=== PATIENT | female | born 1950 | race Caucasian/White ===

== ENCOUNTER 2019-08-24 16:14 | Inpatient (IN) | payer MEDICARE, MEDICAID ==
[~2019-08-24] VITALS: Ht 162.6 cm; Wt 61.9 kg
[2019-08-24 16:20] VITALS: BP 150/84
--- NOTE | 2019-08-24 16:20 | NUR ---
ED Nurse Note: Pt brought in by ambulance from [place] due to coughing and (+) pleural effusion. pt is alert x3.
--- NOTE | 2019-08-24 16:21 | Emergency Room Report ---
History of Present Illness General Chief Complaint: Upper Respiratory Illness Source: Patient, Medical Record, EMS Present Illness HPI 68-year-old female presents with worsening cough since August 17 pound no known aggravating relieving factors sputum production is noted, no fevers no chills no shortness of breath no chest pain no abdominal pain, severity is mild, constant patient was also noted to have a left pleural effusion that is worsening patient was sent in for evaluation and treatment Allergies: Coded Allergies: CODEINE (Verified Allergy, Unknown, 08/24/19) NEUROMUSCULAR BLOCKERS, STEROIDAL (Verified Allergy, Unknown, 08/24/19) Uncoded Allergies: ANABOLIC STEROIDS (Allergy, Unknown, 08/24/19) STEROIDS (Allergy, Unknown, 08/24/19) COVID-19 Screening Contact w/high risk pt: No Recent Travel to affected area: No Experienced COVID-19 symptoms?: Yes COVID-19 symptoms experienced: Cough Patient History Past Medical History: see triage record Reviewed Nursing Documentation: PMH: Agreed; PSxH: Agreed Review of Systems All Other Systems: negative except mentioned in HPI Physical Exam Vital Signs Date Time Temp Pulse Resp B/P (MAP) Pulse Ox O2 Delivery O2 Flow Rate FiO2 08/24/19 16:15 97.7 77 20 150/84 (106) 95 Room Air Sp02 EP Interpretation: reviewed, normal General Appearance: well appearing, no apparent distress, alert Head: normocephalic, atraumatic Eyes: bilateral eye PERRL, bilateral eye EOMI ENT: uvula midline, moist mucus membranes Neck: supple, thyroid normal, supple/symm/no masses Respiratory: lungs clear, no respiratory distress, no retraction, no accessory muscle use, decreased breath sounds Cardiovascular #1: normal peripheral pulses, regular rate, rhythm, no edema, no gallop, no murmur Gastrointestinal: non tender, soft, no guarding, no rebound Musculoskeletal: normal inspection Neurologic: alert, oriented x3 Psychiatric: mood/affect normal Skin: no rash, warm/dry Medical Decision Making Diagnostic Impression: Primary Impression: Suspected COVID-19 virus infection Additional Impressions: Cough Pleural effusion on left ER Course 68-year-old female presents with worsening cough, pleural effusion differential diagnosis includes COPD exacerbation, infection, empyema, COVID Will admit patient for COVID rule out, will defer antibiotics to inpatient team , the sputum samples will be sent patient will be admitted to [facility] Patient admitted to [facility] under Dr. Blanc Laboratory Tests Test 08/24/19 16:15 White Blood Count 6.6 K/UL (4.8-10.8) Red Blood Count 3.87 M/UL (4.20-5.40) L Hemoglobin 10.5 G/DL (12.0-16.0) L Hematocrit 32.8 % (37.0-47.0) L Mean Corpuscular Volume 85 FL (80-99) Mean Corpuscular Hemoglobin 27.2 PG (27.0-31.0) Mean Corpuscular Hemoglobin Concent 32.2 G/DL (32.0-36.0) Red Cell Distribution Width 13.7 % (11.6-14.8) Platelet Count 221 K/UL (150-450) Mean Platelet Volume 7.1 FL (6.5-10.1) Neutrophils (%) (Auto) 55.5 % (45.0-75.0) Lymphocytes (%) (Auto) 30.3 % (20.0-45.0) Monocytes (%) (Auto) 8.0 % (1.0-10.0) Eosinophils (%) (Auto) 5.5 % (0.0-3.0) H Basophils (%) (Auto) 0.7 % (0.0-2.0) Sodium Level 136 MMOL/L (136-145) Potassium Level 4.0 MMOL/L (3.5-5.1) Chloride Level 103 MMOL/L (98-107) Carbon Dioxide Level 22 MMOL/L (21-32) Anion Gap 11 mmol/L (5-15) Blood Urea Nitrogen 56 mg/dL (7-18) H Creatinine 3.2 MG/DL (0.55-1.30) H Estimated Glomerular Filtration Rate 14.4 mL/min (>60) Glucose Level 111 MG/DL (74-106) H Lactic Acid Level 0.30 mmol/L (0.4-2.0) L Calcium Level 9.5 MG/DL (8.5-10.1) Phosphorus Level 4.1 MG/DL (2.5-4.9) Magnesium Level 2.2 MG/DL (1.8-2.4) Total Bilirubin 0.2 MG/DL (0.2-1.0) Aspartate Amino Transferase (AST) 17 U/L (15-37) Alanine Aminotransferase (ALT) 17 U/L (12-78) Alkaline Phosphatase 93 U/L (46-116) Troponin I 0.000 ng/mL (0.000-0.056) Pro-B-Type Natriuretic Peptide 969 pg/mL (0-125) H Total Protein 7.9 G/DL (6.4-8.2) Albumin 2.9 G/DL (3.4-5.0) L Globulin 5.0 g/dL Albumin/Globulin Ratio 0.6 (1.0-2.7) L Lipase 334 U/L (73-393) EKG Diagnostic Results EKG Time: 16:31 EP Interpretation: NSR rate 80, QTc 426, no acute ST elevations, left axis deviation Rhythm Strip Diag. Results Rhythm Strip Time: 16:40 EP Interpretation: yes Rate: 82 Rhythm: NSR, no PVC's, no ectopy Chest X-Ray Diagnostic Results Chest X-Ray Diagnostic Results : Chest X-Ray Ordered: Yes # of Views/Limited/Complete: 1 View Indication: Other - Cough EP Interpretation: Yes Interpretation: other - Left pleural effusion versus opacity Impression: Other - Left pleural effusion Electronically Signed by: Aron Villalba MD Last Vital Signs Date Time Temp Pulse Resp B/P (MAP) Pulse Ox O2 Delivery O2 Flow Rate FiO2 08/24/19 16:15 97.7 77 20 150/84 (106) 95 Room Air Disposition: ADMITTED INPATIENT Condition: Stable Aron Villalba MD Aug 24, 2019 16:21
[2019-08-24] MEDS ORDERED: HYDRALAZINE HCL10 MG ORAL (16:32)
[2019-08-24] MEDS ORDERED: DUONEB 0.5-3(2.53 ML HHN (16:32)
[2019-08-24] MEDS ORDERED: VITAMIN D3-ALO1 EACH PO (16:32)
[2019-08-24] MEDS ORDERED: FERROUS SULFAT325 MG ORAL (16:32)
[2019-08-24] MEDS ORDERED: MUCINEX600 MG PO (16:32)
[2019-08-24] MEDS ORDERED: FOLIC ACID1 MG ORAL (16:32)
[2019-08-24] MEDS ORDERED: POLYETHYLENE GL17 GM ORAL (16:32)
[2019-08-24] MEDS ORDERED: SEROQUEL25 MG ORAL (16:32)
[2019-08-24] MEDS ORDERED: DOCUSATE SODIU100 MG ORAL (16:32)
[2019-08-24] MEDS ORDERED: MILK OF MA400 MG/51 ORAL (16:37)
[2019-08-24] MEDS ORDERED: ACETAMINOPHEN325 M1 ORAL ×2 (16:37)
[2019-08-24] MEDS ORDERED: FLEET ENEMA133 ML RECTAL (16:37)
[2019-08-24] MEDS ORDERED: LAXATIVE SUPPOS10 MG RC (16:37)
[2019-08-24] MEDS ORDERED: METHIMAZOLE10 MG PO (16:43)
[2019-08-24] MEDS ORDERED: K-DUR20 MEQ ORAL (16:43)
[2019-08-24] MEDS ORDERED: FUROSEMIDE20 M1 ORAL (16:43)
[2019-08-24] MEDS ORDERED: NEPHROVITE1 TAB ORAL (16:45)
--- NOTE | 2019-08-24 16:52 | NUR ---
ED Nurse Note: blood and swab sample sent to lab. pt unable to provide urine at this time but is aware urine sample is needed.
[2019-08-24 17:10] LABS: BASOPHILS % (AUTO) 0.7 % (0.0-2.0); EOSINOPHILS % (AUTO) 5.5 % (0.0-3.0); HEMATOCRIT 32.8 % (37.0-47.0); HEMOGLOBIN 10.5 G/DL (12.0-16.0); LYMPHOCYTES % (AUTO) 30.3 % (20.0-45.0); MEAN CORPUSCULAR VOLUME 85 FL (80-99); NEUTROPHILS % (AUTO) 55.5 % (45.0-75.0); PLATELET COUNT 221 K/UL (150-450); RED BLOOD COUNT 3.87 M/UL (4.20-5.40); RED CELL DISTRIBUTION WIDTH 13.7 % (11.6-14.8); WHITE BLOOD COUNT 6.6 K/UL (4.8-10.8)
[2019-08-24 17:12] LABS: ANION GAP 11 mmol/L (5-15); BLOOD UREA NITROGEN 56 mg/dL (7-18); CALCIUM 9.5 MG/DL (8.5-10.1); CARBON DIOXIDE 22 MMOL/L (21-32); CHLORIDE 103 MMOL/L (98-107); CREATININE 3.2 MG/DL (0.55-1.30); SODIUM 136 MMOL/L (136-145)
[2019-08-24 17:23] LABS: ALANINE AMINOTRANSFERASE 17 U/L (12-78); ALBUMIN 2.9 G/DL (3.4-5.0); ALBUMIN/GLOBULIN RATIO 0.6 (1.0-2.7); ALKALINE PHOSPHATASE 93 U/L (46-116); ASPARTATE AMINO TRANSFERASE 17 U/L (15-37); BILIRUBIN,TOTAL 0.2 MG/DL (0.2-1.0); PHOSPHORUS 4.1 MG/DL (2.5-4.9)
[2019-08-24 18:00] VITALS: BP 144/80
--- NOTE | 2019-08-24 18:00 | NUR ---
ED Nurse Note: pt in bed resting, no acute distress is noted. VSS as documented.
[2019-08-24] MEDS ORDERED: Miralax 17gm pkt ORAL PRN (18:15)
[2019-08-24] MEDS ORDERED: Milk of Magnesia 30ml Ud ORAL PRN (18:15)
[2019-08-24] MEDS ORDERED: Albuterol/Ipratropium 3ml neb HHN PRN (18:15)
--- NOTE | 2019-08-24 19:06 | NUR ---
ED Nurse Note: Recieved report from WILVER Tang. Patient resting in bed, no acute distress noted.
--- NOTE | 2019-08-24 19:06 | NUR ---
ED Nurse Note: Report given to WILVER Cortez. Endorsed plan of care.
[2019-08-24 19:14] VITALS: BP 135/75
--- NOTE | 2019-08-24 19:38 | NUR ---
here seen patient.
--- NOTE | 2019-08-24 19:41 | NUR ---
ED Nurse Note: Attempted to collect sputum, patient uncooperative and declined, states unable to give sputum sample.
--- NOTE | 2019-08-24 19:48 | NUR ---
ED Nurse Note: Report given to WLIVER Arriaga in tele.
--- NOTE | 2019-08-24 20:00 | NUR ---
NURSE NOTES: Received pt from ED via [facility]. Pt transferred to without any incident. Received report from WILVER Cortez. Pt is A/Ox3. Terrell pt to room and unit. playground monitor is in placed; pt is NSR. IV site intact, asymptomatic and patent. Belongings list checked and signed. Bed is in the lowest position and locked. Call light and bedside table is within reach. No signs/symptoms of acute distress noted at this time. Received orders from Dr. Blanc. Will note and carry out.
--- NOTE | 2019-08-24 20:00 | NUR ---
TRANSFER TO FLOOR: Patient transferred to telemetry as ordered, per ERMD. Report given to WILVER Arriaga. Patient transported via gurney on ACLS protocol on [facility] accompanied by 1 RN and geoscience laboratory technician in stable condition.
[2019-08-24 20:10] VITALS: BP 162/60
--- NOTE | 2019-08-24 20:26 | Diagnostic Imaging Report ---
Indication: Cough, shortness of breath Technique: One view of the chest Comparison: none Findings: Opacity at the left lung base likely reflects combination of pleural fluid, atelectasis, and possibly consolidation. The left upper lung, right lung and pleural space are clear. The heart is enlarged. Impression: Left basilar opacity, likely combination of consolidation, pleural fluid, and atelectasis. Mild cardiomegaly
[2019-08-24] MEDS: HydrALAZINE 10mg Tab ORAL SCH (21:52)
[2019-08-24] MEDS: Docusate 100mg cap ORAL SCH (21:52)
[2019-08-24] MEDS: Heparin 5000 units/ml inj SUBQ SCH (21:53)
--- NOTE | 2019-08-24 22:50 | Infectious Diseases Prog Note ---
Assessment/Plan Assessment/Plan Full consult dictated: A) 1) rule out covid-19 infection/pna 2) possible cap pna 3) cough, effusion P) 1) ceftriaxone and doxycycline 2) f/u on covid-19 testing, labs and chest x-ray 30 thank you Subjective Allergies: Coded Allergies: CODEINE (Verified Allergy, Unknown, 08/24/19) NEUROMUSCULAR BLOCKERS, STEROIDAL (Verified Allergy, Unknown, 08/24/19) Uncoded Allergies: ANABOLIC STEROIDS (Allergy, Unknown, 08/24/19) STEROIDS (Allergy, Unknown, 08/24/19) Objective Vital Signs Last 24 Hour Vital Signs Date Time Temp Pulse Resp B/P (MAP) Pulse Ox O2 Delivery O2 Flow Rate FiO2 08/24/19 21:52 162/60 08/24/19 20:00 98.0 78 15 110/68 98 Room Air 08/24/19 19:14 78 16 135/75 97 Room Air 08/24/19 18:00 98.0 78 17 144/80 97 Room Air 08/24/19 16:20 80 19 Room Air 08/24/19 16:20 98.0 80 19 150/84 95 Room Air 08/24/19 16:15 97.7 77 20 150/84 (106) 95 Room Air Height (Feet): 5 Height (Inches): 4.00 Weight (Pounds): 165 Laboratory Tests Test 08/24/19 16:15 White Blood Count 6.6 K/UL (4.8-10.8) Red Blood Count 3.87 M/UL (4.20-5.40) L Hemoglobin 10.5 G/DL (12.0-16.0) L Hematocrit 32.8 % (37.0-47.0) L Mean Corpuscular Volume 85 FL (80-99) Mean Corpuscular Hemoglobin 27.2 PG (27.0-31.0) Mean Corpuscular Hemoglobin Concent 32.2 G/DL (32.0-36.0) Red Cell Distribution Width 13.7 % (11.6-14.8) Platelet Count 221 K/UL (150-450) Mean Platelet Volume 7.1 FL (6.5-10.1) Neutrophils (%) (Auto) 55.5 % (45.0-75.0) Lymphocytes (%) (Auto) 30.3 % (20.0-45.0) Monocytes (%) (Auto) 8.0 % (1.0-10.0) Eosinophils (%) (Auto) 5.5 % (0.0-3.0) H Basophils (%) (Auto) 0.7 % (0.0-2.0) Sodium Level 136 MMOL/L (136-145) Potassium Level 4.0 MMOL/L (3.5-5.1) Chloride Level 103 MMOL/L (98-107) Carbon Dioxide Level 22 MMOL/L (21-32) Anion Gap 11 mmol/L (5-15) Blood Urea Nitrogen 56 mg/dL (7-18) H Creatinine 3.2 MG/DL (0.55-1.30) H Estimat Glomerular Filtration Rate 14.4 mL/min (>60) Glucose Level 111 MG/DL (74-106) H Lactic Acid Level 0.30 mmol/L (0.4-2.0) L Calcium Level 9.5 MG/DL (8.5-10.1) Phosphorus Level 4.1 MG/DL (2.5-4.9) Magnesium Level 2.2 MG/DL (1.8-2.4) Total Bilirubin 0.2 MG/DL (0.2-1.0) Aspartate Amino Transf (AST/SGOT) 17 U/L (15-37) Alanine Aminotransferase (ALT/SGPT) 17 U/L (12-78) Alkaline Phosphatase 93 U/L (46-116) Troponin I 0.000 ng/mL (0.000-0.056) Pro-B-Type Natriuretic Peptide 969 pg/mL (0-125) H Total Protein 7.9 G/DL (6.4-8.2) Albumin 2.9 G/DL (3.4-5.0) L Globulin 5.0 g/dL Albumin/Globulin Ratio 0.6 (1.0-2.7) L Lipase 334 U/L (73-393) Current Medications Medications (Trade) Dose Ordered Sig/Gurpreet Route PRN Reason Start Time Stop Time Status Last Admin Dose Admin Acetaminophen (Tylenol) 650 mg Q4H PRN ORAL Mild Pain (Pain Scale 1-3) 08/24/19 18:15 09/23/19 18:14 Acetaminophen (Tylenol) 650 mg Q4H PRN ORAL Temp >100.5 08/24/19 18:15 09/23/19 18:14 Albuterol/ Ipratropium (Albuterol/ Ipratropium) 3 ml Q6H PRN HHN Shortness of Breath 08/24/19 18:15 08/29/19 18:14 Bisacodyl (Dulcolax) 10 mg DAILYPRN PRN RECTAL Constipation 08/24/19 18:30 11/22/19 18:14 Ceftriaxone Sodium 1 gm/ Dextrose 50 ml @ 100 mls/hr Q24H IVPB 08/25/19 00:00 09/01/19 00:00 Clonidine HCl (Catapres Tab) 0.1 mg Q8H PRN ORAL SBP > 160mmHg 08/24/19 18:15 11/22/19 18:14 Dextrose (Dextrose 50%) 25 ml Q30M PRN IV Hypoglycemia 08/24/19 18:15 11/22/19 18:14 Dextrose (Dextrose 50%) 50 ml Q30M PRN IV Hypoglycemia 08/24/19 18:15 11/22/19 18:14 Docusate Sodium (Colace) 100 mg EVERY 12 HOURS ORAL 08/24/19 21:00 09/23/19 20:59 08/24/19 21:52 Doxycycline Monohydrate (Doxycycline Monohydrate) 100 mg EVERY 12 HOURS ORAL 08/25/19 09:00 09/01/19 08:59 UNV Guaifenesin (Robitussin) 200 mg Q4H PRN ORAL For Cough 08/24/19 18:15 11/22/19 18:14 Heparin Sodium (Porcine) (Heparin 5000 units/ml) 5,000 units EVERY 12 HOURS SUBQ 08/24/19 21:00 10/08/19 20:59 08/24/19 21:53 Hydralazine HCl (Apresoline) 10 mg EVERY 8 HOURS ORAL 08/24/19 22:00 11/22/19 21:59 08/24/19 21:52 Magnesium Hydroxide (Mom) 30 ml HSPRN PRN ORAL Constipation 08/24/19 18:15 09/23/19 18:14 Ondansetron HCl (Zofran) 4 mg Q6H PRN IVP Nausea & Vomiting 08/24/19 18:15 09/23/19 18:14 Polyethylene Glycol (Miralax) 17 gm DAILYPRN PRN ORAL Constipation 08/24/19 18:15 09/23/19 18:14 Quetiapine Fumarate (SEROqueL) 25 mg QHS ORAL 08/24/19 21:00 10/08/19 20:59 08/24/19 21:52 Louie Bullard MD Aug 24, 2019 22:50
--- NOTE | 2019-08-24 23:29 | Consultation ---
DATE OF CONSULTATION: 08/24/2019 PULMONARY CONSULTATION CONSULTING PHYSICIAN: Andres uQick MD. HISTORY OF PRESENT ILLNESS: This is a 68-year-old female, who presents with a cough for about a week. The patient was seen and worked up in the ER. There was concern about a left pleural effusion. I have been consulted for pulmonary evaluation. ALLERGIES: The patient has a history of allergy to codeine, neuromuscular blockers, anabolic steroids. CURRENT MEDICATIONS: Her current list of medications include Tylenol, Colace, clonidine, DuoNeb, hydralazine, and milk of magnesia. SOCIAL HISTORY: The patient was brought in from [place]. The patient underwent COVID-19 testing in the emergency room. REVIEW OF SYSTEMS: Denies any headaches, hematemesis, melena, hematochezia, or weight loss. PHYSICAL EXAMINATION: GENERAL: Reveals a 68-year-old female. HEENT: Unremarkable. LUNGS: Clear breath sounds bilaterally. ABDOMEN: Soft. NEUROLOGIC: Nonfocal. LABORATORY DATA: Lab testing at this time is notable for normal CBC, hemoglobin 10.5, creatinine 3.2, lactic acid 0.3. Glucose 111. X-ray chest discussed above shows a small left effusion and cardiomegaly. IMPRESSION: 1. Possible left lung pneumonia. 2. Small left effusion, known indication for thoracentesis. DISCUSSION: Agree with empiric antibiotics. The patient needs diuresis. Hold off on thoracentesis, currently saturating well on room air. We will follow. Andres Quick M.D. DR: PITA JOB#: [id number] CC:
[2019-08-25] VITALS: BP 149/90
[2019-08-25] MEDS: cefTRIAXone 1 GM in D5W 50 ML IVPB SCH (00:20)
[2019-08-25 04:00] VITALS: BP 125/93
[2019-08-25] MEDS: HydrALAZINE 10mg Tab ORAL SCH ×4 (05:41→21:57)
[2019-08-25 07:15] LABS: BASOPHILS % (AUTO) 0.6 % (0.0-2.0); EOSINOPHILS % (AUTO) 2.9 % (0.0-3.0); HEMATOCRIT 32.1 % (37.0-47.0); HEMOGLOBIN 10.8 G/DL (12.0-16.0); LYMPHOCYTES % (AUTO) 29.5 % (20.0-45.0); MEAN CORPUSCULAR VOLUME 81 FL (80-99); MONOCYTES % (AUTO) 7.8 % (1.0-10.0); NEUTROPHILS % (AUTO) 59.2 % (45.0-75.0); PLATELET COUNT 204 K/UL (150-450); RED BLOOD COUNT 3.96 M/UL (4.20-5.40); RED CELL DISTRIBUTION WIDTH 12.3 % (11.6-14.8); WHITE BLOOD COUNT 6.5 K/UL (4.8-10.8)
[2019-08-25 07:35] LABS: ALANINE AMINOTRANSFERASE 22 U/L (12-78); ALBUMIN 2.8 G/DL (3.4-5.0); ALBUMIN/GLOBULIN RATIO 0.6 (1.0-2.7); ALKALINE PHOSPHATASE 88 U/L (46-116); ANION GAP 15 mmol/L (5-15); ASPARTATE AMINO TRANSFERASE 16 U/L (15-37); BILIRUBIN,TOTAL 0.3 MG/DL (0.2-1.0); BLOOD UREA NITROGEN 56 mg/dL (7-18); CARBON DIOXIDE 20 MMOL/L (21-32); CHLORIDE 105 MMOL/L (98-107); CREATININE 3.3 MG/DL (0.55-1.30); POTASSIUM 3.8 MMOL/L (3.5-5.1); SODIUM 140 MMOL/L (136-145)
--- NOTE | 2019-08-25 07:37 | NUR ---
HAND-OFF: Report given to WILVER Hahn. Plan of care endorsed.
[2019-08-25 08:00] VITALS: BP 129/65
--- NOTE | 2019-08-25 08:15 | Consultation ---
DATE OF CONSULTATION: 08/24/2019 INFECTIOUS DISEASES CONSULTATION CONSULTING PHYSICIAN: Louie Bullard MD. ATTENDING PHYSICIAN: Katlin Orozco MD. REFERRING PHYSICIAN: Dr. Blanc. REASON FOR CONSULTATION: Pneumonia, cough, effusion, possible COVID-19 virus infection versus community-acquired pneumonia. CHIEF COMPLAINT: The patient's chief complaint coming in to the hospital was confusion, cough, possible COVID-19 virus infection versus community-acquired pneumonia. HISTORY OF PRESENT ILLNESS: This is a very pleasant 68-year-old female who comes to the [facility]. The patient comes in with cough and was noted on chest x-ray to have an effusion and consolidation. Because of the potential pneumonia and possibility of COVID-19 virus infections especially with cough and chest x-ray findings, the patient is being admitted and placed on isolation, being tested for COVID-19 virus infection and pneumonia. Infectious Disease consultation was requested. The patient also could have community-acquired pneumonia. The patient was placed on Rocephin and doxycycline. No indication for hydroxychloroquine. MAR was noted. Orders were noted. Notes and records were reviewed. The patient was seen in the emergency room. REVIEW OF SYSTEMS: CONSTITUTIONAL: The patient has no fever, chills, or night sweats. HEAD AND NECK: No head pain, neck pain, neck stiffness, thrush, dysphagia, or headache. CARDIAC: No chest pain or palpitations. GASTROINTESTINAL: No nausea, vomiting, abdominal pain, or diarrhea. GENITOURINARY: No dysuria or frequency. PULMONARY: The patient has cough. No significant shortness of breath. SKIN: No rash. EXTREMITIES: No pain. NEUROLOGIC: No seizures. Generalized fatigue. No focal weakness. No seizure activity, itching, or rash. PAST MEDICAL HISTORY: The patient has a past medical history of effusion, cough. The patient has a past medical history of COPD and also past medical history of multiple sclerosis. No history of diabetes noted. The patient has history of possible fluid or edema. She is on furosemide. Again, no history of diabetes, cancer, or heart disease it looks like. It also looks like she has a history of hypertension in addition to multiple sclerosis, COPD, effusion, and cough. ALLERGIES: Include anabolic steroids, codeine, neuromuscular blockers, and steroids. SOCIAL HISTORY: I believe it is negative for smoking, alcohol, or drug abuse. FAMILY HISTORY: Noncontributory. Negative for exposure to tuberculosis or cancer. MEDICATIONS: Upon reviewing the MAR, the patient is on the following medications. The patient is on Rocephin, doxycycline, acetaminophen, bisacodyl, docusate, DuoNeb, furosemide, heparin, hydralazine, milk of magnesia, Zofran, polyethylene glycol, quetiapine, clonidine as needed, and hydralazine. Outside medications noted and reconciliated. PHYSICAL EXAMINATION: VITAL SIGNS: Temperature is 98.0, pulse rate is 70, respiratory rate is 15, blood pressure 110/68, and saturation 98% on room air. GENERAL: Alert, responsive, seems to be oriented. HEAD AND NECK: Oral exam, no thrush. Eye exam, no icterus. Normocephalic. Neck is supple. No JVD. HEART: Regular. No gallop, murmur, or friction rub. ABDOMEN: Soft. Positive bowel sounds. Nontender. LUNGS: Few bilateral rhonchi, mostly clear, possible rales at bases. SKIN: No rash. MUSCULOSKELETAL: No effusions. Legs without cellulitis. PERIPHERAL VASCULAR: No cyanosis or gangrene. GENITOURINARY: She has no Escobar. LINE SITES: Without phlebitis. NEUROLOGIC: Intact and nonfocal. Alert and oriented x3. LABORATORY DATA: Creatinine 3.2. White count 6.6, hemoglobin 10.5. LFTs were noted. Imaging studies, chest x-ray with left basilar consolidation, atelectasis, and effusion. Rest of the labs, imaging, and cultures are pending. COVID-19 virus PCR testing is pending. ASSESSMENT AND PLAN: 1. The patient has pneumonia on chest x-ray with cough and effusion, rule out COVID-19 virus infection and pneumonia. Rule out community-acquired pneumonia. This is a unilateral process, which suggests community-acquired pneumonia. We will place the patient on Rocephin and doxycycline for Streptococcus pneumoniae coverage and atypical coverage. Continue Rocephin and doxycycline for community-acquired pneumonia and await COVID-19 virus PCR testing. We will continue COVID-19 virus isolation for now. Continue Rocephin and doxycycline for pneumonia pending workup. 2. The patient has anemia. 3. Renal failure. 4. COPD. 5. Multiple sclerosis. 6. Hypertension. 7. Effusion. 8. Cough. 9. Continue treatment per primary consultants. 10. Orders were noted and entered. 11. Allergies to anabolic steroids, codeine, neuromuscular blockers. 12. Social history negative. 13. Family history noncontributory. 14. MAR was noted. 15. Case discussed with RN. Louie Bullard M.D. DR: Portia JOB#: [id number] CC:
[2019-08-25] MEDS: Doxycycline Monohydrate 100mg ORAL SCH ×2 (09:20→21:57)
[2019-08-25] MEDS: Docusate 100mg cap ORAL SCH ×2 (09:20→21:57)
[2019-08-25] MEDS: Heparin 5000 units/ml inj SUBQ SCH ×2 (09:23→21:58)
--- NOTE | 2019-08-25 09:58 | History and Physical ---
History of Present Illness General Reason for Hospitalization: Upper Respiratory Illness Present Illness HPI 68 y/o F w/PMH hyperthyroidism, multiple sclerosis, HTN and COPD who presents from [facility] for cough and abnormal labs. Patient states she was in her usual state of health, noted a non-productive cough that began 1 week ago, she denies SOB, F/C, N/V. She denies any abdominal pain, dysuria, changes in urination or BMs. Per review of chart from [place], CXR was obtained on which revealed worsening pleural effusion of left lung. BMP revealed Cr 2.9, pt's b/l Cr 2.3 on 01/2019. On admission, CXR revealed left lower lobe pleural effusion, Cr 3.2. Patient admitted for further treatment and evaluation, and COVID-19 r/o. PMH: hyperthyroidism, multiple sclerosis, HTN and COPD FH: Reviewed and not pertinent SH: lives in [place], denies ETOH/tobacco allergies: reviewed, noted above Allergies: Coded Allergies: CODEINE (Verified Allergy, Unknown, 08/24/19) NEUROMUSCULAR BLOCKERS, STEROIDAL (Verified Allergy, Unknown, 08/24/19) Uncoded Allergies: ANABOLIC STEROIDS (Allergy, Unknown, 08/24/19) STEROIDS (Allergy, Unknown, 08/24/19) COVID-19 Screening Contact w/high risk pt: No Recent Travel to affected area: No Experienced COVID-19 symptoms?: Yes COVID-19 symptoms experienced: Cough Medication History Scheduled Bisacodyl (Laxative Suppository), 10 MG RC DAILY, (Reported) Ca Cmb 1/Vit D3/B-6/Fa/B12/Av (Vitamin D3-Aloe 1,000 Unit Tab), 1 EACH PO DAILY, (Reported) Docusate Sodium* (Docusate Sodium*), 100 MG ORAL DAILY, (Reported) Ferrous Sulfate* (Ferrous Sulfate*), 325 MG ORAL DAILY, (Reported) Folic Acid* (Folic Acid*), 1 MG ORAL DAILY, (Reported) Furosemide* (Lasix*), 20 MG ORAL DAILY, (Reported) Guaifenesin (Mucinex), 200 MG PO Q4HR, (Reported) Hydralazine Hcl* (Hydralazine Hcl*), 10 MG ORAL EVERY 8 HOURS, (Reported) Ipratropium/Albuterol Sulfate (DuoNeb 0.5-3(2.5)mg/3ml), 3 ML HHN Q6HR, ( Reported) Magnesium Hydroxide* (Milk Of Magnesia*), 30 ML ORAL BID, (Reported) Methimazole (Methimazole), 10 MG PO DAILY, (Reported) Na Phos,M-B/Na Phos,Di-Ba* (Fleet Enema*), 133 ML RECTAL DAILY, (Reported) Polyethylene Glycol 3350* (Polyethylene Glycol 3350*), 17 GM ORAL DAILY, ( Reported) Potassium Chloride (Klor-Con M20), 20 MEQ ORAL DAILY, (Reported) Quetiapine Fumarate* (Seroquel*), 25 MG ORAL QHS, (Reported) Vitamin B Cmplx/Vit C/Folic AC (Nephro-Jerry Tablet), 1 TAB ORAL DAILY, (Reported ) Scheduled PRN Acetaminophen* (Acetaminophen 325MG Tablet*), 650 MG ORAL Q4H PRN for fever, ( Reported) Acetaminophen* (Acetaminophen 325MG Tablet*), 650 MG ORAL Q6H PRN for mild pain, (Reported) Patient History Healthcare decision maker N Resuscitation status Full Code Advanced Directive on File Review of Systems Constitutional: Denies: no symptoms, see HPI, chills, sweats, fever, malaise, weakness, other Eye: Denies: no symptoms, see HPI, eye pain, blurred vision, tearing, double vision, nose pain, nose congestion, acuity changes, discharge, other ENT: Denies: no symptoms, see HPI, ear pain, ear discharge, nose pain, nose congestion, throat pain, throat swelling, mouth pain, hearing loss, nasal discharge, other Respiratory: Reports: cough Cardiovascular: Denies: no symptoms, see HPI, chest pain, edema, palpitations, syncope, PND, other Gastrointestinal: Denies: no symptoms, see HPI, abdominal pain, constipation, diarrhea, nausea, vomiting, melena, hematemesis, other Genitourinary: Denies: no symptoms, see HPI, discharge, dysuria, frequency, hematuria, pain, retention, incontinence, urgency, vag bleed/dc, other Musculoskeletal: Denies: no symptoms, see HPI, back pain, gout, joint pain, joint swelling, muscle pain, muscle stiffness, other Skin: Denies: no symptoms, see HPI, rash, change in color, change in hair/nails , dryness, lesions, other Psychiatric: Denies: no symptoms, see HPI, prior hx, anxiety, depressed feelings, emotional problems, SI, HI, hallucinations, other Endocrine: Denies: no symptoms, see HPI, excessive sweating, flushing, intolerance to temperature, increased thirst, increased urine, unexplained weight loss, other Physical Exam Physical Exam Narrative General: NAD, A&O x 3 HEENT: NCAT, EOMi, MMM CV: RRR, no murmurs, rubs, or gallops Pulm: CTAB, No wheezes, rhonchi, or rales, no accessory muscle usage or conversational dyspnea GI: Soft, nontender, nondistended, bowel sounds present Ext: No lower extremity edema bilaterally, Skin: no rashes lesions or ulcers Msk: RUE contracted hand, chronic per pt Neuro: CN 2-12 grossly intact bilaterally, no focal signs. Last 24 Hour Vital Signs Date Time Temp Pulse Resp B/P (MAP) Pulse Ox O2 Delivery O2 Flow Rate FiO2 08/25/19 05:41 132/90 08/25/19 04:00 98.2 98 17 125/93 (104) 93 08/25/19 04:00 89 08/25/19 00:00 97.4 86 19 149/90 (109) 93 08/25/19 00:00 92 08/24/19 22:15 109 08/24/19 21:52 162/60 08/24/19 20:19 Room Air 08/24/19 20:10 97.2 84 19 162/60 (94) 94 08/24/19 20:00 98.0 78 15 110/68 98 Room Air 08/24/19 19:14 78 16 135/75 97 Room Air 08/24/19 18:00 98.0 78 17 144/80 97 Room Air 08/24/19 16:20 80 19 Room Air 08/24/19 16:20 98.0 80 19 150/84 95 Room Air 08/24/19 16:15 97.7 77 20 150/84 (106) 95 Room Air Intake and Output 08/24/19 08/25/19 19:00 07:00 Intake Total 0 ml Balance 0 ml Intake Oral 0 ml # Voids 2 # Bowel Movements 1 Laboratory Tests Test 08/24/19 16:15 08/25/19 06:15 White Blood Count 6.6 K/UL (4.8-10.8) 6.5 K/UL (4.8-10.8) Red Blood Count 3.87 M/UL (4.20-5.40) L 3.96 M/UL (4.20-5.40) L Hemoglobin 10.5 G/DL (12.0-16.0) L 10.8 G/DL (12.0-16.0) L Hematocrit 32.8 % (37.0-47.0) L 32.1 % (37.0-47.0) L Mean Corpuscular Volume 85 FL (80-99) 81 FL (80-99) Mean Corpuscular Hemoglobin 27.2 PG (27.0-31.0) 27.3 PG (27.0-31.0) Mean Corpuscular Hemoglobin Concent 32.2 G/DL (32.0-36.0) 33.6 G/DL (32.0-36.0) Red Cell Distribution Width 13.7 % (11.6-14.8) 12.3 % (11.6-14.8) Platelet Count 221 K/UL (150-450) 204 K/UL (150-450) Mean Platelet Volume 7.1 FL (6.5-10.1) 6.1 FL (6.5-10.1) L Neutrophils (%) (Auto) 55.5 % (45.0-75.0) 59.2 % (45.0-75.0) Lymphocytes (%) (Auto) 30.3 % (20.0-45.0) 29.5 % (20.0-45.0) Monocytes (%) (Auto) 8.0 % (1.0-10.0) 7.8 % (1.0-10.0) Eosinophils (%) (Auto) 5.5 % (0.0-3.0) H 2.9 % (0.0-3.0) Basophils (%) (Auto) 0.7 % (0.0-2.0) 0.6 % (0.0-2.0) Sodium Level 136 MMOL/L (136-145) 140 MMOL/L (136-145) Potassium Level 4.0 MMOL/L (3.5-5.1) 3.8 MMOL/L (3.5-5.1) Chloride Level 103 MMOL/L (98-107) 105 MMOL/L (98-107) Carbon Dioxide Level 22 MMOL/L (21-32) 20 MMOL/L (21-32) L Anion Gap 11 mmol/L (5-15) 15 mmol/L (5-15) Blood Urea Nitrogen 56 mg/dL (7-18) H 56 mg/dL (7-18) H Creatinine 3.2 MG/DL (0.55-1.30) H 3.3 MG/DL (0.55-1.30) H Estimat Glomerular Filtration Rate 14.4 mL/min (>60) 13.9 mL/min (>60) Glucose Level 111 MG/DL (74-106) H 100 MG/DL (74-106) Lactic Acid Level 0.30 mmol/L (0.4-2.0) L Calcium Level 9.5 MG/DL (8.5-10.1) 9.0 MG/DL (8.5-10.1) Phosphorus Level 4.1 MG/DL (2.5-4.9) Magnesium Level 2.2 MG/DL (1.8-2.4) Total Bilirubin 0.2 MG/DL (0.2-1.0) 0.3 MG/DL (0.2-1.0) Aspartate Amino Transf (AST/SGOT) 17 U/L (15-37) 16 U/L (15-37) Alanine Aminotransferase (ALT/SGPT) 17 U/L (12-78) 22 U/L (12-78) Alkaline Phosphatase 93 U/L (46-116) 88 U/L (46-116) Troponin I 0.000 ng/mL (0.000-0.056) Pro-B-Type Natriuretic Peptide 969 pg/mL (0-125) H 1233 pg/mL (0-125) H Total Protein 7.9 G/DL (6.4-8.2) 7.7 G/DL (6.4-8.2) Albumin 2.9 G/DL (3.4-5.0) L 2.8 G/DL (3.4-5.0) L Globulin 5.0 g/dL 4.9 g/dL Albumin/Globulin Ratio 0.6 (1.0-2.7) L 0.6 (1.0-2.7) L Lipase 334 U/L (73-393) Height (Feet): 5 Height (Inches): 4.00 Weight (Pounds): 165 Medications Current Medications Medications (Trade) Dose Ordered Sig/Gurpreet Route PRN Reason Start Time Stop Time Status Last Admin Dose Admin Acetaminophen (Tylenol) 650 mg Q4H PRN ORAL Mild Pain (Pain Scale 1-3) 08/24/19 18:15 09/23/19 18:14 Acetaminophen (Tylenol) 650 mg Q4H PRN ORAL Temp >100.5 08/24/19 18:15 09/23/19 18:14 Albuterol/ Ipratropium (Albuterol/ Ipratropium) 3 ml Q6H PRN HHN Shortness of Breath 08/24/19 18:15 08/29/19 18:14 Bisacodyl (Dulcolax) 10 mg DAILYPRN PRN RECTAL Constipation 08/24/19 18:30 11/22/19 18:14 Ceftriaxone Sodium 1 gm/ Dextrose 50 ml @ 100 mls/hr Q24H IVPB 08/25/19 00:00 09/01/19 00:00 08/25/19 00:20 Clonidine HCl (Catapres Tab) 0.1 mg Q8H PRN ORAL SBP > 160mmHg 08/24/19 18:15 11/22/19 18:14 Dextrose (Dextrose 50%) 25 ml Q30M PRN IV Hypoglycemia 08/24/19 18:15 11/22/19 18:14 Dextrose (Dextrose 50%) 50 ml Q30M PRN IV Hypoglycemia 08/24/19 18:15 11/22/19 18:14 Docusate Sodium (Colace) 100 mg EVERY 12 HOURS ORAL 08/24/19 21:00 09/23/19 20:59 08/25/19 09:20 Doxycycline Monohydrate (Doxycycline Monohydrate) 100 mg EVERY 12 HOURS ORAL 08/25/19 09:00 09/01/19 08:59 08/25/19 09:20 Guaifenesin (Robitussin) 200 mg Q4H PRN ORAL For Cough 08/24/19 18:15 11/22/19 18:14 Heparin Sodium (Porcine) (Heparin 5000 units/ml) 5,000 units EVERY 12 HOURS SUBQ 08/24/19 21:00 10/08/19 20:59 08/25/19 09:23 Hydralazine HCl (Apresoline) 10 mg EVERY 8 HOURS ORAL 08/24/19 22:00 11/22/19 21:59 08/25/19 05:41 Magnesium Hydroxide (Mom) 30 ml HSPRN PRN ORAL Constipation 08/24/19 18:15 09/23/19 18:14 Ondansetron HCl (Zofran) 4 mg Q6H PRN IVP Nausea & Vomiting 08/24/19 18:15 09/23/19 18:14 Polyethylene Glycol (Miralax) 17 gm DAILYPRN PRN ORAL Constipation 08/24/19 18:15 09/23/19 18:14 Quetiapine Fumarate (SEROqueL) 25 mg QHS ORAL 08/24/19 21:00 10/08/19 20:59 08/24/19 21:52 Assessment/Plan Assessment/Plan: 68 y/o F w/PMH hyperthyroidism, multiple sclerosis, HTN and COPD who presents from [facility] for cough and abnormal labs. On admission, CXR revealed left lower lobe pleural effusion, Cr 3.2. Patient admitted for further treatment and evaluation, and COVID-19 r/o. #CAP #Suspect COVID #Left pleural effusion -admit to tele -COVID isolation protocol -f/u COVID PCR -CXR reviewed, unilateral PNA/pleural effusion -BCx, SCx pending -d/w pulm, plueral effusion small at this time, no indication for thora at this time -d/w nephro, s/p 1 dose lasix 80 IV given -ID consulted: CTX, doxy #SAJAN on CKD -Cr b/l 2.3 on 01/2019 -Cr elevated on admission -d/w nephro, OK for one dose lasix 80 mg IV -Darin, Dr. Jaimes, consulted, recs appreciated #COPD -not in exacerbation at this time -currently on RA -supportive care, supplemental O2 PRN for SpO2<88 -ctm #Multiple sclerosis -PT/OT treat and eval once COVID ruled out #Hyperthyroidism -home med methimazole 10 mg PO q daily DVT PPx: Heparin Time spent on encounter: 72 mins, 34 on counseling, coordination of care. Additional 34 mins spent on chart review, reviewed last progress note/labs from jail and discussing POC w/consultants, ID, Pulm and Nephro. Time of note doesn't reflect time of encounter. Abdias Blanc M.D. August 25, 2019 09:58
--- NOTE | 2019-08-25 10:56 | Consultation ---
History of Present Illness General Chief Complaint: Upper Respiratory Illness Present Illness HPI This is a 68 year old female with past medical history of hyperthyroidism, multiple sclerosis, HTN and COPD who presents from [facility] cough and abnormal labs. Patient states she was in her usual state of health, noted a non-productive cough that began 1 week ago, she denies SOB, F/C, N/V. She denies any abdominal pain, dysuria, changes in urination or BMs. Per review of chart from [place], CXR was obtained on 08/23 which revealed worsening pleural effusion of left lung. BMP revealed Cr 2.9, pt's b/l Cr 2.3 on 01/2019. On admission, CXR revealed left lower lobe pleural effusion, Cr 3.2. Patient admitted for further treatment and evaluation, and COVID-19 r/o. Chest xray: Impression: Left basilar opacity, likely combination of consolidation, pleural fluid, and atelectasis. Allergies: Coded Allergies: CODEINE (Verified Allergy, Unknown, 08/24/19) NEUROMUSCULAR BLOCKERS, STEROIDAL (Verified Allergy, Unknown, 08/24/19) Uncoded Allergies: ANABOLIC STEROIDS (Allergy, Unknown, 08/24/19) STEROIDS (Allergy, Unknown, 08/24/19) Medication History Scheduled Bisacodyl (Laxative Suppository), 10 MG RC DAILY, (Reported) Ca Cmb 1/Vit D3/B-6/Fa/B12/Av (Vitamin D3-Aloe 1,000 Unit Tab), 1 EACH PO DAILY, (Reported) Docusate Sodium* (Docusate Sodium*), 100 MG ORAL DAILY, (Reported) Ferrous Sulfate* (Ferrous Sulfate*), 325 MG ORAL DAILY, (Reported) Folic Acid* (Folic Acid*), 1 MG ORAL DAILY, (Reported) Furosemide* (Lasix*), 20 MG ORAL DAILY, (Reported) Guaifenesin (Mucinex), 200 MG PO Q4HR, (Reported) Hydralazine Hcl* (Hydralazine Hcl*), 10 MG ORAL EVERY 8 HOURS, (Reported) Ipratropium/Albuterol Sulfate (DuoNeb 0.5-3(2.5)mg/3ml), 3 ML HHN Q6HR, ( Reported) Magnesium Hydroxide* (Milk Of Magnesia*), 30 ML ORAL BID, (Reported) Methimazole (Methimazole), 10 MG PO DAILY, (Reported) Na Phos,M-B/Na Phos,Di-Ba* (Fleet Enema*), 133 ML RECTAL DAILY, (Reported) Polyethylene Glycol 3350* (Polyethylene Glycol 3350*), 17 GM ORAL DAILY, ( Reported) Potassium Chloride (Klor-Con M20), 20 MEQ ORAL DAILY, (Reported) Quetiapine Fumarate* (Seroquel*), 25 MG ORAL QHS, (Reported) Vitamin B Cmplx/Vit C/Folic AC (Nephro-Jerry Tablet), 1 TAB ORAL DAILY, (Reported ) Scheduled PRN Acetaminophen* (Acetaminophen 325MG Tablet*), 650 MG ORAL Q4H PRN for fever, ( Reported) Acetaminophen* (Acetaminophen 325MG Tablet*), 650 MG ORAL Q6H PRN for mild pain, (Reported) Patient History Healthcare decision maker N Resuscitation status Full Code Advanced Directive on File Review of Systems All Other Systems: negative except mentioned in HPI Physical Exam General Appearance: no apparent distress Lines, tubes and drains: peripheral HEENT: normocephalic Neck: non-tender Respiratory/Chest: no respiratory distress, rhonchi - left Cardiovascular/Chest: normal peripheral pulses Abdomen: normal bowel sounds, non tender, soft Neurologic: abnormal gait, oriented x 3 Last 24 Hour Vital Signs Date Time Temp Pulse Resp B/P (MAP) Pulse Ox O2 Delivery O2 Flow Rate FiO2 08/25/19 09:00 Room Air 08/25/19 08:00 85 08/25/19 08:00 98.4 74 19 129/65 (86) 98 08/25/19 05:41 132/90 08/25/19 04:00 98.2 98 17 125/93 (104) 93 08/25/19 04:00 89 08/25/19 00:00 97.4 86 19 149/90 (109) 93 08/25/19 00:00 92 08/24/19 22:15 109 08/24/19 21:52 162/60 08/24/19 20:19 Room Air 08/24/19 20:10 97.2 84 19 162/60 (94) 94 08/24/19 20:00 98.0 78 15 110/68 98 Room Air 08/24/19 19:14 78 16 135/75 97 Room Air 08/24/19 18:00 98.0 78 17 144/80 97 Room Air 08/24/19 16:20 80 19 Room Air 08/24/19 16:20 98.0 80 19 150/84 95 Room Air 08/24/19 16:15 97.7 77 20 150/84 (106) 95 Room Air Intake and Output 08/24/19 08/25/19 19:00 07:00 Intake Total 0 ml Balance 0 ml Intake Oral 0 ml # Voids 2 # Bowel Movements 1 Laboratory Tests Test 08/24/19 16:15 08/25/19 06:15 White Blood Count 6.6 K/UL (4.8-10.8) 6.5 K/UL (4.8-10.8) Red Blood Count 3.87 M/UL (4.20-5.40) L 3.96 M/UL (4.20-5.40) L Hemoglobin 10.5 G/DL (12.0-16.0) L 10.8 G/DL (12.0-16.0) L Hematocrit 32.8 % (37.0-47.0) L 32.1 % (37.0-47.0) L Mean Corpuscular Volume 85 FL (80-99) 81 FL (80-99) Mean Corpuscular Hemoglobin 27.2 PG (27.0-31.0) 27.3 PG (27.0-31.0) Mean Corpuscular Hemoglobin Concent 32.2 G/DL (32.0-36.0) 33.6 G/DL (32.0-36.0) Red Cell Distribution Width 13.7 % (11.6-14.8) 12.3 % (11.6-14.8) Platelet Count 221 K/UL (150-450) 204 K/UL (150-450) Mean Platelet Volume 7.1 FL (6.5-10.1) 6.1 FL (6.5-10.1) L Neutrophils (%) (Auto) 55.5 % (45.0-75.0) 59.2 % (45.0-75.0) Lymphocytes (%) (Auto) 30.3 % (20.0-45.0) 29.5 % (20.0-45.0) Monocytes (%) (Auto) 8.0 % (1.0-10.0) 7.8 % (1.0-10.0) Eosinophils (%) (Auto) 5.5 % (0.0-3.0) H 2.9 % (0.0-3.0) Basophils (%) (Auto) 0.7 % (0.0-2.0) 0.6 % (0.0-2.0) Sodium Level 136 MMOL/L (136-145) 140 MMOL/L (136-145) Potassium Level 4.0 MMOL/L (3.5-5.1) 3.8 MMOL/L (3.5-5.1) Chloride Level 103 MMOL/L (98-107) 105 MMOL/L (98-107) Carbon Dioxide Level 22 MMOL/L (21-32) 20 MMOL/L (21-32) L Anion Gap 11 mmol/L (5-15) 15 mmol/L (5-15) Blood Urea Nitrogen 56 mg/dL (7-18) H 56 mg/dL (7-18) H Creatinine 3.2 MG/DL (0.55-1.30) H 3.3 MG/DL (0.55-1.30) H Estimat Glomerular Filtration Rate 14.4 mL/min (>60) 13.9 mL/min (>60) Glucose Level 111 MG/DL (74-106) H 100 MG/DL (74-106) Lactic Acid Level 0.30 mmol/L (0.4-2.0) L Calcium Level 9.5 MG/DL (8.5-10.1) 9.0 MG/DL (8.5-10.1) Phosphorus Level 4.1 MG/DL (2.5-4.9) Magnesium Level 2.2 MG/DL (1.8-2.4) Total Bilirubin 0.2 MG/DL (0.2-1.0) 0.3 MG/DL (0.2-1.0) Aspartate Amino Transf (AST/SGOT) 17 U/L (15-37) 16 U/L (15-37) Alanine Aminotransferase (ALT/SGPT) 17 U/L (12-78) 22 U/L (12-78) Alkaline Phosphatase 93 U/L (46-116) 88 U/L (46-116) Troponin I 0.000 ng/mL (0.000-0.056) Pro-B-Type Natriuretic Peptide 969 pg/mL (0-125) H 1233 pg/mL (0-125) H Total Protein 7.9 G/DL (6.4-8.2) 7.7 G/DL (6.4-8.2) Albumin 2.9 G/DL (3.4-5.0) L 2.8 G/DL (3.4-5.0) L Globulin 5.0 g/dL 4.9 g/dL Albumin/Globulin Ratio 0.6 (1.0-2.7) L 0.6 (1.0-2.7) L Lipase 334 U/L (73-393) Height (Feet): 5 Height (Inches): 4.00 Weight (Pounds): 165 Medications Current Medications Medications (Trade) Dose Ordered Sig/Gurpreet Route PRN Reason Start Time Stop Time Status Last Admin Dose Admin Acetaminophen (Tylenol) 650 mg Q4H PRN ORAL Mild Pain (Pain Scale 1-3) 08/24/19 18:15 09/23/19 18:14 Acetaminophen (Tylenol) 650 mg Q4H PRN ORAL Temp >100.5 08/24/19 18:15 09/23/19 18:14 Albuterol/ Ipratropium (Albuterol/ Ipratropium) 3 ml Q6H PRN HHN Shortness of Breath 08/24/19 18:15 08/29/19 18:14 Bisacodyl (Dulcolax) 10 mg DAILYPRN PRN RECTAL Constipation 08/24/19 18:30 11/22/19 18:14 Ceftriaxone Sodium 1 gm/ Dextrose 50 ml @ 100 mls/hr Q24H IVPB 08/25/19 00:00 09/01/19 00:00 08/25/19 00:20 Clonidine HCl (Catapres Tab) 0.1 mg Q8H PRN ORAL SBP > 160mmHg 08/24/19 18:15 11/22/19 18:14 Dextrose (Dextrose 50%) 25 ml Q30M PRN IV Hypoglycemia 08/24/19 18:15 11/22/19 18:14 Dextrose (Dextrose 50%) 50 ml Q30M PRN IV Hypoglycemia 08/24/19 18:15 11/22/19 18:14 Docusate Sodium (Colace) 100 mg EVERY 12 HOURS ORAL 08/24/19 21:00 09/23/19 20:59 08/25/19 09:20 Doxycycline Monohydrate (Doxycycline Monohydrate) 100 mg EVERY 12 HOURS ORAL 08/25/19 09:00 09/01/19 08:59 08/25/19 09:20 Guaifenesin (Robitussin) 200 mg Q4H PRN ORAL For Cough 08/24/19 18:15 11/22/19 18:14 Heparin Sodium (Porcine) (Heparin 5000 units/ml) 5,000 units EVERY 12 HOURS SUBQ 08/24/19 21:00 10/08/19 20:59 08/25/19 09:23 Hydralazine HCl (Apresoline) 10 mg EVERY 8 HOURS ORAL 08/24/19 22:00 11/22/19 21:59 08/25/19 05:41 Magnesium Hydroxide (Mom) 30 ml HSPRN PRN ORAL Constipation 08/24/19 18:15 09/23/19 18:14 Ondansetron HCl (Zofran) 4 mg Q6H PRN IVP Nausea & Vomiting 08/24/19 18:15 09/23/19 18:14 Polyethylene Glycol (Miralax) 17 gm DAILYPRN PRN ORAL Constipation 08/24/19 18:15 09/23/19 18:14 Quetiapine Fumarate (SEROqueL) 25 mg QHS ORAL 08/24/19 21:00 10/08/19 20:59 08/24/19 21:52 Assessment/Plan Diagnosis [place] [facility]: #Acute on chronic kidney disease- baseline cr close to 2- #pneumonia - left lower lobe #r/o COVID # hyperthyroidism # multiple sclerosis #HTN # COPD - check UA - urine chem - check UTP/ cr - gentle diuresis-> currently satting well on room air - check 2d echo--> BNP can be elevated due to decreased renal clearance - antibiotics per ID- on ceftriaxone and doxy - strict I&Os - daily weight - defer renal US to when covid ruled out - monitor lytes and cr closely - continue hydralazine 10mg TID - check PTH/vit D - monitor phos - check iron panel and ferritin Vicente Jaimes M.D. August 25, 2019 10:56
--- NOTE | 2019-08-25 11:17 | Pulmonology Progress Note ---
Assessment/Plan Assessment/Plan IMPRESSION: 1. Possible left lung pneumonia. 2. Small left effusion, known indication for thoracentesis. DISCUSSION: Agree with empiric antibiotics. The patient needs diuresis. Hold off on thoracentesis, currently saturating well on room air. I will follow. Andres Quick M.D. Subjective Interval Events: Saturating well on RA Constitutional: Reports: no symptoms HEENT: Repors: no symptoms Respiratory: Reports: no symptoms Cardiovascular: Reports: no symptoms; Denies: chest pain, palpitations, other Gastrointestinal/Abdominal: Reports: no symptoms; Denies: nausea, vomiting, diarrhea, constipation, blood in stool, bloating, other Allergies: Coded Allergies: CODEINE (Verified Allergy, Unknown, 08/24/19) NEUROMUSCULAR BLOCKERS, STEROIDAL (Verified Allergy, Unknown, 08/24/19) Uncoded Allergies: ANABOLIC STEROIDS (Allergy, Unknown, 08/24/19) STEROIDS (Allergy, Unknown, 08/24/19) Objective Last 24 Hour Vital Signs Date Time Temp Pulse Resp B/P (MAP) Pulse Ox O2 Delivery O2 Flow Rate FiO2 08/25/19 09:00 Room Air 08/25/19 08:00 85 08/25/19 08:00 98.4 74 19 129/65 (86) 98 08/25/19 05:41 132/90 08/25/19 04:00 98.2 98 17 125/93 (104) 93 08/25/19 04:00 89 08/25/19 00:00 97.4 86 19 149/90 (109) 93 08/25/19 00:00 92 08/24/19 22:15 109 08/24/19 21:52 162/60 08/24/19 20:19 Room Air 08/24/19 20:10 97.2 84 19 162/60 (94) 94 08/24/19 20:00 98.0 78 15 110/68 98 Room Air 08/24/19 19:14 78 16 135/75 97 Room Air 08/24/19 18:00 98.0 78 17 144/80 97 Room Air 08/24/19 16:20 80 19 Room Air 08/24/19 16:20 98.0 80 19 150/84 95 Room Air 08/24/19 16:15 97.7 77 20 150/84 (106) 95 Room Air Intake and Output 08/24/19 08/25/19 19:00 07:00 Intake Total 0 ml Balance 0 ml Intake Oral 0 ml # Voids 2 # Bowel Movements 1 General Appearance: no acute distress HEENT: normocephalic Respiratory/Chest: chest wall non-tender Cardiovascular: normal peripheral pulses Abdomen: normal bowel sounds Laboratory Tests 08/24/19 16:15: White Blood Count 6.6, Red Blood Count 3.87L, Hemoglobin 10.5L, Hematocrit 32.8L , Mean Corpuscular Volume 85, Mean Corpuscular Hemoglobin 27.2, Mean Corpuscular Hemoglobin Concent 32.2, Red Cell Distribution Width 13.7, Platelet Count 221, Mean Platelet Volume 7.1, Neutrophils (%) (Auto) 55.5, Lymphocytes (% ) (Auto) 30.3, Monocytes (%) (Auto) 8.0, Eosinophils (%) (Auto) 5.5H, Basophils (%) (Auto) 0.7, Sodium Level 136, Potassium Level 4.0, Chloride Level 103, Carbon Dioxide Level 22, Anion Gap 11, Blood Urea Nitrogen 56H, Creatinine 3.2H , Estimat Glomerular Filtration Rate 14.4, Glucose Level 111H, Lactic Acid Level 0.30L, Calcium Level 9.5, Phosphorus Level 4.1, Magnesium Level 2.2, Total Bilirubin 0.2, Aspartate Amino Transf (AST/SGOT) 17, Alanine Aminotransferase (ALT/SGPT) 17, Alkaline Phosphatase 93, Troponin I 0.000, Pro-B -Type Natriuretic Peptide 969H, Total Protein 7.9, Albumin 2.9L, Globulin 5.0, Albumin/Globulin Ratio 0.6L, Lipase 334 08/25/19 06:15: White Blood Count 6.5, Red Blood Count 3.96L, Hemoglobin 10.8L, Hematocrit 32.1L , Mean Corpuscular Volume 81, Mean Corpuscular Hemoglobin 27.3, Mean Corpuscular Hemoglobin Concent 33.6, Red Cell Distribution Width 12.3, Platelet Count 204, Mean Platelet Volume 6.1L, Neutrophils (%) (Auto) 59.2, Lymphocytes ( %) (Auto) 29.5, Monocytes (%) (Auto) 7.8, Eosinophils (%) (Auto) 2.9, Basophils (%) (Auto) 0.6, Sodium Level 140, Potassium Level 3.8, Chloride Level 105, Carbon Dioxide Level 20L, Anion Gap 15, Blood Urea Nitrogen 56H, Creatinine 3.3H , Estimat Glomerular Filtration Rate 13.9, Glucose Level 100, Calcium Level 9.0 , Total Bilirubin 0.3, Aspartate Amino Transf (AST/SGOT) 16, Alanine Aminotransferase (ALT/SGPT) 22, Alkaline Phosphatase 88, Pro-B-Type Natriuretic Peptide 1233H, Total Protein 7.7, Albumin 2.8L, Globulin 4.9, Albumin/Globulin Ratio 0.6L Current Medications Medications (Trade) Dose Ordered Sig/Gurpreet Route PRN Reason Start Time Stop Time Status Last Admin Dose Admin Acetaminophen (Tylenol) 650 mg Q4H PRN ORAL Mild Pain (Pain Scale 1-3) 08/24/19 18:15 09/23/19 18:14 Acetaminophen (Tylenol) 650 mg Q4H PRN ORAL Temp >100.5 08/24/19 18:15 09/23/19 18:14 Albuterol/ Ipratropium (Albuterol/ Ipratropium) 3 ml Q6H PRN HHN Shortness of Breath 08/24/19 18:15 08/29/19 18:14 Bisacodyl (Dulcolax) 10 mg DAILYPRN PRN RECTAL Constipation 08/24/19 18:30 11/22/19 18:14 Ceftriaxone Sodium 1 gm/ Dextrose 50 ml @ 100 mls/hr Q24H IVPB 08/25/19 00:00 09/01/19 00:00 08/25/19 00:20 Clonidine HCl (Catapres Tab) 0.1 mg Q8H PRN ORAL SBP > 160mmHg 08/24/19 18:15 11/22/19 18:14 Dextrose (Dextrose 50%) 25 ml Q30M PRN IV Hypoglycemia 08/24/19 18:15 11/22/19 18:14 Dextrose (Dextrose 50%) 50 ml Q30M PRN IV Hypoglycemia 08/24/19 18:15 11/22/19 18:14 Docusate Sodium (Colace) 100 mg EVERY 12 HOURS ORAL 08/24/19 21:00 09/23/19 20:59 08/25/19 09:20 Doxycycline Monohydrate (Doxycycline Monohydrate) 100 mg EVERY 12 HOURS ORAL 08/25/19 09:00 09/01/19 08:59 08/25/19 09:20 Guaifenesin (Robitussin) 200 mg Q4H PRN ORAL For Cough 08/24/19 18:15 11/22/19 18:14 Heparin Sodium (Porcine) (Heparin 5000 units/ml) 5,000 units EVERY 12 HOURS SUBQ 08/24/19 21:00 10/08/19 20:59 08/25/19 09:23 Hydralazine HCl (Apresoline) 10 mg EVERY 8 HOURS ORAL 08/24/19 22:00 11/22/19 21:59 08/25/19 05:41 Magnesium Hydroxide (Mom) 30 ml HSPRN PRN ORAL Constipation 08/24/19 18:15 09/23/19 18:14 Ondansetron HCl (Zofran) 4 mg Q6H PRN IVP Nausea & Vomiting 08/24/19 18:15 09/23/19 18:14 Polyethylene Glycol (Miralax) 17 gm DAILYPRN PRN ORAL Constipation 08/24/19 18:15 09/23/19 18:14 Quetiapine Fumarate (SEROqueL) 25 mg QHS ORAL 08/24/19 21:00 10/08/19 20:59 08/24/19 21:52 Andres Quick MD August 25, 2019 11:17
[2019-08-25 12:00] VITALS: BP 130/65
--- NOTE | 2019-08-25 13:27 | NUR ---
NURSE NOTES: Md Prieto, notified of blood culture results of gram positive cocci in clusters
--- NOTE | 2019-08-25 13:29 | NUR ---
NURSE NOTES: paged dr gao via md office . re micro 1/ blood cx +gram +cocci in clusters,awaiting call back
--- NOTE | 2019-08-25 13:59 | NUR ---
CASE MANAGEMENT:REVIEW 68 YR OLD FEMALE BIBA FROM [facility] CC: COUGHING SI: PLEURAL EFFUSION. SUSPECTED COVID 19 97.7 77 20 150/84 95% ON RA H/H-10.5/32.8 BUN+56 CR+3.2 BNP+969 IS: COVID 19 SWAB CHEST XRAY BLOOD CX : TO TELEMETRY DCP: FROM [facility] PLAN: ISOLATION FOR SUSPECTED COVID 19 2DECHO
--- NOTE | 2019-08-25 14:24 | NUR ---
NURSE NOTES:WOUND CARE NOTES:Pt presented on admission with non-blanching erythema with shearing nikki cleft,R and L buttocks. Non-blanching erythema R and L heels. Tx.Plan: Apply Moisture Barrier Paste to Sacrum. Cover with Optifoam drsg. Change every 3 days and prn. Apply Moisture Barrier Paste to to perineum and bilat ischial tuberosities with each incontinence care. Apply Cavilon Skin Barrier to both heels.Cover each heels with Optifoam drsg. Change every 7 days and prn. Reposition at least every 2hours or as tolerated. Off-load heels with pillow.
[2019-08-25 16:00] VITALS: BP 123/77
[2019-08-25 20:00] VITALS: BP_SYST 108; BP_SYST 122; BP_DIAS 46; BP_DIAS 81
--- NOTE | 2019-08-25 20:20 | NUR ---
NURSE NOTES: Received patient from [facility]. Patient shows no signs of distress or pain at the time. AOx 4. Patients IV is intact. Shows no signs of erythema, infiltration, or bleeding. Bed in the lowest position, call light within reach, side rails up x3, and bed alarm on. Will continue plan of care.
[2019-08-26] VITALS: BP 119/79
[2019-08-26] MEDS: cefTRIAXone 1 GM in D5W 50 ML IVPB SCH ×2 (00:59→23:29)
[2019-08-26 04:00] VITALS: BP 144/82
[2019-08-26] MEDS: HydrALAZINE 10mg Tab ORAL SCH ×3 (05:58→21:11)
--- NOTE | 2019-08-26 07:30 | NUR ---
NURSE NOTES: Recvd pt. Pt is AOx4. Pt is on room air with no sign of sob or resp distress. Pt has a dry cough. Bed in the lowest position, call light within reach, side rails up x3, and bed alarm on. Will continue plan of care.
[2019-08-26 08:00] VITALS: BP 112/71
--- NOTE | 2019-08-26 08:19 | Pulmonology Progress Note ---
Assessment/Plan Assessment/Plan IMPRESSION: 1. Possible left lung pneumonia. 2. Small left effusion, known indication for thoracentesis. DISCUSSION: Agree with empiric antibiotics. The patient needs diuresis. Hold off on thoracentesis, currently saturating well on room air. I will follow. Andres Quick M.D. Subjective Interval Events: Saturating well on RA Constitutional: Reports: no symptoms HEENT: Repors: no symptoms Respiratory: Reports: no symptoms Cardiovascular: Reports: no symptoms; Denies: chest pain, palpitations, other Gastrointestinal/Abdominal: Reports: no symptoms; Denies: nausea, vomiting, diarrhea, constipation, blood in stool, bloating, other Allergies: Coded Allergies: CODEINE (Verified Allergy, Unknown, 08/24/19) NEUROMUSCULAR BLOCKERS, STEROIDAL (Verified Allergy, Unknown, 08/24/19) Uncoded Allergies: ANABOLIC STEROIDS (Allergy, Unknown, 08/24/19) STEROIDS (Allergy, Unknown, 08/24/19) Objective Last 24 Hour Vital Signs Date Time Temp Pulse Resp B/P (MAP) Pulse Ox O2 Delivery O2 Flow Rate FiO2 08/26/19 05:58 144/82 08/26/19 04:00 97.4 92 19 144/82 (102) 95 08/26/19 04:00 81 08/26/19 00:00 92 08/26/19 00:00 97.7 69 18 119/79 (92) 96 08/25/19 21:57 122/81 08/25/19 21:00 Room Air 08/25/19 20:00 98.0 88 18 122/81 (95) 95 08/25/19 20:00 79 08/25/19 16:04 86 08/25/19 16:00 98.4 89 19 123/77 (92) 98 08/25/19 13:03 134/75 08/25/19 12:00 98.4 74 19 130/65 (86) 98 08/25/19 11:49 90 08/25/19 09:00 Room Air Intake and Output 08/25/19 08/26/19 19:00 07:00 Intake Total 500 ml Balance 500 ml Intake Oral 500 ml # Voids 1 4 General Appearance: no acute distress HEENT: normocephalic Respiratory/Chest: chest wall non-tender Cardiovascular: normal peripheral pulses Abdomen: normal bowel sounds 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: abnormal gait, oriented x 3 Microbiology Date/Time Source Procedure Growth Status 08/24/19 16:30 Blood Blood Culture - Preliminary NO GROWTH AFTER 24 HOURS Resulted 08/24/19 16:15 Blood Blood Culture - Preliminary Staphylococcus Sp Coag Neg Resulted Current Medications Medications (Trade) Dose Ordered Sig/Gurpreet Route PRN Reason Start Time Stop Time Status Last Admin Dose Admin Acetaminophen (Tylenol) 650 mg Q4H PRN ORAL Mild Pain (Pain Scale 1-3) 08/24/19 18:15 09/23/19 18:14 Acetaminophen (Tylenol) 650 mg Q4H PRN ORAL Temp >100.5 08/24/19 18:15 09/23/19 18:14 Albuterol/ Ipratropium (Albuterol/ Ipratropium) 3 ml Q6H PRN HHN Shortness of Breath 08/24/19 18:15 08/29/19 18:14 Bisacodyl (Dulcolax) 10 mg DAILYPRN PRN RECTAL Constipation 08/24/19 18:30 11/22/19 18:14 Ceftriaxone Sodium 1 gm/ Dextrose 50 ml @ 100 mls/hr Q24H IVPB 08/25/19 00:00 09/01/19 00:00 08/26/19 00:59 Clonidine HCl (Catapres Tab) 0.1 mg Q8H PRN ORAL SBP > 160mmHg 08/24/19 18:15 11/22/19 18:14 Dextrose (Dextrose 50%) 25 ml Q30M PRN IV Hypoglycemia 08/24/19 18:15 11/22/19 18:14 Dextrose (Dextrose 50%) 50 ml Q30M PRN IV Hypoglycemia 08/24/19 18:15 11/22/19 18:14 Docusate Sodium (Colace) 100 mg EVERY 12 HOURS ORAL 08/24/19 21:00 09/23/19 20:59 08/25/19 21:57 Doxycycline Monohydrate (Doxycycline Monohydrate) 100 mg EVERY 12 HOURS ORAL 08/25/19 09:00 09/01/19 08:59 08/25/19 21:57 Guaifenesin (Robitussin) 200 mg Q4H PRN ORAL For Cough 08/24/19 18:15 11/22/19 18:14 Heparin Sodium (Porcine) (Heparin 5000 units/ml) 5,000 units EVERY 12 HOURS SUBQ 08/24/19 21:00 10/08/19 20:59 08/25/19 21:58 Hydralazine HCl (Apresoline) 10 mg EVERY 8 HOURS ORAL 08/24/19 22:00 11/22/19 21:59 08/26/19 05:58 Magnesium Hydroxide (Mom) 30 ml HSPRN PRN ORAL Constipation 08/24/19 18:15 09/23/19 18:14 Methimazole (Tapazole) 10 mg DAILY ORAL 08/25/19 15:00 11/23/19 14:59 08/25/19 16:18 Ondansetron HCl (Zofran) 4 mg Q6H PRN IVP Nausea & Vomiting 08/24/19 18:15 09/23/19 18:14 Polyethylene Glycol (Miralax) 17 gm DAILYPRN PRN ORAL Constipation 08/24/19 18:15 09/23/19 18:14 Quetiapine Fumarate (SEROqueL) 25 mg QHS ORAL 08/24/19 21:00 10/08/19 20:59 08/25/19 21:57 Andres Quick MD August 26, 2019 08:19
[2019-08-26] MEDS: Heparin 5000 units/ml inj SUBQ SCH ×2 (09:00→21:13)
--- NOTE | 2019-08-26 09:09 | NUR ---
RADIOLOGY DEPT., PT REFUSES CHEST X-RAY DUE TO THREE CHEST EXAMS THAT HAVE BEEN PERFORMED ALREADY.-P. DYE
[2019-08-26] MEDS: Docusate 100mg cap ORAL SCH ×2 (09:12→21:11)
[2019-08-26] MEDS: Doxycycline Monohydrate 100mg ORAL SCH ×2 (09:12→21:11)
--- NOTE | 2019-08-26 09:13 | General Progress Note ---
Assessment/Plan Assessment/Plan: 68 y/o F w/PMH hyperthyroidism, multiple sclerosis, HTN and COPD who presents from [facility] for cough and abnormal labs. On admission, CXR revealed left lower lobe pleural effusion, Cr 3.2. Patient admitted for further treatment and evaluation, and COVID-19 r/o. #CAP #Suspect COVID #Left pleural effusion -cont. in-pt medical care -cont. COVID isolation protocol -f/u COVID PCR -CXR reviewed, unilateral PNA/pleural effusion -BCx 1/2 w/staph coag negative, likely contaminant -SCx pending -d/w pulm, pleural effusion small at this time, no indication for thora at this time -d/w nephro, s/p 1 dose lasix 80 IV given -ID consulted: CTX, doxy #SAJAN on CKD -Cr b/l 2.3 on 01/2019 -Cr elevated on admission -d/w nephro, OK for one dose lasix 80 mg IV -Renal US ordered, test held due to pending COVID r/o -Nephro, Dr. Jaimes, consulted, recs appreciated #Elevated BNP -likely 2/2 to above, acute renal injury -s/p 1 dose lasix -no LE edema -echo ordered, test on hold 2/ pending COVID rule out -cont. to trend BNP #COPD -not in exacerbation at this time -currently on RA -supportive care, supplemental O2 PRN for SpO2<88 -ctm #Multiple sclerosis -PT/OT treat and eval once COVID ruled out #Hyperthyroidism -home med methimazole 10 mg PO q daily DVT PPx: Heparin Time spent on encounter: 35 mins, 21 on counseling, coordination of care. Time of note doesn't reflect time of encounter. Subjective Allergies: Coded Allergies: CODEINE (Verified Allergy, Unknown, 08/24/19) NEUROMUSCULAR BLOCKERS, STEROIDAL (Verified Allergy, Unknown, 08/24/19) Uncoded Allergies: ANABOLIC STEROIDS (Allergy, Unknown, 08/24/19) STEROIDS (Allergy, Unknown, 08/24/19) Subjective F/u for cough, pending COVID r/o. No acute events overnight. Afebrile Denies cough, SOB, pain, no concerns today. 12 pt ROS neg except as above Objective Last 24 Hour Vital Signs Date Time Temp Pulse Resp B/P (MAP) Pulse Ox O2 Delivery O2 Flow Rate FiO2 08/26/19 08:00 97.4 86 20 112/71 (85) 96 08/26/19 05:58 144/82 08/26/19 04:00 97.4 92 19 144/82 (102) 95 08/26/19 04:00 81 08/26/19 00:00 92 08/26/19 00:00 97.7 69 18 119/79 (92) 96 08/25/19 21:57 122/81 08/25/19 21:00 Room Air 08/25/19 20:00 98.0 88 18 122/81 (95) 95 08/25/19 20:00 79 08/25/19 16:04 86 08/25/19 16:00 98.4 89 19 123/77 (92) 98 08/25/19 13:03 134/75 08/25/19 12:00 98.4 74 19 130/65 (86) 98 08/25/19 11:49 90 Intake and Output 08/25/19 08/26/19 19:00 07:00 Intake Total 500 ml Balance 500 ml Intake Oral 500 ml # Voids 1 4 Laboratory Tests 08/26/19 06:50: White Blood Count [Pending], Red Blood Count [Pending], Hemoglobin [Pending], Hematocrit [Pending], Mean Corpuscular Volume [Pending], Mean Corpuscular Hemoglobin [Pending], Mean Corpuscular Hemoglobin Concent [Pending], Red Cell Distribution Width [Pending], Platelet Count [Pending], Mean Platelet Volume [ Pending], Neutrophils (%) (Auto) [Pending], Lymphocytes (%) (Auto) [Pending], Monocytes (%) (Auto) [Pending], Eosinophils (%) (Auto) [Pending], Basophils (%) (Auto) [Pending], Sodium Level [Pending], Potassium Level [Pending], Chloride Level [Pending], Carbon Dioxide Level [Pending], Blood Urea Nitrogen [Pending], Creatinine [Pending], Estimat Glomerular Filtration Rate [Pending], Glucose Level [Pending], Calcium Level [Pending], Calcium (Send out) [Pending], Phosphorus Level [Pending], Magnesium Level [Pending], Iron Level [Pending], Unsaturated Iron Binding [Pending], Ferritin [Pending], Total Bilirubin [Pending ], Aspartate Amino Transf (AST/SGOT) [Pending], Alanine Aminotransferase (ALT/ SGPT) [Pending], Alkaline Phosphatase [Pending], Total Protein [Pending], Albumin [Pending], Globulin [Pending], Vitamin D 25-Hydroxy [Pending], 25- Hydroxy Vitamin D2 [Pending], 25-Hydroxy Vitamin D3 [Pending], Parathyroid Hormone (Intact) [Pending] Height (Feet): 5 Height (Inches): 4.00 Weight (Pounds): 165 Objective General: NAD, A&O x 3 HEENT: NCAT, EOMi, MMM CV: RRR, no murmurs, rubs, or gallops Pulm: CTAB, No wheezes, rhonchi, or rales, no accessory muscle usage or conversational dyspnea GI: Soft, nontender, nondistended, bowel sounds present Ext: No lower extremity edema bilaterally, RUE contracted hand, chronic per pt Skin: no rashes lesions or ulcers Abdias Blanc M.D. August 26, 2019 09:13
[2019-08-26 09:19] LABS: BASOPHILS % (AUTO) 0.5 % (0.0-2.0); EOSINOPHILS % (AUTO) 5.4 % (0.0-3.0); HEMATOCRIT 31.1 % (37.0-47.0); HEMOGLOBIN 10.4 G/DL (12.0-16.0); LYMPHOCYTES % (AUTO) 36.9 % (20.0-45.0); MEAN CORPUSCULAR VOLUME 81 FL (80-99); NEUTROPHILS % (AUTO) 51.1 % (45.0-75.0); PLATELET COUNT 224 K/UL (150-450); RED BLOOD COUNT 3.82 M/UL (4.20-5.40); RED CELL DISTRIBUTION WIDTH 12.2 % (11.6-14.8); WHITE BLOOD COUNT 6.9 K/UL (4.8-10.8)
[2019-08-26 09:48] LABS: ALANINE AMINOTRANSFERASE 14 U/L (12-78); ALBUMIN 2.8 G/DL (3.4-5.0); ALBUMIN/GLOBULIN RATIO 0.6 (1.0-2.7); ALKALINE PHOSPHATASE 78 U/L (46-116); ANION GAP 14 mmol/L (5-15); ASPARTATE AMINO TRANSFERASE 15 U/L (15-37); BILIRUBIN,TOTAL 0.3 MG/DL (0.2-1.0); BLOOD UREA NITROGEN 65 mg/dL (7-18); CALCIUM 9.2 MG/DL (8.5-10.1); CARBON DIOXIDE 20 MMOL/L (21-32); CHLORIDE 103 MMOL/L (98-107); CREATININE 3.4 MG/DL (0.55-1.30); POTASSIUM 3.8 MMOL/L (3.5-5.1); SODIUM 137 MMOL/L (136-145)
[2019-08-26 09:50] LABS: % IRON SATURATION 30 % (15-50); IRON 43 ug/dL (50-175); TOTAL IRON BINDING CAPACITY 145 ug/dL (250-450)
[2019-08-26 10:32] LABS: PHOSPHORUS 4.3 MG/DL (2.5-4.9)
[2019-08-26 11:33] VITALS: BP 131/81
[2019-08-26 16:00] VITALS: BP 130/60
--- NOTE | 2019-08-26 18:02 | Nephrology Progress Note ---
Assessment/Plan Plan #Acute on chronic kidney disease- baseline cr close to 2- #pneumonia - left lower lobe #r/o COVID # hyperthyroidism # multiple sclerosis #HTN # COPD - COVID rule out - currently satting well on room air - check 2d echo--> BNP can be elevated due to decreased renal clearance - antibiotics per ID- on ceftriaxone and doxy - strict I&Os - daily weight - defer renal US to when covid ruled out - monitor lytes and cr closely - continue hydralazine 10mg TID - check PTH/vit D pending - monitor phos - check iron panel and ferritin-> adequate Subjective ROS Limited/Unobtainable: No Constitutional: Denies: no symptoms, chills, diaphoresis, fever, malaise, weakness, other HEENT: Denies: no symptoms, eye pain, blurred vision, tearing, double vision, ear pain, ear discharge, nose pain, nose congestion, throat pain, throat swelling, mouth pain, mouth swelling, other Genitourinary: Denies: no symptoms, burning, discharge, frequency, flank pain, hematuria, incontinence, pain, urgency, other 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: Denies: no symptoms, anxiety, depressed, emotional problems, headache, numbness, paresthesia, pre-existing deficit, seizure, tingling, tremors, weakness, other Subjective Satting well on room air cr stable at 3.4 COVID pending Objective Objective Last 24 Hour Vital Signs Date Time Temp Pulse Resp B/P (MAP) Pulse Ox O2 Delivery O2 Flow Rate FiO2 08/26/19 16:00 85 08/26/19 16:00 98.8 70 18 130/60 (83) 98 08/26/19 15:19 131/81 08/26/19 12:00 84 08/26/19 11:33 98.6 80 19 131/81 (98) 96 08/26/19 09:00 Room Air 08/26/19 08:00 97.4 86 20 112/71 (85) 96 08/26/19 08:00 84 08/26/19 05:58 144/82 08/26/19 04:00 97.4 92 19 144/82 (102) 95 08/26/19 04:00 81 08/26/19 00:00 92 08/26/19 00:00 97.7 69 18 119/79 (92) 96 08/25/19 21:57 122/81 08/25/19 21:00 Room Air 08/25/19 20:00 98.0 88 18 122/81 (95) 95 08/25/19 20:00 79 Intake and Output 08/25/19 08/26/19 19:00 07:00 Intake Total 500 ml Balance 500 ml Intake Oral 500 ml # Voids 1 4 Laboratory Tests 08/26/19 06:50: White Blood Count 6.9, Red Blood Count 3.82L, Hemoglobin 10.4L, Hematocrit 31.1L , Mean Corpuscular Volume 81, Mean Corpuscular Hemoglobin 27.2, Mean Corpuscular Hemoglobin Concent 33.5, Red Cell Distribution Width 12.2, Platelet Count 224, Mean Platelet Volume 6.1L, Neutrophils (%) (Auto) 51.1, Lymphocytes ( %) (Auto) 36.9, Monocytes (%) (Auto) 6.0, Eosinophils (%) (Auto) 5.4H, Basophils (%) (Auto) 0.5, Sodium Level 137, Potassium Level 3.8, Chloride Level 103, Carbon Dioxide Level 20L, Anion Gap 14, Blood Urea Nitrogen 65H, Creatinine 3.4H, Estimat Glomerular Filtration Rate 13.4, Glucose Level 92, Calcium Level 9.2, Calcium (Send out) [Pending], Phosphorus Level 4.3, Magnesium Level 2.1, Iron Level 43L, Total Iron Binding Capacity 145L, Percent Iron Saturation 30, Unsaturated Iron Binding 102L, Ferritin 391H, Total Bilirubin 0.3, Aspartate Amino Transf (AST/SGOT) 15, Alanine Aminotransferase ( ALT/SGPT) 14, Alkaline Phosphatase 78, Total Protein 7.6, Albumin 2.8L, Globulin 4.8, Albumin/Globulin Ratio 0.6L, Vitamin D 25-Hydroxy [Pending], 25- Hydroxy Vitamin D2 [Pending], 25-Hydroxy Vitamin D3 [Pending], Parathyroid Hormone (Intact) [Pending] Height (Feet): 5 Height (Inches): 4.00 Weight (Pounds): 165 General Appearance: WD/WN, no apparent distress EENT: PERRL/EOMI Neck: non-tender Cardiovascular: normal peripheral pulses Respiratory/Chest: chest wall non-tender, lungs clear Abdomen: normal bowel sounds Neurologic: alert, oriented x 3 Pirouz,Aslan M.D. August 26, 2019 18:02
--- NOTE | 2019-08-26 19:40 | NUR ---
NURSE NOTES: RECEIVED REPORT FROM [facility]. PATIENT AWAKE IN BED, ABLE TO REPOSITION SELF WITH MODERATE ASSISTANCE. AAOX4, VERBALLY RESPONSIVE AND ABLE TO MAKE NEEDS KNOWN. BREATHING IS EVEN AND UNLABORED ON ROOM AIR, NO S/SX OF DISTRESS NOTED. PATIENT HAS NO COMPLAINTS OF PAIN OR DISCOMFORT. IV SITE ON LFA SALINE-LOCKED, ASYMPTOMATIC, PATENT AND INTACT. ON CONTACT AND DROPLET PRECAUTIONS PENDING CV-19 RESULTS. BED LOCKED AND IN LOWEST POSITION WITH SIDERAILS UP X 2. CALL LIGHT WITHIN REACH. WILL CONTINUE TO MONITOR.
[2019-08-26 20:00] VITALS: BP 157/72
--- NOTE | 2019-08-26 20:36 | Infectious Diseases Prog Note ---
Assessment/Plan Assessment/Plan ASSESSMENT AND PLAN: 1. CAP, rule out covid-19 virus infection coag neg staph blood culture - 2/4 is likely a contaminant - rocephin and doxycycline - day # 3 - f/u chest x-ray and labs - recheck blood cultures - f/u on covid-19 testing 3. Renal failure. 4. COPD. 5. Multiple sclerosis. 6. Hypertension. 7. Effusion. 8. Cough. 9. Continue treatment per primary consultants. 10. Orders were noted and entered. 11. Allergies to anabolic steroids, codeine, neuromuscular blockers. 12. Social history negative. 13. Family history noncontributory. 14. MAR was noted. 15. Case discussed with RN. Subjective Constitutional: Reports: fatigue; Denies: fever HEENT: Denies: congestion Respiratory: Denies: shortness of breath Cardiovascular: Denies: chest pain Gastrointestinal/Abdominal: Denies: nausea, vomiting, diarrhea Genitourinary: Reports: other - no torres Neurologic: Denies: headache Psychiatric: Denies: depression Skin: Denies: rash Endocrine: Denies: feels warm Hematologic: Denies: bleeding Musculoskeletal: Denies: pain Allergies: Coded Allergies: CODEINE (Verified Allergy, Unknown, 08/24/19) NEUROMUSCULAR BLOCKERS, STEROIDAL (Verified Allergy, Unknown, 08/24/19) Uncoded Allergies: ANABOLIC STEROIDS (Allergy, Unknown, 08/24/19) STEROIDS (Allergy, Unknown, 08/24/19) Objective Vital Signs Last 24 Hour Vital Signs Date Time Temp Pulse Resp B/P (MAP) Pulse Ox O2 Delivery O2 Flow Rate FiO2 08/26/19 16:00 85 08/26/19 16:00 98.8 70 18 130/60 (83) 98 08/26/19 15:19 131/81 08/26/19 12:00 84 08/26/19 11:33 98.6 80 19 131/81 (98) 96 08/26/19 09:00 Room Air 08/26/19 08:00 97.4 86 20 112/71 (85) 96 08/26/19 08:00 84 08/26/19 05:58 144/82 08/26/19 04:00 97.4 92 19 144/82 (102) 95 08/26/19 04:00 81 08/26/19 00:00 92 08/26/19 00:00 97.7 69 18 119/79 (92) 96 08/25/19 21:57 122/81 08/25/19 21:00 Room Air Height (Feet): 5 Height (Inches): 4.00 Weight (Pounds): 165 General Appearance: no acute distress HEENT: normocephalic, atraumatic, anicteric, mucous membranes moist Respiratory/Chest: lungs clear, normal breath sounds, no respiratory distress, no accessory muscle use Cardiovascular: normal rate, regular rhythm, no gallop/murmur, no JVD Abdomen: normal bowel sounds, soft, non tender, no organomegaly, non distended Genitourinary: other - no torres Extremities: no cyanosis Skin: no rash 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 The left upper lung, right lung and pleural space are clear. The heart is enlarged. Impression: Left basilar opacity, likely combination of consolidation, pleural fluid, and atelectasis. Mild cardiomegaly Microbiology Date/Time Source Procedure Growth Status 08/24/19 16:30 Blood Blood Culture - Preliminary NO GROWTH AFTER 24 HOURS Resulted 08/24/19 16:15 Blood Blood Culture - Preliminary Staphylococcus Sp Coag Neg Resulted Laboratory Tests Test 08/26/19 06:50 White Blood Count 6.9 K/UL (4.8-10.8) Red Blood Count 3.82 M/UL (4.20-5.40) L Hemoglobin 10.4 G/DL (12.0-16.0) L Hematocrit 31.1 % (37.0-47.0) L Mean Corpuscular Volume 81 FL (80-99) Mean Corpuscular Hemoglobin 27.2 PG (27.0-31.0) Mean Corpuscular Hemoglobin Concent 33.5 G/DL (32.0-36.0) Red Cell Distribution Width 12.2 % (11.6-14.8) Platelet Count 224 K/UL (150-450) Mean Platelet Volume 6.1 FL (6.5-10.1) L Neutrophils (%) (Auto) 51.1 % (45.0-75.0) Lymphocytes (%) (Auto) 36.9 % (20.0-45.0) Monocytes (%) (Auto) 6.0 % (1.0-10.0) Eosinophils (%) (Auto) 5.4 % (0.0-3.0) H Basophils (%) (Auto) 0.5 % (0.0-2.0) Sodium Level 137 MMOL/L (136-145) Potassium Level 3.8 MMOL/L (3.5-5.1) Chloride Level 103 MMOL/L (98-107) Carbon Dioxide Level 20 MMOL/L (21-32) L Anion Gap 14 mmol/L (5-15) Blood Urea Nitrogen 65 mg/dL (7-18) H Creatinine 3.4 MG/DL (0.55-1.30) H Estimat Glomerular Filtration Rate 13.4 mL/min (>60) Glucose Level 92 MG/DL (74-106) Calcium Level 9.2 MG/DL (8.5-10.1) Calcium (Send out) Pending Phosphorus Level 4.3 MG/DL (2.5-4.9) Magnesium Level 2.1 MG/DL (1.8-2.4) Iron Level 43 ug/dL (50-175) L Total Iron Binding Capacity 145 ug/dL (250-450) L Percent Iron Saturation 30 % (15-50) Unsaturated Iron Binding 102 ug/dL (112-346) L Ferritin 391 NG/ML (8-388) H Total Bilirubin 0.3 MG/DL (0.2-1.0) Aspartate Amino Transf (AST/SGOT) 15 U/L (15-37) Alanine Aminotransferase (ALT/SGPT) 14 U/L (12-78) Alkaline Phosphatase 78 U/L (46-116) Total Protein 7.6 G/DL (6.4-8.2) Albumin 2.8 G/DL (3.4-5.0) L Globulin 4.8 g/dL Albumin/Globulin Ratio 0.6 (1.0-2.7) L Vitamin D 25-Hydroxy Pending 25-Hydroxy Vitamin D2 Pending 25-Hydroxy Vitamin D3 Pending Parathyroid Hormone (Intact) Pending Current Medications Medications (Trade) Dose Ordered Sig/Gurpreet Route PRN Reason Start Time Stop Time Status Last Admin Dose Admin Acetaminophen (Tylenol) 650 mg Q4H PRN ORAL Mild Pain (Pain Scale 1-3) 08/24/19 18:15 09/23/19 18:14 Acetaminophen (Tylenol) 650 mg Q4H PRN ORAL Temp >100.5 08/24/19 18:15 09/23/19 18:14 Albuterol/ Ipratropium (Albuterol/ Ipratropium) 3 ml Q6H PRN HHN Shortness of Breath 08/24/19 18:15 08/29/19 18:14 Bisacodyl (Dulcolax) 10 mg DAILYPRN PRN RECTAL Constipation 08/24/19 18:30 11/22/19 18:14 Ceftriaxone Sodium 1 gm/ Dextrose 50 ml @ 100 mls/hr Q24H IVPB 08/25/19 00:00 09/01/19 00:00 08/26/19 00:59 Clonidine HCl (Catapres Tab) 0.1 mg Q8H PRN ORAL SBP > 160mmHg 08/24/19 18:15 11/22/19 18:14 Dextrose (Dextrose 50%) 25 ml Q30M PRN IV Hypoglycemia 08/24/19 18:15 11/22/19 18:14 Dextrose (Dextrose 50%) 50 ml Q30M PRN IV Hypoglycemia 08/24/19 18:15 11/22/19 18:14 Docusate Sodium (Colace) 100 mg EVERY 12 HOURS ORAL 08/24/19 21:00 09/23/19 20:59 08/26/19 09:12 Doxycycline Monohydrate (Doxycycline Monohydrate) 100 mg EVERY 12 HOURS ORAL 08/25/19 09:00 09/01/19 08:59 08/26/19 09:12 Guaifenesin (Robitussin) 200 mg Q4H PRN ORAL For Cough 08/24/19 18:15 11/22/19 18:14 Heparin Sodium (Porcine) (Heparin 5000 units/ml) 5,000 units EVERY 12 HOURS SUBQ 08/24/19 21:00 10/08/19 20:59 08/25/19 21:58 Hydralazine HCl (Apresoline) 10 mg EVERY 8 HOURS ORAL 08/24/19 22:00 11/22/19 21:59 08/26/19 15:19 Magnesium Hydroxide (Mom) 30 ml HSPRN PRN ORAL Constipation 08/24/19 18:15 09/23/19 18:14 Methimazole (Tapazole) 10 mg DAILY ORAL 08/25/19 15:00 11/23/19 14:59 08/26/19 09:12 Ondansetron HCl (Zofran) 4 mg Q6H PRN IVP Nausea & Vomiting 08/24/19 18:15 09/23/19 18:14 Polyethylene Glycol (Miralax) 17 gm DAILYPRN PRN ORAL Constipation 08/24/19 18:15 09/23/19 18:14 Quetiapine Fumarate (SEROqueL) 25 mg QHS ORAL 08/24/19 21:00 10/08/19 20:59 08/25/19 21:57 Louie Bullard MD August 26, 2019 20:36
--- NOTE | 2019-08-26 21:45 | NUR ---
NURSE NOTES: PATIENT HAS AN ORDER FOR URINE COLLECTION; PATIENT IS INCONTINENT AND IS REFUSING USE/APPLICATION OF PUREWICK. THERE IS A CURRENT ORDER FOR STRAIGHT CATHETER TO COLLECT URINE. EXPLAIN PROCEDURE TO PATIENT, BUT PATIENT STRONGLY REFUSED X 3.
[2019-08-27] VITALS (7 sets, daily range): BP systolic 125–149; BP diastolic 65–88
--- NOTE | 2019-08-27 | NUR ---
NURSE NOTES: PATIENT REFUSED STRAIGHT CATH TO BE DONE, EVEN AFTER BEING EDUCATED ON PURPOSE AND IMPORTANCE.
--- NOTE | 2019-08-27 | NUR ---
NURSE NOTES: PATIENT REFUSED BLOOD DRAW FOR BLOOD CULTURES ORDERED. PATIENT BECAME ANGRY AND STATED, "WHO IS CRAZY ENOUGH TO ORDER THINGS DURING THIS TIME OF THE NIGHT?". PATIENT EXPLAINED SHE WANTS TO SLEEP.
--- NOTE | 2019-08-27 03:56 | NUR ---
NURSE NOTES: ATTEMPTED TO DRAW AM LABS & BLOOD CX, BUT PATIENT REQUESTS LABS TO BE DRAWN LATER, STATES SHE WANTS TO "SLEEP LIKE A NORMAL PERSON".
--- NOTE | 2019-08-27 04:00 | NUR ---
NURSE NOTES: PERFORMED WOUND CARE ON SACRUM AND BILATERAL HEELS. PATIENT ASKED FOR OPTIFOAM DRESSINGS TO BE REMOVED <10 MINUTES LATER BECAUSE SHE "DOESN'T LIKE IT". EXPLAINED TO PATIENT THE IMPORTANCE OF THE DRESSINGS, AND THEIR ROLE IN PREVENTATIVE CARE, BUT PATIENT STILL INSISTED ON HAVING THEM REMOVED.
[2019-08-27] MEDS: HydrALAZINE 10mg Tab ORAL SCH ×3 (05:15→21:18)
--- NOTE | 2019-08-27 07:02 | NUR ---
HAND-OFF: Report given to WILVER HELLER. PATIENT IN STABLE CONDITION. PLAN OF CARE ENDORSED.
--- NOTE | 2019-08-27 08:00 | NUR ---
NURSE NOTES: Report received from Jennifer PETTIT. Patient is observed in bed, awake, alert, oriented, and able to make needs known. IV site is asymptomatic, patent, and intact. Respiratory even and unlabored. Denies pain at this time. Bed is in lowest position with side rails up x2 and brakes are engaged. Bed alarm is on. Encouraged pt to use call light when in need of assistance, pt verbalized understanding. Will continue to monitor.
[2019-08-27] MEDS: Doxycycline Monohydrate 100mg ORAL SCH ×2 (09:05→21:18)
[2019-08-27] MEDS: Docusate 100mg cap ORAL SCH ×2 (09:05→21:00)
[2019-08-27] MEDS: Heparin 5000 units/ml inj SUBQ SCH ×3 (09:06→21:00)
[2019-08-27 09:44] LABS: BASOPHILS % (AUTO) 0.7 % (0.0-2.0); EOSINOPHILS % (AUTO) 7.3 % (0.0-3.0); HEMOGLOBIN 10.2 G/DL (12.0-16.0); MEAN CORPUSCULAR VOLUME 82 FL (80-99); MONOCYTES % (AUTO) 6.8 % (1.0-10.0); NEUTROPHILS % (AUTO) 47.2 % (45.0-75.0); PLATELET COUNT 228 K/UL (150-450); RED BLOOD COUNT 3.68 M/UL (4.20-5.40); RED CELL DISTRIBUTION WIDTH 12.5 % (11.6-14.8); WHITE BLOOD COUNT 6.3 K/UL (4.8-10.8)
[2019-08-27 09:50] LABS: PHOSPHORUS 4.7 MG/DL (2.5-4.9)
[2019-08-27 09:51] LABS: ALANINE AMINOTRANSFERASE 20 U/L (12-78); ALBUMIN 2.9 G/DL (3.4-5.0); ALBUMIN/GLOBULIN RATIO 0.6 (1.0-2.7); ALKALINE PHOSPHATASE 84 U/L (46-116); ANION GAP 15 mmol/L (5-15); ASPARTATE AMINO TRANSFERASE 18 U/L (15-37); BILIRUBIN,TOTAL 0.3 MG/DL (0.2-1.0); BLOOD UREA NITROGEN 64 mg/dL (7-18); CALCIUM 9.2 MG/DL (8.5-10.1); CARBON DIOXIDE 20 MMOL/L (21-32); CHLORIDE 106 MMOL/L (98-107); CREATININE 3.2 MG/DL (0.55-1.30); SODIUM 141 MMOL/L (136-145)
--- NOTE | 2019-08-27 10:03 | Diagnostic Imaging Report ---
EXAM: XR Chest, 1 View CLINICAL HISTORY: Infection TECHNIQUE: Frontal view of the chest. COMPARISON: August 24, 2019. FINDINGS: Slightly prominent cardiac silhouette without evidence of edema or failure. Low lung volumes. Again noted is left lower lobe infiltrates and left effusion with elevation of the left hemidiaphragm. Unremarkable right lung. No aggressive osseous abnormalities. IMPRESSION: Little interval change in left lower lobe infiltrates and left effusion.
--- NOTE | 2019-08-27 10:19 | General Progress Note ---
Assessment/Plan Assessment/Plan: 68 y/o F w/PMH hyperthyroidism, multiple sclerosis, HTN and COPD who presents from [facility] for cough and abnormal labs. On admission, CXR revealed left lower lobe pleural effusion, Cr 3.2. Patient admitted for further treatment and evaluation, and COVID-19 r/o. #CAP #Suspect COVID #Left pleural effusion #Bacteremia 1/2 Staph coag negative -cont. in-pt medical care -cont. COVID isolation protocol -f/u COVID PCR -CXR reviewed, unilateral PNA/pleural effusion -BCx 1/2 w/staph coag negative, likely contaminant -SCx pending -d/w pulm, pleural effusion small at this time, no indication for thora at this time -d/w nephro, s/p 1 dose lasix 80 IV given -ID consulted: CTX, doxy -bacteremia staph coag neg 04/27, possible contaminant -Repeat BCx pending #SAJAN on CKD -Cr b/l 2.3 on 01/2019 -Cr elevated on admission -d/w nephro, OK for one dose lasix 80 mg IV -Renal US ordered, test held due to pending COVID r/o -Nephro, Dr. Jaimes, consulted, recs appreciated #Elevated BNP -likely 2/2 to above, acute renal injury -s/p 1 dose lasix -no LE edema -echo ordered, test on hold 05/28 pending COVID rule out -cont. to trend BNP #COPD -not in exacerbation at this time -currently on RA -supportive care, supplemental O2 PRN for SpO2<88 -ctm #Multiple sclerosis -PT/OT treat and eval once COVID ruled out #Hyperthyroidism -home med methimazole 10 mg PO q daily DVT PPx: Heparin Time spent on encounter: 25 mins, 15 on counseling, coordination of care. Time of note doesn't reflect time of encounter. Subjective Allergies: Coded Allergies: CODEINE (Verified Allergy, Unknown, 08/24/19) NEUROMUSCULAR BLOCKERS, STEROIDAL (Verified Allergy, Unknown, 08/24/19) Uncoded Allergies: ANABOLIC STEROIDS (Allergy, Unknown, 08/24/19) STEROIDS (Allergy, Unknown, 08/24/19) Subjective F/u for cough, pending COVID r/o. BCx positive 1 of 2. No acute events overnight. Afebrile. No concerns today. 12 pt ROS neg except as above Objective Last 24 Hour Vital Signs Date Time Temp Pulse Resp B/P (MAP) Pulse Ox O2 Delivery O2 Flow Rate FiO2 08/27/19 05:15 144/82 08/27/19 04:00 76 08/27/19 04:00 97.3 91 18 144/82 (102) 94 08/27/19 00:00 86 08/27/19 00:00 97.2 92 17 139/88 (105) 95 08/26/19 21:11 157/72 08/26/19 21:00 Room Air 08/26/19 20:00 90 08/26/19 20:00 97.7 89 19 157/72 (100) 97 08/26/19 16:00 85 08/26/19 16:00 98.8 70 18 130/60 (83) 98 08/26/19 15:19 131/81 08/26/19 12:00 84 08/26/19 11:33 98.6 80 19 131/81 (98) 96 Intake and Output 08/26/19 08/27/19 19:00 07:00 Intake Total 1200 ml 480 ml Output Total 1200 ml Balance 0 ml 480 ml Intake Oral 1200 ml 480 ml Output Urine Total 1200 ml # Voids 3 5 Laboratory Tests 08/27/19 06:55: White Blood Count 6.3, Red Blood Count 3.68L, Hemoglobin 10.2L, Hematocrit 30.0L , Mean Corpuscular Volume 82, Mean Corpuscular Hemoglobin 27.6, Mean Corpuscular Hemoglobin Concent 33.8, Red Cell Distribution Width 12.5, Platelet Count 228, Mean Platelet Volume 5.8L, Neutrophils (%) (Auto) 47.2, Lymphocytes ( %) (Auto) 38.0, Monocytes (%) (Auto) 6.8, Eosinophils (%) (Auto) 7.3H, Basophils (%) (Auto) 0.7, Sodium Level [Pending], Potassium Level [Pending], Chloride Level [Pending], Carbon Dioxide Level [Pending], Anion Gap 15, Blood Urea Nitrogen [Pending], Creatinine [Pending], Estimat Glomerular Filtration Rate [Pending], Glucose Level [Pending], Calcium Level [Pending], Phosphorus Level 4.7, Magnesium Level 2.2, Total Bilirubin 0.3, Aspartate Amino Transf (AST /SGOT) 18, Alanine Aminotransferase (ALT/SGPT) 20, Alkaline Phosphatase 84, Pro- B-Type Natriuretic Peptide 605H, Total Protein 7.8, Albumin 2.9L, Globulin 4.9, Albumin/Globulin Ratio 0.6L Height (Feet): 5 Height (Inches): 4.00 Weight (Pounds): 165 Objective General: NAD, A&O x 3 HEENT: NCAT, EOMi, MMM CV: RRR, no murmurs, rubs, or gallops Pulm: CTAB, No wheezes, rhonchi, or rales, no accessory muscle usage or conversational dyspnea GI: Soft, nontender, nondistended, bowel sounds present Ext: No lower extremity edema bilaterally, RUE contracted hand, chronic per pt Skin: no rashes lesions or ulcers Abdias Blanc M.D. August 27, 2019 10:19
--- NOTE | 2019-08-27 14:14 | NUR ---
NURSE NOTES: Patient is observed in bed, watching tv. Denies pain at this time. VSS. SR on monitor. Will continue to monitor.
--- NOTE | 2019-08-27 16:54 | Pulmonology Progress Note ---
Assessment/Plan Assessment/Plan IMPRESSION: 1. Possible left lung pneumonia. 2. Small left effusion, known indication for thoracentesis. DISCUSSION: Agree with empiric antibiotics. Continue diuresis. Hold off on thoracentesis, currently saturating well on room air. I will follow. Blood CS likely contaminant Andres Quick M.D. Subjective ROS Limited/Unobtainable: No Interval Events: Saturating well on RA Constitutional: Reports: fatigue; Denies: fever HEENT: Repors: no symptoms Respiratory: Reports: no symptoms Cardiovascular: Reports: no symptoms; Denies: chest pain, palpitations, other Gastrointestinal/Abdominal: Denies: nausea, vomiting, diarrhea Psychiatric: Denies: depression Skin: Denies: rash Musculoskeletal: Denies: pain Allergies: Coded Allergies: CODEINE (Verified Allergy, Unknown, 08/24/19) NEUROMUSCULAR BLOCKERS, STEROIDAL (Verified Allergy, Unknown, 08/24/19) Uncoded Allergies: ANABOLIC STEROIDS (Allergy, Unknown, 08/24/19) STEROIDS (Allergy, Unknown, 08/24/19) Objective Last 24 Hour Vital Signs Date Time Temp Pulse Resp B/P (MAP) Pulse Ox O2 Delivery O2 Flow Rate FiO2 08/27/19 13:37 131/65 08/27/19 12:18 98.0 80 18 131/65 (87) 98 08/27/19 12:11 77 08/27/19 09:00 Room Air 08/27/19 08:12 85 08/27/19 08:00 98.4 74 18 129/71 (90) 94 08/27/19 05:15 144/82 08/27/19 04:00 76 08/27/19 04:00 97.3 91 18 144/82 (102) 94 08/27/19 00:00 86 08/27/19 00:00 97.2 92 17 139/88 (105) 95 08/26/19 21:11 157/72 08/26/19 21:00 Room Air 08/26/19 20:00 90 08/26/19 20:00 97.7 89 19 157/72 (100) 97 Intake and Output 08/26/19 08/27/19 19:00 07:00 Intake Total 1200 ml 480 ml Output Total 1200 ml Balance 0 ml 480 ml Intake Oral 1200 ml 480 ml Output Urine Total 1200 ml # Voids 3 5 General Appearance: no acute distress HEENT: normocephalic, atraumatic, anicteric, mucous membranes moist Respiratory/Chest: chest wall non-tender Cardiovascular: normal peripheral pulses Abdomen: normal bowel sounds, soft, non tender, no organomegaly, non distended Genitourinary: other - no torres Extremities: no cyanosis Skin: no rash 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, alert, oriented x 3, responsive Lymphatic: no neck adenopathy Musculoskeletal: no effusion Laboratory Tests 08/27/19 06:55: White Blood Count 6.3, Red Blood Count 3.68L, Hemoglobin 10.2L, Hematocrit 30.0L , Mean Corpuscular Volume 82, Mean Corpuscular Hemoglobin 27.6, Mean Corpuscular Hemoglobin Concent 33.8, Red Cell Distribution Width 12.5, Platelet Count 228, Mean Platelet Volume 5.8L, Neutrophils (%) (Auto) 47.2, Lymphocytes ( %) (Auto) 38.0, Monocytes (%) (Auto) 6.8, Eosinophils (%) (Auto) 7.3H, Basophils (%) (Auto) 0.7, Sodium Level [Pending], Potassium Level [Pending], Chloride Level [Pending], Carbon Dioxide Level [Pending], Anion Gap 15, Blood Urea Nitrogen [Pending], Creatinine [Pending], Estimat Glomerular Filtration Rate [Pending], Glucose Level [Pending], Calcium Level [Pending], Phosphorus Level 4.7, Magnesium Level 2.2, Total Bilirubin 0.3, Aspartate Amino Transf (AST /SGOT) 18, Alanine Aminotransferase (ALT/SGPT) 20, Alkaline Phosphatase 84, Pro- B-Type Natriuretic Peptide 605H, Total Protein 7.8, Albumin 2.9L, Globulin 4.9, Albumin/Globulin Ratio 0.6L Current Medications Medications (Trade) Dose Ordered Sig/Gurpreet Route PRN Reason Start Time Stop Time Status Last Admin Dose Admin Acetaminophen (Tylenol) 650 mg Q4H PRN ORAL Mild Pain (Pain Scale 1-3) 08/24/19 18:15 09/23/19 18:14 Acetaminophen (Tylenol) 650 mg Q4H PRN ORAL Temp >100.5 08/24/19 18:15 09/23/19 18:14 Albuterol/ Ipratropium (Albuterol/ Ipratropium) 3 ml Q6H PRN HHN Shortness of Breath 08/24/19 18:15 08/29/19 18:14 Bisacodyl (Dulcolax) 10 mg DAILYPRN PRN RECTAL Constipation 08/24/19 18:30 11/22/19 18:14 Ceftriaxone Sodium 1 gm/ Dextrose 50 ml @ 100 mls/hr Q24H IVPB 08/25/19 00:00 09/01/19 00:00 08/26/19 23:29 Clonidine HCl (Catapres Tab) 0.1 mg Q8H PRN ORAL SBP > 160mmHg 08/24/19 18:15 11/22/19 18:14 Dextrose (Dextrose 50%) 25 ml Q30M PRN IV Hypoglycemia 08/24/19 18:15 11/22/19 18:14 Dextrose (Dextrose 50%) 50 ml Q30M PRN IV Hypoglycemia 08/24/19 18:15 11/22/19 18:14 Docusate Sodium (Colace) 100 mg EVERY 12 HOURS ORAL 08/24/19 21:00 09/23/19 20:59 08/27/19 09:05 Doxycycline Monohydrate (Doxycycline Monohydrate) 100 mg EVERY 12 HOURS ORAL 08/25/19 09:00 09/01/19 08:59 08/27/19 09:05 Guaifenesin (Robitussin) 200 mg Q4H PRN ORAL For Cough 08/24/19 18:15 11/22/19 18:14 Heparin Sodium (Porcine) (Heparin 5000 units/ml) 5,000 units EVERY 12 HOURS SUBQ 08/24/19 21:00 10/08/19 20:59 08/26/19 21:13 Hydralazine HCl (Apresoline) 10 mg EVERY 8 HOURS ORAL 08/24/19 22:00 11/22/19 21:59 08/27/19 13:37 Magnesium Hydroxide (Mom) 30 ml HSPRN PRN ORAL Constipation 08/24/19 18:15 09/23/19 18:14 Methimazole (Tapazole) 10 mg DAILY ORAL 08/25/19 15:00 11/23/19 14:59 08/27/19 09:05 Ondansetron HCl (Zofran) 4 mg Q6H PRN IVP Nausea & Vomiting 08/24/19 18:15 09/23/19 18:14 Polyethylene Glycol (Miralax) 17 gm DAILYPRN PRN ORAL Constipation 08/24/19 18:15 09/23/19 18:14 Quetiapine Fumarate (SEROqueL) 25 mg QHS ORAL 08/24/19 21:00 10/08/19 20:59 08/26/19 21:12 Andres Quick MD August 27, 2019 16:54
--- NOTE | 2019-08-27 17:41 | Nephrology Progress Note ---
Assessment/Plan Plan #Acute on chronic kidney disease- baseline cr close to 2- #pneumonia - left lower lobe #r/o COVID # hyperthyroidism # multiple sclerosis #HTN # COPD - COVID rule out - currently satting well on room air - check 2d echo--> BNP can be elevated due to decreased renal clearance - antibiotics per ID- on ceftriaxone and doxy - strict I&Os - daily weight - defer renal US to when covid ruled out - monitor lytes and cr closely - continue hydralazine 10mg TID - check PTH/vit D pending - monitor phos - check iron panel and ferritin-> adequate Subjective ROS Limited/Unobtainable: No Subjective Satting well on room air cr stable at 3.2 Bp stable Objective Objective Last 24 Hour Vital Signs Date Time Temp Pulse Resp B/P (MAP) Pulse Ox O2 Delivery O2 Flow Rate FiO2 08/27/19 16:00 98.2 82 20 125/71 (89) 98 08/27/19 15:56 83 08/27/19 13:37 131/65 08/27/19 12:18 98.0 80 18 131/65 (87) 98 08/27/19 12:11 77 08/27/19 09:00 Room Air 08/27/19 08:12 85 08/27/19 08:00 98.4 74 18 129/71 (90) 94 08/27/19 05:15 144/82 08/27/19 04:00 76 08/27/19 04:00 97.3 91 18 144/82 (102) 94 08/27/19 00:00 86 08/27/19 00:00 97.2 92 17 139/88 (105) 95 08/26/19 21:11 157/72 08/26/19 21:00 Room Air 08/26/19 20:00 90 08/26/19 20:00 97.7 89 19 157/72 (100) 97 Intake and Output 08/26/19 08/27/19 19:00 07:00 Intake Total 1200 ml 480 ml Output Total 1200 ml Balance 0 ml 480 ml Intake Oral 1200 ml 480 ml Output Urine Total 1200 ml # Voids 3 5 Laboratory Tests 08/27/19 06:55: White Blood Count 6.3, Red Blood Count 3.68L, Hemoglobin 10.2L, Hematocrit 30.0L , Mean Corpuscular Volume 82, Mean Corpuscular Hemoglobin 27.6, Mean Corpuscular Hemoglobin Concent 33.8, Red Cell Distribution Width 12.5, Platelet Count 228, Mean Platelet Volume 5.8L, Neutrophils (%) (Auto) 47.2, Lymphocytes ( %) (Auto) 38.0, Monocytes (%) (Auto) 6.8, Eosinophils (%) (Auto) 7.3H, Basophils (%) (Auto) 0.7, Sodium Level [Pending], Potassium Level [Pending], Chloride Level [Pending], Carbon Dioxide Level [Pending], Anion Gap 15, Blood Urea Nitrogen [Pending], Creatinine [Pending], Estimat Glomerular Filtration Rate [Pending], Glucose Level [Pending], Calcium Level [Pending], Phosphorus Level 4.7, Magnesium Level 2.2, Total Bilirubin 0.3, Aspartate Amino Transf (AST /SGOT) 18, Alanine Aminotransferase (ALT/SGPT) 20, Alkaline Phosphatase 84, Pro- B-Type Natriuretic Peptide 605H, Total Protein 7.8, Albumin 2.9L, Globulin 4.9, Albumin/Globulin Ratio 0.6L Height (Feet): 5 Height (Inches): 4.00 Weight (Pounds): 165 Vicente Jaimes M.D. August 27, 2019 17:41
[2019-08-27] MEDS: guaiFENesin 100mg/5ml Liq ud ORAL PRN (19:08)
--- NOTE | 2019-08-27 19:43 | NUR ---
HAND-OFF: Report given to Abbi PETTIT. Patient is in stable condition. Endorsed plan of care.
--- NOTE | 2019-08-27 19:50 | NUR ---
NURSE NOTES: Received pt from WILVER Pacheco. Pt awake, alert, and talkative. Bed in lowest position. Call light within reach. Will continue to monitor.
[2019-08-27 23:09] LABS: APPEARANCE,URINE CLOUDY; BILIRUBIN, URINE NEGATIVE (NEGATIVE); COLOR,URINE PALE YELLOW; GLUCOSE, URINE (UA) NEGATIVE (NEGATIVE); KETONES,URINE NEGATIVE (NEGATIVE); LEUKOCYTE ESTERASE ,URINE 3+ (NEGATIVE); NITRITE,URINE NEGATIVE (NEGATIVE); PH,URINE 6 (4.5-8.0); PROTEIN,URINE 2+ (NEGATIVE); UROBILINOGEN,URINE NORMAL MG/DL (0.0-1.0)
[2019-08-27] MEDS: cefTRIAXone 1 GM in D5W 50 ML IVPB SCH (23:25)
--- NOTE | 2019-08-28 02:11 | NUR ---
NURSE NOTES: Pt had 2 episodes of black stool. Entered an ob stool order, collected stool, and witheld heparin. Pt stable.
[2019-08-28 04:00] VITALS: BP 132/83
[2019-08-28] MEDS: HydrALAZINE 10mg Tab ORAL SCH ×3 (05:37→21:27)
--- NOTE | 2019-08-28 07:15 | NUR ---
NURSE NOTES: Report received from Abbi PETTIT.Pt awake,alert sitting up on bed eating breakfast noted no resp distress ,denies any c/o pain or discomfort SR on the monitor,skin warm and dry with IV Heplock to RFA intact,SR up x2 call cruz within reach at bedside,bed lock in lowest position,will continue with plans of care.
[2019-08-28 08:00] VITALS: BP 132/93
--- NOTE | 2019-08-28 08:04 | NUR ---
NURSE NOTES: Pt confirmed as Covid negative,droplet isolation cancelled.
[2019-08-28] MEDS: Doxycycline Monohydrate 100mg ORAL SCH ×2 (08:38→21:21)
[2019-08-28] MEDS: Docusate 100mg cap ORAL SCH ×2 (08:38→21:21)
[2019-08-28] MEDS: Heparin 5000 units/ml inj SUBQ SCH ×3 (08:43→21:00)
--- NOTE | 2019-08-28 09:39 | Nephrology Progress Note ---
Assessment/Plan Plan #Acute on chronic kidney disease- baseline cr close to 2- #pneumonia - left lower lobe #r/o COVID # hyperthyroidism # multiple sclerosis #HTN # COPD - COVID rule out - currently satting well on room air - check 2d echo--> BNP can be elevated due to decreased renal clearance - antibiotics per ID- on ceftriaxone and doxy - strict I&Os - daily weight - defer renal US to when covid ruled out - monitor lytes and cr closely - continue hydralazine 10mg TID - check PTH/vit D pending - monitor phos - check iron panel and ferritin-> adequate Subjective ROS Limited/Unobtainable: No Subjective COVID negative Satting well on room air cr stable at 3.2 Bp stable Objective Objective Last 24 Hour Vital Signs Date Time Temp Pulse Resp B/P (MAP) Pulse Ox O2 Delivery O2 Flow Rate FiO2 08/28/19 05:37 132/83 08/28/19 04:00 97.8 83 14 132/83 (99) 96 08/28/19 04:00 77 08/28/19 00:00 86 08/27/19 23:45 97.9 86 20 149/82 (104) 98 08/27/19 21:18 129/85 08/27/19 21:00 Room Air 08/27/19 20:00 86 20 129/85 (100) 98 08/27/19 20:00 84 08/27/19 16:00 98.2 82 20 125/71 (89) 98 08/27/19 15:56 83 08/27/19 13:37 131/65 08/27/19 12:18 98.0 80 18 131/65 (87) 98 08/27/19 12:11 77 Intake and Output 08/27/19 08/28/19 19:00 07:00 Output Total 300 ml Balance -300 ml Output Urine Total 300 ml # Voids 2 # Bowel Movements 2 Laboratory Tests 08/27/19 22:30: Urine Color Pale yellow, Urine Appearance Cloudy, Urine pH 6, Urine Specific [place] 1.010, Urine Protein 2+H, Urine Glucose (UA) Negative, Urine Ketones Negative, Urine Blood 3+H, Urine Nitrite Negative, Urine Bilirubin Negative, Urine Urobilinogen Normal, Urine Leukocyte Esterase 3+H, Urine RBC 10-15H, Urine WBC TntcH, Urine Squamous Epithelial Cells Few, Urine Bacteria ManyH, Urine Random Creatinine [Pending], Urine Random Microalbumin [Pending], Urine Random Total Protein 66H, Urine Random Sodium 29, Urine Creatinine 59.6, Urine Microalbumin/Creatinine Ratio [Pending] 08/28/19 01:45: Stool Occult Blood [Pending] Height (Feet): 5 Height (Inches): 4.00 Weight (Pounds): 165 Vicente Jaimes M.D. August 28, 2019 09:39
--- NOTE | 2019-08-28 10:53 | General Progress Note ---
Assessment/Plan Assessment/Plan: 68 y/o F w/PMH hyperthyroidism, multiple sclerosis, HTN and COPD who presents from [facility] for cough and abnormal labs. On admission, CXR revealed left lower lobe pleural effusion, Cr 3.2. Patient admitted for further treatment and evaluation, and COVID-19 negative. #HCAP #Left pleural effusion #Bacteremia 1/ Staph coag negative -cont. in-pt medical care -COVID Negative, d/c isolation protocol -CXR reviewed, unilateral PNA/pleural effusion -BCx 1/2 w/staph coag negative, likely contaminant -d/w pulm, pleural effusion small at this time, no indication for thora at this time -ID consulted: OK to d/c isolation, low suspicioun for COVID, COVID neg, cont. CTX, doxy -bacteremia staph coag neg /, possible contaminant -Repeat BCx pending #SAJAN on CKD -Cr b/l 2.3 on 01/2019 -Cr elevated on admission -s/p lasix 80 mg per nephro -Renal US ordered -echo ordered -Nephro, Dr. Jaimes, consulted, recs appreciated #Elevated BNP -likely 2/2 to above, acute renal injury -s/p 1 dose lasix -no LE edema -cont. to trend BNP -echo pending #COPD -not in exacerbation at this time -currently on RA -supportive care, supplemental O2 PRN for SpO2<88 -ctm #Multiple sclerosis -PT/OT treat and eval once COVID ruled out #Hyperthyroidism -home med methimazole 10 mg PO q daily Dispo: CM for dispo planning DVT PPx: Heparin Time spent on encounter: 35 mins, 25 on counseling, coordination of care. Time of note doesn't reflect time of encounter. Subjective Allergies: Coded Allergies: CODEINE (Verified Allergy, Unknown, 08/24/19) NEUROMUSCULAR BLOCKERS, STEROIDAL (Verified Allergy, Unknown, 08/24/19) Uncoded Allergies: ANABOLIC STEROIDS (Allergy, Unknown, 08/24/19) STEROIDS (Allergy, Unknown, 08/24/19) Subjective F/u for HCAP/PNA, SAJAN on CKD, COVID negative. BCx positive 1 of 2. No acute events overnight. Afebrile. Pt cont to have non-productive cough, denies SOB,F, CP. 12 pt ROS neg except as above Objective Last 24 Hour Vital Signs Date Time Temp Pulse Resp B/P (MAP) Pulse Ox O2 Delivery O2 Flow Rate FiO2 08/28/19 05:37 132/83 08/28/19 04:00 97.8 83 14 132/83 (99) 96 08/28/19 04:00 77 08/28/19 00:00 86 08/27/19 23:45 97.9 86 20 149/82 (104) 98 08/27/19 21:18 129/85 08/27/19 21:00 Room Air 08/27/19 20:00 86 20 129/85 (100) 98 08/27/19 20:00 84 08/27/19 16:00 98.2 82 20 125/71 (89) 98 08/27/19 15:56 83 08/27/19 13:37 131/65 08/27/19 12:18 98.0 80 18 131/65 (87) 98 08/27/19 12:11 77 Intake and Output 08/27/19 08/28/19 19:00 07:00 Output Total 300 ml Balance -300 ml Output Urine Total 300 ml # Voids 2 # Bowel Movements 2 Laboratory Tests 08/27/19 22:30: Urine Color Pale yellow, Urine Appearance Cloudy, Urine pH 6, Urine Specific [place] 1.010, Urine Protein 2+H, Urine Glucose (UA) Negative, Urine Ketones Negative, Urine Blood 3+H, Urine Nitrite Negative, Urine Bilirubin Negative, Urine Urobilinogen Normal, Urine Leukocyte Esterase 3+H, Urine RBC 10-15H, Urine WBC TntcH, Urine Squamous Epithelial Cells Few, Urine Bacteria ManyH, Urine Random Creatinine [Pending], Urine Random Microalbumin [Pending], Urine Random Total Protein 66H, Urine Random Sodium 29, Urine Creatinine 59.6, Urine Microalbumin/Creatinine Ratio [Pending] 08/28/19 01:45: Stool Occult Blood [Pending] Height (Feet): 5 Height (Inches): 4.00 Weight (Pounds): 165 Objective General: NAD, A&O x 3 HEENT: NCAT, EOMi, MMM CV: RRR, no murmurs, rubs, or gallops Pulm: mild rhonchi b/l, otherwise no accessory muscle usage or conversational dyspnea GI: Soft, nontender, nondistended, bowel sounds present Ext: No lower extremity edema bilaterally, RUE contracted hand Skin: no rashes lesions or ulcers Abdias Blanc M.D. August 28, 2019 10:53
[2019-08-28 11:27] LABS: ANION GAP 11 mmol/L (5-15); BLOOD UREA NITROGEN 61 mg/dL (7-18); CALCIUM 9.1 MG/DL (8.5-10.1); CARBON DIOXIDE 22 MMOL/L (21-32); CHLORIDE 107 MMOL/L (98-107); CREATININE 3.2 MG/DL (0.55-1.30); POTASSIUM 4.4 MMOL/L (3.5-5.1); SODIUM 140 MMOL/L (136-145)
[2019-08-28 11:33] VITALS: BP 127/76
--- NOTE | 2019-08-28 11:36 | Pulmonology Progress Note ---
Assessment/Plan Assessment/Plan IMPRESSION: 1. Possible left lung pneumonia. 2. Small left effusion, known indication for thoracentesis. DISCUSSION: Agree with empiric antibiotics. Continue diuresis. Hold off on thoracentesis, currently saturating well on room air. I will follow. Blood CS likely contaminant Andres Quick M.D. Subjective ROS Limited/Unobtainable: No Interval Events: Saturating well on RA Constitutional: Reports: fatigue; Denies: fever HEENT: Repors: no symptoms Respiratory: Reports: no symptoms Cardiovascular: Reports: no symptoms; Denies: chest pain, palpitations, other Gastrointestinal/Abdominal: Denies: nausea, vomiting, diarrhea Psychiatric: Denies: depression Skin: Denies: rash Musculoskeletal: Denies: pain Allergies: Coded Allergies: CODEINE (Verified Allergy, Unknown, 08/24/19) NEUROMUSCULAR BLOCKERS, STEROIDAL (Verified Allergy, Unknown, 08/24/19) Uncoded Allergies: ANABOLIC STEROIDS (Allergy, Unknown, 08/24/19) STEROIDS (Allergy, Unknown, 08/24/19) Objective Last 24 Hour Vital Signs Date Time Temp Pulse Resp B/P (MAP) Pulse Ox O2 Delivery O2 Flow Rate FiO2 08/28/19 11:33 97.3 86 18 127/76 (93) 95 08/28/19 09:00 Room Air 08/28/19 08:00 97.8 82 18 132/93 (106) 93 08/28/19 05:37 132/83 08/28/19 04:00 97.8 83 14 132/83 (99) 96 08/28/19 04:00 77 08/28/19 00:00 86 08/27/19 23:45 97.9 86 20 149/82 (104) 98 08/27/19 21:18 129/85 08/27/19 21:00 Room Air 08/27/19 20:00 86 20 129/85 (100) 98 08/27/19 20:00 84 08/27/19 16:00 98.2 82 20 125/71 (89) 98 08/27/19 15:56 83 08/27/19 13:37 131/65 08/27/19 12:18 98.0 80 18 131/65 (87) 98 08/27/19 12:11 77 Intake and Output 08/27/19 08/28/19 19:00 07:00 Output Total 300 ml Balance -300 ml Output Urine Total 300 ml # Voids 2 # Bowel Movements 2 General Appearance: no acute distress HEENT: normocephalic, atraumatic, anicteric, mucous membranes moist Respiratory/Chest: chest wall non-tender Cardiovascular: normal peripheral pulses Abdomen: normal bowel sounds, soft, non tender, no organomegaly, non distended Genitourinary: other - no torres Extremities: no cyanosis Skin: no rash 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: filter washer II-XII grossly normal, alert, oriented x 3, responsive Lymphatic: no neck adenopathy Musculoskeletal: no effusion Laboratory Tests 08/27/19 22:30: Urine Color Pale yellow, Urine Appearance Cloudy, Urine pH 6, Urine Specific [place] 1.010, Urine Protein 2+H, Urine Glucose (UA) Negative, Urine Ketones Negative, Urine Blood 3+H, Urine Nitrite Negative, Urine Bilirubin Negative, Urine Urobilinogen Normal, Urine Leukocyte Esterase 3+H, Urine RBC 10-15H, Urine WBC TntcH, Urine Squamous Epithelial Cells Few, Urine Bacteria ManyH, Urine Random Creatinine [Pending], Urine Random Microalbumin [Pending], Urine Random Total Protein 66H, Urine Random Sodium 29, Urine Creatinine 59.6, Urine Microalbumin/Creatinine Ratio [Pending] 08/28/19 01:45: Stool Occult Blood [Pending] 08/28/19 10:40: Sodium Level 140, Potassium Level 4.4, Chloride Level 107, Carbon Dioxide Level 22, Anion Gap 11, Blood Urea Nitrogen 61H, Creatinine 3.2H, Estimat Glomerular Filtration Rate 14.4, Glucose Level 101, Calcium Level 9.1, Phosphorus Level 4.3 , Magnesium Level 2.2 Current Medications Medications (Trade) Dose Ordered Sig/Gurpreet Route PRN Reason Start Time Stop Time Status Last Admin Dose Admin Acetaminophen (Tylenol) 650 mg Q4H PRN ORAL Mild Pain (Pain Scale 1-3) 08/24/19 18:15 09/23/19 18:14 Acetaminophen (Tylenol) 650 mg Q4H PRN ORAL Temp >100.5 08/24/19 18:15 09/23/19 18:14 Albuterol/ Ipratropium (Albuterol/ Ipratropium) 3 ml Q6H PRN HHN Shortness of Breath 08/24/19 18:15 08/29/19 18:14 Bisacodyl (Dulcolax) 10 mg DAILYPRN PRN RECTAL Constipation 08/24/19 18:30 11/22/19 18:14 Ceftriaxone Sodium 1 gm/ Dextrose 50 ml @ 100 mls/hr Q24H IVPB 08/25/19 00:00 09/01/19 00:00 08/27/19 23:25 Clonidine HCl (Catapres Tab) 0.1 mg Q8H PRN ORAL SBP > 160mmHg 08/24/19 18:15 11/22/19 18:14 Dextrose (Dextrose 50%) 25 ml Q30M PRN IV Hypoglycemia 08/24/19 18:15 11/22/19 18:14 Dextrose (Dextrose 50%) 50 ml Q30M PRN IV Hypoglycemia 08/24/19 18:15 11/22/19 18:14 Docusate Sodium (Colace) 100 mg EVERY 12 HOURS ORAL 08/24/19 21:00 09/23/19 20:59 08/28/19 08:38 Doxycycline Monohydrate (Doxycycline Monohydrate) 100 mg EVERY 12 HOURS ORAL 08/25/19 09:00 09/01/19 08:59 08/28/19 08:38 Guaifenesin (Robitussin) 200 mg Q4H PRN ORAL For Cough 08/24/19 18:15 11/22/19 18:14 08/27/19 19:08 Heparin Sodium (Porcine) (Heparin 5000 units/ml) 5,000 units EVERY 12 HOURS SUBQ 08/24/19 21:00 10/08/19 20:59 08/26/19 21:13 Hydralazine HCl (Apresoline) 10 mg EVERY 8 HOURS ORAL 08/24/19 22:00 11/22/19 21:59 08/28/19 05:37 Magnesium Hydroxide (Mom) 30 ml HSPRN PRN ORAL Constipation 08/24/19 18:15 09/23/19 18:14 Methimazole (Tapazole) 10 mg DAILY ORAL 08/29/19 09:00 11/23/19 08:59 Ondansetron HCl (Zofran) 4 mg Q6H PRN IVP Nausea & Vomiting 08/24/19 18:15 09/23/19 18:14 Polyethylene Glycol (Miralax) 17 gm DAILYPRN PRN ORAL Constipation 08/24/19 18:15 09/23/19 18:14 Quetiapine Fumarate (SEROqueL) 25 mg QHS ORAL 08/24/19 21:00 10/08/19 20:59 08/26/19 21:12 Andres Quick MD August 28, 2019 11:36
--- NOTE | 2019-08-28 12:00 | NUR ---
NURSE NOTES: Dr Veras notified re pt's negative for Covid,call returned and ordered to take off pt from droplet isolation.
--- NOTE | 2019-08-28 12:16 | NUR ---
CASE MANAGEMENT:REVIEW 08/28/19 SI: PNA. PLEURAL EFFUSION COVID 19 NEGATIVE 97.3 86 18 127/76 95% ON RA BUN+61 CR+3.2 IS: IV ROCEPHIN Q24 TAPAZOLE PO QD DOXYCYCLINE PO Q12 HYDRALAZINE PO Q8HRS HEPARIN SQ Q12 SEROQUEL PO QHS : TELEMETRY STATUS DCP: [place] [facility]: PLEASE SEE DISCHARGE PLANNING NOTE
--- NOTE | 2019-08-28 12:21 | NUR ---
DISCHARGE PLANNING PHOTO TECHNICIAN DISCUSSED DISCHARGE PLAN WITH PATIENT MS MACHADO FEELS THAT [facility] IS DEPRESSING AND WOULD PREFER NOT TO RETURN. EXPLAINED TO PATIENT IT MAY BE DIFFICULT TO CHANGE FACILITIES DURING THIS PANDEMIC BUT WE WOULD TRY 6 FACILITIES. PATIENT UNDERSTOOD THAT IF NONE OF THE SIX FACILITIES ACCEPT HER SHE WILL HAVE TO RETURN TO [facility]. PATIENT AGREED TO THE PLAN FAXED CLINICALS TO: [facility] T: [phone] [facility] T: [phone] [facility] T: [phone] [facility] T: [phone] [facility] T: [phone] CV [facility] T: [phone] [facility] T: [phone]....SPOKE WITH FLORESITA...ONLY ONE COVID NEGATIVE NEEDED FOR PATIENT TO RETURN Addendum: 08/28/19 at 1633 by JOANNE GARCIAN [facility]........SPOKE WITH SARAH. THEY MIGHT ACCEPT BUT ARE REQUESTING A SECOND COVID TEST. MESSAGE LEFT FOR DR LINH COELLO CONV ....SPOKE TO ARVIND WHO SAID SHE WOULD CALL BACK BUT DID NOT [facility]....SPOKE WITH ANABELL...SHE WILL LET US KNOW BY TOMORROW [facility].....SPOKE WITH FATEMEH....THEY CANNOT ACCEPT ANY NEW PATIENT'S CV [facility]...SPOKE WITH DEEPA...THEY AREN'T ACCEPTING ANY NEW PATIENTS [facility].....SPOKE WITH FAISAL...THEY ARE CLOSED TO ADMISSIONS [facility]...SPOKE WITH VERONICA...THEY ARE NOT ACCEPTING ANY HALFWAY PATIENTS [facility] T: [phone]....SPOKE WITH FLORESITA....THEY WILL ACCEPT THEIR PATIENT BACK
[2019-08-28 16:00] VITALS: BP 149/81
--- NOTE | 2019-08-28 19:30 | NUR ---
NURSE NOTES: Received pt and report from WILVER Helms. Observed pt resting in bed with both eyes open and watching television. Pt is A/Ox3. telemetry monitor is in placed; pt is NSR. IV site intact, asymptomatic, and patent. Bed is in the lowest position and locked. Call light and bedside table is within reach. No signs/symptoms of acute distress note at this time. Will continue plan of care.
--- NOTE | 2019-08-28 19:40 | NUR ---
HAND-OFF: Report given to Debbie PETTIT.
[2019-08-28 20:00] VITALS: BP 159/76
--- NOTE | 2019-08-28 20:01 | Infectious Diseases Prog Note ---
Assessment/Plan Assessment/Plan ASSESSMENT AND PLAN: 1. CAP, rule out covid-19 virus infection coag neg staph blood culture - 2/4 is likely a contaminant - rocephin and doxycycline - day # 5 - change to augmentin and doxycycline x 3 days - covid19 testing negative - remove isolation, low clinical suspicion for covid-19 infection - f/u chest x-ray and labs - recheck blood cultures - communicated with Dr. Blanc 3. Renal failure. 4. COPD. 5. Multiple sclerosis. 6. Hypertension. 7. Effusion. 8. Cough. 9. Continue treatment per primary consultants. 10. Orders were noted and entered. 11. Allergies to anabolic steroids, codeine, neuromuscular blockers. 12. Social history negative. 13. Family history noncontributory. 14. MAR was noted. 15. Case discussed with RN. Subjective Constitutional: Denies: fever HEENT: Denies: congestion Respiratory: Denies: shortness of breath Cardiovascular: Denies: chest pain Gastrointestinal/Abdominal: Denies: nausea, vomiting, diarrhea Genitourinary: Reports: other - no torres Neurologic: Denies: headache Psychiatric: Denies: depression Skin: Denies: rash Hematologic: Denies: bleeding Musculoskeletal: Denies: pain Allergies: Coded Allergies: CODEINE (Verified Allergy, Unknown, 08/24/19) NEUROMUSCULAR BLOCKERS, STEROIDAL (Verified Allergy, Unknown, 08/24/19) Uncoded Allergies: ANABOLIC STEROIDS (Allergy, Unknown, 08/24/19) STEROIDS (Allergy, Unknown, 08/24/19) Objective Vital Signs Last 24 Hour Vital Signs Date Time Temp Pulse Resp B/P (MAP) Pulse Ox O2 Delivery O2 Flow Rate FiO2 08/28/19 16:00 70 08/28/19 16:00 97.1 82 18 149/81 (103) 94 08/28/19 14:36 127/76 08/28/19 12:00 80 08/28/19 11:33 97.3 86 18 127/76 (93) 95 08/28/19 09:00 Room Air 08/28/19 08:00 76 08/28/19 08:00 97.8 82 18 132/93 (106) 93 08/28/19 05:37 132/83 08/28/19 04:00 97.8 83 14 132/83 (99) 96 08/28/19 04:00 77 5/4/20 00:00 86 08/27/19 23:45 97.9 86 20 149/82 (104) 98 08/27/19 21:18 129/85 08/27/19 21:00 Room Air 08/27/19 20:00 86 20 129/85 (100) 98 08/27/19 20:00 84 Height (Feet): 5 Height (Inches): 4.00 Weight (Pounds): 165 General Appearance: no acute distress HEENT: normocephalic, atraumatic, anicteric, mucous membranes moist Respiratory/Chest: lungs clear, no respiratory distress, no accessory muscle use, crackles/rales - few , rhonchi - bilaterally - few Cardiovascular: normal rate, regular rhythm Abdomen: normal bowel sounds, soft, non tender, no organomegaly, non distended Genitourinary: other - no torres Extremities: no cyanosis Skin: no rash 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: press setter II-XII grossly normal, alert Lymphatic: no neck adenopathy Musculoskeletal: no effusion Objective Chest x-ray - 08/24/19 - Procedure: XRAY Chest 1v Indication: Cough, shortness of breath Technique: One view of the chest Comparison: none Findings: Opacity at the left lung base likely reflects combination of pleural fluid, atelectasis, and possibly consolidation. The left upper lung, right lung and pleural space are clear. The heart is enlarged. Impression: Left basilar opacity, likely combination of consolidation, pleural fluid, and atelectasis. Mild cardiomegaly Microbiology Date/Time Source Procedure Growth Status 08/24/19 16:30 Blood Blood Culture - Preliminary NO GROWTH AFTER 72 HOURS Resulted 08/24/19 16:15 Nasopharynx Coronavirus COVID-19 PCR (DANIEL) - Final Complete Labs Test 08/26/19 06:50 08/27/19 06:55 08/27/19 22:30 08/28/19 01:45 White Blood Count 6.9 K/UL (4.8-10.8) 6.3 K/UL (4.8-10.8) Red Blood Count 3.82 M/UL (4.20-5.40) 3.68 M/UL (4.20-5.40) Hemoglobin 10.4 G/DL (12.0-16.0) 10.2 G/DL (12.0-16.0) Hematocrit 31.1 % (37.0-47.0) 30.0 % (37.0-47.0) Mean Corpuscular Volume 81 FL (80-99) 82 FL (80-99) Mean Corpuscular Hemoglobin 27.2 PG (27.0-31.0) 27.6 PG (27.0-31.0) Mean Corpuscular Hemoglobin Concent 33.5 G/DL (32.0-36.0) 33.8 G/DL (32.0-36.0) Red Cell Distribution Width 12.2 % (11.6-14.8) 12.5 % (11.6-14.8) Platelet Count 224 K/UL (150-450) 228 K/UL (150-450) Mean Platelet Volume 6.1 FL (6.5-10.1) 5.8 FL (6.5-10.1) Neutrophils (%) (Auto) 51.1 % (45.0-75.0) 47.2 % (45.0-75.0) Lymphocytes (%) (Auto) 36.9 % (20.0-45.0) 38.0 % (20.0-45.0) Monocytes (%) (Auto) 6.0 % (1.0-10.0) 6.8 % (1.0-10.0) Eosinophils (%) (Auto) 5.4 % (0.0-3.0) 7.3 % (0.0-3.0) Basophils (%) (Auto) 0.5 % (0.0-2.0) 0.7 % (0.0-2.0) Sodium Level 137 MMOL/L (136-145) 141 MMOL/L (136-145) Potassium Level 3.8 MMOL/L (3.5-5.1) 4.0 MMOL/L (3.5-5.1) Chloride Level 103 MMOL/L (98-107) 106 MMOL/L (98-107) Carbon Dioxide Level 20 MMOL/L (21-32) 20 MMOL/L (21-32) Anion Gap 14 mmol/L (5-15) 15 mmol/L (5-15) Blood Urea Nitrogen 65 mg/dL (7-18) 64 mg/dL (7-18) Creatinine 3.4 MG/DL (0.55-1.30) 3.2 MG/DL (0.55-1.30) Estimat Glomerular Filtration Rate 13.4 mL/min (>60) 14.4 mL/min (>60) Glucose Level 92 MG/DL (74-106) 100 MG/DL (74-106) Calcium Level 9.2 MG/DL (8.5-10.1) 9.2 MG/DL (8.5-10.1) Calcium (Send out) 9.1 mg/dL (8.7-10.3) Phosphorus Level 4.3 MG/DL (2.5-4.9) 4.7 MG/DL (2.5-4.9) Magnesium Level 2.1 MG/DL (1.8-2.4) 2.2 MG/DL (1.8-2.4) Iron Level 43 ug/dL (50-175) Total Iron Binding Capacity 145 ug/dL (250-450) Percent Iron Saturation 30 % (15-50) Unsaturated Iron Binding 102 ug/dL (112-346) Ferritin 391 NG/ML (8-388) Total Bilirubin 0.3 MG/DL (0.2-1.0) 0.3 MG/DL (0.2-1.0) Aspartate Amino Transf (AST/SGOT) 15 U/L (15-37) 18 U/L (15-37) Alanine Aminotransferase (ALT/SGPT) 14 U/L (12-78) 20 U/L (12-78) Alkaline Phosphatase 78 U/L (46-116) 84 U/L (46-116) Total Protein 7.6 G/DL (6.4-8.2) 7.8 G/DL (6.4-8.2) Albumin 2.8 G/DL (3.4-5.0) 2.9 G/DL (3.4-5.0) Globulin 4.8 g/dL 4.9 g/dL Albumin/Globulin Ratio 0.6 (1.0-2.7) 0.6 (1.0-2.7) PTH (Intact) Whole Molecule Comment (.) Parathyroid Hormone (Intact) 35 pg/mL (15-65) Pro-B-Type Natriuretic Peptide 605 pg/mL (0-125) Urine Color Pale yellow Urine Appearance Cloudy Urine pH 6 (4.5-8.0) Urine Specific [place] 1.010 (1.005-1.035) Urine Protein 2+ (NEGATIVE) Urine Glucose (UA) Negative (NEGATIVE) Urine Ketones Negative (NEGATIVE) Urine Blood 3+ (NEGATIVE) Urine Nitrite Negative (NEGATIVE) Urine Bilirubin Negative (NEGATIVE) Urine Urobilinogen Normal MG/DL (0.0-1.0) Urine Leukocyte Esterase 3+ (NEGATIVE) Urine RBC 10-15 /HPF (0 - 2) Urine WBC Tntc /HPF (0 - 2) Urine Squamous Epithelial Cells Few /LPF (NONE/OCC) Urine Bacteria Many /HPF (NONE) Urine Random Total Protein 66 MG/DL (< 11.9) Urine Random Sodium 29 mmol/L (20-110) Urine Creatinine 59.6 MG/DL (30.0-125.0) Stool Occult Blood Negative (NEGATIVE) Test 08/28/19 10:40 Sodium Level 140 MMOL/L (136-145) Potassium Level 4.4 MMOL/L (3.5-5.1) Chloride Level 107 MMOL/L (98-107) Carbon Dioxide Level 22 MMOL/L (21-32) Anion Gap 11 mmol/L (5-15) Blood Urea Nitrogen 61 mg/dL (7-18) Creatinine 3.2 MG/DL (0.55-1.30) Estimat Glomerular Filtration Rate 14.4 mL/min (>60) Glucose Level 101 MG/DL (74-106) Calcium Level 9.1 MG/DL (8.5-10.1) Phosphorus Level 4.3 MG/DL (2.5-4.9) Magnesium Level 2.2 MG/DL (1.8-2.4) Laboratory Tests Test 08/27/19 22:30 08/28/19 01:45 08/28/19 10:40 Urine Color Pale yellow Urine Appearance Cloudy Urine pH 6 (4.5-8.0) Urine Specific [place] 1.010 (1.005-1.035) Urine Protein 2+ (NEGATIVE) H Urine Glucose (UA) Negative (NEGATIVE) Urine Ketones Negative (NEGATIVE) Urine Blood 3+ (NEGATIVE) H Urine Nitrite Negative (NEGATIVE) Urine Bilirubin Negative (NEGATIVE) Urine Urobilinogen Normal MG/DL (0.0-1.0) Urine Leukocyte Esterase 3+ (NEGATIVE) H Urine RBC 10-15 /HPF (0 - 2) H Urine WBC Tntc /HPF (0 - 2) H Urine Squamous Epithelial Cells Few /LPF (NONE/OCC) Urine Bacteria Many /HPF (NONE) H Urine Random Creatinine Pending Urine Random Microalbumin Pending Urine Random Total Protein 66 MG/DL (< 11.9) H Urine Random Sodium 29 mmol/L (20-110) Urine Creatinine 59.6 MG/DL (30.0-125.0) Urine Microalbumin/Creatinine Ratio Pending Stool Occult Blood Negative (NEGATIVE) Sodium Level 140 MMOL/L (136-145) Potassium Level 4.4 MMOL/L (3.5-5.1) Chloride Level 107 MMOL/L (98-107) Carbon Dioxide Level 22 MMOL/L (21-32) Anion Gap 11 mmol/L (5-15) Blood Urea Nitrogen 61 mg/dL (7-18) H Creatinine 3.2 MG/DL (0.55-1.30) H Estimat Glomerular Filtration Rate 14.4 mL/min (>60) Glucose Level 101 MG/DL (74-106) Calcium Level 9.1 MG/DL (8.5-10.1) Phosphorus Level 4.3 MG/DL (2.5-4.9) Magnesium Level 2.2 MG/DL (1.8-2.4) Current Medications Medications (Trade) Dose Ordered Sig/Gurpreet Route PRN Reason Start Time Stop Time Status Last Admin Dose Admin Acetaminophen (Tylenol) 650 mg Q4H PRN ORAL Mild Pain (Pain Scale 1-3) 08/24/19 18:15 09/23/19 18:14 Acetaminophen (Tylenol) 650 mg Q4H PRN ORAL Temp >100.5 08/24/19 18:15 09/23/19 18:14 Albuterol/ Ipratropium (Albuterol/ Ipratropium) 3 ml Q6H PRN HHN Shortness of Breath 08/24/19 18:15 08/29/19 18:14 Bisacodyl (Dulcolax) 10 mg DAILYPRN PRN RECTAL Constipation 08/24/19 18:30 11/22/19 18:14 Ceftriaxone Sodium 1 gm/ Dextrose 50 ml @ 100 mls/hr Q24H IVPB 08/25/19 00:00 09/01/19 00:00 08/27/19 23:25 Clonidine HCl (Catapres Tab) 0.1 mg Q8H PRN ORAL SBP > 160mmHg 08/24/19 18:15 11/22/19 18:14 Dextrose (Dextrose 50%) 25 ml Q30M PRN IV Hypoglycemia 08/24/19 18:15 11/22/19 18:14 Dextrose (Dextrose 50%) 50 ml Q30M PRN IV Hypoglycemia 08/24/19 18:15 11/22/19 18:14 Docusate Sodium (Colace) 100 mg EVERY 12 HOURS ORAL 08/24/19 21:00 09/23/19 20:59 08/28/19 08:38 Doxycycline Monohydrate (Doxycycline Monohydrate) 100 mg EVERY 12 HOURS ORAL 08/25/19 09:00 09/01/19 08:59 08/28/19 08:38 Guaifenesin (Robitussin) 200 mg Q4H PRN ORAL For Cough 08/24/19 18:15 11/22/19 18:14 08/27/19 19:08 Heparin Sodium (Porcine) (Heparin 5000 units/ml) 5,000 units EVERY 12 HOURS SUBQ 08/24/19 21:00 10/08/19 20:59 08/26/19 21:13 Hydralazine HCl (Apresoline) 10 mg EVERY 8 HOURS ORAL 08/24/19 22:00 11/22/19 21:59 08/28/19 14:36 Magnesium Hydroxide (Mom) 30 ml HSPRN PRN ORAL Constipation 08/24/19 18:15 09/23/19 18:14 Methimazole (Tapazole) 10 mg DAILY ORAL 08/29/19 09:00 11/23/19 08:59 Ondansetron HCl (Zofran) 4 mg Q6H PRN IVP Nausea & Vomiting 08/24/19 18:15 09/23/19 18:14 Polyethylene Glycol (Miralax) 17 gm DAILYPRN PRN ORAL Constipation 08/24/19 18:15 09/23/19 18:14 Quetiapine Fumarate (SEROqueL) 25 mg QHS ORAL 08/24/19 21:00 10/08/19 20:59 08/26/19 21:12 Louie Bullard MD August 28, 2019 20:01
[2019-08-29] VITALS: BP 138/82
[2019-08-29 04:00] VITALS: BP 139/94
[2019-08-29] MEDS: HydrALAZINE 10mg Tab ORAL SCH ×3 (06:16→21:45)
[2019-08-29 06:43] LABS: EOSINOPHILS % (AUTO) 5.7 % (0.0-3.0); HEMATOCRIT 30.4 % (37.0-47.0); HEMOGLOBIN 10.3 G/DL (12.0-16.0); LYMPHOCYTES % (AUTO) 38.7 % (20.0-45.0); MEAN CORPUSCULAR VOLUME 82 FL (80-99); MONOCYTES % (AUTO) 7.3 % (1.0-10.0); NEUTROPHILS % (AUTO) 47.4 % (45.0-75.0); PLATELET COUNT 227 K/UL (150-450); RED BLOOD COUNT 3.71 M/UL (4.20-5.40); RED CELL DISTRIBUTION WIDTH 12.5 % (11.6-14.8)
[2019-08-29 07:17] LABS: ALANINE AMINOTRANSFERASE 15 U/L (12-78); ALBUMIN 2.8 G/DL (3.4-5.0); ALBUMIN/GLOBULIN RATIO 0.6 (1.0-2.7); ALKALINE PHOSPHATASE 80 U/L (46-116); ANION GAP 14 mmol/L (5-15); ASPARTATE AMINO TRANSFERASE 15 U/L (15-37); BILIRUBIN,TOTAL 0.3 MG/DL (0.2-1.0); BLOOD UREA NITROGEN 61 mg/dL (7-18); CALCIUM 9.4 MG/DL (8.5-10.1); CARBON DIOXIDE 21 MMOL/L (21-32); CHLORIDE 109 MMOL/L (98-107); CREATININE 3.1 MG/DL (0.55-1.30); POTASSIUM 4.2 MMOL/L (3.5-5.1); SODIUM 144 MMOL/L (136-145)
--- NOTE | 2019-08-29 07:35 | NUR ---
NURSE NOTES received pt awake,alert, orientedx4. Verbally responsive. no acute cardio-resp distress noted. denies of pain or discomfort noted. IV site RFA patent and intact, siderails are up x3. call light is within reach. bed in lowest position, brakes engaged. will continue with plans of care.
[2019-08-29 08:00] VITALS: BP 143/75
[2019-08-29] MEDS: Doxycycline Monohydrate 100mg ORAL SCH ×2 (08:06→21:45)
[2019-08-29] MEDS: Docusate 100mg cap ORAL SCH ×2 (08:06→21:45)
[2019-08-29] MEDS: Heparin 5000 units/ml inj SUBQ SCH ×2 (08:09→21:00)
[2019-08-29] MEDS: methIMAzole 10mg tab ORAL SCH (08:09)
--- NOTE | 2019-08-29 08:13 | NUR ---
HAND-OFF: Report given to WILVER Cardenas. Plan of care endorsed.
--- NOTE | 2019-08-29 08:57 | Nephrology Progress Note ---
Assessment/Plan Plan #Acute on chronic kidney disease- baseline cr close to 2- renal US with bilatera hydronephrosis #pneumonia - left lower lobe #r/o COVID # hyperthyroidism # multiple sclerosis #HTN # COPD - renal US with bilateral severe hydronephrosis - place torres - order mag 3 scan - consider urology eval pending above - COVID ruled out - currently satting well on room air - check 2d echo--> BNP can be elevated due to decreased renal clearance - antibiotics per ID- on augmentin and doxy - strict I&Os - daily weight - monitor lytes and cr closely - continue hydralazine 10mg TID - check PTH/vit D pending - monitor phos - check iron panel and ferritin-> adequate Subjective ROS Limited/Unobtainable: No Constitutional: Denies: no symptoms, chills, diaphoresis, fever, malaise, weakness, other HEENT: Denies: no symptoms, eye pain, blurred vision, tearing, double vision, ear pain, ear discharge, nose pain, nose congestion, throat pain, throat swelling, mouth pain, mouth swelling, other Genitourinary: Denies: no symptoms, burning, discharge, frequency, flank pain, hematuria, incontinence, pain, urgency, other 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: Denies: no symptoms, anxiety, depressed, emotional problems, headache, numbness, paresthesia, pre-existing deficit, seizure, tingling, tremors, weakness, other Subjective COVID negative Satting well on room air cr stable Bp stable Renal US: Impression: Bilateral severe hydronephrosis. Marked cortical thinning indicates that this is probably long-standing. Objective Objective Last 24 Hour Vital Signs Date Time Temp Pulse Resp B/P (MAP) Pulse Ox O2 Delivery O2 Flow Rate FiO2 08/29/19 08:00 97.7 79 18 143/75 (97) 97 08/29/19 06:16 142/96 08/29/19 04:00 72 08/29/19 04:00 98.1 79 19 139/94 (109) 96 08/29/19 00:00 97.9 87 17 138/82 (100) 96 08/29/19 00:00 87 08/28/19 21:27 162/79 08/28/19 21:00 Room Air 08/28/19 20:00 79 08/28/19 20:00 97.6 78 19 159/76 (103) 98 08/28/19 16:00 70 08/28/19 16:00 97.1 82 18 149/81 (103) 94 08/28/19 14:36 127/76 08/28/19 12:00 80 08/28/19 11:33 97.3 86 18 127/76 (93) 95 08/28/19 09:00 Room Air Intake and Output 08/28/19 08/29/19 19:00 07:00 Intake Total 710 ml 260 ml Output Total 650 ml 250 ml Balance 60 ml 10 ml Intake Oral 710 ml 260 ml Output Urine Total 650 ml 250 ml # Voids 1 5 # Bowel Movements 1 2 Laboratory Tests 08/28/19 10:40: Sodium Level 140, Potassium Level 4.4, Chloride Level 107, Carbon Dioxide Level 22, Anion Gap 11, Blood Urea Nitrogen 61H, Creatinine 3.2H, Estimat Glomerular Filtration Rate 14.4, Glucose Level 101, Calcium Level 9.1, Phosphorus Level 4.3 , Magnesium Level 2.2 08/29/19 05:35: Sodium Level 144, Potassium Level 4.2, Chloride Level 109H, Carbon Dioxide Level 21, Anion Gap 14, Blood Urea Nitrogen 61H, Creatinine 3.1H, Estimat Glomerular Filtration Rate 14.9, Glucose Level 90, Calcium Level 9.4, White Blood Count 6.0, Red Blood Count 3.71L, Hemoglobin 10.3L, Hematocrit 30.4L, Mean Corpuscular Volume 82, Mean Corpuscular Hemoglobin 27.7, Mean Corpuscular Hemoglobin Concent 33.7, Red Cell Distribution Width 12.5, Platelet Count 227, Mean Platelet Volume 6.2L, Neutrophils (%) (Auto) 47.4, Lymphocytes (%) (Auto) 38.7, Monocytes (%) (Auto) 7.3, Eosinophils (%) (Auto) 5.7H, Basophils (%) (Auto ) 1.0, Total Bilirubin 0.3, Aspartate Amino Transf (AST/SGOT) 15, Alanine Aminotransferase (ALT/SGPT) 15, Alkaline Phosphatase 80, Total Protein 7.5, Albumin 2.8L, Globulin 4.7, Albumin/Globulin Ratio 0.6L Height (Feet): 5 Height (Inches): 4.00 Weight (Pounds): 165 Pirouz,Aslan M.D. August 29, 2019 08:57
[2019-08-29 12:00] VITALS: BP 138/69
--- NOTE | 2019-08-29 13:34 | NUR ---
NURSE NOTES: patient refused to be swabbed for COVID. informed CN, Fe. will convey msg to PMD. will cont to monitor.
[2019-08-29] MEDS ORDERED: cefTRIAXone 1 GM in D5W 50 ML IVPB SCH (14:00)
--- NOTE | 2019-08-29 14:30 | General Progress Note ---
Assessment/Plan Assessment/Plan: 68 y/o F w/PMH hyperthyroidism, multiple sclerosis, HTN and COPD who presents from [facility] for cough and abnormal labs. On admission, CXR revealed left lower lobe pleural effusion, Cr 3.2. Patient admitted for further treatment and evaluation, and COVID-19 negative. #HCAP #Left pleural effusion #Bacteremia 1/2 Staph coag negative -cont. in-pt medical care -COVID Negative, d/c isolation protocol -CXR reviewed, unilateral PNA/pleural effusion -BCx 1/2 w/staph coag negative, likely contaminant -d/w pulm, pleural effusion small at this time, no indication for thora at this time -bacteremia staph coag neg /, possible contaminant -Repeat BCx NGTD -Repeat COVID pending -ID: CTX and doxy #UTI - GNB -cont abx per ID, CTX -f/u on final sensitivities #SAJAN on CKD -Cr b/l 2.3 on 01/2019 -Cr elevated on admission -s/p lasix 80 mg per nephro -Renal US ordered -echo ordered, pending -Nephro, Dr. Jaimes, consulted, recs appreciated #Elevated BNP -likely 2/2 to above, acute renal injury -s/p 1 dose lasix -no LE edema -cont. to trend BNP -echo pending #COPD -not in exacerbation at this time -currently on RA -supportive care, supplemental O2 PRN for SpO2<88 -ctm #Multiple sclerosis -PT/OT treat and eval once COVID ruled out #Hyperthyroidism -home med methimazole 10 mg PO q daily Dispo: CM for dispo planning DVT PPx: Heparin Time spent on encounter: 37 mins, 22 on counseling, coordination of care. Time of note doesn't reflect time of encounter. Subjective Allergies: Coded Allergies: CODEINE (Verified Allergy, Unknown, 08/24/19) NEUROMUSCULAR BLOCKERS, STEROIDAL (Verified Allergy, Unknown, 08/24/19) Uncoded Allergies: ANABOLIC STEROIDS (Allergy, Unknown, 08/24/19) STEROIDS (Allergy, Unknown, 08/24/19) Subjective F/u for HCAP/PNA, SAJAN on CKD, COVID negative. BCx positive 1 of 2. No acute events overnight. Pt refused 2-d echo stating they wanted to perform the exam "at midnight", and she wanted to sleep at that time. 12 pt ROS neg except as above Objective Last 24 Hour Vital Signs Date Time Temp Pulse Resp B/P (MAP) Pulse Ox O2 Delivery O2 Flow Rate FiO2 08/29/19 14:11 138/69 08/29/19 12:00 97.9 76 18 138/69 (92) 97 08/29/19 09:35 Room Air 08/29/19 08:00 97.7 79 18 143/75 (97) 97 08/29/19 08:00 67 08/29/19 06:16 142/96 08/29/19 04:00 72 08/29/19 04:00 98.1 79 19 139/94 (109) 96 08/29/19 00:00 97.9 87 17 138/82 (100) 96 08/29/19 00:00 87 08/28/19 21:27 162/79 08/28/19 21:00 Room Air 08/28/19 20:00 79 08/28/19 20:00 97.6 78 19 159/76 (103) 98 08/28/19 16:00 70 08/28/19 16:00 97.1 82 18 149/81 (103) 94 08/28/19 14:36 127/76 Intake and Output 08/28/19 08/29/19 19:00 07:00 Intake Total 710 ml 260 ml Output Total 650 ml 250 ml Balance 60 ml 10 ml Intake Oral 710 ml 260 ml Output Urine Total 650 ml 250 ml # Voids 1 5 # Bowel Movements 1 2 Laboratory Tests 08/29/19 05:35: White Blood Count 6.0, Red Blood Count 3.71L, Hemoglobin 10.3L, Hematocrit 30.4L , Mean Corpuscular Volume 82, Mean Corpuscular Hemoglobin 27.7, Mean Corpuscular Hemoglobin Concent 33.7, Red Cell Distribution Width 12.5, Platelet Count 227, Mean Platelet Volume 6.2L, Neutrophils (%) (Auto) 47.4, Lymphocytes ( %) (Auto) 38.7, Monocytes (%) (Auto) 7.3, Eosinophils (%) (Auto) 5.7H, Basophils (%) (Auto) 1.0, Sodium Level 144, Potassium Level 4.2, Chloride Level 109H, Carbon Dioxide Level 21, Anion Gap 14, Blood Urea Nitrogen 61H, Creatinine 3.1H, Estimat Glomerular Filtration Rate 14.9, Glucose Level 90, Calcium Level 9.4, Total Bilirubin 0.3, Aspartate Amino Transf (AST/SGOT) 15, Alanine Aminotransferase (ALT/SGPT) 15, Alkaline Phosphatase 80, Total Protein 7.5, Albumin 2.8L, Globulin 4.7, Albumin/Globulin Ratio 0.6L Height (Feet): 5 Height (Inches): 4.00 Weight (Pounds): 165 Objective General: NAD, A&O x 3 HEENT: NCAT, EOMi, MMM CV: RRR, no murmurs, rubs, or gallops Pulm: mild rhonchi b/l, otherwise no accessory muscle usage or conversational dyspnea GI: Soft, nontender, nondistended, bowel sounds present Ext: No lower extremity edema bilaterally, RUE contracted hand Skin: no rashes lesions or ulcers Abdias Blanc M.D. August 29, 2019 14:30
[2019-08-29] MEDS ORDERED: cefTRIAXone 1 GM in D5W 55 ML IVPB SCH (15:00)
[2019-08-29 16:00] VITALS: BP 130/79
--- NOTE | 2019-08-29 16:07 | Pulmonology Progress Note ---
Assessment/Plan Assessment/Plan IMPRESSION: 1. Possible left lung pneumonia. 2. Small pleural effusion, no indication for thoracentesis. 3. UTI DISCUSSION: Agree with antibiotics. Currently saturating well on room air. I will follow. Andres Quick M.D. Subjective ROS Limited/Unobtainable: No Interval Events: Saturating well on RA Constitutional: Denies: fever HEENT: Repors: no symptoms Respiratory: Reports: no symptoms Cardiovascular: Reports: no symptoms; Denies: chest pain, palpitations, other Gastrointestinal/Abdominal: Denies: nausea, vomiting, diarrhea Psychiatric: Denies: depression Skin: Denies: rash Musculoskeletal: Denies: pain Allergies: Coded Allergies: CODEINE (Verified Allergy, Unknown, 08/24/19) NEUROMUSCULAR BLOCKERS, STEROIDAL (Verified Allergy, Unknown, 08/24/19) Uncoded Allergies: ANABOLIC STEROIDS (Allergy, Unknown, 08/24/19) STEROIDS (Allergy, Unknown, 08/24/19) Objective Last 24 Hour Vital Signs Date Time Temp Pulse Resp B/P (MAP) Pulse Ox O2 Delivery O2 Flow Rate FiO2 08/29/19 16:00 97.1 93 18 130/79 (96) 99 08/29/19 14:11 138/69 08/29/19 12:00 97.9 76 18 138/69 (92) 97 08/29/19 09:35 Room Air 08/29/19 08:00 97.7 79 18 143/75 (97) 97 08/29/19 08:00 67 08/29/19 06:16 142/96 08/29/19 04:00 72 08/29/19 04:00 98.1 79 19 139/94 (109) 96 08/29/19 00:00 97.9 87 17 138/82 (100) 96 08/29/19 00:00 87 08/28/19 21:27 162/79 08/28/19 21:00 Room Air 08/28/19 20:00 79 08/28/19 20:00 97.6 78 19 159/76 (103) 98 Intake and Output 5/4/20 5/5/20 19:00 07:00 Intake Total 710 ml 260 ml Output Total 650 ml 250 ml Balance 60 ml 10 ml Intake Oral 710 ml 260 ml Output Urine Total 650 ml 250 ml # Voids 1 5 # Bowel Movements 1 2 General Appearance: no acute distress HEENT: normocephalic, atraumatic, anicteric, mucous membranes moist Respiratory/Chest: chest wall non-tender Cardiovascular: normal peripheral pulses Abdomen: normal bowel sounds, soft, non tender, no organomegaly, non distended Genitourinary: other - no torres Extremities: no cyanosis Skin: no rash 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: human resources assistant II-XII grossly normal, alert Lymphatic: no neck adenopathy Musculoskeletal: no effusion Microbiology Date/Time Source Procedure Growth Status 08/27/19 07:05 Blood Blood Culture - Preliminary NO GROWTH AFTER 24 HOURS Resulted 08/27/19 06:55 Blood Blood Culture - Preliminary NO GROWTH AFTER 24 HOURS Resulted 08/27/19 22:30 Urine,Clean Catch Urine Culture - Preliminary Gram Negative Bacillus 1 Resulted Laboratory Tests 08/29/19 05:35: White Blood Count 6.0, Red Blood Count 3.71L, Hemoglobin 10.3L, Hematocrit 30.4L , Mean Corpuscular Volume 82, Mean Corpuscular Hemoglobin 27.7, Mean Corpuscular Hemoglobin Concent 33.7, Red Cell Distribution Width 12.5, Platelet Count 227, Mean Platelet Volume 6.2L, Neutrophils (%) (Auto) 47.4, Lymphocytes ( %) (Auto) 38.7, Monocytes (%) (Auto) 7.3, Eosinophils (%) (Auto) 5.7H, Basophils (%) (Auto) 1.0, Sodium Level 144, Potassium Level 4.2, Chloride Level 109H, Carbon Dioxide Level 21, Anion Gap 14, Blood Urea Nitrogen 61H, Creatinine 3.1H, Estimat Glomerular Filtration Rate 14.9, Glucose Level 90, Calcium Level 9.4, Total Bilirubin 0.3, Aspartate Amino Transf (AST/SGOT) 15, Alanine Aminotransferase (ALT/SGPT) 15, Alkaline Phosphatase 80, Total Protein 7.5, Albumin 2.8L, Globulin 4.7, Albumin/Globulin Ratio 0.6L Current Medications Medications (Trade) Dose Ordered Sig/Gurpreet Route PRN Reason Start Time Stop Time Status Last Admin Dose Admin Acetaminophen (Tylenol) 650 mg Q4H PRN ORAL Mild Pain (Pain Scale 1-3) 08/24/19 18:15 09/23/19 18:14 Acetaminophen (Tylenol) 650 mg Q4H PRN ORAL Temp >100.5 08/24/19 18:15 09/23/19 18:14 Albuterol/ Ipratropium (Albuterol/ Ipratropium) 3 ml Q6H PRN HHN Shortness of Breath 08/24/19 18:15 08/29/19 18:14 Bisacodyl (Dulcolax) 10 mg DAILYPRN PRN RECTAL Constipation 08/24/19 18:30 11/22/19 18:14 Ceftriaxone Sodium 1 gm/ Dextrose 55 ml @ 110 mls/hr Q24H IVPB 08/29/19 15:00 09/05/19 13:59 08/29/19 14:56 Clonidine HCl (Catapres Tab) 0.1 mg Q8H PRN ORAL SBP > 160mmHg 08/24/19 18:15 11/22/19 18:14 Dextrose (Dextrose 50%) 25 ml Q30M PRN IV Hypoglycemia 08/24/19 18:15 11/22/19 18:14 Dextrose (Dextrose 50%) 50 ml Q30M PRN IV Hypoglycemia 08/24/19 18:15 11/22/19 18:14 Docusate Sodium (Colace) 100 mg EVERY 12 HOURS ORAL 08/24/19 21:00 09/23/19 20:59 08/29/19 08:06 Doxycycline Monohydrate (Doxycycline Monohydrate) 100 mg EVERY 12 HOURS ORAL 08/25/19 09:00 09/01/19 08:59 08/29/19 08:06 Guaifenesin (Mucinex ER) 600 mg TWICE A DAY ORAL 08/29/19 18:00 09/05/19 17:59 Guaifenesin (Robitussin) 200 mg Q4H PRN ORAL For Cough 08/24/19 18:15 11/22/19 18:14 08/27/19 19:08 Heparin Sodium (Porcine) (Heparin 5000 units/ml) 5,000 units EVERY 12 HOURS SUBQ 08/24/19 21:00 10/08/19 20:59 08/29/19 08:09 Hydralazine HCl (Apresoline) 10 mg EVERY 8 HOURS ORAL 08/24/19 22:00 11/22/19 21:59 08/29/19 14:11 Magnesium Hydroxide (Mom) 30 ml HSPRN PRN ORAL Constipation 08/24/19 18:15 09/23/19 18:14 Methimazole (Tapazole) 10 mg DAILY ORAL 08/29/19 09:00 11/23/19 08:59 08/29/19 08:09 Ondansetron HCl (Zofran) 4 mg Q6H PRN IVP Nausea & Vomiting 08/24/19 18:15 09/23/19 18:14 Polyethylene Glycol (Miralax) 17 gm DAILYPRN PRN ORAL Constipation 08/24/19 18:15 09/23/19 18:14 Quetiapine Fumarate (SEROqueL) 25 mg QHS ORAL 08/24/19 21:00 10/08/19 20:59 08/28/19 21:21 Andres Quick MD August 29, 2019 16:07
--- NOTE | 2019-08-29 16:11 | Diagnostic Imaging Report ---
Indication: Abnormal renal function tests Technique: Grayscale and duplex images of the kidneys, retroperitoneum, and bladder were obtained. Comparison: none Findings: Right kidney measures 10.3 cm in length. Left kidney measures 10 cm in length. Both kidneys demonstrate normal echogenicity. There is severe bilateral hydronephrosis with marked thinning of the renal cortices. No focal abnormality. Partially obscured inferior vena cava. Bladder is normal although evaluation is limited as patient unable to tolerate scanning. Calculate bladder volume is 74 mL. Impression: Bilateral severe hydronephrosis. Marked cortical thinning indicates that this is probably long-standing.
[2019-08-29] MEDS: guaiFENesin ER 600mg tab ORAL SCH (17:20)
--- NOTE | 2019-08-29 19:10 | NUR ---
NURSE NOTES: Received report from JOANNE Cardenas. Initial rounding completed and updated pt care board. Pt is AAOX4, bedbound R/T MS, able to move upper extremities w/ stiffness to hands more to right. essential supplies at bedside table w/in reach. no apparent distress noted. pt requesting snack, will flower picker sandwich later. denies pain at this time. instructed to call anytime for assistance.
--- NOTE | 2019-08-29 19:16 | NUR ---
HAND-OFF: Report given to Marcelino.
[2019-08-29 20:00] VITALS: BP 128/82
--- NOTE | 2019-08-29 21:00 | NUR ---
Late entry note from manager concrete. !st covid swab was negative. 2nd covid swab had been ordered in [facility] which patient refused. discussed the fact that this patient has a roomate with [employer] Lock[employer] Supervisor Susan who stated no beds available for a private room for this patient, and to inform the doctor discussed with Chintan Smith who will inform the doctor. Patient will move to a single room as soon as possible.
--- NOTE | 2019-08-29 23:32 | NUR ---
NURSE NOTES: Spoke to Dr. Nobles covering Dr. Blanc regarding the patient has refused of second Covid-19 swabbed for today's order by Dr. Blanc, maintained droplet/contact precaution and curtain division maintained. will place pt back to a single room as soon as there's room opens up. charge nurse, Little Harman updated with the situation. Also informed Dr. Nobles that pt has been refusing Heparin prophylaxis and torres placement. She's been voiding and soaked up the pad beginning of the shift, changed pad recently with moderate output noted and w/ soft tarry stool.
[2019-08-30] VITALS: BP 128/75
[2019-08-30 04:00] VITALS: BP 143/70
[2019-08-30] MEDS: HydrALAZINE 10mg Tab ORAL SCH ×3 (06:01→20:26)
--- NOTE | 2019-08-30 07:35 | NUR ---
HAND-OFF: Report given to WILVER Graham.
--- NOTE | 2019-08-30 08:00 | NUR ---
NURSE NOTES: Patient stable, AOx4 with no complaints and no s/sx of distress or pain. RR even and unlabored on RA. Breakfast was set up for her to eat. Side rails up x2, call light within reach. Bed low and locked. Will continue to monitor.
[2019-08-30 08:23] LABS: ANION GAP 15 mmol/L (5-15); BLOOD UREA NITROGEN 67 mg/dL (7-18); CALCIUM 9.6 MG/DL (8.5-10.1); CARBON DIOXIDE 18 MMOL/L (21-32); CHLORIDE 108 MMOL/L (98-107); PHOSPHORUS 4.5 MG/DL (2.5-4.9); POTASSIUM 4.3 MMOL/L (3.5-5.1); SODIUM 141 MMOL/L (136-145)
[2019-08-30] MEDS: guaiFENesin ER 600mg tab ORAL SCH ×3 (09:00→18:00)
[2019-08-30] MEDS: Heparin 5000 units/ml inj SUBQ SCH ×2 (09:00→20:27)
--- NOTE | 2019-08-30 09:06 | General Progress Note ---
Assessment/Plan Assessment/Plan: 68 y/o F w/PMH hyperthyroidism, multiple sclerosis, HTN and COPD who presents from [facility] for cough and abnormal labs. On admission, CXR revealed left lower lobe pleural effusion, Cr 3.2. Patient admitted for further treatment and evaluation, and COVID-19 negative. #HCAP #Left pleural effusion #Bacteremia 1/2 Staph coag negative -cont. 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 Jaimes, plan for nuc med renal scan test -Urology consulted, recs appreciated #Elevated BNP - downtrending -likely 2/2 to above, acute renal injury -s/p 1 dose lasix -no LE edema -echo w/normal EF #COPD -not in exacerbation at this time -currently on RA -supportive care, supplemental O2 PRN for SpO2<88 -ctm #Multiple sclerosis -PT/OT treat and eval #Hyperthyroidism -home med methimazole 10 mg PO q daily #Anxiety -ativan 0.5 mg PO PRN -Psych consulted, recs appreciated Dispo: pt refuses to return to [facility], CHRISTIN for dispo planning, pt to go to SNF ([facility]) on d/c DVT PPx: Heparin Time spent on encounter: 35 mins, 25 on counseling, coordination of care. Time of note doesn't reflect time of encounter. Subjective Allergies: Coded Allergies: CODEINE (Verified Allergy, Unknown, 08/24/19) NEUROMUSCULAR BLOCKERS, STEROIDAL (Verified Allergy, Unknown, 08/24/19) Uncoded Allergies: ANABOLIC STEROIDS (Allergy, Unknown, 08/24/19) STEROIDS (Allergy, Unknown, 08/24/19) Subjective F/u for HCAP/PNA, SAJAN on CKD, COVID negative. BCx positive 1 of 2. No acute events overnight, pt states she feels anxious about getting further testing for her renal function. Denies SOB. 12 pt ROS neg except as above Objective Last 24 Hour Vital Signs Date Time Temp Pulse Resp B/P (MAP) Pulse Ox O2 Delivery O2 Flow Rate FiO2 08/30/19 06:01 143/70 08/30/19 04:00 74 08/30/19 04:00 Room Air 08/30/19 04:00 97.3 79 18 143/70 (94) 99 08/30/19 00:00 79 08/30/19 00:00 98.1 79 18 128/75 (92) 98 08/30/19 00:00 Room Air 08/29/19 21:45 128/82 08/29/19 21:00 Room Air 08/29/19 20:00 84 08/29/19 20:00 96.8 94 18 128/82 (97) 99 08/29/19 20:00 87 08/29/19 16:00 99 08/29/19 16:00 97.1 93 18 130/79 (96) 99 08/29/19 14:11 138/69 08/29/19 12:00 87 08/29/19 12:00 97.9 76 18 138/69 (92) 97 08/29/19 09:35 Room Air Intake and Output 08/29/19 08/30/19 19:00 07:00 Intake Total 630 ml Output Total 300 ml 300 ml Balance 330 ml -300 ml Intake Oral 630 ml Output Urine Total 300 ml Post Void Residual 300 ml Bladder Scan Volume Amount 70 (Residual) incontinent, pt refused torres 95 # Voids 3 # Bowel Movements 1 4 Laboratory Tests 08/30/19 05:49: Sodium Level 141, Potassium Level 4.3, Chloride Level 108H, Carbon Dioxide Level 18L, Anion Gap 15, Blood Urea Nitrogen 67H, Creatinine 3.0H, Estimat Glomerular Filtration Rate 15.5, Glucose Level 89, Calcium Level 9.6, Phosphorus Level 4.5, Magnesium Level 2.1 Height (Feet): 5 Height (Inches): 4.00 Weight (Pounds): 136 Objective General: NAD, A&O x 3 HEENT: NCAT, EOMi, MMM CV: RRR, no murmurs, rubs, or gallops Pulm: mild rhonchi b/l, otherwise no accessory muscle usage or conversational dyspnea GI: Soft, nontender, nondistended, bowel sounds present Ext: No lower extremity edema bilaterally, RUE contracted hand Skin: no rashes lesions or ulcers Abdias Balnc M.D. August 30, 2019 09:06
[2019-08-30] MEDS: methIMAzole 10mg tab ORAL SCH (09:23)
[2019-08-30] MEDS: Doxycycline Monohydrate 100mg ORAL SCH (09:23)
[2019-08-30] MEDS: guaiFENesin 100mg/5ml Liq ud ORAL PRN (09:26)
[2019-08-30] MEDS: Docusate 100mg cap ORAL SCH ×2 (09:26→20:26)
--- NOTE | 2019-08-30 10:25 | Nephrology Progress Note ---
Assessment/Plan Plan #Acute on chronic kidney disease- baseline cr close to 2- renal US with bilatera hydronephrosis #pneumonia - left lower lobe #r/o COVID # hyperthyroidism # multiple sclerosis #HTN # COPD - renal US with bilateral severe hydronephrosis - refused torres- bladder scan q6hr - mag 3 scan - consider urology eval pending above - COVID ruled out - currently satting well on room air - check 2d echo--> BNP can be elevated due to decreased renal clearance - antibiotics per ID- on augmentin and doxy - strict I&Os - daily weight - monitor lytes and cr closely - continue hydralazine 10mg TID - check PTH/vit D pending - monitor phos - check iron panel and ferritin-> adequate Subjective ROS Limited/Unobtainable: No Constitutional: Denies: no symptoms, chills, diaphoresis, fever, malaise, weakness, other HEENT: Denies: no symptoms, eye pain, blurred vision, tearing, double vision, ear pain, ear discharge, nose pain, nose congestion, throat pain, throat swelling, mouth pain, mouth swelling, other Genitourinary: Denies: no symptoms, burning, discharge, frequency, flank pain, hematuria, incontinence, pain, urgency, other 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: Denies: no symptoms, anxiety, depressed, emotional problems, headache, numbness, paresthesia, pre-existing deficit, seizure, tingling, tremors, weakness, other Subjective COVID negative Satting well on room air cr stable Bp stable Renal US: Impression: Bilateral severe hydronephrosis. Marked cortical thinning indicates that this is probably long-standing. Objective Objective Last 24 Hour Vital Signs Date Time Temp Pulse Resp B/P (MAP) Pulse Ox O2 Delivery O2 Flow Rate FiO2 08/30/19 06:01 143/70 08/30/19 04:00 74 08/30/19 04:00 Room Air 08/30/19 04:00 97.3 79 18 143/70 (94) 99 08/30/19 00:00 79 08/30/19 00:00 98.1 79 18 128/75 (92) 98 08/30/19 00:00 Room Air 08/29/19 21:45 128/82 08/29/19 21:00 Room Air 08/29/19 20:00 84 08/29/19 20:00 96.8 94 18 128/82 (97) 99 08/29/19 20:00 87 08/29/19 16:00 99 08/29/19 16:00 97.1 93 18 130/79 (96) 99 08/29/19 14:11 138/69 08/29/19 12:00 87 08/29/19 12:00 97.9 76 18 138/69 (92) 97 Intake and Output 08/29/19 08/30/19 19:00 07:00 Intake Total 630 ml Output Total 300 ml 300 ml Balance 330 ml -300 ml Intake Oral 630 ml Output Urine Total 300 ml Post Void Residual 300 ml Bladder Scan Volume Amount 70 (Residual) incontinent, pt refused torres 95 # Voids 3 # Bowel Movements 1 4 Laboratory Tests 08/30/19 05:49: Sodium Level 141, Potassium Level 4.3, Chloride Level 108H, Carbon Dioxide Level 18L, Anion Gap 15, Blood Urea Nitrogen 67H, Creatinine 3.0H, Estimat Glomerular Filtration Rate 15.5, Glucose Level 89, Calcium Level 9.6, Phosphorus Level 4.5, Magnesium Level 2.1 Height (Feet): 5 Height (Inches): 4.00 Weight (Pounds): 136 Vicente Jaimes M.D. August 30, 2019 10:25
--- NOTE | 2019-08-30 10:30 | Pulmonology Progress Note ---
Assessment/Plan Assessment/Plan IMPRESSION: 1. Possible left lung pneumonia. 2. Small pleural effusion, no indication for thoracentesis. 3. UTI DISCUSSION: Agree with antibiotics. COVID 19 pcr negative Currently saturating well on room air. I will follow. Andres Quick M.D. Subjective ROS Limited/Unobtainable: No Interval Events: Saturating well on RA Constitutional: Denies: fever HEENT: Repors: no symptoms Respiratory: Reports: no symptoms Cardiovascular: Reports: no symptoms; Denies: chest pain, palpitations, other Gastrointestinal/Abdominal: Denies: nausea, vomiting, diarrhea Psychiatric: Denies: depression Skin: Denies: rash Musculoskeletal: Denies: pain Allergies: Coded Allergies: CODEINE (Verified Allergy, Unknown, 08/24/19) NEUROMUSCULAR BLOCKERS, STEROIDAL (Verified Allergy, Unknown, 08/24/19) Uncoded Allergies: ANABOLIC STEROIDS (Allergy, Unknown, 08/24/19) STEROIDS (Allergy, Unknown, 08/24/19) Objective Last 24 Hour Vital Signs Date Time Temp Pulse Resp B/P (MAP) Pulse Ox O2 Delivery O2 Flow Rate FiO2 08/30/19 06:01 143/70 08/30/19 04:00 74 08/30/19 04:00 Room Air 08/30/19 04:00 97.3 79 18 143/70 (94) 99 08/30/19 00:00 79 08/30/19 00:00 98.1 79 18 128/75 (92) 98 08/30/19 00:00 Room Air 08/29/19 21:45 128/82 08/29/19 21:00 Room Air 08/29/19 20:00 84 08/29/19 20:00 96.8 94 18 128/82 (97) 99 08/29/19 20:00 87 08/29/19 16:00 99 08/29/19 16:00 97.1 93 18 130/79 (96) 99 08/29/19 14:11 138/69 08/29/19 12:00 87 08/29/19 12:00 97.9 76 18 138/69 (92) 97 Intake and Output 08/29/19 08/30/19 19:00 07:00 Intake Total 630 ml Output Total 300 ml 300 ml Balance 330 ml -300 ml Intake Oral 630 ml Output Urine Total 300 ml Post Void Residual 300 ml Bladder Scan Volume Amount 70 (Residual) incontinent, pt refused torres 95 # Voids 3 # Bowel Movements 1 4 General Appearance: no acute distress HEENT: normocephalic, atraumatic, anicteric, mucous membranes moist Respiratory/Chest: chest wall non-tender Cardiovascular: normal peripheral pulses Abdomen: normal bowel sounds, soft, non tender, no organomegaly, non distended Genitourinary: other - no torres Extremities: no cyanosis Skin: no rash 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, 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 Lymphatic: no neck adenopathy Musculoskeletal: no effusion Microbiology Date/Time Source Procedure Growth Status 08/27/19 22:30 Urine,Clean Catch Urine Culture - Preliminary Escherichia Coli - Esbl Gram Positive Cocci Resulted Laboratory Tests 08/30/19 05:49: Sodium Level 141, Potassium Level 4.3, Chloride Level 108H, Carbon Dioxide Level 18L, Anion Gap 15, Blood Urea Nitrogen 67H, Creatinine 3.0H, Estimat Glomerular Filtration Rate 15.5, Glucose Level 89, Calcium Level 9.6, Phosphorus Level 4.5, Magnesium Level 2.1 Current Medications Medications (Trade) Dose Ordered Sig/Gurpreet Route PRN Reason Start Time Stop Time Status Last Admin Dose Admin Acetaminophen (Tylenol) 650 mg Q4H PRN ORAL Mild Pain (Pain Scale 1-3) 08/24/19 18:15 09/23/19 18:14 Acetaminophen (Tylenol) 650 mg Q4H PRN ORAL Temp >100.5 08/24/19 18:15 09/23/19 18:14 Bisacodyl (Dulcolax) 10 mg DAILYPRN PRN RECTAL Constipation 08/24/19 18:30 11/22/19 18:14 Clonidine HCl (Catapres Tab) 0.1 mg Q8H PRN ORAL SBP > 160mmHg 08/24/19 18:15 11/22/19 18:14 Dextrose (Dextrose 50%) 25 ml Q30M PRN IV Hypoglycemia 08/24/19 18:15 11/22/19 18:14 Dextrose (Dextrose 50%) 50 ml Q30M PRN IV Hypoglycemia 08/24/19 18:15 11/22/19 18:14 Docusate Sodium (Colace) 100 mg EVERY 12 HOURS ORAL 08/24/19 21:00 09/23/19 20:59 08/30/19 09:26 Doxycycline Monohydrate (Doxycycline Monohydrate) 100 mg EVERY 12 HOURS ORAL 08/25/19 09:00 09/01/19 08:59 08/30/19 09:23 Guaifenesin (Mucinex ER) 600 mg TWICE A DAY ORAL 08/29/19 18:00 09/05/19 17:59 Guaifenesin (Robitussin) 200 mg Q4H PRN ORAL For Cough 08/24/19 18:15 11/22/19 18:14 08/30/19 09:26 Heparin Sodium (Porcine) (Heparin 5000 units/ml) 5,000 units EVERY 12 HOURS SUBQ 08/24/19 21:00 10/08/19 20:59 08/29/19 08:09 Hydralazine HCl (Apresoline) 10 mg EVERY 8 HOURS ORAL 08/24/19 22:00 11/22/19 21:59 08/30/19 06:01 Magnesium Hydroxide (Mom) 30 ml HSPRN PRN ORAL Constipation 08/24/19 18:15 09/23/19 18:14 Meropenem 500 mg/ Sodium Chloride 55 ml @ 110 mls/hr EVERY 12 HOURS IVPB 08/30/19 11:00 09/04/19 10:59 Methimazole (Tapazole) 10 mg DAILY ORAL 08/29/19 09:00 11/23/19 08:59 08/30/19 09:23 Ondansetron HCl (Zofran) 4 mg Q6H PRN IVP Nausea & Vomiting 08/24/19 18:15 09/23/19 18:14 Polyethylene Glycol (Miralax) 17 gm DAILYPRN PRN ORAL Constipation 08/24/19 18:15 09/23/19 18:14 Quetiapine Fumarate (SEROqueL) 25 mg QHS ORAL 08/24/19 21:00 10/08/19 20:59 08/28/19 21:21 Andres Quick MD August 30, 2019 10:30
[2019-08-30] MEDS: Meropenem 500mg in NS 55ml IVPB SCH ×2 (11:24→20:26)
--- NOTE | 2019-08-30 11:38 | NUR ---
CASE MANAGEMENT:REVIEW 08/30/19 SI: PNA. PLEURAL EFFUSION COVID 19 NEGATIVE 97.3 74 18 143/70 99% ON RA BUN+67 CR+3.0 IS: IV MEROPENEM Q12 TAPAZOLE PO QD DOXYCYCLINE PO Q12 HYDRALAZINE PO Q8HRS HEPARIN SQ Q12 SEROQUEL PO QHS : TELEMETRY STATUS DCP: FROM [facility]: PLEASE SEE DISCHARGE PLANNING NOTE
--- NOTE | 2019-08-30 11:41 | NUR ---
DISCHARGE PLANNING PATIENT IS FROM [facility] BUT DOESN'T WANT TO RETURN [facility] HAS AGREED TO ACCEPT PATIENT TODAY WITH ONLY 1 COVID NEGATIVE TEST PER DR MELTON PATIENT NOT READY FOR DISCHARGE TODAY NOT SURE IF [facility] WILL HOLD THE BED
[2019-08-30 12:00] VITALS: BP 146/86
[2019-08-30] MEDS ORDERED: LORazepam 0.5mg tab ORAL PRN (14:00)
--- NOTE | 2019-08-30 15:34 | NUR ---
P.T Note: late entry 05.09/12 P.T evaluation completed. Pt is alert , oriented to self, place and current situation however uncooperative and resistive to evaluation. Pt stated she resided in SNF, was non ambulatory and bed bound for a long time ( unable to recall the time she was ambulatory ). Pt presented moderate to severe limitation of motion on B knees and especially B ankles were there's presence of plantar flexion contractures. Pt is dependent for ADL/functional mobilities and already at baseline function and not a candidate for skilled P.T services. Recommend D/C to prior living arrangement. DC P.T services. Thank you for this referral.
[2019-08-30 16:00] VITALS: BP 140/78
[2019-08-30] MEDS ORDERED: LORazepam 1mg tab ORAL PRN (16:00)
--- NOTE | 2019-08-30 18:24 | Infectious Diseases Prog Note ---
Assessment/Plan Assessment/Plan ASSESSMENT AND PLAN: 1. CAP, rule out covid-19 virus infection coag neg staph blood culture - 2/4 is likely a contaminant esbl e.coli uti, ? gram + uti - meropenem and ampicillin started today (08/30/19) - covid19 testing negative x 1, repeat ordered, in isolation - f/u chest x-ray and labs - surveillance blood cultures - negative - communicated with Dr. Blanc 3. Renal failure. 4. COPD. 5. Multiple sclerosis. 6. Hypertension. 7. Effusion. 8. Cough. 9. Continue treatment per primary consultants. 10. Orders were noted and entered. 11. Allergies to anabolic steroids, codeine, neuromuscular blockers. 12. Social history negative. 13. Family history noncontributory. 14. MAR was noted. 15. Case discussed with RN. Subjective Constitutional: Reports: fatigue; Denies: fever HEENT: Denies: congestion Respiratory: Reports: dry cough; Denies: shortness of breath Cardiovascular: Denies: chest pain Gastrointestinal/Abdominal: Denies: nausea, vomiting, diarrhea Genitourinary: Reports: dysuria, frequency, other - no torres Neurologic: Denies: headache Psychiatric: Denies: depression Skin: Denies: rash Hematologic: Denies: bleeding Musculoskeletal: Denies: pain Allergies: Coded Allergies: CODEINE (Verified Allergy, Unknown, 08/24/19) NEUROMUSCULAR BLOCKERS, STEROIDAL (Verified Allergy, Unknown, 08/24/19) Uncoded Allergies: ANABOLIC STEROIDS (Allergy, Unknown, 08/24/19) STEROIDS (Allergy, Unknown, 08/24/19) Objective Vital Signs Last 24 Hour Vital Signs Date Time Temp Pulse Resp B/P (MAP) Pulse Ox O2 Delivery O2 Flow Rate FiO2 08/30/19 16:00 96.6 87 20 140/78 (98) 96 08/30/19 16:00 88 08/30/19 14:53 146/86 08/30/19 12:00 96.7 78 19 146/86 (106) 98 08/30/19 09:00 Room Air 08/30/19 08:00 85 08/30/19 06:01 143/70 08/30/19 04:00 74 08/30/19 04:00 Room Air 08/30/19 04:00 97.3 79 18 143/70 (94) 99 08/30/19 00:00 79 08/30/19 00:00 98.1 79 18 128/75 (92) 98 08/30/19 00:00 Room Air 08/29/19 21:45 128/82 08/29/19 21:00 Room Air 08/29/19 20:00 84 08/29/19 20:00 96.8 94 18 128/82 (97) 99 08/29/19 20:00 87 Height (Feet): 5 Height (Inches): 4.00 Weight (Pounds): 136 General Appearance: no acute distress HEENT: normocephalic, atraumatic, anicteric Respiratory/Chest: no respiratory distress, no accessory muscle use, crackles/ rales, rhonchi - bilaterally Cardiovascular: normal rate, regular rhythm, no gallop/murmur, no JVD Abdomen: normal bowel sounds, soft, non tender, no organomegaly, non distended Genitourinary: other - no torres Extremities: no cyanosis Skin: no rash 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 The left upper lung, right lung and pleural space are clear. The heart is enlarged. Impression: Left basilar opacity, likely combination of consolidation, pleural fluid, and atelectasis. Mild cardiomegaly Chest x-ray - 08/27/19 - Procedure: XRAY Chest 1v EXAM: XR Chest, 1 View CLINICAL HISTORY: Infection TECHNIQUE: Frontal view of the chest. COMPARISON: August 24, 2019. FINDINGS: Slightly prominent cardiac silhouette without evidence of edema or failure. Low lung volumes. Again noted is left lower lobe infiltrates and left effusion with elevation of the left hemidiaphragm. Unremarkable right lung. No aggressive osseous abnormalities. IMPRESSION: Little interval change in left lower lobe infiltrates and left effusion. Microbiology Date/Time Source Procedure Growth Status 08/27/19 07:05 Blood Blood Culture - Preliminary NO GROWTH AFTER 48 HOURS Resulted 08/24/19 16:15 Nasopharynx Coronavirus COVID-19 PCR (DANIEL) - Final Complete 08/27/19 22:30 Urine,Clean Catch Urine Culture - Preliminary Escherichia Coli - Esbl Gram Positive Cocci Resulted Microbiology Date/Time Source Procedure Growth Status 08/27/19 22:30 Urine,Clean Catch Urine Culture - Preliminary Escherichia Coli - Esbl Gram Positive Cocci Resulted Labs Test 08/27/19 22:30 08/28/19 01:45 08/28/19 10:40 08/29/19 05:35 Urine Color Pale yellow Urine Appearance Cloudy Urine pH 6 (4.5-8.0) Urine Specific Matthews 1.010 (1.005-1.035) Urine Protein 2+ (NEGATIVE) Urine Glucose (UA) Negative (NEGATIVE) Urine Ketones Negative (NEGATIVE) Urine Blood 3+ (NEGATIVE) Urine Nitrite Negative (NEGATIVE) Urine Bilirubin Negative (NEGATIVE) Urine Urobilinogen Normal MG/DL (0.0-1.0) Urine Leukocyte Esterase 3+ (NEGATIVE) Urine RBC 10-15 /HPF (0 - 2) Urine WBC Tntc /HPF (0 - 2) Urine Squamous Epithelial Cells Few /LPF (NONE/OCC) Urine Bacteria Many /HPF (NONE) Urine Random Total Protein 66 MG/DL (< 11.9) Urine Random Sodium 29 mmol/L (20-110) Urine Creatinine 59.6 MG/DL (30.0-125.0) Stool Occult Blood Negative (NEGATIVE) Sodium Level 140 MMOL/L (136-145) 144 MMOL/L (136-145) Potassium Level 4.4 MMOL/L (3.5-5.1) 4.2 MMOL/L (3.5-5.1) Chloride Level 107 MMOL/L (98-107) 109 MMOL/L (98-107) Carbon Dioxide Level 22 MMOL/L (21-32) 21 MMOL/L (21-32) Anion Gap 11 mmol/L (5-15) 14 mmol/L (5-15) Blood Urea Nitrogen 61 mg/dL (7-18) 61 mg/dL (7-18) Creatinine 3.2 MG/DL (0.55-1.30) 3.1 MG/DL (0.55-1.30) Estimat Glomerular Filtration Rate 14.4 mL/min (>60) 14.9 mL/min (>60) Glucose Level 101 MG/DL (74-106) 90 MG/DL (74-106) Calcium Level 9.1 MG/DL (8.5-10.1) 9.4 MG/DL (8.5-10.1) Phosphorus Level 4.3 MG/DL (2.5-4.9) Magnesium Level 2.2 MG/DL (1.8-2.4) White Blood Count 6.0 K/UL (4.8-10.8) Red Blood Count 3.71 M/UL (4.20-5.40) Hemoglobin 10.3 G/DL (12.0-16.0) Hematocrit 30.4 % (37.0-47.0) Mean Corpuscular Volume 82 FL (80-99) Mean Corpuscular Hemoglobin 27.7 PG (27.0-31.0) Mean Corpuscular Hemoglobin Concent 33.7 G/DL (32.0-36.0) Red Cell Distribution Width 12.5 % (11.6-14.8) Platelet Count 227 K/UL (150-450) Mean Platelet Volume 6.2 FL (6.5-10.1) Neutrophils (%) (Auto) 47.4 % (45.0-75.0) Lymphocytes (%) (Auto) 38.7 % (20.0-45.0) Monocytes (%) (Auto) 7.3 % (1.0-10.0) Eosinophils (%) (Auto) 5.7 % (0.0-3.0) Basophils (%) (Auto) 1.0 % (0.0-2.0) Total Bilirubin 0.3 MG/DL (0.2-1.0) Aspartate Amino Transf (AST/SGOT) 15 U/L (15-37) Alanine Aminotransferase (ALT/SGPT) 15 U/L (12-78) Alkaline Phosphatase 80 U/L (46-116) Total Protein 7.5 G/DL (6.4-8.2) Albumin 2.8 G/DL (3.4-5.0) Globulin 4.7 g/dL Albumin/Globulin Ratio 0.6 (1.0-2.7) Test 08/30/19 05:49 Sodium Level 141 MMOL/L (136-145) Potassium Level 4.3 MMOL/L (3.5-5.1) Chloride Level 108 MMOL/L (98-107) Carbon Dioxide Level 18 MMOL/L (21-32) Anion Gap 15 mmol/L (5-15) Blood Urea Nitrogen 67 mg/dL (7-18) Creatinine 3.0 MG/DL (0.55-1.30) Estimat Glomerular Filtration Rate 15.5 mL/min (>60) Glucose Level 89 MG/DL (74-106) Calcium Level 9.6 MG/DL (8.5-10.1) Phosphorus Level 4.5 MG/DL (2.5-4.9) Magnesium Level 2.1 MG/DL (1.8-2.4) Laboratory Tests Test 08/30/19 05:49 Sodium Level 141 MMOL/L (136-145) Potassium Level 4.3 MMOL/L (3.5-5.1) Chloride Level 108 MMOL/L (98-107) H Carbon Dioxide Level 18 MMOL/L (21-32) L Anion Gap 15 mmol/L (5-15) Blood Urea Nitrogen 67 mg/dL (7-18) H Creatinine 3.0 MG/DL (0.55-1.30) H Estimat Glomerular Filtration Rate 15.5 mL/min (>60) Glucose Level 89 MG/DL (74-106) Calcium Level 9.6 MG/DL (8.5-10.1) Phosphorus Level 4.5 MG/DL (2.5-4.9) Magnesium Level 2.1 MG/DL (1.8-2.4) Current Medications Medications (Trade) Dose Ordered Sig/Gurpreet Route PRN Reason Start Time Stop Time Status Last Admin Dose Admin Acetaminophen (Tylenol) 650 mg Q4H PRN ORAL Mild Pain (Pain Scale 1-3) 08/24/19 18:15 09/23/19 18:14 Acetaminophen (Tylenol) 650 mg Q4H PRN ORAL Temp >100.5 08/24/19 18:15 09/23/19 18:14 Barium Sulfate (Readi-Cat 2) 450 ml NOW PRN ORAL Radiology Procedure 08/30/19 18:00 09/01/19 17:47 Bisacodyl (Dulcolax) 10 mg DAILYPRN PRN RECTAL Constipation 08/24/19 18:30 11/22/19 18:14 Clonidine HCl (Catapres Tab) 0.1 mg Q8H PRN ORAL SBP > 160mmHg 08/24/19 18:15 11/22/19 18:14 Dextrose (Dextrose 50%) 25 ml Q30M PRN IV Hypoglycemia 08/24/19 18:15 11/22/19 18:14 Dextrose (Dextrose 50%) 50 ml Q30M PRN IV Hypoglycemia 08/24/19 18:15 11/22/19 18:14 Docusate Sodium (Colace) 100 mg EVERY 12 HOURS ORAL 08/24/19 21:00 09/23/19 20:59 08/30/19 09:26 Doxycycline Monohydrate (Doxycycline Monohydrate) 100 mg EVERY 12 HOURS ORAL 08/25/19 09:00 09/01/19 08:59 08/30/19 09:23 Guaifenesin (Mucinex ER) 600 mg TWICE A DAY ORAL 08/29/19 18:00 09/05/19 17:59 Guaifenesin (Robitussin) 200 mg Q4H PRN ORAL For Cough 08/24/19 18:15 11/22/19 18:14 08/30/19 09:26 Heparin Sodium (Porcine) (Heparin 5000 units/ml) 5,000 units EVERY 12 HOURS SUBQ 08/24/19 21:00 10/08/19 20:59 08/29/19 08:09 Hydralazine HCl (Apresoline) 10 mg EVERY 8 HOURS ORAL 08/24/19 22:00 11/22/19 21:59 08/30/19 14:53 Lorazepam (Ativan) 1 mg Q8H PRN ORAL For Anxiety 08/30/19 16:00 09/06/19 15:59 Magnesium Hydroxide (Mom) 30 ml HSPRN PRN ORAL Constipation 08/24/19 18:15 09/23/19 18:14 Meropenem 500 mg/ Sodium Chloride 55 ml @ 110 mls/hr EVERY 12 HOURS IVPB 08/30/19 11:00 09/04/19 10:59 08/30/19 11:24 Methimazole (Tapazole) 10 mg DAILY ORAL 08/29/19 09:00 11/23/19 08:59 08/30/19 09:23 Ondansetron HCl (Zofran) 4 mg Q6H PRN IVP Nausea & Vomiting 08/24/19 18:15 09/23/19 18:14 Polyethylene Glycol (Miralax) 17 gm DAILYPRN PRN ORAL Constipation 08/24/19 18:15 09/23/19 18:14 Quetiapine Fumarate (SEROqueL) 25 mg QHS PRN ORAL agitation 08/30/19 15:59 10/14/19 15:58 Louie Bullard MD August 30, 2019 18:24
--- NOTE | 2019-08-30 19:45 | NUR ---
NURSE NOTES: Report received from Gladys PETTIT. Patient is awake and alert x 3. Patient noted to be on room air. Denies chest pain shortness of breath. Patient noted to have 24 ibis in left forearm. Was endorsed that patient can be resistive to nursing care at times. Patient currently cooperating with Vamsi PETTIT. Bed locked, in lowest position, and alarmed. Will continue to follow plan of care.
[2019-08-30 20:00] VITALS: BP 128/80
--- NOTE | 2019-08-30 20:07 | NUR ---
HAND-OFF: Report given to GERMÁN MERCER RN. Patient stable. Plan of care endorsed. Addendum: 08/30/19 at 2008 by PATRICIA RM RN REPORT GIVEN TO SARA GARDINER
--- NOTE | 2019-08-30 20:16 | Initial Psychiatric Evaluation ---
Psychiatry Consultation Psychiatry Consultation Chief Complaint: Upper Respiratory Illness Allergies: Coded Allergies: CODEINE (Verified Allergy, Unknown, 08/24/19) NEUROMUSCULAR BLOCKERS, STEROIDAL (Verified Allergy, Unknown, 08/24/19) Uncoded Allergies: ANABOLIC STEROIDS (Allergy, Unknown, 08/24/19) STEROIDS (Allergy, Unknown, 08/24/19) Medication History Scheduled Bisacodyl (Laxative Suppository), 10 MG RC DAILY, (Reported) Ca Cmb 1/Vit D3/B-6/Fa/B12/Av (Vitamin D3-Aloe 1,000 Unit Tab), 1 EACH PO DAILY, (Reported) Docusate Sodium* (Docusate Sodium*), 100 MG ORAL DAILY, (Reported) Ferrous Sulfate* (Ferrous Sulfate*), 325 MG ORAL DAILY, (Reported) Folic Acid* (Folic Acid*), 1 MG ORAL DAILY, (Reported) Furosemide* (Lasix*), 20 MG ORAL DAILY, (Reported) Guaifenesin (Mucinex), 200 MG PO Q4HR, (Reported) Hydralazine Hcl* (Hydralazine Hcl*), 10 MG ORAL EVERY 8 HOURS, (Reported) Ipratropium/Albuterol Sulfate (DuoNeb 0.5-3(2.5)mg/3ml), 3 ML HHN Q6HR, ( Reported) Magnesium Hydroxide* (Milk Of Magnesia*), 30 ML ORAL BID, (Reported) Methimazole (Methimazole), 10 MG PO DAILY, (Reported) Na Phos,M-B/Na Phos,Di-Ba* (Fleet Enema*), 133 ML RECTAL DAILY, (Reported) Polyethylene Glycol 3350* (Polyethylene Glycol 3350*), 17 GM ORAL DAILY, ( Reported) Potassium Chloride (Klor-Con M20), 20 MEQ ORAL DAILY, (Reported) Quetiapine Fumarate* (Seroquel*), 25 MG ORAL QHS, (Reported) Vitamin B Cmplx/Vit C/Folic AC (Nephro-Jerry Tablet), 1 TAB ORAL DAILY, (Reported ) Scheduled PRN Acetaminophen* (Acetaminophen 325MG Tablet*), 650 MG ORAL Q4H PRN for fever, ( Reported) Acetaminophen* (Acetaminophen 325MG Tablet*), 650 MG ORAL Q6H PRN for mild pain, (Reported) Objective Data Height (Feet): 5 Height (Inches): 4.00 Weight (Pounds): 136 Darleen Nagel MD August 30, 2019 20:16
[2019-08-31] VITALS: BP 119/82
--- NOTE | 2019-08-31 02:00 | Consultation ---
DATE OF CONSULTATION: 08/30/2019 CONSULTING PHYSICIAN: Jason Vicente MD. REFERRING PHYSICIAN: Abdias Blanc DO. REASON FOR CONSULTATION: For evaluation of hydronephrosis. HISTORY OF PRESENT ILLNESS: This is a 68-year-old female. She is a resident of a [place] [facility]. She was admitted to the hospital because of cough and abnormal laboratories. She was noted to have elevated creatinine, which was above her baseline, which is also about 2.3 or so. She had a workup including a renal ultrasound that showed bilateral hydronephrosis. Urology evaluation requested. The patient does have a history of multiple sclerosis. There is a question that she may have urinary retention. However, she has been refusing Escobar catheter . The patient has some psychiatric issues and is a poor historian. Most of the history was obtained from the chart. PAST MEDICAL HISTORY: Significant for hyperthyroidism, multiple sclerosis, hypertension, COPD. PAST SURGICAL HISTORY: Unknown. MEDICATIONS: Current medication list in the hospital was reviewed. She is on Ativan, Seroquel, meropenem, Mucinex, Tapazole, doxycycline, Naprosyn, heparin, Colace, Dulcolax, Tylenol, MiraLAX, Zofran. ALLERGIES: Multiple, see chart. REVIEW OF SYSTEMS: As above. She has some urinary frequency. FAMILY HISTORY: Noncontributory. PHYSICAL EXAMINATION: GENERAL: Well-developed, well-nourished female, no acute distress. VITAL SIGNS: Temperature is 96.7, blood pressure is 146/86, pulse 78, respirations 19. HEENT: Normocephalic. NECK: Supple. ABDOMEN: Soft. EXTREMITIES: No clubbing or cyanosis. LABORATORY DATA: Her last UA showed 3+ leukocytes, 10 to 15 rbc's, too numerous to count wbc's, many bacteria, 2+ protein. White count is 6.0, hemoglobin 10.3, platelets are 227. BUN is 67, creatinine is 3.0. I believe her baseline creatinine is around closer to 2. She did have a urine culture, which showed 10,000 to 20,000 E. coli ESBL and 20,000 to 30,000 gram-positive cocci. DIAGNOSTIC IMAGING STUDIES: The patient had a renal ultrasound, which showed evidence of severe bilateral hydronephrosis, which marked cortical thinning of her kidneys. IMPRESSION: 1. Bilateral hydronephrosis, which appears to be chronic. 2. Renal insufficiency, acute on chronic. 3. Lower urinary tract symptoms. 4. Probable neurogenic bladder. 5. UTI, colonization, and pyuria. 6. Hematuria. 7. Proteinuria. 8. Renal atrophy. PLAN AND DISCUSSION: Again as noted above, the patient does have bilateral hydronephrosis, which is severe with renal atrophy and likely the hydronephrosis is chronic. I would imagine it is secondary to neurogenic bladder as a result of the multiple sclerosis. The patient has been hesitant to have a Escobar catheter placed. I did ask the nursing staff to check a bladder scan for postvoid residual. However, again the patient is refusing a Escobar catheter drainage at this time. She does have renal insufficiency, which appears to be acute on chronic. She does have renal cortical atrophy and again the obstruction appears to be all chronic. Her renal function will be monitored. She is to continue with antibiotics as ordered and again if the patient allows, I would recommend placing a Escobar catheter indwelling, maybe even a chronic Escobar or possibly a suprapubic tube. She is currently on Seroquel, which also may exacerbate retention. We can consider adding Flomax or bethanechol, but at this point, I do not think they may help. I will also order a noncontrast CT scan of the abdomen and pelvis to rule out any other pathology as a cause of her hydronephrosis. I will follow the patient. Thank you for this consultation. Jason Vicente M.D. DR: BRIGIDO JOB#: [id number] CC: DO JAQUELIN Nieves M.D. ; FAX#: [phone] KIMMIE LAZCANO M.D.; FAX#: [phone]
[2019-08-31 04:00] VITALS: BP 135/83
[2019-08-31] MEDS: HydrALAZINE 10mg Tab ORAL SCH ×3 (05:58→21:51)
[2019-08-31 07:44] LABS: BASOPHILS % (AUTO) 0.7 % (0.0-2.0); EOSINOPHILS % (AUTO) 1.5 % (0.0-3.0); HEMATOCRIT 30.4 % (37.0-47.0); HEMOGLOBIN 10.2 G/DL (12.0-16.0); LYMPHOCYTES % (AUTO) 18.2 % (20.0-45.0); MEAN CORPUSCULAR VOLUME 83 FL (80-99); MONOCYTES % (AUTO) 7.9 % (1.0-10.0); NEUTROPHILS % (AUTO) 71.6 % (45.0-75.0); PLATELET COUNT 233 K/UL (150-450); RED BLOOD COUNT 3.68 M/UL (4.20-5.40); RED CELL DISTRIBUTION WIDTH 12.3 % (11.6-14.8); WHITE BLOOD COUNT 10.6 K/UL (4.8-10.8)
--- NOTE | 2019-08-31 07:44 | NUR ---
HAND-OFF: Report given to Gladys PETTIT.
[2019-08-31 07:58] VITALS: BP 136/76
--- NOTE | 2019-08-31 08:00 | NUR ---
NURSE NOTES: Patient stable, AOx4 with no complaints and no s/sx of distress or pain. RR even and unlabored on RA. Side rails up x2, call light within reach. Bed low and locked. Will continue to monitor.
[2019-08-31 08:28] LABS: ALANINE AMINOTRANSFERASE 13 U/L (12-78); ALBUMIN 2.9 G/DL (3.4-5.0); ALBUMIN/GLOBULIN RATIO 0.6 (1.0-2.7); ALKALINE PHOSPHATASE 85 U/L (46-116); ANION GAP 13 mmol/L (5-15); ASPARTATE AMINO TRANSFERASE 14 U/L (15-37); BILIRUBIN,TOTAL 0.4 MG/DL (0.2-1.0); BLOOD UREA NITROGEN 67 mg/dL (7-18); CALCIUM 9.2 MG/DL (8.5-10.1); CARBON DIOXIDE 20 MMOL/L (21-32); CHLORIDE 108 MMOL/L (98-107); CREATININE 2.8 MG/DL (0.55-1.30); POTASSIUM 4.3 MMOL/L (3.5-5.1); SODIUM 141 MMOL/L (136-145)
--- NOTE | 2019-08-31 08:37 | NUR ---
08/30...PT IS PUI FOR COVID. PT WAS COUGHING MULTIPLE TIMES INSIDE ROOM, REFUSES TO WEAR A MASK TO COME DOWN TO GET THE PROCEDURE. PT HAS PSYCH ISSUES AND WAS TAKING OFF MASK WHEN TRANSPORTER WAS PUTTING IT ON HER, STATING SHE COULDN'T BREATH WITH THE MASK ON. WILL TRY AGAIN WHEN PT IS CLEARED FROM COVID-19. CHANEL INFORMED WILVER MUNIZ OF THE SITUATION. TJB 8:35
[2019-08-31] MEDS: guaiFENesin ER 600mg tab ORAL SCH ×2 (09:00→15:52)
[2019-08-31] MEDS: Heparin 5000 units/ml inj SUBQ SCH ×2 (09:00→21:00)
[2019-08-31] MEDS: methIMAzole 10mg tab ORAL SCH (09:08)
[2019-08-31] MEDS: Docusate 100mg cap ORAL SCH ×2 (09:08→21:00)
[2019-08-31] MEDS: Meropenem 500mg in NS 55ml IVPB SCH ×2 (09:08→21:00)
--- NOTE | 2019-08-31 09:44 | Nephrology Progress Note ---
Assessment/Plan Plan #Acute on chronic kidney disease- baseline cr close to 2- renal US with bilatera hydronephrosis #pneumonia - left lower lobe #r/o COVID # hyperthyroidism # multiple sclerosis #HTN # COPD - renal US with bilateral severe hydronephrosis - refused torres- bladder scan q6hr - CT abd/pelvis pending - nuc med scan pending - Urology eval - COVID ruled out - currently satting well on room air - check 2d echo--> BNP can be elevated due to decreased renal clearance - antibiotics per ID- on augmentin and doxy - strict I&Os - daily weight - monitor lytes and cr closely - continue hydralazine 10mg TID - check PTH/vit D pending - monitor phos - check iron panel and ferritin-> adequate Subjective ROS Limited/Unobtainable: No Constitutional: Denies: no symptoms, chills, diaphoresis, fever, malaise, weakness, other HEENT: Denies: no symptoms, eye pain, blurred vision, tearing, double vision, ear pain, ear discharge, nose pain, nose congestion, throat pain, throat swelling, mouth pain, mouth swelling, other Genitourinary: Denies: no symptoms, burning, discharge, frequency, flank pain, hematuria, incontinence, pain, urgency, other 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: Denies: no symptoms, anxiety, depressed, emotional problems, headache, numbness, paresthesia, pre-existing deficit, seizure, tingling, tremors, weakness, other Subjective COVID negative CT abd/pelvis pending nuc med scan pending Satting well on room air cr stable Bp stable Renal US: Impression: Bilateral severe hydronephrosis. Marked cortical thinning indicates that this is probably long-standing. Objective Objective Last 24 Hour Vital Signs Date Time Temp Pulse Resp B/P (MAP) Pulse Ox O2 Delivery O2 Flow Rate FiO2 08/31/19 07:58 96.8 80 19 136/76 (96) 98 08/31/19 05:58 135/83 08/31/19 04:00 98.2 91 20 135/83 (100) 98 08/31/19 04:00 93 08/31/19 03:46 Room Air 08/31/19 00:00 97.8 96 20 119/82 (94) 98 08/31/19 00:00 86 08/30/19 21:00 Room Air 08/30/19 20:26 125/80 08/30/19 20:00 96 08/30/19 20:00 98.1 90 20 128/80 (96) 98 08/30/19 16:00 96.6 87 20 140/78 (98) 96 08/30/19 16:00 88 08/30/19 14:53 146/86 08/30/19 12:00 96.7 78 19 146/86 (106) 98 Intake and Output 08/30/19 08/31/19 19:00 07:00 Intake Total 55 ml Balance 55 ml IV Total 55 ml # Voids 1 5 # Bowel Movements 2 2 Laboratory Tests 08/31/19 05:42: White Blood Count 10.6, Red Blood Count 3.68L, Hemoglobin 10.2L, Hematocrit 30.4L, Mean Corpuscular Volume 83, Mean Corpuscular Hemoglobin 27.7, Mean Corpuscular Hemoglobin Concent 33.5, Red Cell Distribution Width 12.3, Platelet Count 233, Mean Platelet Volume 6.1L, Neutrophils (%) (Auto) 71.6, Lymphocytes ( %) (Auto) 18.2L, Monocytes (%) (Auto) 7.9, Eosinophils (%) (Auto) 1.5, Basophils (%) (Auto) 0.7, Sodium Level 141, Potassium Level 4.3, Chloride Level 108H, Carbon Dioxide Level 20L, Anion Gap 13, Blood Urea Nitrogen 67H, Creatinine 2.8H, Estimat Glomerular Filtration Rate 16.8, Glucose Level 101, Calcium Level 9.2, Total Bilirubin 0.4, Aspartate Amino Transf (AST/SGOT) 14L, Alanine Aminotransferase (ALT/SGPT) 13, Alkaline Phosphatase 85, Total Protein 7.6, Albumin 2.9L, Globulin 4.7, Albumin/Globulin Ratio 0.6L Height (Feet): 5 Height (Inches): 4.00 Weight (Pounds): 136 Vicente Jaimes M.D. August 31, 2019 09:44
--- NOTE | 2019-08-31 10:43 | Pulmonology Progress Note ---
Subjective ROS Limited/Unobtainable: No Interval Events: Saturating well on RA Constitutional: Reports: fatigue; Denies: fever HEENT: Repors: no symptoms Respiratory: Reports: no symptoms Cardiovascular: Reports: no symptoms; Denies: chest pain, palpitations, other Gastrointestinal/Abdominal: Denies: nausea, vomiting, diarrhea Psychiatric: Denies: depression Skin: Denies: rash Musculoskeletal: Denies: pain Allergies: Coded Allergies: CODEINE (Verified Allergy, Unknown, 08/24/19) NEUROMUSCULAR BLOCKERS, STEROIDAL (Verified Allergy, Unknown, 08/24/19) Uncoded Allergies: ANABOLIC STEROIDS (Allergy, Unknown, 08/24/19) STEROIDS (Allergy, Unknown, 08/24/19) Objective Last 24 Hour Vital Signs Date Time Temp Pulse Resp B/P (MAP) Pulse Ox O2 Delivery O2 Flow Rate FiO2 08/31/19 07:58 96.8 80 19 136/76 (96) 98 08/31/19 05:58 135/83 08/31/19 04:00 98.2 91 20 135/83 (100) 98 08/31/19 04:00 93 08/31/19 03:46 Room Air 08/31/19 00:00 97.8 96 20 119/82 (94) 98 08/31/19 00:00 86 08/30/19 21:00 Room Air 08/30/19 20:26 125/80 08/30/19 20:00 96 08/30/19 20:00 98.1 90 20 128/80 (96) 98 08/30/19 16:00 96.6 87 20 140/78 (98) 96 08/30/19 16:00 88 08/30/19 14:53 146/86 08/30/19 12:00 96.7 78 19 146/86 (106) 98 Intake and Output 08/30/19 08/31/19 19:00 07:00 Intake Total 55 ml Balance 55 ml IV Total 55 ml # Voids 1 5 # Bowel Movements 2 2 General Appearance: no acute distress HEENT: normocephalic, atraumatic, anicteric Respiratory/Chest: chest wall non-tender Cardiovascular: normal peripheral pulses Abdomen: normal bowel sounds, soft, non tender, no organomegaly, non distended Genitourinary: other - no torres Extremities: no cyanosis Skin: no rash 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: 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 grossly normal, alert, responsive Lymphatic: no neck adenopathy Musculoskeletal: no effusion Laboratory Tests 08/31/19 05:42: White Blood Count 10.6, Red Blood Count 3.68L, Hemoglobin 10.2L, Hematocrit 30.4L, Mean Corpuscular Volume 83, Mean Corpuscular Hemoglobin 27.7, Mean Corpuscular Hemoglobin Concent 33.5, Red Cell Distribution Width 12.3, Platelet Count 233, Mean Platelet Volume 6.1L, Neutrophils (%) (Auto) 71.6, Lymphocytes ( %) (Auto) 18.2L, Monocytes (%) (Auto) 7.9, Eosinophils (%) (Auto) 1.5, Basophils (%) (Auto) 0.7, Sodium Level 141, Potassium Level 4.3, Chloride Level 108H, Carbon Dioxide Level 20L, Anion Gap 13, Blood Urea Nitrogen 67H, Creatinine 2.8H, Estimat Glomerular Filtration Rate 16.8, Glucose Level 101, Calcium Level 9.2, Total Bilirubin 0.4, Aspartate Amino Transf (AST/SGOT) 14L, Alanine Aminotransferase (ALT/SGPT) 13, Alkaline Phosphatase 85, Total Protein 7.6, Albumin 2.9L, Globulin 4.7, Albumin/Globulin Ratio 0.6L Current Medications Medications (Trade) Dose Ordered Sig/Gurpreet Route PRN Reason Start Time Stop Time Status Last Admin Dose Admin Acetaminophen (Tylenol) 650 mg Q4H PRN ORAL Mild Pain (Pain Scale 1-3) 08/24/19 18:15 09/23/19 18:14 Acetaminophen (Tylenol) 650 mg Q4H PRN ORAL Temp >100.5 08/24/19 18:15 09/23/19 18:14 Ampicillin (Ampicillin) 500 mg EVERY 12 HOURS ORAL 08/30/19 21:00 09/06/19 20:59 08/31/19 09:08 Barium Sulfate (Readi-Cat 2) 450 ml NOW PRN ORAL Radiology Procedure 08/30/19 18:00 09/01/19 17:47 Bisacodyl (Dulcolax) 10 mg DAILYPRN PRN RECTAL Constipation 08/24/19 18:30 11/22/19 18:14 Clonidine HCl (Catapres Tab) 0.1 mg Q8H PRN ORAL SBP > 160mmHg 08/24/19 18:15 11/22/19 18:14 Dextrose (Dextrose 50%) 25 ml Q30M PRN IV Hypoglycemia 08/24/19 18:15 11/22/19 18:14 Dextrose (Dextrose 50%) 50 ml Q30M PRN IV Hypoglycemia 08/24/19 18:15 11/22/19 18:14 Docusate Sodium (Colace) 100 mg EVERY 12 HOURS ORAL 08/24/19 21:00 09/23/19 20:59 08/31/19 09:08 Guaifenesin (Mucinex ER) 600 mg TWICE A DAY ORAL 08/29/19 18:00 09/05/19 17:59 Guaifenesin (Robitussin) 200 mg Q4H PRN ORAL For Cough 08/24/19 18:15 11/22/19 18:14 08/30/19 09:26 Heparin Sodium (Porcine) (Heparin 5000 units/ml) 5,000 units EVERY 12 HOURS SUBQ 08/24/19 21:00 10/08/19 20:59 08/30/19 20:27 Hydralazine HCl (Apresoline) 10 mg EVERY 8 HOURS ORAL 08/24/19 22:00 11/22/19 21:59 08/31/19 05:58 Lorazepam (Ativan) 1 mg Q8H PRN ORAL For Anxiety 08/30/19 16:00 09/06/19 15:59 Magnesium Hydroxide (Mom) 30 ml HSPRN PRN ORAL Constipation 08/24/19 18:15 09/23/19 18:14 Meropenem 500 mg/ Sodium Chloride 55 ml @ 110 mls/hr EVERY 12 HOURS IVPB 08/30/19 11:00 09/04/19 10:59 08/31/19 09:08 Methimazole (Tapazole) 10 mg DAILY ORAL 08/29/19 09:00 11/23/19 08:59 08/31/19 09:08 Ondansetron HCl (Zofran) 4 mg Q6H PRN IVP Nausea & Vomiting 08/24/19 18:15 09/23/19 18:14 Polyethylene Glycol (Miralax) 17 gm DAILYPRN PRN ORAL Constipation 08/24/19 18:15 09/23/19 18:14 Quetiapine Fumarate (SEROqueL) 25 mg QHS PRN ORAL agitation 08/30/19 15:59 10/14/19 15:58 Assessment/Plan Assessment/Plan IMPRESSION: 1. Possible left lung pneumonia. 2. Small pleural effusion, no indication for thoracentesis. 3. UTI DISCUSSION: Agree with antibiotics. COVID 19 pcr negative Currently saturating well on room air. I will follow. Kp Ch Omar Syed MD August 31, 2019 10:43
--- NOTE | 2019-08-31 11:05 | NUR ---
RD ASSESSMENT & RECOMMENDATIONS SEE CARE ACTIVITY FOR COMPLETE ASSESSMENT DAILY ESTIMATED NEEDS: Needs based on Cardiac, CKD, wound/ 62kg 25-30 kcals/kg 8183-4759 total kcals 0.8-1.25 g protein/kg 50-77 g total protein 20-25 mL/kg 3089-3029 total fluid mLs NUTRITION DIAGNOSIS: * Decreased sodium intake needs R/T CKD, cardiac hx as evidenced by elev creat (2.8), HTN dx, on hypotensive agent. * Increased kcal/prot needs R/T wound healing as evidenced by pt w/ non-blanching erythema @ BL heels and BL buttocks. CURRENT DIET:REGULAR PO DIET RECOMMENDATIONS: LOW NA/ texture as tolerated ADDITIONAL RECOMMENDATIONS: * Standing wt for accurate CBW * Skin integrity: add MVI x 1 and Vit C 250mg QD * Monitor for continued improved PO intake
[2019-08-31 12:00] VITALS: BP 132/66
[2019-08-31 16:00] VITALS: BP 130/71
--- NOTE | 2019-08-31 17:37 | Urology Progress Note ---
Assessment/Plan Assessment/Plan: 1. Bilateral hydronephrosis, which appears to be chronic. 2. Renal insufficiency, acute on chronic. 3. Lower urinary tract symptoms. 4. Probable neurogenic bladder. 5. UTI, colonization, and pyuria. 6. Hematuria. 7. Proteinuria. 8. Renal atrophy. monitor clinically relatively low PVR abx as ordered hopefully can do CT at some point cysto later f/u on blood cx Subjective Allergies: Coded Allergies: CODEINE (Verified Allergy, Unknown, 08/24/19) NEUROMUSCULAR BLOCKERS, STEROIDAL (Verified Allergy, Unknown, 08/24/19) Uncoded Allergies: ANABOLIC STEROIDS (Allergy, Unknown, 08/24/19) STEROIDS (Allergy, Unknown, 08/24/19) Subjective all noted, CT not done because pt refused face mask PVR 56 cc by report Objective Last 24 Hour Vital Signs Date Time Temp Pulse Resp B/P (MAP) Pulse Ox O2 Delivery O2 Flow Rate FiO2 08/31/19 16:00 80 08/31/19 16:00 96.8 80 19 130/71 (90) 98 08/31/19 15:51 132/66 08/31/19 12:00 97.8 75 18 132/66 (88) 97 08/31/19 09:00 Room Air 08/31/19 08:00 85 08/31/19 07:58 96.8 80 19 136/76 (96) 98 08/31/19 05:58 135/83 08/31/19 04:00 98.2 91 20 135/83 (100) 98 08/31/19 04:00 93 08/31/19 03:46 Room Air 08/31/19 00:00 97.8 96 20 119/82 (94) 98 08/31/19 00:00 86 08/30/19 21:00 Room Air 08/30/19 20:26 125/80 08/30/19 20:00 96 08/30/19 20:00 98.1 90 20 128/80 (96) 98 Intake and Output 08/30/19 08/31/19 19:00 07:00 Intake Total 55 ml Balance 55 ml IV Total 55 ml # Voids 1 5 # Bowel Movements 2 2 Microbiology Date/Time Source Procedure Growth Status 08/27/19 07:05 Blood Blood Culture - Preliminary NO GROWTH AFTER 72 HOURS Resulted 08/24/19 16:15 Nasopharynx Coronavirus COVID-19 PCR (DANIEL) - Final Complete 08/27/19 22:30 Urine,Clean Catch Urine Culture - Final Escherichia Coli - Esbl Enterococcus Faecalis Complete Current Medications Medications (Trade) Dose Ordered Sig/Gurpreet Route PRN Reason Start Time Stop Time Status Last Admin Dose Admin Acetaminophen (Tylenol) 650 mg Q4H PRN ORAL Mild Pain (Pain Scale 1-3) 08/24/19 18:15 09/23/19 18:14 Acetaminophen (Tylenol) 650 mg Q4H PRN ORAL Temp >100.5 08/24/19 18:15 09/23/19 18:14 Ampicillin (Ampicillin) 500 mg EVERY 12 HOURS ORAL 08/30/19 21:00 09/06/19 20:59 08/31/19 09:08 Barium Sulfate (Readi-Cat 2) 450 ml NOW PRN ORAL Radiology Procedure 08/30/19 18:00 09/01/19 17:47 Bisacodyl (Dulcolax) 10 mg DAILYPRN PRN RECTAL Constipation 08/24/19 18:30 11/22/19 18:14 Clonidine HCl (Catapres Tab) 0.1 mg Q8H PRN ORAL SBP > 160mmHg 08/24/19 18:15 11/22/19 18:14 Dextrose (Dextrose 50%) 25 ml Q30M PRN IV Hypoglycemia 08/24/19 18:15 11/22/19 18:14 Dextrose (Dextrose 50%) 50 ml Q30M PRN IV Hypoglycemia 08/24/19 18:15 11/22/19 18:14 Docusate Sodium (Colace) 100 mg EVERY 12 HOURS ORAL 08/24/19 21:00 09/23/19 20:59 08/31/19 09:08 Guaifenesin (Mucinex ER) 600 mg TWICE A DAY ORAL 08/29/19 18:00 09/05/19 17:59 Guaifenesin (Robitussin) 200 mg Q4H PRN ORAL For Cough 08/24/19 18:15 11/22/19 18:14 08/30/19 09:26 Heparin Sodium (Porcine) (Heparin 5000 units/ml) 5,000 units EVERY 12 HOURS SUBQ 08/24/19 21:00 10/08/19 20:59 08/30/19 20:27 Hydralazine HCl (Apresoline) 10 mg EVERY 8 HOURS ORAL 08/24/19 22:00 11/22/19 21:59 08/31/19 15:51 Lorazepam (Ativan) 1 mg Q8H PRN ORAL For Anxiety 08/30/19 16:00 09/06/19 15:59 Magnesium Hydroxide (Mom) 30 ml HSPRN PRN ORAL Constipation 08/24/19 18:15 09/23/19 18:14 Meropenem 500 mg/ Sodium Chloride 55 ml @ 110 mls/hr EVERY 12 HOURS IVPB 08/30/19 11:00 09/04/19 10:59 08/31/19 09:08 Methimazole (Tapazole) 10 mg DAILY ORAL 08/29/19 09:00 11/23/19 08:59 08/31/19 09:08 Ondansetron HCl (Zofran) 4 mg Q6H PRN IVP Nausea & Vomiting 08/24/19 18:15 09/23/19 18:14 Polyethylene Glycol (Miralax) 17 gm DAILYPRN PRN ORAL Constipation 08/24/19 18:15 09/23/19 18:14 Quetiapine Fumarate (SEROqueL) 25 mg QHS PRN ORAL agitation 08/30/19 15:59 10/14/19 15:58 Laboratory Tests 08/31/19 05:42: White Blood Count 10.6, Red Blood Count 3.68L, Hemoglobin 10.2L, Hematocrit 30.4L, Mean Corpuscular Volume 83, Mean Corpuscular Hemoglobin 27.7, Mean Corpuscular Hemoglobin Concent 33.5, Red Cell Distribution Width 12.3, Platelet Count 233, Mean Platelet Volume 6.1L, Neutrophils (%) (Auto) 71.6, Lymphocytes ( %) (Auto) 18.2L, Monocytes (%) (Auto) 7.9, Eosinophils (%) (Auto) 1.5, Basophils (%) (Auto) 0.7, Sodium Level 141, Potassium Level 4.3, Chloride Level 108H, Carbon Dioxide Level 20L, Anion Gap 13, Blood Urea Nitrogen 67H, Creatinine 2.8H, Estimat Glomerular Filtration Rate 16.8, Glucose Level 101, Calcium Level 9.2, Total Bilirubin 0.4, Aspartate Amino Transf (AST/SGOT) 14L, Alanine Aminotransferase (ALT/SGPT) 13, Alkaline Phosphatase 85, Total Protein 7.6, Albumin 2.9L, Globulin 4.7, Albumin/Globulin Ratio 0.6L Height (Feet): 5 Height (Inches): 4.00 Weight (Pounds): 136 Objective exam stable Jason Vicente MD August 31, 2019 17:37
--- NOTE | 2019-08-31 17:40 | General Progress Note ---
Assessment/Plan Assessment/Plan: HPI/CC:68 y/o F w/PMH hyperthyroidism, multiple sclerosis, HTN and COPD who presents from [facility] for cough and abnormal labs. On admission, CXR revealed left lower lobe pleural effusion, Cr 3.2. Patient admitted for further treatment and evaluation, and COVID-19 r/o. Currently being assess for BL hydronephrosis thought to be from neurogenic bladder along w/ AB for sepsis/ ESBL UTI. Assessment #CAP w/ Left Pleural Effusion, COVID ruled out #ESBL UTI #BL Hydronephrosis w/ Acute Renal Failure; suspect Neurogenic Bladder #Multiple Sclerosis #Hyperthyroidism #HTN #COPD Plan Consultants include Urology, ID Await CT A/P; f/u with uro if patient is going to require chronic indwelling torres cath vs suprapubic cath RT protocol, currently not in COPD Exacerbation Continue AB w/ Ampicllin and Meropenem per ID Continue Methimazole, Hydralazine PO DVT ppx Diet as tolerated Patient may be downgraded from Tele Subjective Date patient seen: August 31, 2019 Allergies: Coded Allergies: CODEINE (Verified Allergy, Unknown, 08/24/19) NEUROMUSCULAR BLOCKERS, STEROIDAL (Verified Allergy, Unknown, 08/24/19) Uncoded Allergies: ANABOLIC STEROIDS (Allergy, Unknown, 08/24/19) STEROIDS (Allergy, Unknown, 08/24/19) Subjective Patient laying in bed, no complaints; vitals stable. Appreciate Uro consult, f/ u CT A/P; will d/c seroquel for now. Continue AB and appreciate other consultants. Objective Last 24 Hour Vital Signs Date Time Temp Pulse Resp B/P (MAP) Pulse Ox O2 Delivery O2 Flow Rate FiO2 08/31/19 16:00 80 08/31/19 16:00 96.8 80 19 130/71 (90) 98 08/31/19 15:51 132/66 08/31/19 12:00 97.8 75 18 132/66 (88) 97 08/31/19 09:00 Room Air 08/31/19 08:00 85 08/31/19 07:58 96.8 80 19 136/76 (96) 98 08/31/19 05:58 135/83 08/31/19 04:00 98.2 91 20 135/83 (100) 98 08/31/19 04:00 93 08/31/19 03:46 Room Air 08/31/19 00:00 97.8 96 20 119/82 (94) 98 08/31/19 00:00 86 08/30/19 21:00 Room Air 08/30/19 20:26 125/80 08/30/19 20:00 96 08/30/19 20:00 98.1 90 20 128/80 (96) 98 Intake and Output 08/30/19 08/31/19 19:00 07:00 Intake Total 55 ml Balance 55 ml IV Total 55 ml # Voids 1 5 # Bowel Movements 2 2 Laboratory Tests 08/31/19 05:42: White Blood Count 10.6, Red Blood Count 3.68L, Hemoglobin 10.2L, Hematocrit 30.4L, Mean Corpuscular Volume 83, Mean Corpuscular Hemoglobin 27.7, Mean Corpuscular Hemoglobin Concent 33.5, Red Cell Distribution Width 12.3, Platelet Count 233, Mean Platelet Volume 6.1L, Neutrophils (%) (Auto) 71.6, Lymphocytes ( %) (Auto) 18.2L, Monocytes (%) (Auto) 7.9, Eosinophils (%) (Auto) 1.5, Basophils (%) (Auto) 0.7, Sodium Level 141, Potassium Level 4.3, Chloride Level 108H, Carbon Dioxide Level 20L, Anion Gap 13, Blood Urea Nitrogen 67H, Creatinine 2.8H, Estimat Glomerular Filtration Rate 16.8, Glucose Level 101, Calcium Level 9.2, Total Bilirubin 0.4, Aspartate Amino Transf (AST/SGOT) 14L, Alanine Aminotransferase (ALT/SGPT) 13, Alkaline Phosphatase 85, Total Protein 7.6, Albumin 2.9L, Globulin 4.7, Albumin/Globulin Ratio 0.6L Height (Feet): 5 Height (Inches): 4.00 Weight (Pounds): 136 General Appearance: no apparent distress EENT: PERRL/EOMI Cardiovascular: normal rate, regular rhythm Respiratory/Chest: normal breath sounds, no respiratory distress, no accessory muscle use Abdomen: non tender, soft Extremities: inflammation Edema: no edema noted Generalized 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 August 31, 2019 17:40
--- NOTE | 2019-08-31 19:45 | NUR ---
HAND-OFF: Report given to Nereida Flores RN. Patient stable. Plan of care endorsed.
--- NOTE | 2019-08-31 19:46 | NUR ---
HAND-OFF: Report given to Nereida Flores RN. Patient stable. Plan of care endorsed. Aware that daughter Judi only wants patient to have one procedure tomorrow not both. Addendum: 08/31/19 at 3 by PATRICIA RM RN PLEASE DISREGARD. HAND OFF NOTED FOR INCORRECT PATIENT
--- NOTE | 2019-08-31 19:50 | NUR ---
NURSE NOTES: Received report from Glayds Veloz RN. Pt in stable condition, appears to be resting comfortably. No signs or symptoms of distress noted at this time. Denies pain. Will continue plan of care and close monitoring.
[2019-08-31 20:00] VITALS: BP 138/72
--- NOTE | 2019-08-31 22:30 | Progress Note ---
DATE: 08/31/2019 SUBJECTIVE: The patient [facility]. The patient has episodes of anxiety, poor insight, not able to be engaged. Poor memory. Hard of hearing. The patient is complaint. The patient is doing well overall. No behavior issues noted. Compliant with medications. MENTAL STATUS EXAMINATION: The patient is alert and oriented to times, self, place, and situation. Mood is neutral. Affect is flat. Thought process is concrete. Thought content, no suicidal or homicidal ideation. ASSESSMENT: Stable. PLAN: 1. We will continue current psychotropic medications. 2. Provide the patient with reality orientation and supportive therapy. Darleen Nagel M.D. DR: Ronal JOB#: [id number] CC:
[2019-09-01] VITALS: BP 134/81
[2019-09-01 04:00] VITALS: BP 101/55
--- NOTE | 2019-09-01 04:50 | NUR ---
TRANSFER TO FLOOR: Patient transferred to 4E per MD order Report given to Renetta Bergeron RN Belongings and medications given to 4E/ at pt bedside. Pt in stable condition, No signs or symptoms of distress noted at this time. Endorsed plan of care and transferred orders.
--- NOTE | 2019-09-01 04:50 | NUR ---
NURSE NOTES: Patient received from telemetry, aox4, IV is intact and patent. Patient had BM, cleaned and made comfortable. Noted sacral redness, small open wound on lower back, and bilateral heel redness. oriented patient to new room and unit. Call light provided; able to return demo to use call light. Bed locked in low position. Made aware of re-do of CT A/P and need to be NPO.
[2019-09-01] MEDS: HydrALAZINE 10mg Tab ORAL SCH ×4 (05:31→21:45)
[2019-09-01] MEDS ORDERED: Miralax 17gm pkt ORAL PRN (05:45)
[2019-09-01 07:26] LABS: BASOPHILS % (AUTO) 1.2 % (0.0-2.0); EOSINOPHILS % (AUTO) 4.4 % (0.0-3.0); HEMATOCRIT 28.8 % (37.0-47.0); HEMOGLOBIN 9.7 G/DL (12.0-16.0); LYMPHOCYTES % (AUTO) 26.3 % (20.0-45.0); MEAN CORPUSCULAR VOLUME 82 FL (80-99); NEUTROPHILS % (AUTO) 59.1 % (45.0-75.0); PLATELET COUNT 200 K/UL (150-450); RED BLOOD COUNT 3.49 M/UL (4.20-5.40); RED CELL DISTRIBUTION WIDTH 12.4 % (11.6-14.8); WHITE BLOOD COUNT 7.2 K/UL (4.8-10.8)
--- NOTE | 2019-09-01 07:29 | NUR ---
NURSE NOTES: Patient awake, alert x4; on room air, no sing of distress and shortness of breath; no sing of chest pain; IV Left For-Arm TKO; patient NPO for CT of abdomen, and patient is aware; dressing on sacral and heels dry and intact; side rails up x2, breaks engaged, bed at lowest position, bed alarm on; call light within reach; will keep monitoring.
--- NOTE | 2019-09-01 07:29 | NUR ---
HAND-OFF: Report given to Francine PETTIT.
[2019-09-01 07:45] LABS: ALANINE AMINOTRANSFERASE 13 U/L (12-78); ALBUMIN 2.6 G/DL (3.4-5.0); ALBUMIN/GLOBULIN RATIO 0.6 (1.0-2.7); ALKALINE PHOSPHATASE 74 U/L (46-116); ANION GAP 12 mmol/L (5-15); ASPARTATE AMINO TRANSFERASE 14 U/L (15-37); BILIRUBIN,TOTAL 0.3 MG/DL (0.2-1.0); BLOOD UREA NITROGEN 70 mg/dL (7-18); CALCIUM 9.1 MG/DL (8.5-10.1); CARBON DIOXIDE 19 MMOL/L (21-32); CHLORIDE 109 MMOL/L (98-107); CREATININE 3.1 MG/DL (0.55-1.30); PHOSPHORUS 4.7 MG/DL (2.5-4.9); POTASSIUM 4.3 MMOL/L (3.5-5.1); SODIUM 140 MMOL/L (136-145)
[2019-09-01 08:00] VITALS: BP 137/96
--- NOTE | 2019-09-01 08:24 | NUR ---
NURSE NOTES: Patient refused to go for CT Abdomen, requesting another transporter; told that there is only one transporter for now; patient refused to go with the transporter; Charge nurse, Navid is aware.
--- NOTE | 2019-09-01 08:24 | NUR ---
08/31..PT COMBATIVE, PER TRANSPORTER CHANEL. REFUSES EXAM AT THIS TIME. 8:23 TJB
--- NOTE | 2019-09-01 09:10 | General Progress Note ---
Assessment/Plan Assessment/Plan: HPI/CC:68 y/o F w/PMH hyperthyroidism, multiple sclerosis, HTN and COPD who presents from [facility] for cough and abnormal labs. On admission, CXR revealed left lower lobe pleural effusion, Cr 3.2. Patient admitted for further treatment and evaluation, and COVID-19 r/o. Currently being assess for BL hydronephrosis thought to be from neurogenic bladder along w/ AB for sepsis/ ESBL UTI. Assessment #CAP w/ Left Pleural Effusion, COVID ruled out #ESBL UTI #BL Hydronephrosis w/ Acute Renal Failure; suspect Neurogenic Bladder #Multiple Sclerosis #Hyperthyroidism #HTN #COPD Plan Consultants include Urology, ID Await CT A/P; f/u with uro if patient is going to require chronic indwelling torres cath vs suprapubic cath RT protocol, currently not in COPD Exacerbation Continue AB w/ Ampicllin and Meropenem per ID Continue Methimazole, Hydralazine PO DVT ppx Diet as tolerated 08/31:F/U CT A/P , continue Torres Cath Subjective Date patient seen: September 01, 2019 Time patient seen: 09:09 Allergies: Coded Allergies: CODEINE (Verified Allergy, Unknown, 08/24/19) NEUROMUSCULAR BLOCKERS, STEROIDAL (Verified Allergy, Unknown, 08/24/19) Uncoded Allergies: ANABOLIC STEROIDS (Allergy, Unknown, 08/24/19) STEROIDS (Allergy, Unknown, 08/24/19) Subjective Patient laying in bed, no complaints; vitals stable. Appreciate Uro consult, Pending CT abdomen pelvis. Downgraded from telemetry yesterday. BUN and creatinine are climbing but patient has decent urine output, currently w/ torres in place Objective Last 24 Hour Vital Signs Date Time Temp Pulse Resp B/P (MAP) Pulse Ox O2 Delivery O2 Flow Rate FiO2 09/01/19 06:00 134/81 09/01/19 05:31 134/81 09/01/19 04:00 77 09/01/19 04:00 97.2 99 16 101/55 (70) 94 09/01/19 00:00 97.4 96 18 134/81 (98) 99 09/01/19 00:00 84 08/31/19 21:51 138/72 08/31/19 21:00 83 08/31/19 21:00 Room Air 08/31/19 20:00 97.4 80 17 138/72 (94) 98 08/31/19 16:00 80 08/31/19 16:00 96.8 80 19 130/71 (90) 98 08/31/19 15:51 132/66 08/31/19 12:00 97.8 75 18 132/66 (88) 97 Intake and Output 08/31/19 09/01/19 19:00 07:00 Intake Total 195 ml Output Total 1200 ml 250 ml Balance -1005 ml -250 ml Intake Oral 140 ml IV Total 55 ml Output Urine Total 1200 ml 250 ml # Voids 3 Laboratory Tests 09/01/19 06:30: White Blood Count 7.2, Red Blood Count 3.49L, Hemoglobin 9.7L, Hematocrit 28.8L , Mean Corpuscular Volume 82, Mean Corpuscular Hemoglobin 27.8, Mean Corpuscular Hemoglobin Concent 33.7, Red Cell Distribution Width 12.4, Platelet Count 200, Mean Platelet Volume 6.2L, Neutrophils (%) (Auto) 59.1, Lymphocytes ( %) (Auto) 26.3, Monocytes (%) (Auto) 9.0, Eosinophils (%) (Auto) 4.4H, Basophils (%) (Auto) 1.2, Sodium Level 140, Potassium Level 4.3, Chloride Level 109H, Carbon Dioxide Level 19L, Anion Gap 12, Blood Urea Nitrogen 70H, Creatinine 3.1H, Estimat Glomerular Filtration Rate 14.9, Glucose Level 98, Calcium Level 9.1, Phosphorus Level 4.7, Magnesium Level 2.0, Total Bilirubin 0.3, Aspartate Amino Transf (AST/SGOT) 14L, Alanine Aminotransferase (ALT/SGPT) 13, Alkaline Phosphatase 74, Total Protein 6.8, Albumin 2.6L, Globulin 4.2, Albumin/Globulin Ratio 0.6L Height (Feet): 5 Height (Inches): 4.00 Weight (Pounds): 136 Objective General Appearance: no apparent distress EENT: PERRL/EOMI Cardiovascular: normal rate, regular rhythm Respiratory/Chest: normal breath sounds, no respiratory distress, no accessory muscle use Abdomen: non tender, soft Extremities: inflammation Edema: no edema noted 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 September 01, 2019 09:10
[2019-09-01] MEDS: methIMAzole 10mg tab ORAL SCH (10:00)
[2019-09-01] MEDS: guaiFENesin ER 600mg tab ORAL SCH ×2 (10:00→17:05)
[2019-09-01] MEDS: Docusate 100mg cap ORAL SCH ×2 (10:00→21:40)
[2019-09-01] MEDS: Meropenem 500 MG in NS 55 ML IVPB SCH ×2 (10:01→21:40)
--- NOTE | 2019-09-01 10:02 | NUR ---
CT ABDOMEN/PELVIS W/O COMPLETED.
[2019-09-01] MEDS: Heparin 5000 units/ml inj SUBQ SCH ×2 (10:04→21:00)
--- NOTE | 2019-09-01 11:27 | Diagnostic Imaging Report ---
Indication: Acute renal failure Technique: Spiral acquisitions obtained through the abdomen and pelvis. No oral contrast utilized, reason not stated. No IV contrast utilized, stated renal insufficiency. Multiplanar reconstructions were generated. Total dose length product 387 mGycm. CTDIvol(s) 7 mGy. Dose reduction achieved using automated exposure control Comparison: No comparison CT scans. Reference made to 08/29/2019 renal sonogram Findings: Lack of IV contrast limits assessment of the solid organs. There is severe bilateral hydronephrosis there is marked thinning of the renal cortices bilaterally. There is also bilateral severe hydroureter. The ureteral orifices appear to be patulous and in direct communication with the bladder lumen. No obstructing lesion is demonstrated. The bladder is not distended. The wall appears to be trabeculated but is not particularly thickened. No gross focal renal parenchymal abnormality demonstrated. No renal or ureteral calculi. Lack of IV contrast limits assessment of the other solid organs. The liver is somewhat atrophic, demonstrates diffuse surface nodularity and contour irregularity. No focal abnormality. The gallbladder contains multiple calcified gallstones. There is no biliary ductal dilatation. The pancreas, spleen, adrenals are unremarkable. No retroperitoneal or mesenteric mass or adenopathy. No pelvic mass or adenopathy. The uterus and adnexal structures appear unremarkable. There is massive distention of the rectum by feces. The rectal diameter is 10.6 cm. There is mild thickening of the rectal wall. Distention also extends into the distal sigmoid. The proximal colon is nondilated There is evidence of fecal incontinence. There are colonic diverticula. No evidence of diverticulitis. The appendix is normal. No small bowel distention. No free or loculated intraperitoneal gas or fluid is evident. The distal esophagus and stomach are unremarkable. There is a possible duodenal wall lipoma noted in the second portion of the duodenum. Included lung bases demonstrate what appears to be a crescentic pleural fluid collection on the right. This is surrounded by thickened pleura and some calcification. There is parenchymal volume loss, pleural thickening, and possibly trace pleural fluid at the left lung base. Atelectasis or scarring is seen in both visualized lower lobes. There is some thickening of the major fissure on the right. The heart is mildly enlarged. There is some fluid adjacent to the posterior left heart border. Uncertain as whether this is pleural or pericardial. The bones demonstrate a slight superior endplate compression fracture deformity of the T12 vertebral body. There are degenerative changes of the lumbar spine Impression: Massive bilateral hydronephrosis and bilateral hydroureter, with marked renal volume loss. As the ureters appear to be patulous and communicate freely with the bladder lumen, this is presumably due to chronic bladder outlet obstruction. Evidence of massive rectal fecal impaction. Very slight rectal wall thickening could indicate a component of stercoral proctitis. Abnormal liver morphology, suspicious for cirrhosis Apparent loculated right pleural effusion surrounded by thickened pleura and some calcifications. Given the presence of calcification, likely chronic, related related to prior tuberculosis. Empyema not excludable. There is also basilar consolidation, atelectasis, and pleural fluid on the left. Possible small pericardial effusion Slight T12 superior endplate compression fracture, age-indeterminate. Consider MRI for better characterization if considered clinically relevant Cholelithiasis Colonic diverticulosis Mild cardiomegaly Incidental findings as noted, including duodenal wall lipoma, degenerative spondylosis The CT scanner at [facility] is accredited by the [employer] and the scans are performed using protocols designed to limit radiation exposure to as low as reasonably achievable to attain images of sufficient resolution adequate for diagnostic evaluation.
--- NOTE | 2019-09-01 11:31 | Nephrology Progress Note ---
Assessment/Plan Plan #Acute on chronic kidney disease- baseline cr close to 2- renal US with bilatera hydronephrosis #pneumonia - left lower lobe #r/o COVID # hyperthyroidism # multiple sclerosis #HTN # COPD - renal US with bilateral severe hydronephrosis - refused torres- bladder scan q6hr - CT abd/pelvis: Impression: Massive bilateral hydronephrosis and bilateral hydroureter, with marked renal volume loss. As the ureters appear to be patulous and communicate freely with the bladder lumen, this is presumably due to chronic bladder outlet obstruction. - nuc med scan pending - Urology eval - COVID ruled out - currently satting well on room air - check 2d echo--> BNP can be elevated due to decreased renal clearance - antibiotics per ID- on augmentin and doxy - strict I&Os - daily weight - monitor lytes and cr closely - continue hydralazine 10mg TID - check PTH/vit D pending - monitor phos - check iron panel and ferritin-> adequate Subjective ROS Limited/Unobtainable: No Constitutional: Denies: no symptoms, chills, diaphoresis, fever, malaise, weakness, other HEENT: Denies: no symptoms, eye pain, blurred vision, tearing, double vision, ear pain, ear discharge, nose pain, nose congestion, throat pain, throat swelling, mouth pain, mouth swelling, other Genitourinary: Denies: no symptoms, burning, discharge, frequency, flank pain, hematuria, incontinence, pain, urgency, other 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: Denies: no symptoms, anxiety, depressed, emotional problems, headache, numbness, paresthesia, pre-existing deficit, seizure, tingling, tremors, weakness, other Subjective COVID negative CT abd/pelvis: Impression: Massive bilateral hydronephrosis and bilateral hydroureter, with marked renal volume loss. As the ureters appear to be patulous and communicate freely with the bladder lumen, this is presumably due to chronic bladder outlet obstruction. nuc med scan pending Satting well on room air cr stable Bp stable Renal US: Impression: Bilateral severe hydronephrosis. Marked cortical thinning indicates that this is probably long-standing. Objective Objective Last 24 Hour Vital Signs Date Time Temp Pulse Resp B/P (MAP) Pulse Ox O2 Delivery O2 Flow Rate FiO2 09/01/19 09:00 Room Air 09/01/19 08:00 97.7 86 20 137/96 (110) 97 09/01/19 06:00 134/81 09/01/19 05:31 134/81 09/01/19 04:00 77 09/01/19 04:00 97.2 99 16 101/55 (70) 94 09/01/19 00:00 97.4 96 18 134/81 (98) 99 09/01/19 00:00 84 08/31/19 21:51 138/72 08/31/19 21:00 83 08/31/19 21:00 Room Air 08/31/19 20:00 97.4 80 17 138/72 (94) 98 08/31/19 16:00 80 08/31/19 16:00 96.8 80 19 130/71 (90) 98 08/31/19 15:51 132/66 08/31/19 12:00 97.8 75 18 132/66 (88) 97 Intake and Output 08/31/19 09/01/19 19:00 07:00 Intake Total 195 ml Output Total 1200 ml 250 ml Balance -1005 ml -250 ml Intake Oral 140 ml IV Total 55 ml Output Urine Total 1200 ml 250 ml # Voids 3 Laboratory Tests 09/01/19 06:30: White Blood Count 7.2, Red Blood Count 3.49L, Hemoglobin 9.7L, Hematocrit 28.8L , Mean Corpuscular Volume 82, Mean Corpuscular Hemoglobin 27.8, Mean Corpuscular Hemoglobin Concent 33.7, Red Cell Distribution Width 12.4, Platelet Count 200, Mean Platelet Volume 6.2L, Neutrophils (%) (Auto) 59.1, Lymphocytes ( %) (Auto) 26.3, Monocytes (%) (Auto) 9.0, Eosinophils (%) (Auto) 4.4H, Basophils (%) (Auto) 1.2, Sodium Level 140, Potassium Level 4.3, Chloride Level 109H, Carbon Dioxide Level 19L, Anion Gap 12, Blood Urea Nitrogen 70H, Creatinine 3.1H, Estimat Glomerular Filtration Rate 14.9, Glucose Level 98, Calcium Level 9.1, Phosphorus Level 4.7, Magnesium Level 2.0, Total Bilirubin 0.3, Aspartate Amino Transf (AST/SGOT) 14L, Alanine Aminotransferase (ALT/SGPT) 13, Alkaline Phosphatase 74, Total Protein 6.8, Albumin 2.6L, Globulin 4.2, Albumin/Globulin Ratio 0.6L Height (Feet): 5 Height (Inches): 4.00 Weight (Pounds): 136 Vicente Jaimes M.D. September 01, 2019 11:31
--- NOTE | 2019-09-01 11:39 | Pulmonology Progress Note ---
Subjective ROS Limited/Unobtainable: No Interval Events: Saturating well on RA Constitutional: Reports: fatigue; Denies: fever HEENT: Repors: no symptoms Respiratory: Reports: no symptoms Cardiovascular: Reports: no symptoms; Denies: chest pain, palpitations, other Gastrointestinal/Abdominal: Denies: nausea, vomiting, diarrhea Psychiatric: Denies: depression Skin: Denies: rash Musculoskeletal: Denies: pain Allergies: Coded Allergies: CODEINE (Verified Allergy, Unknown, 08/24/19) NEUROMUSCULAR BLOCKERS, STEROIDAL (Verified Allergy, Unknown, 08/24/19) Uncoded Allergies: ANABOLIC STEROIDS (Allergy, Unknown, 08/24/19) STEROIDS (Allergy, Unknown, 08/24/19) Objective Last 24 Hour Vital Signs Date Time Temp Pulse Resp B/P (MAP) Pulse Ox O2 Delivery O2 Flow Rate FiO2 09/01/19 09:00 Room Air 09/01/19 08:00 97.7 86 20 137/96 (110) 97 09/01/19 06:00 134/81 09/01/19 05:31 134/81 09/01/19 04:00 77 09/01/19 04:00 97.2 99 16 101/55 (70) 94 09/01/19 00:00 97.4 96 18 134/81 (98) 99 09/01/19 00:00 84 08/31/19 21:51 138/72 08/31/19 21:00 83 08/31/19 21:00 Room Air 08/31/19 20:00 97.4 80 17 138/72 (94) 98 08/31/19 16:00 80 08/31/19 16:00 96.8 80 19 130/71 (90) 98 08/31/19 15:51 132/66 08/31/19 12:00 97.8 75 18 132/66 (88) 97 Intake and Output 08/31/19 09/01/19 19:00 07:00 Intake Total 195 ml Output Total 1200 ml 250 ml Balance -1005 ml -250 ml Intake Oral 140 ml IV Total 55 ml Output Urine Total 1200 ml 250 ml # Voids 3 General Appearance: no acute distress HEENT: normocephalic, atraumatic, anicteric Respiratory/Chest: chest wall non-tender Cardiovascular: normal peripheral pulses Abdomen: normal bowel sounds, soft, non tender, no organomegaly, non distended Genitourinary: other - no torres Extremities: no cyanosis Skin: no rash 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, alert, responsive Lymphatic: no neck adenopathy Musculoskeletal: no effusion Microbiology Date/Time Source Procedure Growth Status 08/30/19 16:40 Nasopharynx Coronavirus COVID-19 PCR (DANIEL) - Final Complete Laboratory Tests 09/01/19 06:30: White Blood Count 7.2, Red Blood Count 3.49L, Hemoglobin 9.7L, Hematocrit 28.8L , Mean Corpuscular Volume 82, Mean Corpuscular Hemoglobin 27.8, Mean Corpuscular Hemoglobin Concent 33.7, Red Cell Distribution Width 12.4, Platelet Count 200, Mean Platelet Volume 6.2L, Neutrophils (%) (Auto) 59.1, Lymphocytes ( %) (Auto) 26.3, Monocytes (%) (Auto) 9.0, Eosinophils (%) (Auto) 4.4H, Basophils (%) (Auto) 1.2, Sodium Level 140, Potassium Level 4.3, Chloride Level 109H, Carbon Dioxide Level 19L, Anion Gap 12, Blood Urea Nitrogen 70H, Creatinine 3.1H, Estimat Glomerular Filtration Rate 14.9, Glucose Level 98, Calcium Level 9.1, Phosphorus Level 4.7, Magnesium Level 2.0, Total Bilirubin 0.3, Aspartate Amino Transf (AST/SGOT) 14L, Alanine Aminotransferase (ALT/SGPT) 13, Alkaline Phosphatase 74, Total Protein 6.8, Albumin 2.6L, Globulin 4.2, Albumin/Globulin Ratio 0.6L Current Medications Medications (Trade) Dose Ordered Sig/Gurpreet Route PRN Reason Start Time Stop Time Status Last Admin Dose Admin Acetaminophen (Tylenol) 650 mg Q4H PRN ORAL Mild Pain (Pain Scale 1-3) 09/01/19 05:45 09/23/19 05:44 Acetaminophen (Tylenol) 650 mg Q4H PRN ORAL Temp >100.5 09/01/19 05:45 09/23/19 05:44 Ampicillin (Ampicillin) 500 mg EVERY 12 HOURS ORAL 09/01/19 09:00 09/06/19 20:59 09/01/19 10:00 Barium Sulfate (Readi-Cat 2) 450 ml NOW PRN ORAL Radiology Procedure 09/01/19 06:30 Bisacodyl (Dulcolax) 10 mg DAILYPRN PRN RECTAL Constipation 09/01/19 05:45 11/22/19 05:44 Clonidine HCl (Catapres Tab) 0.1 mg Q8H PRN ORAL SBP > 160mmHg 09/01/19 05:45 11/22/19 05:44 Dextrose (Dextrose 50%) 25 ml Q30M PRN IV Hypoglycemia 09/01/19 05:45 11/22/19 18:14 Dextrose (Dextrose 50%) 50 ml Q30M PRN IV Hypoglycemia 09/01/19 05:45 11/22/19 18:14 Docusate Sodium (Colace) 100 mg EVERY 12 HOURS ORAL 09/01/19 09:00 09/23/19 20:59 09/01/19 10:00 Guaifenesin (Mucinex ER) 600 mg TWICE A DAY ORAL 09/01/19 09:00 09/08/19 08:59 09/01/19 10:00 Guaifenesin (Robitussin) 200 mg Q4H PRN ORAL For Cough 09/01/19 05:45 11/22/19 05:44 Heparin Sodium (Porcine) (Heparin 5000 units/ml) 5,000 units EVERY 12 HOURS SUBQ 09/01/19 09:00 10/08/19 20:59 09/01/19 10:04 Hydralazine HCl (Apresoline) 10 mg EVERY 8 HOURS ORAL 09/01/19 06:00 11/22/19 21:59 Lorazepam (Ativan) 1 mg Q8H PRN ORAL For Anxiety 09/01/19 05:45 09/06/19 05:44 Magnesium Hydroxide (Mom) 30 ml HSPRN PRN ORAL Constipation 09/01/19 18:15 09/23/19 18:14 Meropenem 500 mg/ Sodium Chloride 55 ml @ 110 mls/hr EVERY 12 HOURS IVPB 09/01/19 09:00 09/04/19 10:59 09/01/19 10:01 Methimazole (Tapazole) 10 mg DAILY ORAL 09/01/19 09:00 11/23/19 08:59 09/01/19 10:00 Ondansetron HCl (Zofran) 4 mg Q6H PRN IVP Nausea & Vomiting 09/01/19 05:45 09/23/19 05:44 Polyethylene Glycol (Miralax) 17 gm DAILYPRN PRN ORAL Constipation 09/01/19 05:45 09/23/19 05:44 Assessment/Plan Assessment/Plan IMPRESSION: 1. Possible left lung pneumonia. 2. Small pleural effusion, no indication for thoracentesis. 3. UTI DISCUSSION: Agree with antibiotics. COVID 19 pcr negative Currently saturating well on room air. I will follow. Kp Ch Omar Syed MD September 01, 2019 11:39
[2019-09-01 12:00] VITALS: BP 141/88
--- NOTE | 2019-09-01 12:37 | NUR ---
RADIOLOGY DEPT., CHEST X-RAY DONE.-P.DYE
--- NOTE | 2019-09-01 13:06 | Diagnostic Imaging Report ---
Indication: Cough Technique: One view of the chest Comparison: 08/27/2019 Findings: Left basilar atelectatic changes with elevation left hemidiaphragm are again demonstrated. There may also be some pleural fluid. The heart is upper limits normal in size. Some scarring or atelectasis is seen at the right lateral lower lung. Findings are unchanged Impression: Unchanged, over 5 days, findings as above.
--- NOTE | 2019-09-01 13:14 | NUR ---
CASE MANAGEMENT:REVIEW 09/01/19 SI: PNA. PLEURAL EFFUSION . SEVERE BILATERAL HYDRONEPHROSIS COVID 19 NEGATIVE 97.3 74 18 143/70 99% ON RA BUN+67 CR+3.0 IS: IV LASIX X1 IV MEROPENEM BID IV AMPICILLIN PO BID MUCINEX ER PO BID TAPAZOLE PO QD CT -Massive bilateral hydronephrosis and bilateral hydroureter CHEST X-RAY- Unchanged, over 5 days, Unchanged, over 5 days : 4E MED SURG UNIT DCP: FROM [facility] CARE PLAN: F/U WITH BLOOD CX F/U URINE CX
--- NOTE | 2019-09-01 13:18 | Urology Progress Note ---
Assessment/Plan Assessment/Plan: 1. Bilateral hydronephrosis, which appears to be chronic. 2. Renal insufficiency, acute on chronic. 3. Lower urinary tract symptoms. 4. Probable neurogenic bladder. 5. UTI, colonization, and pyuria. 6. Hematuria. 7. Proteinuria. 8. Renal atrophy. monitor clinically relatively low PVR abx as ordered cysto at some point f/u on blood cx pt refuses torres f/u on nuc renal scan Subjective Allergies: Coded Allergies: CODEINE (Verified Allergy, Unknown, 08/24/19) NEUROMUSCULAR BLOCKERS, STEROIDAL (Verified Allergy, Unknown, 08/24/19) Uncoded Allergies: ANABOLIC STEROIDS (Allergy, Unknown, 08/24/19) STEROIDS (Allergy, Unknown, 08/24/19) Subjective all noted, a bit agitated Objective Last 24 Hour Vital Signs Date Time Temp Pulse Resp B/P (MAP) Pulse Ox O2 Delivery O2 Flow Rate FiO2 09/01/19 09:00 Room Air 09/01/19 08:00 97.7 86 20 137/96 (110) 97 09/01/19 06:00 134/81 09/01/19 05:31 134/81 09/01/19 04:00 77 09/01/19 04:00 97.2 99 16 101/55 (70) 94 09/01/19 00:00 97.4 96 18 134/81 (98) 99 09/01/19 00:00 84 08/31/19 21:51 138/72 08/31/19 21:00 83 08/31/19 21:00 Room Air 08/31/19 20:00 97.4 80 17 138/72 (94) 98 08/31/19 16:00 80 08/31/19 16:00 96.8 80 19 130/71 (90) 98 08/31/19 15:51 132/66 Intake and Output 08/31/19 09/01/19 19:00 07:00 Intake Total 195 ml Output Total 1200 ml 250 ml Balance -1005 ml -250 ml Intake Oral 140 ml IV Total 55 ml Output Urine Total 1200 ml 250 ml # Voids 3 Microbiology Date/Time Source Procedure Growth Status 08/27/19 07:05 Blood Blood Culture - Preliminary NO GROWTH AFTER 4 DAYS Resulted 08/30/19 16:40 Nasopharynx Coronavirus COVID-19 PCR (D[facility]EL) - Final Complete 08/27/19 22:30 Urine,Clean Catch Urine Culture - Final Escherichia Coli - Esbl Enterococcus Faecalis Complete Current Medications Medications (Trade) Dose Ordered Sig/Gurpreet Route PRN Reason Start Time Stop Time Status Last Admin Dose Admin Acetaminophen (Tylenol) 650 mg Q4H PRN ORAL Mild Pain (Pain Scale 1-3) 09/01/19 05:45 09/23/19 05:44 Acetaminophen (Tylenol) 650 mg Q4H PRN ORAL Temp >100.5 09/01/19 05:45 09/23/19 05:44 Ampicillin (Ampicillin) 500 mg EVERY 12 HOURS ORAL 09/01/19 09:00 09/06/19 20:59 09/01/19 10:00 Barium Sulfate (Readi-Cat 2) 450 ml NOW PRN ORAL Radiology Procedure 09/01/19 06:30 Bisacodyl (Dulcolax) 10 mg DAILYPRN PRN RECTAL Constipation 09/01/19 05:45 11/22/19 05:44 Clonidine HCl (Catapres Tab) 0.1 mg Q8H PRN ORAL SBP > 160mmHg 09/01/19 05:45 11/22/19 05:44 Dextrose (Dextrose 50%) 25 ml Q30M PRN IV Hypoglycemia 09/01/19 05:45 11/22/19 18:14 Dextrose (Dextrose 50%) 50 ml Q30M PRN IV Hypoglycemia 09/01/19 05:45 11/22/19 18:14 Docusate Sodium (Colace) 100 mg EVERY 12 HOURS ORAL 09/01/19 09:00 09/23/19 20:59 09/01/19 10:00 Furosemide (Lasix) 20 mg ONCE IV 09/01/19 13:00 09/01/19 14:30 Guaifenesin (Mucinex ER) 600 mg TWICE A DAY ORAL 09/01/19 09:00 09/08/19 08:59 09/01/19 10:00 Guaifenesin (Robitussin) 200 mg Q4H PRN ORAL For Cough 09/01/19 05:45 11/22/19 05:44 Heparin Sodium (Porcine) (Heparin 5000 units/ml) 5,000 units EVERY 12 HOURS SUBQ 09/01/19 09:00 10/08/19 20:59 09/01/19 10:04 Hydralazine HCl (Apresoline) 10 mg EVERY 8 HOURS ORAL 09/01/19 06:00 11/22/19 21:59 Lorazepam (Ativan) 1 mg Q8H PRN ORAL For Anxiety 09/01/19 05:45 09/06/19 05:44 Magnesium Hydroxide (Mom) 30 ml HSPRN PRN ORAL Constipation 09/01/19 18:15 09/23/19 18:14 Meropenem 500 mg/ Sodium Chloride 55 ml @ 110 mls/hr EVERY 12 HOURS IVPB 09/01/19 09:00 09/04/19 10:59 09/01/19 10:01 Methimazole (Tapazole) 10 mg DAILY ORAL 09/01/19 09:00 11/23/19 08:59 09/01/19 10:00 Ondansetron HCl (Zofran) 4 mg Q6H PRN IVP Nausea & Vomiting 09/01/19 05:45 09/23/19 05:44 Polyethylene Glycol (Miralax) 17 gm DAILYPRN PRN ORAL Constipation 09/01/19 05:45 09/23/19 05:44 Laboratory Tests 09/01/19 06:30: White Blood Count 7.2, Red Blood Count 3.49L, Hemoglobin 9.7L, Hematocrit 28.8L , Mean Corpuscular Volume 82, Mean Corpuscular Hemoglobin 27.8, Mean Corpuscular Hemoglobin Concent 33.7, Red Cell Distribution Width 12.4, Platelet Count 200, Mean Platelet Volume 6.2L, Neutrophils (%) (Auto) 59.1, Lymphocytes ( %) (Auto) 26.3, Monocytes (%) (Auto) 9.0, Eosinophils (%) (Auto) 4.4H, Basophils (%) (Auto) 1.2, Sodium Level 140, Potassium Level 4.3, Chloride Level 109H, Carbon Dioxide Level 19L, Anion Gap 12, Blood Urea Nitrogen 70H, Creatinine 3.1H, Estimat Glomerular Filtration Rate 14.9, Glucose Level 98, Calcium Level 9.1, Phosphorus Level 4.7, Magnesium Level 2.0, Total Bilirubin 0.3, Aspartate Amino Transf (AST/SGOT) 14L, Alanine Aminotransferase (ALT/SGPT) 13, Alkaline Phosphatase 74, Total Protein 6.8, Albumin 2.6L, Globulin 4.2, Albumin/Globulin Ratio 0.6L Height (Feet): 5 Height (Inches): 4.00 Weight (Pounds): [address] A/P noted Jason Vicente MD September 01, 2019 13:18
--- NOTE | 2019-09-01 13:21 | NUR ---
NURSE NOTES:WOUND CARE FOLLOW-UP NOTES:Non-Blanching erythema noted to Sacrum. Partial thickness pressure injury lumbar spine resolving . Base of wound is moist and viable. No erythema or evidence of further skin breakdown periwound. Non-Blanching erythema without fluctuance R heel. L heel is boggy with Non-Blanching erythema. Pt can be resistive to care and repositioning despite continuous education by staff of risks vs benefits to compliance and avoiding further Skin breakdown. Tx.Plan: Apply Moisture Barrier Paste to Sacrum. Cover with Optifoam drsg. Change every 3 days and prn. Apply Cavilon Skin BArrier to Both heels. Cover each heel with Optifoam drsg. Change every 7 days and prn. Reposition at least every 2hours or as tolerated. Off-load heels with Pillow.
--- NOTE | 2019-09-01 15:11 | NUR ---
NM Renal MAG-3 scan complete.
[2019-09-01 16:00] VITALS: BP 123/77
--- NOTE | 2019-09-01 16:36 | Infectious Diseases Prog Note ---
Assessment/Plan Assessment/Plan ASSESSMENT AND PLAN: 1. CAP, rule out covid-19 virus infection coag neg staph blood culture - / is likely a contaminant esbl e.coli uti, enterococcus uti hydronephrosis - meropenem and ampicillin (08/30/19) - day #3 - covid19 testing negative x 2 - remove isolation - f/u chest x-ray and labs - surveillance blood cultures - negative 3. Renal failure. 4. COPD. 5. Multiple sclerosis. 6. Hypertension. 7. Effusion. 8. Cough. 9. Continue treatment per primary consultants. 10. Orders were noted and entered. 11. Allergies to anabolic steroids, codeine, neuromuscular blockers. 12. Social history negative. 13. Family history noncontributory. 14. MAR was noted. 15. Case discussed with RN. Subjective Constitutional: Denies: fever HEENT: Denies: congestion Respiratory: Denies: shortness of breath Cardiovascular: Denies: chest pain Gastrointestinal/Abdominal: Denies: nausea, vomiting, diarrhea Genitourinary: Reports: other - no torres Neurologic: Denies: headache Psychiatric: Denies: depression Skin: Denies: rash Hematologic: Denies: bleeding Musculoskeletal: Denies: pain Allergies: Coded Allergies: CODEINE (Verified Allergy, Unknown, 08/24/19) NEUROMUSCULAR BLOCKERS, STEROIDAL (Verified Allergy, Unknown, 08/24/19) Uncoded Allergies: ANABOLIC STEROIDS (Allergy, Unknown, 08/24/19) STEROIDS (Allergy, Unknown, 08/24/19) Objective Vital Signs Last 24 Hour Vital Signs Date Time Temp Pulse Resp B/P (MAP) Pulse Ox O2 Delivery O2 Flow Rate FiO2 09/01/19 15:22 141/88 09/01/19 12:00 97.7 85 20 141/88 (105) 98 09/01/19 09:00 Room Air 09/01/19 08:00 97.7 86 20 137/96 (110) 97 09/01/19 06:00 134/81 09/01/19 05:31 134/81 09/01/19 04:00 77 09/01/19 04:00 97.2 99 16 101/55 (70) 94 09/01/19 00:00 97.4 96 18 134/81 (98) 99 09/01/19 00:00 84 5/7/20 21:51 138/72 08/31/19 21:00 83 08/31/19 21:00 Room Air 08/31/19 20:00 97.4 80 17 138/72 (94) 98 Height (Feet): 5 Height (Inches): 4.00 Weight (Pounds): 136 General Appearance: no acute distress HEENT: normocephalic, atraumatic, anicteric, mucous membranes moist Respiratory/Chest: lungs clear, normal breath sounds, no respiratory distress, no accessory muscle use Cardiovascular: normal rate, regular rhythm, no gallop/murmur, no JVD Abdomen: normal bowel sounds, soft, non tender, no organomegaly, non distended Genitourinary: other - no torres Extremities: no cyanosis Skin: no rash 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 The left upper lung, right lung and pleural space are clear. The heart is enlarged. Impression: Left basilar opacity, likely combination of consolidation, pleural fluid, and atelectasis. Mild cardiomegaly Chest x-ray - 08/27/19 - Procedure: XRAY Chest 1v EXAM: XR Chest, 1 View CLINICAL HISTORY: Infection TECHNIQUE: Frontal view of the chest. COMPARISON: August 24, 2019. FINDINGS: Slightly prominent cardiac silhouette without evidence of edema or failure. Low lung volumes. Again noted is left lower lobe infiltrates and left effusion with elevation of the left hemidiaphragm. Unremarkable right lung. No aggressive osseous abnormalities. IMPRESSION: Little interval change in left lower lobe infiltrates and left effusion. CT abdomen and pelvis: Impression: Massive bilateral hydronephrosis and bilateral hydroureter, with marked renal volume loss. As the ureters appear to be patulous and communicate freely with the bladder lumen, this is presumably due to chronic bladder outlet obstruction. Evidence of massive rectal fecal impaction. Very slight rectal wall thickening could indicate a component of stercoral proctitis. Abnormal liver morphology, suspicious for cirrhosis Apparent loculated right pleural effusion surrounded by thickened pleura and some calcifications. Given the presence of calcification, likely chronic, related related to prior tuberculosis. Empyema not excludable. There is also basilar consolidation, atelectasis, and pleural fluid on the left. Possible small pericardial effusion Slight T12 superior endplate compression fracture, age-indeterminate. Consider MRI for better characterization if considered clinically relevant Cholelithiasis Colonic diverticulosis Mild cardiomegaly Incidental findings as noted, including duodenal wall lipoma, degenerative spondylosis Microbiology Date/Time Source Procedure Growth Status 08/27/19 07:05 Blood Blood Culture - Preliminary NO GROWTH AFTER 4 DAYS Resulted 08/30/19 16:40 Nasopharynx Coronavirus COVID-19 PCR (D[facility]EL) - Final Complete 08/27/19 22:30 Urine,Clean Catch Urine Culture - Final Escherichia Coli - Esbl Enterococcus Faecalis Complete Microbiology Date/Time Source Procedure Growth Status 08/30/19 16:40 Nasopharynx Coronavirus COVID-19 PCR ([facility]EL) - Final Complete Laboratory Tests Test 09/01/19 06:30 White Blood Count 7.2 K/UL (4.8-10.8) Red Blood Count 3.49 M/UL (4.20-5.40) L Hemoglobin 9.7 G/DL (12.0-16.0) L Hematocrit 28.8 % (37.0-47.0) L Mean Corpuscular Volume 82 FL (80-99) Mean Corpuscular Hemoglobin 27.8 PG (27.0-31.0) Mean Corpuscular Hemoglobin Concent 33.7 G/DL (32.0-36.0) Red Cell Distribution Width 12.4 % (11.6-14.8) Platelet Count 200 K/UL (150-450) Mean Platelet Volume 6.2 FL (6.5-10.1) L Neutrophils (%) (Auto) 59.1 % (45.0-75.0) Lymphocytes (%) (Auto) 26.3 % (20.0-45.0) Monocytes (%) (Auto) 9.0 % (1.0-10.0) Eosinophils (%) (Auto) 4.4 % (0.0-3.0) H Basophils (%) (Auto) 1.2 % (0.0-2.0) Sodium Level 140 MMOL/L (136-145) Potassium Level 4.3 MMOL/L (3.5-5.1) Chloride Level 109 MMOL/L (98-107) H Carbon Dioxide Level 19 MMOL/L (21-32) L Anion Gap 12 mmol/L (5-15) Blood Urea Nitrogen 70 mg/dL (7-18) H Creatinine 3.1 MG/DL (0.55-1.30) H Estimat Glomerular Filtration Rate 14.9 mL/min (>60) Glucose Level 98 MG/DL (74-106) Calcium Level 9.1 MG/DL (8.5-10.1) Phosphorus Level 4.7 MG/DL (2.5-4.9) Magnesium Level 2.0 MG/DL (1.8-2.4) Total Bilirubin 0.3 MG/DL (0.2-1.0) Aspartate Amino Transf (AST/SGOT) 14 U/L (15-37) L Alanine Aminotransferase (ALT/SGPT) 13 U/L (12-78) Alkaline Phosphatase 74 U/L (46-116) Total Protein 6.8 G/DL (6.4-8.2) Albumin 2.6 G/DL (3.4-5.0) L Globulin 4.2 g/dL Albumin/Globulin Ratio 0.6 (1.0-2.7) L Current Medications Medications (Trade) Dose Ordered Sig/Gurpreet Route PRN Reason Start Time Stop Time Status Last Admin Dose Admin Acetaminophen (Tylenol) 650 mg Q4H PRN ORAL Mild Pain (Pain Scale 1-3) 09/01/19 05:45 09/23/19 05:44 Acetaminophen (Tylenol) 650 mg Q4H PRN ORAL Temp >100.5 09/01/19 05:45 09/23/19 05:44 Ampicillin (Ampicillin) 500 mg EVERY 12 HOURS ORAL 09/01/19 09:00 09/06/19 20:59 09/01/19 10:00 Barium Sulfate (Readi-Cat 2) 450 ml NOW PRN ORAL Radiology Procedure 09/01/19 06:30 Bisacodyl (Dulcolax) 10 mg DAILYPRN PRN RECTAL Constipation 09/01/19 05:45 11/22/19 05:44 Clonidine HCl (Catapres Tab) 0.1 mg Q8H PRN ORAL SBP > 160mmHg 09/01/19 05:45 11/22/19 05:44 Dextrose (Dextrose 50%) 25 ml Q30M PRN IV Hypoglycemia 09/01/19 05:45 11/22/19 18:14 Dextrose (Dextrose 50%) 50 ml Q30M PRN IV Hypoglycemia 09/01/19 05:45 11/22/19 18:14 Docusate Sodium (Colace) 100 mg EVERY 12 HOURS ORAL 09/01/19 09:00 09/23/19 20:59 09/01/19 10:00 Guaifenesin (Mucinex ER) 600 mg TWICE A DAY ORAL 09/01/19 09:00 09/08/19 08:59 09/01/19 10:00 Guaifenesin (Robitussin) 200 mg Q4H PRN ORAL For Cough 09/01/19 05:45 11/22/19 05:44 Heparin Sodium (Porcine) (Heparin 5000 units/ml) 5,000 units EVERY 12 HOURS SUBQ 09/01/19 09:00 10/08/19 20:59 09/01/19 10:04 Hydralazine HCl (Apresoline) 10 mg EVERY 8 HOURS ORAL 09/01/19 06:00 11/22/19 21:59 09/01/19 15:22 Lorazepam (Ativan) 1 mg Q8H PRN ORAL For Anxiety 09/01/19 05:45 09/06/19 05:44 Magnesium Hydroxide (Mom) 30 ml HSPRN PRN ORAL Constipation 09/01/19 18:15 09/23/19 18:14 Meropenem 500 mg/ Sodium Chloride 55 ml @ 110 mls/hr EVERY 12 HOURS IVPB 09/01/19 09:00 09/04/19 10:59 09/01/19 10:01 Methimazole (Tapazole) 10 mg DAILY ORAL 09/01/19 09:00 11/23/19 08:59 09/01/19 10:00 Ondansetron HCl (Zofran) 4 mg Q6H PRN IVP Nausea & Vomiting 09/01/19 05:45 09/23/19 05:44 Polyethylene Glycol (Miralax) 17 gm DAILYPRN PRN ORAL Constipation 09/01/19 05:45 09/23/19 05:44 Louie Bullard MD September 01, 2019 16:36
--- NOTE | 2019-09-01 17:12 | Diagnostic Imaging Report ---
Indication: Bilateral hydronephrosis, abnormal renal function Technique: IV administration 9 mCi 99m technetium MAG3. Flow and static images were obtained. Nephrogram curves were computer generated. Patient given 20 mg of Lasix at 40 minutes. Patient then scan for another 20 minutes. She was unable to tolerate any further scanning after one hour total Comparison: None. Reference made to recent sonogram and CT scan Findings: Flow images demonstrate essentially nonperceptible flow to both kidneys. There is symmetric appearance of tracer within both kidneys, appearing to gradually fill the collecting systems, and both renal pelvises are visible at 60 minutes. However, no activity is seen in either ureter or the bladder. The nephrogram curves demonstrate gradual rise in both kidneys up to the time the study was discontinued. Renal split function is 57% left, 43% right Impression: Limited exam, as described, due to shorter than ideal scanning time. Gradual slowly rising renal and collecting system uptake is demonstrated. Tracer is seen to fill the bilateral renal collecting systems but not the ureters and therefore the point/etiology of obstruction causing the hydronephrosis demonstrated on earlier studies is not clearly evident Renal split function 57% left, 43% right
[2019-09-01] MEDS ORDERED: Milk of Magnesia 30ml Ud ORAL PRN (18:15)
--- NOTE | 2019-09-01 19:29 | NUR ---
HAND-OFF: Report given to WILVER Calderon.
--- NOTE | 2019-09-01 19:30 | NUR ---
NURSE NOTES: Receive pt in stable condition on the bed. A&o x4 , no sob , no complain of pain, and vitals are stable . pt has episode of coughing but she is covid 19 negative x2. Bed is in the lower position, locked and alarm. Call light within reach . We will keep monitoring.
[2019-09-01 20:00] VITALS: BP 130/70
[2019-09-02] VITALS: BP_SYST 123; BP_DIAS 77; BP_DIAS 78
[2019-09-02] MEDS: LORazepam 1mg tab ORAL PRN (01:55)
[2019-09-02 04:00] VITALS: BP 130/76
--- NOTE | 2019-09-02 04:14 | Progress Note ---
DATE: 09/01/2019 SUBJECTIVE: Patient is hard of hearing, in bed, no acute distress noted. Acute anxiety. Poor insight. MENTAL STATUS EXAMINATION: Alert, oriented times self, place, situation. Mood is anxious. Affect is flat. Thought process concrete. Thought content, no suicidal or homicidal ideation. Cognition is impaired. Insight and judgment is impaired. ASSESSMENT: 1. Anxiety disorder. 2. Major depressive disorder. PLAN: 1. Continue Ativan p.r.n. 2. Patient is reluctant to take any other psychotropic medications. 3. Discussed with the nurse. Darleen Nagel M.D. DR: ANDRESSA JOB#: [id number] CC:
[2019-09-02] MEDS: HydrALAZINE 10mg Tab ORAL SCH ×4 (06:00→21:13)
--- NOTE | 2019-09-02 07:25 | NUR ---
HAND-OFF: Report given to ismael josephRn
[2019-09-02 07:31] LABS: BASOPHILS % (AUTO) 0.9 % (0.0-2.0); EOSINOPHILS % (AUTO) 5.3 % (0.0-3.0); HEMATOCRIT 29.3 % (37.0-47.0); LYMPHOCYTES % (AUTO) 28.6 % (20.0-45.0); MEAN CORPUSCULAR VOLUME 83 FL (80-99); MONOCYTES % (AUTO) 8.2 % (1.0-10.0); PLATELET COUNT 199 K/UL (150-450); RED BLOOD COUNT 3.53 M/UL (4.20-5.40); RED CELL DISTRIBUTION WIDTH 12.5 % (11.6-14.8); WHITE BLOOD COUNT 6.5 K/UL (4.8-10.8)
[2019-09-02 07:39] LABS: ALANINE AMINOTRANSFERASE 12 U/L (12-78); ALBUMIN 2.4 G/DL (3.4-5.0); ALBUMIN/GLOBULIN RATIO 0.6 (1.0-2.7); ALKALINE PHOSPHATASE 70 U/L (46-116); ANION GAP 11 mmol/L (5-15); ASPARTATE AMINO TRANSFERASE 13 U/L (15-37); BILIRUBIN,TOTAL 0.3 MG/DL (0.2-1.0); BLOOD UREA NITROGEN 71 mg/dL (7-18); CALCIUM 9.1 MG/DL (8.5-10.1); CARBON DIOXIDE 20 MMOL/L (21-32); CHLORIDE 108 MMOL/L (98-107); CREATININE 3.2 MG/DL (0.55-1.30); POTASSIUM 4.2 MMOL/L (3.5-5.1); SODIUM 139 MMOL/L (136-145)
[2019-09-02 08:00] VITALS: BP 143/72
[2019-09-02] MEDS: Meropenem 500 MG in NS 55 ML IVPB SCH ×2 (08:55→21:14)
[2019-09-02] MEDS: Docusate 100mg cap ORAL SCH ×2 (08:55→21:13)
[2019-09-02] MEDS: methIMAzole 10mg tab ORAL SCH (08:55)
[2019-09-02] MEDS: Heparin 5000 units/ml inj SUBQ SCH ×2 (08:55→21:00)
[2019-09-02] MEDS: guaiFENesin ER 600mg tab ORAL SCH ×2 (08:56→17:16)
[2019-09-02] MEDS: guaiFENesin 100mg/5ml Liq ud ORAL PRN (09:30)
--- NOTE | 2019-09-02 09:53 | Urology Progress Note ---
Assessment/Plan Assessment/Plan: 1. Bilateral hydronephrosis, which appears to be chronic. 2. Renal insufficiency, acute on chronic. 3. Lower urinary tract symptoms. 4. Probable neurogenic bladder. 5. UTI, colonization, and pyuria. 6. Hematuria. 7. Proteinuria. 8. Renal atrophy. monitor clinically relatively low PVR abx as ordered cysto at some point pt refuses torres Subjective Allergies: Coded Allergies: CODEINE (Verified Allergy, Unknown, 08/24/19) NEUROMUSCULAR BLOCKERS, STEROIDAL (Verified Allergy, Unknown, 08/24/19) Uncoded Allergies: ANABOLIC STEROIDS (Allergy, Unknown, 08/24/19) STEROIDS (Allergy, Unknown, 08/24/19) Subjective all noted, a bit agitated Objective Last 24 Hour Vital Signs Date Time Temp Pulse Resp B/P (MAP) Pulse Ox O2 Delivery O2 Flow Rate FiO2 09/02/19 04:00 97.8 84 19 130/76 (94) 98 09/02/19 00:00 98.4 90 19 123/78 (93) 96 09/01/19 21:45 130/70 09/01/19 21:00 Room Air 09/01/19 20:00 98.3 83 20 130/70 (90) 98 09/01/19 16:00 97.3 77 20 123/77 (92) 97 09/01/19 15:22 141/88 09/01/19 12:00 97.7 85 20 141/88 (105) 98 Intake and Output 09/01/19 09/02/19 19:00 07:00 Intake Total 590 ml 55 ml Output Total 400 ml 900 ml Balance 190 ml -845 ml Intake Oral 480 ml IV Total 110 ml 55 ml Output Urine Total 400 ml 900 ml # Voids 2 2 # Bowel Movements 1 Microbiology Date/Time Source Procedure Growth Status 08/27/19 07:05 Blood Blood Culture - Final NO GROWTH AFTER 5 DAYS Complete 08/30/19 16:40 Nasopharynx Coronavirus COVID-19 PCR ([facility]) - Final Complete 08/27/19 22:30 Urine,Clean Catch Urine Culture - Final Escherichia Coli - Esbl Enterococcus Faecalis Complete Current Medications Medications (Trade) Dose Ordered Sig/Gurpreet Route PRN Reason Start Time Stop Time Status Last Admin Dose Admin Acetaminophen (Tylenol) 650 mg Q4H PRN ORAL Mild Pain (Pain Scale 1-3) 09/01/19 05:45 09/23/19 05:44 Acetaminophen (Tylenol) 650 mg Q4H PRN ORAL Temp >100.5 09/01/19 05:45 09/23/19 05:44 Ampicillin (Ampicillin) 500 mg EVERY 12 HOURS ORAL 09/01/19 09:00 09/06/19 20:59 09/02/19 08:55 Barium Sulfate (Readi-Cat 2) 450 ml NOW PRN ORAL Radiology Procedure 09/01/19 06:30 Bisacodyl (Dulcolax) 10 mg DAILYPRN PRN RECTAL Constipation 09/01/19 05:45 11/22/19 05:44 Clonidine HCl (Catapres Tab) 0.1 mg Q8H PRN ORAL SBP > 160mmHg 09/01/19 05:45 11/22/19 05:44 Dextrose (Dextrose 50%) 25 ml Q30M PRN IV Hypoglycemia 09/01/19 05:45 11/22/19 18:14 Dextrose (Dextrose 50%) 50 ml Q30M PRN IV Hypoglycemia 09/01/19 05:45 11/22/19 18:14 Docusate Sodium (Colace) 100 mg EVERY 12 HOURS ORAL 09/01/19 09:00 09/23/19 20:59 09/02/19 08:55 Guaifenesin (Mucinex ER) 600 mg TWICE A DAY ORAL 09/01/19 09:00 09/08/19 08:59 09/01/19 17:05 Guaifenesin (Robitussin) 200 mg Q4H PRN ORAL For Cough 09/01/19 05:45 11/22/19 05:44 09/02/19 09:30 Heparin Sodium (Porcine) (Heparin 5000 units/ml) 5,000 units EVERY 12 HOURS SUBQ 09/01/19 09:00 10/08/19 20:59 09/01/19 10:04 Hydralazine HCl (Apresoline) 10 mg EVERY 8 HOURS ORAL 09/01/19 06:00 11/22/19 21:59 09/01/19 21:45 Lorazepam (Ativan) 1 mg Q8H PRN ORAL For Anxiety 09/01/19 05:45 09/06/19 05:44 09/02/19 01:55 Magnesium Hydroxide (Mom) 30 ml HSPRN PRN ORAL Constipation 09/01/19 18:15 09/23/19 18:14 Meropenem 500 mg/ Sodium Chloride 55 ml @ 110 mls/hr EVERY 12 HOURS IVPB 09/01/19 09:00 09/04/19 10:59 09/02/19 08:55 Methimazole (Tapazole) 10 mg DAILY ORAL 09/01/19 09:00 11/23/19 08:59 09/02/19 08:55 Ondansetron HCl (Zofran) 4 mg Q6H PRN IVP Nausea & Vomiting 09/01/19 05:45 09/23/19 05:44 Polyethylene Glycol (Miralax) 17 gm DAILYPRN PRN ORAL Constipation 09/01/19 05:45 09/23/19 05:44 Laboratory Tests 09/02/19 06:15: White Blood Count 6.5, Red Blood Count 3.53L, Hemoglobin 10.0L, Hematocrit 29.3L , Mean Corpuscular Volume 83, Mean Corpuscular Hemoglobin 28.4, Mean Corpuscular Hemoglobin Concent 34.3, Red Cell Distribution Width 12.5, Platelet Count 199, Mean Platelet Volume 6.6, Neutrophils (%) (Auto) 57.0, Lymphocytes (% ) (Auto) 28.6, Monocytes (%) (Auto) 8.2, Eosinophils (%) (Auto) 5.3H, Basophils (%) (Auto) 0.9, Sodium Level 139, Potassium Level 4.2, Chloride Level 108H, Carbon Dioxide Level 20L, Anion Gap 11, Blood Urea Nitrogen 71H, Creatinine 3.2H , Estimat Glomerular Filtration Rate 14.4, Glucose Level 82, Calcium Level 9.1, Phosphorus Level 5.0H, Magnesium Level 2.1, Total Bilirubin 0.3, Aspartate Amino Transf (AST/SGOT) 13L, Alanine Aminotransferase (ALT/SGPT) 12, Alkaline Phosphatase 70, Total Protein 6.4, Albumin 2.4L, Globulin 4.0, Albumin/Globulin Ratio 0.6L Height (Feet): 5 Height (Inches): 4.00 Weight (Pounds): [address] A/P (08/31) noted Nuc renal scan (08/31) noted Jason Vicente MD September 02, 2019 09:53
--- NOTE | 2019-09-02 10:53 | Pulmonology Progress Note ---
Subjective ROS Limited/Unobtainable: No Interval Events: Saturating well on RA Constitutional: Denies: fever HEENT: Repors: no symptoms Respiratory: Reports: no symptoms Cardiovascular: Reports: no symptoms; Denies: chest pain, palpitations, other Gastrointestinal/Abdominal: Denies: nausea, vomiting, diarrhea Psychiatric: Denies: depression Skin: Denies: rash Musculoskeletal: Denies: pain Allergies: Coded Allergies: CODEINE (Verified Allergy, Unknown, 08/24/19) NEUROMUSCULAR BLOCKERS, STEROIDAL (Verified Allergy, Unknown, 08/24/19) Uncoded Allergies: ANABOLIC STEROIDS (Allergy, Unknown, 08/24/19) STEROIDS (Allergy, Unknown, 08/24/19) Objective Last 24 Hour Vital Signs Date Time Temp Pulse Resp B/P (MAP) Pulse Ox O2 Delivery O2 Flow Rate FiO2 09/02/19 04:00 97.8 84 19 130/76 (94) 98 09/02/19 00:00 98.4 90 19 123/78 (93) 96 09/01/19 21:45 130/70 09/01/19 21:00 Room Air 09/01/19 20:00 98.3 83 20 130/70 (90) 98 09/01/19 16:00 97.3 77 20 123/77 (92) 97 09/01/19 15:22 141/88 09/01/19 12:00 97.7 85 20 141/88 (105) 98 Intake and Output 09/01/19 09/02/19 19:00 07:00 Intake Total 590 ml 55 ml Output Total 400 ml 900 ml Balance 190 ml -845 ml Intake Oral 480 ml IV Total 110 ml 55 ml Output Urine Total 400 ml 900 ml # Voids 2 2 # Bowel Movements 1 General Appearance: no acute distress HEENT: normocephalic, atraumatic, anicteric, mucous membranes moist Respiratory/Chest: chest wall non-tender Cardiovascular: normal peripheral pulses Abdomen: normal bowel sounds, soft, non tender, no organomegaly, non distended Genitourinary: other - no torres Extremities: no cyanosis Skin: no rash 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, alert, oriented x 3, responsive Lymphatic: no neck adenopathy Musculoskeletal: no effusion Microbiology Date/Time Source Procedure Growth Status 08/30/19 16:40 Nasopharynx Coronavirus COVID-19 PCR ([facility]EL) - Final Complete Laboratory Tests 09/02/19 06:15: White Blood Count 6.5, Red Blood Count 3.53L, Hemoglobin 10.0L, Hematocrit 29.3L , Mean Corpuscular Volume 83, Mean Corpuscular Hemoglobin 28.4, Mean Corpuscular Hemoglobin Concent 34.3, Red Cell Distribution Width 12.5, Platelet Count 199, Mean Platelet Volume 6.6, Neutrophils (%) (Auto) 57.0, Lymphocytes (% ) (Auto) 28.6, Monocytes (%) (Auto) 8.2, Eosinophils (%) (Auto) 5.3H, Basophils (%) (Auto) 0.9, Sodium Level 139, Potassium Level 4.2, Chloride Level 108H, Carbon Dioxide Level 20L, Anion Gap 11, Blood Urea Nitrogen 71H, Creatinine 3.2H , Estimat Glomerular Filtration Rate 14.4, Glucose Level 82, Calcium Level 9.1, Phosphorus Level 5.0H, Magnesium Level 2.1, Total Bilirubin 0.3, Aspartate Amino Transf (AST/SGOT) 13L, Alanine Aminotransferase (ALT/SGPT) 12, Alkaline Phosphatase 70, Total Protein 6.4, Albumin 2.4L, Globulin 4.0, Albumin/Globulin Ratio 0.6L Current Medications Medications (Trade) Dose Ordered Sig/Gurpreet Route PRN Reason Start Time Stop Time Status Last Admin Dose Admin Acetaminophen (Tylenol) 650 mg Q4H PRN ORAL Mild Pain (Pain Scale 1-3) 09/01/19 05:45 09/23/19 05:44 Acetaminophen (Tylenol) 650 mg Q4H PRN ORAL Temp >100.5 09/01/19 05:45 09/23/19 05:44 Ampicillin (Ampicillin) 500 mg EVERY 12 HOURS ORAL 09/01/19 09:00 09/06/19 20:59 09/02/19 08:55 Barium Sulfate (Readi-Cat 2) 450 ml NOW PRN ORAL Radiology Procedure 09/01/19 06:30 Bisacodyl (Dulcolax) 10 mg DAILYPRN PRN RECTAL Constipation 09/01/19 05:45 11/22/19 05:44 Clonidine HCl (Catapres Tab) 0.1 mg Q8H PRN ORAL SBP > 160mmHg 09/01/19 05:45 11/22/19 05:44 Dextrose (Dextrose 50%) 25 ml Q30M PRN IV Hypoglycemia 09/01/19 05:45 11/22/19 18:14 Dextrose (Dextrose 50%) 50 ml Q30M PRN IV Hypoglycemia 09/01/19 05:45 11/22/19 18:14 Docusate Sodium (Colace) 100 mg EVERY 12 HOURS ORAL 09/01/19 09:00 09/23/19 20:59 09/02/19 08:55 Guaifenesin (Mucinex ER) 600 mg TWICE A DAY ORAL 09/01/19 09:00 09/08/19 08:59 09/01/19 17:05 Guaifenesin (Robitussin) 200 mg Q4H PRN ORAL For Cough 09/01/19 05:45 11/22/19 05:44 09/02/19 09:30 Heparin Sodium (Porcine) (Heparin 5000 units/ml) 5,000 units EVERY 12 HOURS SUBQ 09/01/19 09:00 10/08/19 20:59 09/01/19 10:04 Hydralazine HCl (Apresoline) 10 mg EVERY 8 HOURS ORAL 09/01/19 06:00 11/22/19 21:59 09/01/19 21:45 Lorazepam (Ativan) 1 mg Q8H PRN ORAL For Anxiety 09/01/19 05:45 09/06/19 05:44 09/02/19 01:55 Magnesium Hydroxide (Mom) 30 ml HSPRN PRN ORAL Constipation 09/01/19 18:15 09/23/19 18:14 Meropenem 500 mg/ Sodium Chloride 55 ml @ 110 mls/hr EVERY 12 HOURS IVPB 09/01/19 09:00 09/04/19 10:59 09/02/19 08:55 Methimazole (Tapazole) 10 mg DAILY ORAL 09/01/19 09:00 11/23/19 08:59 09/02/19 08:55 Ondansetron HCl (Zofran) 4 mg Q6H PRN IVP Nausea & Vomiting 09/01/19 05:45 09/23/19 05:44 Polyethylene Glycol (Miralax) 17 gm DAILYPRN PRN ORAL Constipation 09/01/19 05:45 09/23/19 05:44 Assessment/Plan Assessment/Plan IMPRESSION: 1. Possible left lung pneumonia. Followup CXR continues to show left lung infiltrate vs atelectasis 2. Small pleural effusion, no indication for thoracentesis. 3. UTI DISCUSSION: Continue antibiotics per ID. COVID 19 pcr negative Currently saturating well on room air. I will follow. Kp Ch Omar Syed MD September 02, 2019 10:52
--- NOTE | 2019-09-02 11:06 | NUR ---
NURSE NOTES: Patient refused heparin for DVT ppx despite education provided. Patient states "I have never had clots for the many years I have had MS. I don't need heparin." Patient also refused guaifenesin tablet ordered for cough as she preferred the syrup PRN dose. Patient continues to have cough. PRN dose of guaifenesin administered as ordered. IV on R forearm has infiltrated. Inserted new 24 g angiocath into right upper forearm and secured with tegaderm. Will continue to monitor pt.
--- NOTE | 2019-09-02 11:42 | Nephrology Progress Note ---
Assessment/Plan Plan #Acute on chronic kidney disease- baseline cr close to 2- renal US with bilatera hydronephrosis #pneumonia - left lower lobe #r/o COVID # hyperthyroidism # multiple sclerosis #HTN # COPD - renal US with bilateral severe hydronephrosis - refused torres- bladder scan q6hr - CT abd/pelvis: Impression: Massive bilateral hydronephrosis and bilateral hydroureter, with marked renal volume loss. As the ureters appear to be patulous and communicate freely with the bladder lumen, this is presumably due to chronic bladder outlet obstruction. - nuc med scan: Impression: Limited exam, as described, due to shorter than ideal scanning time. Gradual slowly rising renal and collecting system uptake is demonstrated. Tracer is seen to fill the bilateral renal collecting systems but not the ureters and therefore the point/etiology of obstruction causing the hydronephrosis demonstrated on earlier studies is not clearly evident Renal split function 57% left, 43% right - Urology eval --> add renvela 800mg TID - COVID ruled out - currently satting well on room air - check 2d echo--> BNP can be elevated due to decreased renal clearance - antibiotics per ID- on augmentin and doxy - strict I&Os - daily weight - monitor lytes and cr closely - continue hydralazine 10mg TID - check PTH/vit D pending - monitor phos - check iron panel and ferritin-> adequate Subjective ROS Limited/Unobtainable: No Constitutional: Denies: no symptoms, chills, diaphoresis, fever, malaise, weakness, other HEENT: Denies: no symptoms, eye pain, blurred vision, tearing, double vision, ear pain, ear discharge, nose pain, nose congestion, throat pain, throat swelling, mouth pain, mouth swelling, other Genitourinary: Denies: no symptoms, burning, discharge, frequency, flank pain, hematuria, incontinence, pain, urgency, other 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: Denies: no symptoms, anxiety, depressed, emotional problems, headache, numbness, paresthesia, pre-existing deficit, seizure, tingling, tremors, weakness, other Subjective COVID negative CT abd/pelvis: Impression: Massive bilateral hydronephrosis and bilateral hydroureter, with marked renal volume loss. As the ureters appear to be patulous and communicate freely with the bladder lumen, this is presumably due to chronic bladder outlet obstruction. nuc med scan: Impression: Limited exam, as described, due to shorter than ideal scanning time. Gradual slowly rising renal and collecting system uptake is demonstrated. Tracer is seen to fill the bilateral renal collecting systems but not the ureters and therefore the point/etiology of obstruction causing the hydronephrosis demonstrated on earlier studies is not clearly evident Renal split function 57% left, 43% right Satting well on room air cr stable Bp stable Renal US: Impression: Bilateral severe hydronephrosis. Marked cortical thinning indicates that this is probably long-standing. Objective Objective Last 24 Hour Vital Signs Date Time Temp Pulse Resp B/P (MAP) Pulse Ox O2 Delivery O2 Flow Rate FiO2 09/02/19 08:00 98.0 73 18 143/72 (95) 99 09/02/19 04:00 97.8 84 19 130/76 (94) 98 09/02/19 00:00 98.4 90 19 123/78 (93) 96 09/01/19 21:45 130/70 09/01/19 21:00 Room Air 09/01/19 20:00 98.3 83 20 130/70 (90) 98 09/01/19 16:00 97.3 77 20 123/77 (92) 97 09/01/19 15:22 141/88 09/01/19 12:00 97.7 85 20 141/88 (105) 98 Intake and Output 09/01/19 09/02/19 19:00 07:00 Intake Total 590 ml 55 ml Output Total 400 ml 900 ml Balance 190 ml -845 ml Intake Oral 480 ml IV Total 110 ml 55 ml Output Urine Total 400 ml 900 ml # Voids 2 2 # Bowel Movements 1 Laboratory Tests 09/02/19 06:15: White Blood Count 6.5, Red Blood Count 3.53L, Hemoglobin 10.0L, Hematocrit 29.3L , Mean Corpuscular Volume 83, Mean Corpuscular Hemoglobin 28.4, Mean Corpuscular Hemoglobin Concent 34.3, Red Cell Distribution Width 12.5, Platelet Count 199, Mean Platelet Volume 6.6, Neutrophils (%) (Auto) 57.0, Lymphocytes (% ) (Auto) 28.6, Monocytes (%) (Auto) 8.2, Eosinophils (%) (Auto) 5.3H, Basophils (%) (Auto) 0.9, Sodium Level 139, Potassium Level 4.2, Chloride Level 108H, Carbon Dioxide Level 20L, Anion Gap 11, Blood Urea Nitrogen 71H, Creatinine 3.2H , Estimat Glomerular Filtration Rate 14.4, Glucose Level 82, Calcium Level 9.1, Phosphorus Level 5.0H, Magnesium Level 2.1, Total Bilirubin 0.3, Aspartate Amino Transf (AST/SGOT) 13L, Alanine Aminotransferase (ALT/SGPT) 12, Alkaline Phosphatase 70, Total Protein 6.4, Albumin 2.4L, Globulin 4.0, Albumin/Globulin Ratio 0.6L Height (Feet): 5 Height (Inches): 4.00 Weight (Pounds): 136 Vicente Jaimes M.D. September 02, 2019 11:42
[2019-09-02 12:00] VITALS: BP 127/78
--- NOTE | 2019-09-02 15:30 | NUR ---
NURSE NOTES: Patient had bowel movement and Proper incontinent care done. No new skin issue.
[2019-09-02 16:00] VITALS: BP 130/76
--- NOTE | 2019-09-02 16:56 | General Progress Note ---
Assessment/Plan Assessment/Plan: HPI/CC:68 y/o F w/PMH hyperthyroidism, multiple sclerosis, HTN and COPD who presents from [facility] for cough and abnormal labs. On admission, CXR revealed left lower lobe pleural effusion, Cr 3.2. Patient admitted for further treatment and evaluation, and COVID-19 r/o. Currently being assess for BL hydronephrosis thought to be from neurogenic bladder along w/ AB for sepsis/ ESBL UTI. Assessment #CAP w/ Left Pleural Effusion, COVID ruled out #ESBL UTI #BL Hydronephrosis w/ Acute Renal Failure; suspect Neurogenic Bladder--> nuclear scan w/o obvious site of obstruction, #Multiple Sclerosis #Hyperthyroidism #HTN #COPD Plan Consultants include Urology, ID Await CT A/P; f/u with uro if patient is going to require chronic indwelling torres cath vs suprapubic cath RT protocol, currently not in COPD Exacerbation Continue AB w/ Ampicllin and Meropenem per ID until course complete Continue Methimazole, Hydralazine PO DVT ppx Diet as tolerated 09/01: Continue torres cath care Subjective Date patient seen: September 02, 2019 Time patient seen: 12:00 Allergies: Coded Allergies: CODEINE (Verified Allergy, Unknown, 08/24/19) NEUROMUSCULAR BLOCKERS, STEROIDAL (Verified Allergy, Unknown, 08/24/19) Uncoded Allergies: ANABOLIC STEROIDS (Allergy, Unknown, 08/24/19) STEROIDS (Allergy, Unknown, 08/24/19) Subjective nuclear scan w/o identified site of obstruction'; appreciate uro input. CM working on placement. Patient is agitated today Objective Last 24 Hour Vital Signs Date Time Temp Pulse Resp B/P (MAP) Pulse Ox O2 Delivery O2 Flow Rate FiO2 09/02/19 15:26 133/78 09/02/19 12:00 98.1 77 18 127/78 (94) 99 09/02/19 09:00 Room Air 09/02/19 08:00 98.0 73 18 143/72 (95) 99 09/02/19 04:00 97.8 84 19 130/76 (94) 98 09/02/19 00:00 98.4 90 19 123/78 (93) 96 09/01/19 21:45 130/70 09/01/19 21:00 Room Air 5/8/20 20:00 98.3 83 20 130/70 (90) 98 Intake and Output 09/01/19 09/02/19 19:00 07:00 Intake Total 590 ml 55 ml Output Total 400 ml 900 ml Balance 190 ml -845 ml Intake Oral 480 ml IV Total 110 ml 55 ml Output Urine Total 400 ml 900 ml # Voids 2 2 # Bowel Movements 1 Laboratory Tests 09/02/19 06:15: White Blood Count 6.5, Red Blood Count 3.53L, Hemoglobin 10.0L, Hematocrit 29.3L , Mean Corpuscular Volume 83, Mean Corpuscular Hemoglobin 28.4, Mean Corpuscular Hemoglobin Concent 34.3, Red Cell Distribution Width 12.5, Platelet Count 199, Mean Platelet Volume 6.6, Neutrophils (%) (Auto) 57.0, Lymphocytes (% ) (Auto) 28.6, Monocytes (%) (Auto) 8.2, Eosinophils (%) (Auto) 5.3H, Basophils (%) (Auto) 0.9, Sodium Level 139, Potassium Level 4.2, Chloride Level 108H, Carbon Dioxide Level 20L, Anion Gap 11, Blood Urea Nitrogen 71H, Creatinine 3.2H , Estimat Glomerular Filtration Rate 14.4, Glucose Level 82, Calcium Level 9.1, Phosphorus Level 5.0H, Magnesium Level 2.1, Total Bilirubin 0.3, Aspartate Amino Transf (AST/SGOT) 13L, Alanine Aminotransferase (ALT/SGPT) 12, Alkaline Phosphatase 70, Total Protein 6.4, Albumin 2.4L, Globulin 4.0, Albumin/Globulin Ratio 0.6L Height (Feet): 5 Height (Inches): 4.00 Weight (Pounds): 136 Objective General Appearance: no apparent distress EENT: PERRL/EOMI Cardiovascular: normal rate, regular rhythm Respiratory/Chest: normal breath sounds, no respiratory distress, no accessory muscle use Abdomen: non tender, soft Extremities: inflammation Edema: no edema noted 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 September 02, 2019 16:56
--- NOTE | 2019-09-02 19:10 | NUR ---
HAND-OFF: Report given to Porfirio and endorsed plan of care.
--- NOTE | 2019-09-02 19:45 | NUR ---
NURSE NOTES: RECEIVED PATIENT FROM WILVER MCDANIEL. PATIENT IS AWAKE, AAOX3, ON ROOM AIR, NO ACUTE DISTRESS NOTED. IV IS INTACT AND PATENT. PUREWICK PRESENT, SUCTIONING WELL. OPTIFOAM ON SACRAL AND BILATERAL HEELS INTACT AND DRY. BED IS LOCKED AND LOW, BED ALARMS ACTIVE, SIDE RAILS UPX2 AND CALL LIGHT IS WITHIN REACH. WILL CONTINUE TO MONITOR.
[2019-09-02 20:00] VITALS: BP 139/83
[2019-09-02] MEDS ORDERED: NS 275ml ONE (21:24)
[2019-09-02] MEDS ORDERED: Tubing IV Secondary IV ONE ×2 (21:24)
[2019-09-02] MEDS ORDERED: NS 500ML ONE (21:24)
--- NOTE | 2019-09-02 22:41 | Psych Consult Progress Note ---
Psychiatry Progress Note Psychiatry Progress Note Medications Current Medications Medications (Trade) Dose Ordered Sig/Gurpreet Route PRN Reason Start Time Stop Time Status Last Admin Dose Admin Acetaminophen (Tylenol) 650 mg Q4H PRN ORAL Mild Pain (Pain Scale 1-3) 09/01/19 05:45 09/23/19 05:44 Acetaminophen (Tylenol) 650 mg Q4H PRN ORAL Temp >100.5 09/01/19 05:45 09/23/19 05:44 Ampicillin (Ampicillin) 500 mg EVERY 12 HOURS ORAL 09/01/19 09:00 09/06/19 20:59 09/02/19 21:13 Barium Sulfate (Readi-Cat 2) 450 ml NOW PRN ORAL Radiology Procedure 09/01/19 06:30 Bisacodyl (Dulcolax) 10 mg DAILYPRN PRN RECTAL Constipation 09/01/19 05:45 11/22/19 05:44 Clonidine HCl (Catapres Tab) 0.1 mg Q8H PRN ORAL SBP > 160mmHg 09/01/19 05:45 11/22/19 05:44 Dextrose (Dextrose 50%) 25 ml Q30M PRN IV Hypoglycemia 09/01/19 05:45 11/22/19 18:14 Dextrose (Dextrose 50%) 50 ml Q30M PRN IV Hypoglycemia 09/01/19 05:45 11/22/19 18:14 Docusate Sodium (Colace) 100 mg EVERY 12 HOURS ORAL 09/01/19 09:00 09/23/19 20:59 09/02/19 21:13 Guaifenesin (Mucinex ER) 600 mg TWICE A DAY ORAL 09/01/19 09:00 09/08/19 08:59 09/02/19 17:16 Guaifenesin (Robitussin) 200 mg Q4H PRN ORAL For Cough 09/01/19 05:45 11/22/19 05:44 09/02/19 09:30 Heparin Sodium (Porcine) (Heparin 5000 units/ml) 5,000 units EVERY 12 HOURS SUBQ 09/01/19 09:00 10/08/19 20:59 09/01/19 10:04 Hydralazine HCl (Apresoline) 10 mg EVERY 8 HOURS ORAL 09/01/19 06:00 11/22/19 21:59 09/02/19 21:13 Lorazepam (Ativan) 1 mg Q8H PRN ORAL For Anxiety 09/01/19 05:45 09/06/19 05:44 09/02/19 01:55 Magnesium Hydroxide (Mom) 30 ml HSPRN PRN ORAL Constipation 09/01/19 18:15 09/23/19 18:14 Meropenem 500 mg/ Sodium Chloride 55 ml @ 110 mls/hr EVERY 12 HOURS IVPB 09/01/19 09:00 09/04/19 10:59 09/02/19 21:14 Methimazole (Tapazole) 10 mg DAILY ORAL 09/01/19 09:00 11/23/19 08:59 09/02/19 08:55 Ondansetron HCl (Zofran) 4 mg Q6H PRN IVP Nausea & Vomiting 09/01/19 05:45 09/23/19 05:44 Polyethylene Glycol (Miralax) 17 gm DAILYPRN PRN ORAL Constipation 09/01/19 05:45 09/23/19 05:44 Sevelamer Carbonate (Renvela) 800 mg THREE TIMES A DAY ORAL 09/02/19 13:00 12/01/19 12:59 09/02/19 17:16 Neurological/Psychiatric: Reports: anxiety, depressed, emotional problems Allergies: Coded Allergies: CODEINE (Verified Allergy, Unknown, 08/24/19) NEUROMUSCULAR BLOCKERS, STEROIDAL (Verified Allergy, Unknown, 08/24/19) Uncoded Allergies: ANABOLIC STEROIDS (Allergy, Unknown, 08/24/19) STEROIDS (Allergy, Unknown, 08/24/19) Objective Data Height (Feet): 5 Height (Inches): 4.00 Weight (Pounds): 136 Additional Comments: alert and oriented to times, self, place, and situation. Mood is neutral. Affect is flat. Thought process is concrete. Thought content, no suicidal or homicidal ideation. ASSESSMENT: Stable. PLAN: 1. We will continue current psychotropic medications. 2. Provide the patient with reality orientation and supportive therapy. Darleen Nagel MD September 02, 2019 22:41
[2019-09-03] VITALS: BP 153/75
[2019-09-03] MEDS: HydrALAZINE 10mg Tab ORAL SCH ×3 (06:45→21:47)
--- NOTE | 2019-09-03 07:48 | NUR ---
HAND-OFF: Report given to WILVER Nieto, and WILVER Manuel.
--- NOTE | 2019-09-03 07:58 | NUR ---
NURSE NOTES: Received patient lying on his right side on semi-mantilla's position in hospital bed sleeping. Patient is on RA and displays no s/s of pain or distress at this time. Patient had eaten 100% of his breakfast. Patient has IV site on L FA with no s/s of infiltration. Dry dressing noted on L foot wound. Will continue to monitor patient and follow POC. Addendum: 09/03/19 at 0808 by Kaleb Lea RN Please disregard note above. Correct documentation: Received patient lying in semi-mantilla position in hospital bed. Patient is AAO x 4 and able to make needs known. Patient is served breakfast able to feed herself but requires assistance with all other ADLs. Patient is bedfast, on RA, with no c/o pain at this time. Per patient, she slept well last night and she hasn't been coughing much anymore. IV site on R forearm intact with no s/s of infection or infiltration. Patient is incontinent to both bladder and bowel functions. Patient refused labs to be drawn this AM. Will continue POC.
[2019-09-03 08:00] VITALS: BP_DIAS 75
[2019-09-03] MEDS: Meropenem 500 MG in NS 55 ML IVPB SCH ×2 (08:28→21:47)
[2019-09-03] MEDS: methIMAzole 10mg tab ORAL SCH (08:28)
[2019-09-03] MEDS: Docusate 100mg cap ORAL SCH ×2 (08:28→21:47)
[2019-09-03] MEDS: guaiFENesin ER 600mg tab ORAL SCH ×2 (08:38→17:45)
[2019-09-03] MEDS: Heparin 5000 units/ml inj SUBQ SCH ×2 (08:39→21:00)
--- NOTE | 2019-09-03 09:18 | Pulmonology Progress Note ---
Subjective ROS Limited/Unobtainable: No Interval Events: Saturating well on RA Constitutional: Denies: fever HEENT: Repors: no symptoms Respiratory: Reports: no symptoms Cardiovascular: Reports: no symptoms; Denies: chest pain, palpitations, other Gastrointestinal/Abdominal: Denies: nausea, vomiting, diarrhea Psychiatric: Denies: depression Skin: Denies: rash Musculoskeletal: Denies: pain Allergies: Coded Allergies: CODEINE (Verified Allergy, Unknown, 08/24/19) NEUROMUSCULAR BLOCKERS, STEROIDAL (Verified Allergy, Unknown, 08/24/19) Uncoded Allergies: ANABOLIC STEROIDS (Allergy, Unknown, 08/24/19) STEROIDS (Allergy, Unknown, 08/24/19) Objective Last 24 Hour Vital Signs Date Time Temp Pulse Resp B/P (MAP) Pulse Ox O2 Delivery O2 Flow Rate FiO2 09/03/19 06:45 145/75 09/03/19 00:00 97.2 74 22 153/75 (101) 98 09/02/19 21:13 139/83 09/02/19 21:00 Room Air 09/02/19 20:00 96.8 80 20 139/83 (101) 98 09/02/19 16:00 98.6 72 18 130/76 (94) 97 09/02/19 15:26 133/78 09/02/19 12:00 98.1 77 18 127/78 (94) 99 Intake and Output 09/02/19 09/03/19 19:00 07:00 Intake Total 805 ml 470 ml Output Total 400 ml 1200 ml Balance 405 ml -730 ml Intake Oral 750 ml IV Total 55 ml 110 ml Other 360 ml Output Urine Total 400 ml 1200 ml # Bowel Movements 1 General Appearance: no acute distress HEENT: normocephalic, atraumatic, anicteric, mucous membranes moist Respiratory/Chest: chest wall non-tender Cardiovascular: normal peripheral pulses Abdomen: normal bowel sounds, soft, non tender, no organomegaly, non distended Genitourinary: other - no torres Extremities: no cyanosis Skin: no rash 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, alert, oriented x 3, responsive Lymphatic: no neck adenopathy Musculoskeletal: no effusion Current Medications Medications (Trade) Dose Ordered Sig/Gurpreet Route PRN Reason Start Time Stop Time Status Last Admin Dose Admin Acetaminophen (Tylenol) 650 mg Q4H PRN ORAL Mild Pain (Pain Scale 1-3) 09/01/19 05:45 09/23/19 05:44 Acetaminophen (Tylenol) 650 mg Q4H PRN ORAL Temp >100.5 09/01/19 05:45 09/23/19 05:44 Ampicillin (Ampicillin) 500 mg EVERY 12 HOURS ORAL 09/01/19 09:00 09/06/19 20:59 09/03/19 08:28 Barium Sulfate (Readi-Cat 2) 450 ml NOW PRN ORAL Radiology Procedure 09/01/19 06:30 Bisacodyl (Dulcolax) 10 mg DAILYPRN PRN RECTAL Constipation 09/01/19 05:45 11/22/19 05:44 Clonidine HCl (Catapres Tab) 0.1 mg Q8H PRN ORAL SBP > 160mmHg 09/01/19 05:45 11/22/19 05:44 Dextrose (Dextrose 50%) 25 ml Q30M PRN IV Hypoglycemia 09/01/19 05:45 11/22/19 18:14 Dextrose (Dextrose 50%) 50 ml Q30M PRN IV Hypoglycemia 09/01/19 05:45 11/22/19 18:14 Docusate Sodium (Colace) 100 mg EVERY 12 HOURS ORAL 09/01/19 09:00 09/23/19 20:59 09/03/19 08:28 Guaifenesin (Mucinex ER) 600 mg TWICE A DAY ORAL 09/01/19 09:00 09/08/19 08:59 09/02/19 17:16 Guaifenesin (Robitussin) 200 mg Q4H PRN ORAL For Cough 09/01/19 05:45 11/22/19 05:44 09/02/19 09:30 Heparin Sodium (Porcine) (Heparin 5000 units/ml) 5,000 units EVERY 12 HOURS SUBQ 09/01/19 09:00 10/08/19 20:59 09/01/19 10:04 Hydralazine HCl (Apresoline) 10 mg EVERY 8 HOURS ORAL 09/01/19 06:00 11/22/19 21:59 09/03/19 06:45 Lorazepam (Ativan) 1 mg Q8H PRN ORAL For Anxiety 09/01/19 05:45 09/06/19 05:44 09/02/19 01:55 Magnesium Hydroxide (Mom) 30 ml HSPRN PRN ORAL Constipation 09/01/19 18:15 09/23/19 18:14 Meropenem 500 mg/ Sodium Chloride 55 ml @ 110 mls/hr EVERY 12 HOURS IVPB 09/01/19 09:00 09/04/19 10:59 09/03/19 08:28 Methimazole (Tapazole) 10 mg DAILY ORAL 09/01/19 09:00 11/23/19 08:59 09/03/19 08:28 Ondansetron HCl (Zofran) 4 mg Q6H PRN IVP Nausea & Vomiting 09/01/19 05:45 09/23/19 05:44 Polyethylene Glycol (Miralax) 17 gm DAILYPRN PRN ORAL Constipation 09/01/19 05:45 09/23/19 05:44 Sevelamer Carbonate (Renvela) 800 mg THREE TIMES A DAY ORAL 09/02/19 13:00 12/01/19 12:59 09/03/19 08:54 Assessment/Plan Assessment/Plan IMPRESSION: 1. Possible left lung pneumonia. Followup CXR continues to show left lung infiltrate vs atelectasis 2. Small pleural effusion, no indication for thoracentesis. 3. UTI DISCUSSION: Continue antibiotics per ID. COVID 19 pcr negative Currently saturating well on room air. I will follow. Kp Ch Omar Syed MD September 03, 2019 09:18
[2019-09-03 11:06] LABS: HEMATOCRIT 29.8 % (37.0-47.0); MEAN CORPUSCULAR VOLUME 82 FL (80-99); PLATELET COUNT 215 K/UL (150-450); RED BLOOD COUNT 3.62 M/UL (4.20-5.40); RED CELL DISTRIBUTION WIDTH 12.4 % (11.6-14.8)
--- NOTE | 2019-09-03 11:09 | Nephrology Progress Note ---
Assessment/Plan Plan #Acute on chronic kidney disease- baseline cr close to 2- renal US with bilatera hydronephrosis #pneumonia - left lower lobe #r/o COVID # hyperthyroidism # multiple sclerosis #HTN # COPD - renal US with bilateral severe hydronephrosis - refused torres- bladder scan q6hr - CT abd/pelvis: Impression: Massive bilateral hydronephrosis and bilateral hydroureter, with marked renal volume loss. As the ureters appear to be patulous and communicate freely with the bladder lumen, this is presumably due to chronic bladder outlet obstruction. - nuc med scan: Impression: Limited exam, as described, due to shorter than ideal scanning time. Gradual slowly rising renal and collecting system uptake is demonstrated. Tracer is seen to fill the bilateral renal collecting systems but not the ureters and therefore the point/etiology of obstruction causing the hydronephrosis demonstrated on earlier studies is not clearly evident Renal split function 57% left, 43% right - Urology eval --> add renvela 800mg TID - COVID ruled out - currently satting well on room air - check 2d echo--> BNP can be elevated due to decreased renal clearance - antibiotics per ID- on augmentin and doxy - strict I&Os - daily weight - monitor lytes and cr closely - continue hydralazine 10mg TID - check PTH/vit D pending - monitor phos - check iron panel and ferritin-> adequate Subjective ROS Limited/Unobtainable: No Constitutional: Denies: no symptoms, chills, diaphoresis, fever, malaise, weakness, other HEENT: Denies: no symptoms, eye pain, blurred vision, tearing, double vision, ear pain, ear discharge, nose pain, nose congestion, throat pain, throat swelling, mouth pain, mouth swelling, other Genitourinary: Denies: no symptoms, burning, discharge, frequency, flank pain, hematuria, incontinence, pain, urgency, other 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: Denies: no symptoms, anxiety, depressed, emotional problems, headache, numbness, paresthesia, pre-existing deficit, seizure, tingling, tremors, weakness, other Subjective COVID negative CT abd/pelvis: Impression: Massive bilateral hydronephrosis and bilateral hydroureter, with marked renal volume loss. As the ureters appear to be patulous and communicate freely with the bladder lumen, this is presumably due to chronic bladder outlet obstruction. nuc med scan: Impression: Limited exam, as described, due to shorter than ideal scanning time. Gradual slowly rising renal and collecting system uptake is demonstrated. Tracer is seen to fill the bilateral renal collecting systems but not the ureters and therefore the point/etiology of obstruction causing the hydronephrosis demonstrated on earlier studies is not clearly evident Renal split function 57% left, 43% right Satting well on room air cr stable Bp stable Renal US: Impression: Bilateral severe hydronephrosis. Marked cortical thinning indicates that this is probably long-standing. Objective Objective Last 24 Hour Vital Signs Date Time Temp Pulse Resp B/P (MAP) Pulse Ox O2 Delivery O2 Flow Rate FiO2 09/03/19 09:00 Room Air 09/03/19 06:45 145/75 09/03/19 00:00 97.2 74 22 153/75 (101) 98 09/02/19 21:13 139/83 09/02/19 21:00 Room Air 09/02/19 20:00 96.8 80 20 139/83 (101) 98 09/02/19 16:00 98.6 72 18 130/76 (94) 97 09/02/19 15:26 133/78 09/02/19 12:00 98.1 77 18 127/78 (94) 99 Intake and Output 09/02/19 09/03/19 19:00 07:00 Intake Total 805 ml 470 ml Output Total 400 ml 1200 ml Balance 405 ml -730 ml Intake Oral 750 ml IV Total 55 ml 110 ml Other 360 ml Output Urine Total 400 ml 1200 ml # Bowel Movements 1 Laboratory Tests 09/03/19 10:30: White Blood Count [Pending], Red Blood Count [Pending], Hemoglobin [Pending], Hematocrit [Pending], Mean Corpuscular Volume [Pending], Mean Corpuscular Hemoglobin [Pending], Mean Corpuscular Hemoglobin Concent [Pending], Red Cell Distribution Width [Pending], Platelet Count [Pending], Mean Platelet Volume [ Pending], Neutrophils (%) (Auto) [Pending], Lymphocytes (%) (Auto) [Pending], Monocytes (%) (Auto) [Pending], Eosinophils (%) (Auto) [Pending], Basophils (%) (Auto) [Pending], Sodium Level [Pending], Potassium Level [Pending], Chloride Level [Pending], Carbon Dioxide Level [Pending], Blood Urea Nitrogen [Pending], Creatinine [Pending], Estimat Glomerular Filtration Rate [Pending], Glucose Level [Pending], Calcium Level [Pending], Phosphorus Level [Pending], Magnesium Level [Pending], Total Bilirubin [Pending], Aspartate Amino Transf (AST/SGOT) [ Pending], Alanine Aminotransferase (ALT/SGPT) [Pending], Alkaline Phosphatase [ Pending], Total Protein [Pending], Albumin [Pending], Globulin [Pending] Height (Feet): 5 Height (Inches): 4.00 Weight (Pounds): 136 Vicente Jaimes M.D. September 03, 2019 11:09
--- NOTE | 2019-09-03 11:24 | General Progress Note ---
Assessment/Plan Assessment/Plan: HPI/CC:68 y/o F w/PMH hyperthyroidism, multiple sclerosis, HTN and COPD who presents from [facility] for cough and abnormal labs. On admission, CXR revealed left lower lobe pleural effusion, Cr 3.2. Patient admitted for further treatment and evaluation, and COVID-19 r/o. Currently being assess for BL hydronephrosis thought to be from neurogenic bladder along w/ AB for sepsis/ ESBL UTI. Assessment #CAP w/ Left Pleural Effusion, COVID ruled out #ESBL UTI #BL Hydronephrosis w/ Acute Renal Failure; suspect Neurogenic Bladder--> nuclear scan w/o obvious site of obstruction, CT A/P w/ severe BL hydro #Multiple Sclerosis #Hyperthyroidism #HTN #COPD Plan Appreciate Consultants Continue Torres Cath Care RT protocol, currently not in COPD Exacerbation Continue AB w/ Ampicllin and Meropenem per ID until course complete Continue Methimazole, Hydralazine PO DVT ppx Diet as tolerated 09/02: At this point patient is likely a placement issue; anticipate this is from neurogenic bladder and she will require a chronic Torres. Consider repeat US in several days as torres cath has now been in for some time; f/u with uro if there is intention to do inpatient cystoscopy. Subjective Date patient seen: September 03, 2019 Allergies: Coded Allergies: CODEINE (Verified Allergy, Unknown, 08/24/19) NEUROMUSCULAR BLOCKERS, STEROIDAL (Verified Allergy, Unknown, 08/24/19) Uncoded Allergies: ANABOLIC STEROIDS (Allergy, Unknown, 08/24/19) STEROIDS (Allergy, Unknown, 08/24/19) Subjective nuclear scan w/o identified site of obstruction'; appreciate uro input. CM working on placement. Patient is agitated today Objective Last 24 Hour Vital Signs Date Time Temp Pulse Resp B/P (MAP) Pulse Ox O2 Delivery O2 Flow Rate FiO2 09/03/19 09:00 Room Air 09/03/19 08:00 97.4 93 18 /75 97 09/03/19 06:45 145/75 09/03/19 00:00 97.2 74 22 153/75 (101) 98 09/02/19 21:13 139/83 09/02/19 21:00 Room Air 09/02/19 20:00 96.8 80 20 139/83 (101) 98 09/02/19 16:00 98.6 72 18 130/76 (94) 97 09/02/19 15:26 133/78 09/02/19 12:00 98.1 77 18 127/78 (94) 99 Intake and Output 09/02/19 09/03/19 19:00 07:00 Intake Total 805 ml 470 ml Output Total 400 ml 1200 ml Balance 405 ml -730 ml Intake Oral 750 ml IV Total 55 ml 110 ml Other 360 ml Output Urine Total 400 ml 1200 ml # Bowel Movements 1 Laboratory Tests 09/03/19 10:30: White Blood Count 8.0, Red Blood Count 3.62L, Hemoglobin 10.0L, Hematocrit 29.8L , Mean Corpuscular Volume 82, Mean Corpuscular Hemoglobin 27.6, Mean Corpuscular Hemoglobin Concent 33.6, Red Cell Distribution Width 12.4, Platelet Count 215, Mean Platelet Volume 6.9, Neutrophils (%) (Auto) , Lymphocytes (%) ( Auto) , Monocytes (%) (Auto) , Eosinophils (%) (Auto) , Basophils (%) (Auto) , Neutrophils % (Manual) [Pending], Lymphocytes % (Manual) [Pending], Platelet Estimate [Pending], Platelet Morphology [Pending], Sodium Level [Pending], Potassium Level [Pending], Chloride Level [Pending], Carbon Dioxide Level [ Pending], Blood Urea Nitrogen [Pending], Creatinine [Pending], Estimat Glomerular Filtration Rate [Pending], Glucose Level [Pending], Calcium Level [ Pending], Phosphorus Level [Pending], Magnesium Level [Pending], Total Bilirubin [Pending], Aspartate Amino Transf (AST/SGOT) [Pending], Alanine Aminotransferase (ALT/SGPT) [Pending], Alkaline Phosphatase [Pending], Total Protein [Pending], Albumin [Pending], Globulin [Pending] Height (Feet): 5 Height (Inches): 4.00 Weight (Pounds): 136 Objective General Appearance: no apparent distress EENT: PERRL/EOMI Cardiovascular: normal rate, regular rhythm Respiratory/Chest: normal breath sounds, no respiratory distress, no accessory muscle use Abdomen: non tender, soft Extremities: inflammation Edema: no edema noted Generalized Neurologic: fingerprint classifier II-XII grossly normal Young,Anne Dunn September 03, 2019 11:24
[2019-09-03 11:53] LABS: ALANINE AMINOTRANSFERASE 15 U/L (12-78); ALBUMIN 2.6 G/DL (3.4-5.0); ALBUMIN/GLOBULIN RATIO 0.6 (1.0-2.7); ALKALINE PHOSPHATASE 80 U/L (46-116); ANION GAP 9 mmol/L (5-15); ASPARTATE AMINO TRANSFERASE 13 U/L (15-37); BILIRUBIN,TOTAL 0.2 MG/DL (0.2-1.0); BLOOD UREA NITROGEN 63 mg/dL (7-18); CALCIUM 9.2 MG/DL (8.5-10.1); CARBON DIOXIDE 22 MMOL/L (21-32); CHLORIDE 108 MMOL/L (98-107); PHOSPHORUS 4.2 MG/DL (2.5-4.9); POTASSIUM 4.4 MMOL/L (3.5-5.1); SODIUM 139 MMOL/L (136-145)
[2019-09-03 12:00] VITALS: BP 122/53
--- NOTE | 2019-09-03 12:15 | Urology Progress Note ---
Assessment/Plan Assessment/Plan: 1. Bilateral hydronephrosis, which appears to be chronic. 2. Renal insufficiency, acute on chronic. 3. Lower urinary tract symptoms. 4. Probable neurogenic bladder. 5. UTI, colonization, and pyuria. 6. Hematuria. 7. Proteinuria. 8. Renal atrophy. monitor clinically relatively low PVR abx as ordered cysto at some point pt refuses torres Subjective Allergies: Coded Allergies: CODEINE (Verified Allergy, Unknown, 08/24/19) NEUROMUSCULAR BLOCKERS, STEROIDAL (Verified Allergy, Unknown, 08/24/19) Uncoded Allergies: ANABOLIC STEROIDS (Allergy, Unknown, 08/24/19) STEROIDS (Allergy, Unknown, 08/24/19) Subjective all noted, a bit agitated Objective Last 24 Hour Vital Signs Date Time Temp Pulse Resp B/P (MAP) Pulse Ox O2 Delivery O2 Flow Rate FiO2 09/03/19 09:00 Room Air 09/03/19 08:00 97.4 93 18 /75 97 09/03/19 06:45 145/75 09/03/19 00:00 97.2 74 22 153/75 (101) 98 09/02/19 21:13 139/83 09/02/19 21:00 Room Air 09/02/19 20:00 96.8 80 20 139/83 (101) 98 09/02/19 16:00 98.6 72 18 130/76 (94) 97 09/02/19 15:26 133/78 Intake and Output 09/02/19 09/03/19 19:00 07:00 Intake Total 805 ml 470 ml Output Total 400 ml 1200 ml Balance 405 ml -730 ml Intake Oral 750 ml IV Total 55 ml 110 ml Other 360 ml Output Urine Total 400 ml 1200 ml # Bowel Movements 1 Microbiology Date/Time Source Procedure Growth Status 08/27/19 07:05 Blood Blood Culture - Final NO GROWTH AFTER 5 DAYS Complete 08/30/19 16:40 Nasopharynx Coronavirus COVID-19 PCR (DANIEL) - Final Complete 08/27/19 22:30 Urine,Clean Catch Urine Culture - Final Escherichia Coli - Esbl Enterococcus Faecalis Complete Current Medications Medications (Trade) Dose Ordered Sig/Gurpreet Route PRN Reason Start Time Stop Time Status Last Admin Dose Admin Acetaminophen (Tylenol) 650 mg Q4H PRN ORAL Mild Pain (Pain Scale 1-3) 09/01/19 05:45 09/23/19 05:44 Acetaminophen (Tylenol) 650 mg Q4H PRN ORAL Temp >100.5 09/01/19 05:45 09/23/19 05:44 Ampicillin (Ampicillin) 500 mg EVERY 12 HOURS ORAL 09/01/19 09:00 09/06/19 20:59 09/03/19 08:28 Barium Sulfate (Readi-Cat 2) 450 ml NOW PRN ORAL Radiology Procedure 09/01/19 06:30 Bisacodyl (Dulcolax) 10 mg DAILYPRN PRN RECTAL Constipation 09/01/19 05:45 11/22/19 05:44 Clonidine HCl (Catapres Tab) 0.1 mg Q8H PRN ORAL SBP > 160mmHg 09/01/19 05:45 11/22/19 05:44 Dextrose (Dextrose 50%) 25 ml Q30M PRN IV Hypoglycemia 09/01/19 05:45 11/22/19 18:14 Dextrose (Dextrose 50%) 50 ml Q30M PRN IV Hypoglycemia 09/01/19 05:45 11/22/19 18:14 Docusate Sodium (Colace) 100 mg EVERY 12 HOURS ORAL 09/01/19 09:00 09/23/19 20:59 09/03/19 08:28 Guaifenesin (Mucinex ER) 600 mg TWICE A DAY ORAL 09/01/19 09:00 09/08/19 08:59 09/02/19 17:16 Guaifenesin (Robitussin) 200 mg Q4H PRN ORAL For Cough 09/01/19 05:45 11/22/19 05:44 09/02/19 09:30 Heparin Sodium (Porcine) (Heparin 5000 units/ml) 5,000 units EVERY 12 HOURS SUBQ 09/01/19 09:00 10/08/19 20:59 09/01/19 10:04 Hydralazine HCl (Apresoline) 10 mg EVERY 8 HOURS ORAL 09/01/19 06:00 11/22/19 21:59 09/03/19 06:45 Lorazepam (Ativan) 1 mg Q8H PRN ORAL For Anxiety 09/01/19 05:45 09/06/19 05:44 09/02/19 01:55 Magnesium Hydroxide (Mom) 30 ml HSPRN PRN ORAL Constipation 09/01/19 18:15 09/23/19 18:14 Meropenem 500 mg/ Sodium Chloride 55 ml @ 110 mls/hr EVERY 12 HOURS IVPB 09/01/19 09:00 09/04/19 10:59 09/03/19 08:28 Methimazole (Tapazole) 10 mg DAILY ORAL 09/01/19 09:00 11/23/19 08:59 09/03/19 08:28 Ondansetron HCl (Zofran) 4 mg Q6H PRN IVP Nausea & Vomiting 09/01/19 05:45 09/23/19 05:44 Polyethylene Glycol (Miralax) 17 gm DAILYPRN PRN ORAL Constipation 09/01/19 05:45 09/23/19 05:44 Sevelamer Carbonate (Renvela) 800 mg THREE TIMES A DAY ORAL 09/02/19 13:00 12/01/19 12:59 09/03/19 08:54 Laboratory Tests 09/03/19 10:30: White Blood Count 8.0, Red Blood Count 3.62L, Hemoglobin 10.0L, Hematocrit 29.8L , Mean Corpuscular Volume 82, Mean Corpuscular Hemoglobin 27.6, Mean Corpuscular Hemoglobin Concent 33.6, Red Cell Distribution Width 12.4, Platelet Count 215, Mean Platelet Volume 6.9, Neutrophils (%) (Auto) , Lymphocytes (%) ( Auto) , Monocytes (%) (Auto) , Eosinophils (%) (Auto) , Basophils (%) (Auto) , Differential Total Cells Counted 100, Neutrophils % (Manual) 74, Lymphocytes % ( Manual) 21, Monocytes % (Manual) 4, Eosinophils % (Manual) 1, Basophils % ( Manual) 0, Band Neutrophils 0, Platelet Estimate Adequate, Platelet Morphology Normal, Red Blood Cell Morphology Normal, Sodium Level 139, Potassium Level 4.4 , Chloride Level 108H, Carbon Dioxide Level 22, Anion Gap 9, Blood Urea Nitrogen 63H, Creatinine 3.0H, Estimat Glomerular Filtration Rate 15.5, Glucose Level 102, Calcium Level 9.2, Phosphorus Level 4.2, Magnesium Level 2.0, Total Bilirubin 0.2, Aspartate Amino Transf (AST/SGOT) 13L, Alanine Aminotransferase ( ALT/SGPT) 15, Alkaline Phosphatase 80, Total Protein 6.9, Albumin 2.6L, Globulin 4.3, Albumin/Globulin Ratio 0.6L Height (Feet): 5 Height (Inches): 4.00 Weight (Pounds): [address] A/P (08/31) noted Nuc renal scan (08/31) noted Jason Vicente MD September 03, 2019 12:15
[2019-09-03 16:00] VITALS: BP 124/63
--- NOTE | 2019-09-03 17:04 | Infectious Diseases Prog Note ---
Assessment/Plan Assessment/Plan ASSESSMENT AND PLAN: 1. CAP, rule out covid-19 virus infection coag neg staph blood culture - / is likely a contaminant esbl e.coli uti, enterococcus uti hydronephrosis - meropenem and ampicillin (08/30/19) - day #5 - covid19 testing negative x 2 - remove isolation - f/u chest x-ray and labs - surveillance blood cultures - negative 3. Renal failure. 4. COPD. 5. Multiple sclerosis. 6. Hypertension. 7. Effusion. 8. Cough. 9. Continue treatment per primary consultants. 10. Orders were noted and entered. 11. Allergies to anabolic steroids, codeine, neuromuscular blockers. 12. Social history negative. 13. Family history noncontributory. 14. MAR was noted. 15. Case discussed with RN. Subjective Constitutional: Denies: fever HEENT: Denies: congestion Respiratory: Denies: shortness of breath Cardiovascular: Denies: chest pain Gastrointestinal/Abdominal: Denies: nausea, vomiting, diarrhea Genitourinary: Reports: dysuria, other - no torres Neurologic: Denies: weakness Psychiatric: Reports: no symptoms Skin: Denies: rash Hematologic: Denies: bleeding Musculoskeletal: Denies: pain Allergies: Coded Allergies: CODEINE (Verified Allergy, Unknown, 08/24/19) NEUROMUSCULAR BLOCKERS, STEROIDAL (Verified Allergy, Unknown, 08/24/19) Uncoded Allergies: ANABOLIC STEROIDS (Allergy, Unknown, 08/24/19) STEROIDS (Allergy, Unknown, 08/24/19) Objective Vital Signs Last 24 Hour Vital Signs Date Time Temp Pulse Resp B/P (MAP) Pulse Ox O2 Delivery O2 Flow Rate FiO2 09/03/19 16:00 97.7 96 18 124/63 (83) 98 09/03/19 13:53 122/53 09/03/19 12:00 97.6 97 17 122/53 (76) 98 09/03/19 09:00 Room Air 09/03/19 08:00 97.4 93 18 /75 97 09/03/19 06:45 145/75 09/03/19 00:00 97.2 74 22 153/75 (101) 98 09/02/19 21:13 139/83 09/02/19 21:00 Room Air 09/02/19 20:00 96.8 80 20 139/83 (101) 98 Height (Feet): 5 Height (Inches): 4.00 Weight (Pounds): 136 General Appearance: no acute distress HEENT: normocephalic, atraumatic, anicteric, mucous membranes moist Respiratory/Chest: lungs clear, normal breath sounds, no respiratory distress, no accessory muscle use Cardiovascular: normal rate, regular rhythm, no gallop/murmur, no JVD Abdomen: normal bowel sounds, soft, non tender, no organomegaly, non distended Genitourinary: other - no torres Extremities: no cyanosis Skin: no rash 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: link trainer II-XII grossly normal, alert, oriented x 3, responsive Lymphatic: no neck adenopathy Musculoskeletal: no effusion Objective Chest x-ray - 08/24/19 - Procedure: XRAY Chest 1v Indication: Cough, shortness of breath Technique: One view of the chest Comparison: none Findings: Opacity at the left lung base likely reflects combination of pleural fluid, atelectasis, and possibly consolidation. The left upper lung, right lung and pleural space are clear. The heart is enlarged. Impression: Left basilar opacity, likely combination of consolidation, pleural fluid, and atelectasis. Mild cardiomegaly Chest x-ray - 08/27/19 - Procedure: XRAY Chest 1v EXAM: XR Chest, 1 View CLINICAL HISTORY: Infection TECHNIQUE: Frontal view of the chest. COMPARISON: August 24, 2019. FINDINGS: Slightly prominent cardiac silhouette without evidence of edema or failure. Low lung volumes. Again noted is left lower lobe infiltrates and left effusion with elevation of the left hemidiaphragm. Unremarkable right lung. No aggressive osseous abnormalities. IMPRESSION: Little interval change in left lower lobe infiltrates and left effusion. CT abdomen and pelvis: Impression: Massive bilateral hydronephrosis and bilateral hydroureter, with marked renal volume loss. As the ureters appear to be patulous and communicate freely with the bladder lumen, this is presumably due to chronic bladder outlet obstruction. Evidence of massive rectal fecal impaction. Very slight rectal wall thickening could indicate a component of stercoral proctitis. Abnormal liver morphology, suspicious for cirrhosis Apparent loculated right pleural effusion surrounded by thickened pleura and some calcifications. Given the presence of calcification, likely chronic, related related to prior tuberculosis. Empyema not excludable. There is also basilar consolidation, atelectasis, and pleural fluid on the left. Possible small pericardial effusion Slight T12 superior endplate compression fracture, age-indeterminate. Consider MRI for better characterization if considered clinically relevant Cholelithiasis Colonic diverticulosis Mild cardiomegaly Incidental findings as noted, including duodenal wall lipoma, degenerative spondylosis Chest x-ray - 09/01/19 - Procedure: XRAY Chest 1v Indication: Cough Technique: One view of the chest Comparison: 08/27/2019 Findings: Left basilar atelectatic changes with elevation left hemidiaphragm are again demonstrated. There may also be some pleural fluid. The heart is upper limits normal in size. Some scarring or atelectasis is seen at the right lateral lower lung. Findings are unchanged Impression: Unchanged, over 5 days, findings as above. Microbiology Date/Time Source Procedure Growth Status 08/27/19 07:05 Blood Blood Culture - Final NO GROWTH AFTER 5 DAYS Complete 08/30/19 16:40 Nasopharynx Coronavirus COVID-19 PCR (DANIEL) - Final Complete 08/27/19 22:30 Urine,Clean Catch Urine Culture - Final Escherichia Coli - Esbl Enterococcus Faecalis Complete Laboratory Tests Test 09/03/19 10:30 White Blood Count 8.0 K/UL (4.8-10.8) Red Blood Count 3.62 M/UL (4.20-5.40) L Hemoglobin 10.0 G/DL (12.0-16.0) L Hematocrit 29.8 % (37.0-47.0) L Mean Corpuscular Volume 82 FL (80-99) Mean Corpuscular Hemoglobin 27.6 PG (27.0-31.0) Mean Corpuscular Hemoglobin Concent 33.6 G/DL (32.0-36.0) Red Cell Distribution Width 12.4 % (11.6-14.8) Platelet Count 215 K/UL (150-450) Mean Platelet Volume 6.9 FL (6.5-10.1) Neutrophils (%) (Auto) % (45.0-75.0) Lymphocytes (%) (Auto) % (20.0-45.0) Monocytes (%) (Auto) % (1.0-10.0) Eosinophils (%) (Auto) % (0.0-3.0) Basophils (%) (Auto) % (0.0-2.0) Differential Total Cells Counted 100 Neutrophils % (Manual) 74 % (45-75) Lymphocytes % (Manual) 21 % (20-45) Monocytes % (Manual) 4 % (1-10) Eosinophils % (Manual) 1 % (0-3) Basophils % (Manual) 0 % (0-2) Band Neutrophils 0 % (0-8) Platelet Estimate Adequate Platelet Morphology Normal Red Blood Cell Morphology Normal Sodium Level 139 MMOL/L (136-145) Potassium Level 4.4 MMOL/L (3.5-5.1) Chloride Level 108 MMOL/L (98-107) H Carbon Dioxide Level 22 MMOL/L (21-32) Anion Gap 9 mmol/L (5-15) Blood Urea Nitrogen 63 mg/dL (7-18) H Creatinine 3.0 MG/DL (0.55-1.30) H Estimat Glomerular Filtration Rate 15.5 mL/min (>60) Glucose Level 102 MG/DL (74-106) Calcium Level 9.2 MG/DL (8.5-10.1) Phosphorus Level 4.2 MG/DL (2.5-4.9) Magnesium Level 2.0 MG/DL (1.8-2.4) Total Bilirubin 0.2 MG/DL (0.2-1.0) Aspartate Amino Transf (AST/SGOT) 13 U/L (15-37) L Alanine Aminotransferase (ALT/SGPT) 15 U/L (12-78) Alkaline Phosphatase 80 U/L (46-116) Total Protein 6.9 G/DL (6.4-8.2) Albumin 2.6 G/DL (3.4-5.0) L Globulin 4.3 g/dL Albumin/Globulin Ratio 0.6 (1.0-2.7) L Current Medications Medications (Trade) Dose Ordered Sig/Gurpreet Route PRN Reason Start Time Stop Time Status Last Admin Dose Admin Acetaminophen (Tylenol) 650 mg Q4H PRN ORAL Mild Pain (Pain Scale 1-3) 09/01/19 05:45 09/23/19 05:44 Acetaminophen (Tylenol) 650 mg Q4H PRN ORAL Temp >100.5 09/01/19 05:45 09/23/19 05:44 Ampicillin (Ampicillin) 500 mg EVERY 12 HOURS ORAL 09/01/19 09:00 09/06/19 20:59 09/03/19 08:28 Barium Sulfate (Readi-Cat 2) 450 ml NOW PRN ORAL Radiology Procedure 09/01/19 06:30 Bisacodyl (Dulcolax) 10 mg DAILYPRN PRN RECTAL Constipation 09/01/19 05:45 11/22/19 05:44 Clonidine HCl (Catapres Tab) 0.1 mg Q8H PRN ORAL SBP > 160mmHg 09/01/19 05:45 11/22/19 05:44 Dextrose (Dextrose 50%) 25 ml Q30M PRN IV Hypoglycemia 09/01/19 05:45 11/22/19 18:14 Dextrose (Dextrose 50%) 50 ml Q30M PRN IV Hypoglycemia 09/01/19 05:45 11/22/19 18:14 Docusate Sodium (Colace) 100 mg EVERY 12 HOURS ORAL 09/01/19 09:00 09/23/19 20:59 09/03/19 08:28 Guaifenesin (Mucinex ER) 600 mg TWICE A DAY ORAL 09/01/19 09:00 09/08/19 08:59 09/02/19 17:16 Guaifenesin (Robitussin) 200 mg Q4H PRN ORAL For Cough 09/01/19 05:45 11/22/19 05:44 09/02/19 09:30 Heparin Sodium (Porcine) (Heparin 5000 units/ml) 5,000 units EVERY 12 HOURS SUBQ 09/01/19 09:00 10/08/19 20:59 09/01/19 10:04 Hydralazine HCl (Apresoline) 10 mg EVERY 8 HOURS ORAL 09/01/19 06:00 11/22/19 21:59 09/03/19 13:53 Lorazepam (Ativan) 1 mg Q8H PRN ORAL For Anxiety 09/01/19 05:45 09/06/19 05:44 09/02/19 01:55 Magnesium Hydroxide (Mom) 30 ml HSPRN PRN ORAL Constipation 09/01/19 18:15 09/23/19 18:14 Meropenem 500 mg/ Sodium Chloride 55 ml @ 110 mls/hr EVERY 12 HOURS IVPB 09/01/19 09:00 09/06/19 08:59 09/03/19 08:28 Methimazole (Tapazole) 10 mg DAILY ORAL 09/01/19 09:00 11/23/19 08:59 09/03/19 08:28 Ondansetron HCl (Zofran) 4 mg Q6H PRN IVP Nausea & Vomiting 09/01/19 05:45 09/23/19 05:44 Polyethylene Glycol (Miralax) 17 gm DAILYPRN PRN ORAL Constipation 09/01/19 05:45 09/23/19 05:44 Sevelamer Carbonate (Renvela) 800 mg THREE TIMES A DAY ORAL 09/02/19 13:00 12/01/19 12:59 09/03/19 13:53 Louie Bullard MD September 03, 2019 17:04
[2019-09-03] MEDS: guaiFENesin 100mg/5ml Liq ud ORAL PRN (17:44)
--- NOTE | 2019-09-03 18:30 | NUR ---
NURSE NOTES: Proper incontinent care done , no skin issues.
--- NOTE | 2019-09-03 19:30 | NUR ---
HAND-OFF: Report given to Nancyome and endorsed plan of care.
--- NOTE | 2019-09-03 19:32 | NUR ---
NURSE NOTES: Receive pt in stable condition on the bed. A&o x4 with episode of confusion. No sob , no complain of pain, and vitals are stable . pt has episode of coughing but she is covid 19 negative x2. Bed is in the lower position, locked and alarm. Call light within reach . We will keep monitoring.
[2019-09-03 20:00] VITALS: BP 157/72
[2019-09-03] MEDS: LORazepam 1mg tab ORAL PRN (21:47)
--- NOTE | 2019-09-03 23:33 | Psych Consult Progress Note ---
Psychiatry Progress Note Psychiatry Progress Note Medications Current Medications Medications (Trade) Dose Ordered Sig/Gurpreet Route PRN Reason Start Time Stop Time Status Last Admin Dose Admin Acetaminophen (Tylenol) 650 mg Q4H PRN ORAL Mild Pain (Pain Scale 1-3) 09/01/19 05:45 09/23/19 05:44 Acetaminophen (Tylenol) 650 mg Q4H PRN ORAL Temp >100.5 09/01/19 05:45 09/23/19 05:44 Ampicillin (Ampicillin) 500 mg EVERY 12 HOURS ORAL 09/01/19 09:00 09/06/19 20:59 09/03/19 21:48 Barium Sulfate (Readi-Cat 2) 450 ml NOW PRN ORAL Radiology Procedure 09/01/19 06:30 Bisacodyl (Dulcolax) 10 mg DAILYPRN PRN RECTAL Constipation 09/01/19 05:45 11/22/19 05:44 Clonidine HCl (Catapres Tab) 0.1 mg Q8H PRN ORAL SBP > 160mmHg 09/01/19 05:45 11/22/19 05:44 Dextrose (Dextrose 50%) 25 ml Q30M PRN IV Hypoglycemia 09/01/19 05:45 11/22/19 18:14 Dextrose (Dextrose 50%) 50 ml Q30M PRN IV Hypoglycemia 09/01/19 05:45 11/22/19 18:14 Docusate Sodium (Colace) 100 mg EVERY 12 HOURS ORAL 09/01/19 09:00 09/23/19 20:59 09/03/19 21:47 Guaifenesin (Mucinex ER) 600 mg TWICE A DAY ORAL 09/01/19 09:00 09/08/19 08:59 09/02/19 17:16 Guaifenesin (Robitussin) 200 mg Q4H PRN ORAL For Cough 09/01/19 05:45 11/22/19 05:44 09/03/19 17:44 Heparin Sodium (Porcine) (Heparin 5000 units/ml) 5,000 units EVERY 12 HOURS SUBQ 09/01/19 09:00 10/08/19 20:59 09/01/19 10:04 Hydralazine HCl (Apresoline) 10 mg EVERY 8 HOURS ORAL 09/01/19 06:00 11/22/19 21:59 09/03/19 21:47 Lorazepam (Ativan) 1 mg Q8H PRN ORAL For Anxiety 09/01/19 05:45 09/06/19 05:44 09/03/19 21:47 Magnesium Hydroxide (Mom) 30 ml HSPRN PRN ORAL Constipation 09/01/19 18:15 09/23/19 18:14 Meropenem 500 mg/ Sodium Chloride 55 ml @ 110 mls/hr EVERY 12 HOURS IVPB 09/01/19 09:00 09/06/19 08:59 09/03/19 21:47 Methimazole (Tapazole) 10 mg DAILY ORAL 09/01/19 09:00 11/23/19 08:59 09/03/19 08:28 Ondansetron HCl (Zofran) 4 mg Q6H PRN IVP Nausea & Vomiting 09/01/19 05:45 09/23/19 05:44 Polyethylene Glycol (Miralax) 17 gm DAILYPRN PRN ORAL Constipation 09/01/19 05:45 09/23/19 05:44 Sevelamer Carbonate (Renvela) 800 mg THREE TIMES A DAY ORAL 09/02/19 13:00 12/01/19 12:59 09/03/19 17:44 Neurological/Psychiatric: Reports: anxiety, depressed, emotional problems Allergies: Coded Allergies: CODEINE (Verified Allergy, Unknown, 08/24/19) NEUROMUSCULAR BLOCKERS, STEROIDAL (Verified Allergy, Unknown, 08/24/19) Uncoded Allergies: ANABOLIC STEROIDS (Allergy, Unknown, 08/24/19) STEROIDS (Allergy, Unknown, 08/24/19) Objective Data Height (Feet): 5 Height (Inches): 4.00 Weight (Pounds): 136 General Appearance: WD/WN, no apparent distress, alert, alert oriented x3 Additional Comments: oriented times self, place, situation. Mood is anxious. Affect is flat. Thought process concrete. Thought content, no suicidal or homicidal ideation. Cognition is impaired. Insight and judgment is impaired. ASSESSMENT: 1. Anxiety disorder. 2. Major depressive disorder. PLAN: 1. Continue Ativan p.r.n. 2. Patient is reluctant to take any other psychotropic medications. 3. Discussed with the nurse. Darleen Nagel MD September 03, 2019 23:33
[2019-09-04 04:00] VITALS: BP 146/70
[2019-09-04] MEDS: HydrALAZINE 10mg Tab ORAL SCH ×3 (06:12→21:59)
[2019-09-04 07:03] LABS: BASOPHILS % (AUTO) 1.3 % (0.0-2.0); EOSINOPHILS % (AUTO) 6.5 % (0.0-3.0); HEMATOCRIT 29.3 % (37.0-47.0); HEMOGLOBIN 10.1 G/DL (12.0-16.0); LYMPHOCYTES % (AUTO) 30.7 % (20.0-45.0); MEAN CORPUSCULAR VOLUME 82 FL (80-99); NEUTROPHILS % (AUTO) 53.4 % (45.0-75.0); PLATELET COUNT 199 K/UL (150-450); RED BLOOD COUNT 3.57 M/UL (4.20-5.40); RED CELL DISTRIBUTION WIDTH 12.5 % (11.6-14.8); WHITE BLOOD COUNT 6.7 K/UL (4.8-10.8)
--- NOTE | 2019-09-04 07:09 | NUR ---
HAND-OFF: Report given to Chintan jordan.
[2019-09-04 07:34] LABS: ALANINE AMINOTRANSFERASE 12 U/L (12-78); ALBUMIN 2.5 G/DL (3.4-5.0); ALBUMIN/GLOBULIN RATIO 0.6 (1.0-2.7); ALKALINE PHOSPHATASE 83 U/L (46-116); ANION GAP 8 mmol/L (5-15); ASPARTATE AMINO TRANSFERASE 16 U/L (15-37); BILIRUBIN,TOTAL 0.2 MG/DL (0.2-1.0); BLOOD UREA NITROGEN 58 mg/dL (7-18); CARBON DIOXIDE 24 MMOL/L (21-32); CHLORIDE 110 MMOL/L (98-107); CREATININE 2.7 MG/DL (0.55-1.30); PHOSPHORUS 4.9 MG/DL (2.5-4.9); POTASSIUM 4.6 MMOL/L (3.5-5.1); SODIUM 142 MMOL/L (136-145)
[2019-09-04 08:00] VITALS: BP 135/80
[2019-09-04] MEDS: Heparin 5000 units/ml inj SUBQ SCH ×2 (09:00→21:00)
[2019-09-04] MEDS: guaiFENesin ER 600mg tab ORAL SCH ×4 (09:00→18:00)
--- NOTE | 2019-09-04 09:01 | Urology Progress Note ---
Assessment/Plan Assessment/Plan: 1. Bilateral hydronephrosis, which appears to be chronic. 2. Renal insufficiency, acute on chronic. 3. Lower urinary tract symptoms. 4. Probable neurogenic bladder. 5. UTI, colonization, and pyuria. 6. Hematuria. 7. Proteinuria. 8. Renal atrophy. monitor clinically relatively low PVR abx as ordered cysto at some point pt refuses torres did try to speak to pt about cysto pt condescending and unwilling to discuss at the time of my visit Subjective Allergies: Coded Allergies: CODEINE (Verified Allergy, Unknown, 08/24/19) NEUROMUSCULAR BLOCKERS, STEROIDAL (Verified Allergy, Unknown, 08/24/19) Uncoded Allergies: ANABOLIC STEROIDS (Allergy, Unknown, 08/24/19) STEROIDS (Allergy, Unknown, 08/24/19) Subjective all noted, a bit agitated Objective Last 24 Hour Vital Signs Date Time Temp Pulse Resp B/P (MAP) Pulse Ox O2 Delivery O2 Flow Rate FiO2 09/04/19 06:12 146/70 09/04/19 04:00 97.5 67 19 146/70 (95) 98 09/03/19 21:47 157/72 09/03/19 21:00 Room Air 09/03/19 20:00 97.5 68 18 157/72 (100) 97 09/03/19 16:00 97.7 96 18 124/63 (83) 98 09/03/19 13:53 122/53 09/03/19 12:00 97.6 97 17 122/53 (76) 98 Intake and Output 09/03/19 09/04/19 19:00 07:00 Intake Total 455 ml 305 ml Output Total 800 ml 775 ml Balance -345 ml -470 ml Intake Oral 400 ml 250 ml IV Total 55 ml 55 ml Output Urine Total 800 ml 775 ml # Bowel Movements 1 Microbiology Date/Time Source Procedure Growth Status 08/27/19 07:05 Blood Blood Culture - Final NO GROWTH AFTER 5 DAYS Complete 08/30/19 16:40 Nasopharynx Coronavirus COVID-19 PCR (DANIEL) - Final Complete 08/27/19 22:30 Urine,Clean Catch Urine Culture - Final Escherichia Coli - Esbl Enterococcus Faecalis Complete Current Medications Medications (Trade) Dose Ordered Sig/Gurpreet Route PRN Reason Start Time Stop Time Status Last Admin Dose Admin Acetaminophen (Tylenol) 650 mg Q4H PRN ORAL Mild Pain (Pain Scale 1-3) 09/01/19 05:45 09/23/19 05:44 Acetaminophen (Tylenol) 650 mg Q4H PRN ORAL Temp >100.5 09/01/19 05:45 09/23/19 05:44 Ampicillin (Ampicillin) 500 mg EVERY 12 HOURS ORAL 09/01/19 09:00 09/06/19 20:59 09/03/19 21:48 Barium Sulfate (Readi-Cat 2) 450 ml NOW PRN ORAL Radiology Procedure 09/01/19 06:30 Bisacodyl (Dulcolax) 10 mg DAILYPRN PRN RECTAL Constipation 09/01/19 05:45 11/22/19 05:44 Clonidine HCl (Catapres Tab) 0.1 mg Q8H PRN ORAL SBP > 160mmHg 09/01/19 05:45 11/22/19 05:44 Dextrose (Dextrose 50%) 25 ml Q30M PRN IV Hypoglycemia 09/01/19 05:45 11/22/19 18:14 Dextrose (Dextrose 50%) 50 ml Q30M PRN IV Hypoglycemia 09/01/19 05:45 11/22/19 18:14 Docusate Sodium (Colace) 100 mg EVERY 12 HOURS ORAL 09/01/19 09:00 09/23/19 20:59 09/03/19 21:47 Guaifenesin (Mucinex ER) 600 mg TWICE A DAY ORAL 09/01/19 09:00 09/08/19 08:59 09/02/19 17:16 Guaifenesin (Robitussin) 200 mg Q4H PRN ORAL For Cough 09/01/19 05:45 11/22/19 05:44 09/03/19 17:44 Heparin Sodium (Porcine) (Heparin 5000 units/ml) 5,000 units EVERY 12 HOURS SUBQ 09/01/19 09:00 10/08/19 20:59 09/01/19 10:04 Hydralazine HCl (Apresoline) 10 mg EVERY 8 HOURS ORAL 09/01/19 06:00 11/22/19 21:59 09/04/19 06:12 Lorazepam (Ativan) 1 mg Q8H PRN ORAL For Anxiety 09/01/19 05:45 09/06/19 05:44 09/03/19 21:47 Magnesium Hydroxide (Mom) 30 ml HSPRN PRN ORAL Constipation 09/01/19 18:15 09/23/19 18:14 Meropenem 500 mg/ Sodium Chloride 55 ml @ 110 mls/hr EVERY 12 HOURS IVPB 09/01/19 09:00 09/06/19 08:59 09/03/19 21:47 Methimazole (Tapazole) 10 mg DAILY ORAL 09/01/19 09:00 11/23/19 08:59 09/03/19 08:28 Ondansetron HCl (Zofran) 4 mg Q6H PRN IVP Nausea & Vomiting 09/01/19 05:45 09/23/19 05:44 Polyethylene Glycol (Miralax) 17 gm DAILYPRN PRN ORAL Constipation 09/01/19 05:45 09/23/19 05:44 Sevelamer Carbonate (Renvela) 800 mg THREE TIMES A DAY ORAL 09/02/19 13:00 12/01/19 12:59 09/03/19 17:44 Laboratory Tests 09/03/19 10:30: White Blood Count 8.0, Red Blood Count 3.62L, Hemoglobin 10.0L, Hematocrit 29.8L , Mean Corpuscular Volume 82, Mean Corpuscular Hemoglobin 27.6, Mean Corpuscular Hemoglobin Concent 33.6, Red Cell Distribution Width 12.4, Platelet Count 215, Mean Platelet Volume 6.9, Neutrophils (%) (Auto) , Lymphocytes (%) ( Auto) , Monocytes (%) (Auto) , Eosinophils (%) (Auto) , Basophils (%) (Auto) , Differential Total Cells Counted 100, Neutrophils % (Manual) 74, Lymphocytes % ( Manual) 21, Monocytes % (Manual) 4, Eosinophils % (Manual) 1, Basophils % ( Manual) 0, Band Neutrophils 0, Platelet Estimate Adequate, Platelet Morphology Normal, Red Blood Cell Morphology Normal, Sodium Level 139, Potassium Level 4.4 , Chloride Level 108H, Carbon Dioxide Level 22, Anion Gap 9, Blood Urea Nitrogen 63H, Creatinine 3.0H, Estimat Glomerular Filtration Rate 15.5, Glucose Level 102, Calcium Level 9.2, Phosphorus Level 4.2, Magnesium Level 2.0, Total Bilirubin 0.2, Aspartate Amino Transf (AST/SGOT) 13L, Alanine Aminotransferase ( ALT/SGPT) 15, Alkaline Phosphatase 80, Total Protein 6.9, Albumin 2.6L, Globulin 4.3, Albumin/Globulin Ratio 0.6L 09/04/19 06:10: White Blood Count 6.7, Red Blood Count 3.57L, Hemoglobin 10.1L, Hematocrit 29.3L , Mean Corpuscular Volume 82, Mean Corpuscular Hemoglobin 28.4, Mean Corpuscular Hemoglobin Concent 34.6, Red Cell Distribution Width 12.5, Platelet Count 199, Mean Platelet Volume 6.8, Neutrophils (%) (Auto) 53.4, Lymphocytes (% ) (Auto) 30.7, Monocytes (%) (Auto) 8.0, Eosinophils (%) (Auto) 6.5H, Basophils (%) (Auto) 1.3, Sodium Level 142, Potassium Level 4.6, Chloride Level 110H, Carbon Dioxide Level 24, Anion Gap 8, Blood Urea Nitrogen 58H, Creatinine 2.7H, Estimat Glomerular Filtration Rate 17.4, Glucose Level 88, Calcium Level 9.0, Phosphorus Level 4.9, Magnesium Level 2.2, Total Bilirubin 0.2, Aspartate Amino Transf (AST/SGOT) 16, Alanine Aminotransferase (ALT/SGPT) 12, Alkaline Phosphatase 83, Total Protein 6.8, Albumin 2.5L, Globulin 4.3, Albumin/Globulin Ratio 0.6L Height (Feet): 5 Height (Inches): 4.00 Weight (Pounds): [address] A/P (08/31) noted Nuc renal scan (08/31) noted Jason Vicente MD September 04, 2019 09:01
--- NOTE | 2019-09-04 09:10 | General Progress Note ---
Assessment/Plan Assessment/Plan: 68 y/o F w/PMH hyperthyroidism, multiple sclerosis, HTN and COPD who presents from [facility] for cough and abnormal labs. On admission, CXR revealed left lower lobe pleural effusion, Cr 3.2. Patient admitted for further treatment and evaluation, and COVID-19 negative. #HCAP w/Left pleural effusion #Bacteremia 1/2 Staph coag negative -cont. 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 -suspect neurogenic bladder, pt may need chronic torres but pt refusing at this time -nuc med renal scan w/o obvious site of obstruction -CT A/P w/severe b/l hydro -pt w/minimal PVR -cont to monitor PVR, straight cath PRN -Urology following: pt refused torres, pt refused cystoscopy in previous discussions -d/w nephro, cont to monitor Cr for one more day #COPD -not in exacerbation at this time -currently on RA -ctm #Multiple sclerosis -no acute issues #Hyperthyroidism -home med methimazole 10 mg PO q daily #Anxiety -ativan 0.5 mg PO PRN -Psych consulted, recs appreciated Dispo: CM for dispo planning, pt to go to [facility]) on d/c, will follow Cr one more day, likely d/c tomorrow DVT PPx: Heparin Time spent on encounter: 39 mins, 25 on counseling, coordination of care w/Pt, RN, urology, nephro and CM. Time of note doesn't reflect time of encounter. Subjective Allergies: Coded Allergies: CODEINE (Verified Allergy, Unknown, 08/24/19) NEUROMUSCULAR BLOCKERS, STEROIDAL (Verified Allergy, Unknown, 08/24/19) Uncoded Allergies: ANABOLIC STEROIDS (Allergy, Unknown, 08/24/19) STEROIDS (Allergy, Unknown, 08/24/19) Subjective F/u for HCAP/PNA, Hydronephrosis w/SAJAN on CKD, COVID negative. Cr downtrending. 12 pt ROS neg except as above Objective Last 24 Hour Vital Signs Date Time Temp Pulse Resp B/P (MAP) Pulse Ox O2 Delivery O2 Flow Rate FiO2 09/04/19 06:12 146/70 09/04/19 04:00 97.5 67 19 146/70 (95) 98 09/03/19 21:47 157/72 09/03/19 21:00 Room Air 09/03/19 20:00 97.5 68 18 157/72 (100) 97 09/03/19 16:00 97.7 96 18 124/63 (83) 98 09/03/19 13:53 122/53 09/03/19 12:00 97.6 97 17 122/53 (76) 98 Intake and Output 09/03/19 09/04/19 19:00 07:00 Intake Total 455 ml 305 ml Output Total 800 ml 775 ml Balance -345 ml -470 ml Intake Oral 400 ml 250 ml IV Total 55 ml 55 ml Output Urine Total 800 ml 775 ml # Bowel Movements 1 Laboratory Tests 09/03/19 10:30: White Blood Count 8.0, Red Blood Count 3.62L, Hemoglobin 10.0L, Hematocrit 29.8L , Mean Corpuscular Volume 82, Mean Corpuscular Hemoglobin 27.6, Mean Corpuscular Hemoglobin Concent 33.6, Red Cell Distribution Width 12.4, Platelet Count 215, Mean Platelet Volume 6.9, Neutrophils (%) (Auto) , Lymphocytes (%) ( Auto) , Monocytes (%) (Auto) , Eosinophils (%) (Auto) , Basophils (%) (Auto) , Differential Total Cells Counted 100, Neutrophils % (Manual) 74, Lymphocytes % ( Manual) 21, Monocytes % (Manual) 4, Eosinophils % (Manual) 1, Basophils % ( Manual) 0, Band Neutrophils 0, Platelet Estimate Adequate, Platelet Morphology Normal, Red Blood Cell Morphology Normal, Sodium Level 139, Potassium Level 4.4 , Chloride Level 108H, Carbon Dioxide Level 22, Anion Gap 9, Blood Urea Nitrogen 63H, Creatinine 3.0H, Estimat Glomerular Filtration Rate 15.5, Glucose Level 102, Calcium Level 9.2, Phosphorus Level 4.2, Magnesium Level 2.0, Total Bilirubin 0.2, Aspartate Amino Transf (AST/SGOT) 13L, Alanine Aminotransferase ( ALT/SGPT) 15, Alkaline Phosphatase 80, Total Protein 6.9, Albumin 2.6L, Globulin 4.3, Albumin/Globulin Ratio 0.6L 09/04/19 06:10: White Blood Count 6.7, Red Blood Count 3.57L, Hemoglobin 10.1L, Hematocrit 29.3L , Mean Corpuscular Volume 82, Mean Corpuscular Hemoglobin 28.4, Mean Corpuscular Hemoglobin Concent 34.6, Red Cell Distribution Width 12.5, Platelet Count 199, Mean Platelet Volume 6.8, Neutrophils (%) (Auto) 53.4, Lymphocytes (% ) (Auto) 30.7, Monocytes (%) (Auto) 8.0, Eosinophils (%) (Auto) 6.5H, Basophils (%) (Auto) 1.3, Sodium Level 142, Potassium Level 4.6, Chloride Level 110H, Carbon Dioxide Level 24, Anion Gap 8, Blood Urea Nitrogen 58H, Creatinine 2.7H, Estimat Glomerular Filtration Rate 17.4, Glucose Level 88, Calcium Level 9.0, Phosphorus Level 4.9, Magnesium Level 2.2, Total Bilirubin 0.2, Aspartate Amino Transf (AST/SGOT) 16, Alanine Aminotransferase (ALT/SGPT) 12, Alkaline Phosphatase 83, Total Protein 6.8, Albumin 2.5L, Globulin 4.3, Albumin/Globulin Ratio 0.6L Height (Feet): 5 Height (Inches): 4.00 Weight (Pounds): 136 Objective General: NAD, A&O x 3 HEENT: NCAT, EOMi, MMM CV: RRR, no murmurs, rubs, or gallops Pulm: CTAB, no wheezing, rales, rhonchi GI: Soft, nontender, nondistended, bowel sounds present Ext: No lower extremity edema bilaterally, RUE contracted hand Skin: no rashes lesions or ulcers Abdias Blanc M.D. September 04, 2019 09:10
[2019-09-04] MEDS: Docusate 100mg cap ORAL SCH ×2 (09:22→21:58)
[2019-09-04] MEDS: Meropenem 500 MG in NS 55 ML IVPB SCH ×2 (09:22→21:58)
[2019-09-04] MEDS: methIMAzole 10mg tab ORAL SCH (09:22)
--- NOTE | 2019-09-04 11:01 | Nephrology Progress Note ---
Assessment/Plan Plan #Acute on chronic kidney disease- baseline cr close to 2- renal US with bilatera hydronephrosis #pneumonia - left lower lobe #r/o COVID # hyperthyroidism # multiple sclerosis #HTN # COPD - renal US with bilateral severe hydronephrosis - refused torres- bladder scan q6hr Cr down to 2.7 refusing torres consideration of cystoscopy inpatient vs outpatient? - CT abd/pelvis: Impression: Massive bilateral hydronephrosis and bilateral hydroureter, with marked renal volume loss. As the ureters appear to be patulous and communicate freely with the bladder lumen, this is presumably due to chronic bladder outlet obstruction. - nuc med scan: Impression: Limited exam, as described, due to shorter than ideal scanning time. Gradual slowly rising renal and collecting system uptake is demonstrated. Tracer is seen to fill the bilateral renal collecting systems but not the ureters and therefore the point/etiology of obstruction causing the hydronephrosis demonstrated on earlier studies is not clearly evident Renal split function 57% left, 43% right - Urology eval --> add renvela 800mg TID - COVID ruled out - currently satting well on room air - check 2d echo--> BNP can be elevated due to decreased renal clearance - antibiotics per ID- on augmentin and doxy - strict I&Os - daily weight - monitor lytes and cr closely - continue hydralazine 10mg TID - check PTH/vit D pending - monitor phos - check iron panel and ferritin-> adequate Subjective ROS Limited/Unobtainable: No Constitutional: Denies: no symptoms, chills, diaphoresis, fever, malaise, weakness, other HEENT: Denies: no symptoms, eye pain, blurred vision, tearing, double vision, ear pain, ear discharge, nose pain, nose congestion, throat pain, throat swelling, mouth pain, mouth swelling, other Genitourinary: Denies: no symptoms, burning, discharge, frequency, flank pain, hematuria, incontinence, pain, urgency, other Subjective Cr down to 2.7 refusing torres consideration of cystoscopy inpatient vs outpatient? CT abd/pelvis: Impression: Massive bilateral hydronephrosis and bilateral hydroureter, with marked renal volume loss. As the ureters appear to be patulous and communicate freely with the bladder lumen, this is presumably due to chronic bladder outlet obstruction. nuc med scan: Impression: Limited exam, as described, due to shorter than ideal scanning time. Gradual slowly rising renal and collecting system uptake is demonstrated. Tracer is seen to fill the bilateral renal collecting systems but not the ureters and therefore the point/etiology of obstruction causing the hydronephrosis demonstrated on earlier studies is not clearly evident Renal split function 57% left, 43% right Satting well on room air cr stable Bp stable Renal US: Impression: Bilateral severe hydronephrosis. Marked cortical thinning indicates that this is probably long-standing. Objective Objective Last 24 Hour Vital Signs Date Time Temp Pulse Resp B/P (MAP) Pulse Ox O2 Delivery O2 Flow Rate FiO2 09/04/19 08:00 98.2 69 18 135/80 (98) 98 09/04/19 06:12 146/70 09/04/19 04:00 97.5 67 19 146/70 (95) 98 09/03/19 21:47 157/72 09/03/19 21:00 Room Air 09/03/19 20:00 97.5 68 18 157/72 (100) 97 09/03/19 16:00 97.7 96 18 124/63 (83) 98 09/03/19 13:53 122/53 09/03/19 12:00 97.6 97 17 122/53 (76) 98 Intake and Output 09/03/19 09/04/19 19:00 07:00 Intake Total 455 ml 305 ml Output Total 800 ml 775 ml Balance -345 ml -470 ml Intake Oral 400 ml 250 ml IV Total 55 ml 55 ml Output Urine Total 800 ml 775 ml # Bowel Movements 1 Laboratory Tests 09/04/19 06:10: White Blood Count 6.7, Red Blood Count 3.57L, Hemoglobin 10.1L, Hematocrit 29.3L , Mean Corpuscular Volume 82, Mean Corpuscular Hemoglobin 28.4, Mean Corpuscular Hemoglobin Concent 34.6, Red Cell Distribution Width 12.5, Platelet Count 199, Mean Platelet Volume 6.8, Neutrophils (%) (Auto) 53.4, Lymphocytes (% ) (Auto) 30.7, Monocytes (%) (Auto) 8.0, Eosinophils (%) (Auto) 6.5H, Basophils (%) (Auto) 1.3, Sodium Level 142, Potassium Level 4.6, Chloride Level 110H, Carbon Dioxide Level 24, Anion Gap 8, Blood Urea Nitrogen 58H, Creatinine 2.7H, Estimat Glomerular Filtration Rate 17.4, Glucose Level 88, Calcium Level 9.0, Phosphorus Level 4.9, Magnesium Level 2.2, Total Bilirubin 0.2, Aspartate Amino Transf (AST/SGOT) 16, Alanine Aminotransferase (ALT/SGPT) 12, Alkaline Phosphatase 83, Total Protein 6.8, Albumin 2.5L, Globulin 4.3, Albumin/Globulin Ratio 0.6L Height (Feet): 5 Height (Inches): 4.00 Weight (Pounds): 136 Vicente Jaimes M.D. September 04, 2019 11:01
[2019-09-04 12:00] VITALS: BP 145/75
--- NOTE | 2019-09-04 14:20 | NUR ---
CASE MANAGEMENT:REVIEW 09/04/19 SI: PNA. PLEURAL EFFUSION . SEVERE BILATERAL HYDRONEPHROSIS COVID 19 NEGATIVE 98.2 69 18 135/80 98% ON RA H/H 10.1/29.3 BUN 58 CREAT 2.7 IS: IV MEROPENEM BID AMPICILLIN PO BID TAPAZOLE PO QD HYDRALAZINE PO TID ROBITUSSIN Q4HR/PRN : 4E MED SURG UNIT DCP: EXPRESSED CONCERN ABOUT TRANSFERING TO ANOTHER FACILITY; AGREEABLE TO NEW [facility] CARE PLAN: COVID NEGATIVE X1 CONSIDER CYSTOSCOPY
[2019-09-04 16:00] VITALS: BP 136/72
--- NOTE | 2019-09-04 16:06 | Pulmonology Progress Note ---
Subjective ROS Limited/Unobtainable: No Interval Events: Saturating well on RA Constitutional: Denies: fever HEENT: Repors: no symptoms Respiratory: Reports: no symptoms Cardiovascular: Reports: no symptoms; Denies: chest pain, palpitations, other Gastrointestinal/Abdominal: Denies: nausea, vomiting, diarrhea Psychiatric: Reports: no symptoms Skin: Denies: rash Musculoskeletal: Denies: pain Allergies: Coded Allergies: CODEINE (Verified Allergy, Unknown, 08/24/19) NEUROMUSCULAR BLOCKERS, STEROIDAL (Verified Allergy, Unknown, 08/24/19) Uncoded Allergies: ANABOLIC STEROIDS (Allergy, Unknown, 08/24/19) STEROIDS (Allergy, Unknown, 08/24/19) Objective Last 24 Hour Vital Signs Date Time Temp Pulse Resp B/P (MAP) Pulse Ox O2 Delivery O2 Flow Rate FiO2 09/04/19 15:14 145/75 09/04/19 12:00 97.7 75 18 145/75 (98) 96 09/04/19 08:00 98.2 69 18 135/80 (98) 98 09/04/19 06:12 146/70 09/04/19 04:00 97.5 67 19 146/70 (95) 98 09/03/19 21:47 157/72 09/03/19 21:00 Room Air 09/03/19 20:00 97.5 68 18 157/72 (100) 97 Intake and Output 09/03/19 09/04/19 19:00 07:00 Intake Total 455 ml 305 ml Output Total 800 ml 775 ml Balance -345 ml -470 ml Intake Oral 400 ml 250 ml IV Total 55 ml 55 ml Output Urine Total 800 ml 775 ml # Bowel Movements 1 General Appearance: no acute distress HEENT: normocephalic, atraumatic, anicteric, mucous membranes moist Respiratory/Chest: chest wall non-tender Cardiovascular: normal peripheral pulses Abdomen: normal bowel sounds, soft, non tender, no organomegaly, non distended Genitourinary: other - no torres Extremities: no cyanosis Skin: no rash 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: equine vet II-XII grossly normal, alert, oriented x 3, responsive Lymphatic: no neck adenopathy Musculoskeletal: no effusion Laboratory Tests 09/04/19 06:10: White Blood Count 6.7, Red Blood Count 3.57L, Hemoglobin 10.1L, Hematocrit 29.3L , Mean Corpuscular Volume 82, Mean Corpuscular Hemoglobin 28.4, Mean Corpuscular Hemoglobin Concent 34.6, Red Cell Distribution Width 12.5, Platelet Count 199, Mean Platelet Volume 6.8, Neutrophils (%) (Auto) 53.4, Lymphocytes (% ) (Auto) 30.7, Monocytes (%) (Auto) 8.0, Eosinophils (%) (Auto) 6.5H, Basophils (%) (Auto) 1.3, Sodium Level 142, Potassium Level 4.6, Chloride Level 110H, Carbon Dioxide Level 24, Anion Gap 8, Blood Urea Nitrogen 58H, Creatinine 2.7H, Estimat Glomerular Filtration Rate 17.4, Glucose Level 88, Calcium Level 9.0, Phosphorus Level 4.9, Magnesium Level 2.2, Total Bilirubin 0.2, Aspartate Amino Transf (AST/SGOT) 16, Alanine Aminotransferase (ALT/SGPT) 12, Alkaline Phosphatase 83, Total Protein 6.8, Albumin 2.5L, Globulin 4.3, Albumin/Globulin Ratio 0.6L Current Medications Medications (Trade) Dose Ordered Sig/Gurpreet Route PRN Reason Start Time Stop Time Status Last Admin Dose Admin Acetaminophen (Tylenol) 650 mg Q4H PRN ORAL Mild Pain (Pain Scale 1-3) 09/01/19 05:45 09/23/19 05:44 Acetaminophen (Tylenol) 650 mg Q4H PRN ORAL Temp >100.5 09/01/19 05:45 09/23/19 05:44 Ampicillin (Ampicillin) 500 mg EVERY 12 HOURS ORAL 09/01/19 09:00 09/06/19 20:59 09/04/19 09:22 Barium Sulfate (Readi-Cat 2) 450 ml NOW PRN ORAL Radiology Procedure 09/01/19 06:30 Bisacodyl (Dulcolax) 10 mg DAILYPRN PRN RECTAL Constipation 09/01/19 05:45 11/22/19 05:44 Clonidine HCl (Catapres Tab) 0.1 mg Q8H PRN ORAL SBP > 160mmHg 09/01/19 05:45 11/22/19 05:44 Dextrose (Dextrose 50%) 25 ml Q30M PRN IV Hypoglycemia 09/01/19 05:45 11/22/19 18:14 Dextrose (Dextrose 50%) 50 ml Q30M PRN IV Hypoglycemia 09/01/19 05:45 11/22/19 18:14 Docusate Sodium (Colace) 100 mg EVERY 12 HOURS ORAL 09/01/19 09:00 09/23/19 20:59 09/04/19 09:22 Guaifenesin (Mucinex ER) 600 mg TWICE A DAY ORAL 09/01/19 09:00 09/08/19 08:59 09/02/19 17:16 Guaifenesin (Robitussin) 200 mg Q4H PRN ORAL For Cough 09/01/19 05:45 11/22/19 05:44 09/03/19 17:44 Heparin Sodium (Porcine) (Heparin 5000 units/ml) 5,000 units EVERY 12 HOURS SUBQ 09/01/19 09:00 10/08/19 20:59 09/01/19 10:04 Hydralazine HCl (Apresoline) 10 mg EVERY 8 HOURS ORAL 09/01/19 06:00 11/22/19 21:59 09/04/19 15:14 Lorazepam (Ativan) 1 mg Q8H PRN ORAL For Anxiety 09/01/19 05:45 09/06/19 05:44 09/03/19 21:47 Magnesium Hydroxide (Mom) 30 ml HSPRN PRN ORAL Constipation 09/01/19 18:15 09/23/19 18:14 Meropenem 500 mg/ Sodium Chloride 55 ml @ 110 mls/hr EVERY 12 HOURS IVPB 09/01/19 09:00 09/06/19 08:59 09/04/19 09:22 Methimazole (Tapazole) 10 mg DAILY ORAL 09/01/19 09:00 11/23/19 08:59 09/04/19 09:22 Ondansetron HCl (Zofran) 4 mg Q6H PRN IVP Nausea & Vomiting 09/01/19 05:45 09/23/19 05:44 Polyethylene Glycol (Miralax) 17 gm DAILYPRN PRN ORAL Constipation 09/01/19 05:45 09/23/19 05:44 Sevelamer Carbonate (Renvela) 800 mg THREE TIMES A DAY ORAL 09/02/19 13:00 12/01/19 12:59 09/04/19 15:02 Assessment/Plan Assessment/Plan IMPRESSION: 1. Possible left lung pneumonia. Followup CXR continues to show left lung infiltrate vs atelectasis 2. Small pleural effusion, no indication for thoracentesis. 3. UTI DISCUSSION: Continue antibiotics per ID. COVID 19 pcr negative Currently saturating well on room air. I will follow. Kp Ch Omar Syed MD September 04, 2019 16:06
--- NOTE | 2019-09-04 19:38 | NUR ---
HAND-OFF: Report given to WILVER Dumont. Rounds done.
--- NOTE | 2019-09-04 19:40 | NUR ---
NURSE NOTES: Received report from WILVER Rosenberg. Patient in bed, awake and agitated. Patient is aggressive towards nursing staff. On room air, no signs of distress or labored breathing. IV intact, patent, and saline locked. Bed in lowest position with call light in reach. Will continue with plan of care.
[2019-09-04 20:00] VITALS: BP 133/83
[2019-09-04] MEDS: LORazepam 1mg tab ORAL PRN (21:59)
--- NOTE | 2019-09-04 23:44 | Psych Consult Progress Note ---
Psychiatry Progress Note Psychiatry Progress Note Medications Current Medications Medications (Trade) Dose Ordered Sig/Gurpreet Route PRN Reason Start Time Stop Time Status Last Admin Dose Admin Acetaminophen (Tylenol) 650 mg Q4H PRN ORAL Mild Pain (Pain Scale 1-3) 09/01/19 05:45 09/23/19 05:44 Acetaminophen (Tylenol) 650 mg Q4H PRN ORAL Temp >100.5 09/01/19 05:45 09/23/19 05:44 Ampicillin (Ampicillin) 500 mg EVERY 12 HOURS ORAL 09/01/19 09:00 09/06/19 20:59 09/04/19 21:59 Barium Sulfate (Readi-Cat 2) 450 ml NOW PRN ORAL Radiology Procedure 09/01/19 06:30 Bisacodyl (Dulcolax) 10 mg DAILYPRN PRN RECTAL Constipation 09/01/19 05:45 11/22/19 05:44 Clonidine HCl (Catapres Tab) 0.1 mg Q8H PRN ORAL SBP > 160mmHg 09/01/19 05:45 11/22/19 05:44 Dextrose (Dextrose 50%) 25 ml Q30M PRN IV Hypoglycemia 09/01/19 05:45 11/22/19 18:14 Dextrose (Dextrose 50%) 50 ml Q30M PRN IV Hypoglycemia 09/01/19 05:45 11/22/19 18:14 Docusate Sodium (Colace) 100 mg EVERY 12 HOURS ORAL 09/01/19 09:00 09/23/19 20:59 09/04/19 21:58 Guaifenesin (Mucinex ER) 600 mg TWICE A DAY ORAL 09/01/19 09:00 09/08/19 08:59 09/02/19 17:16 Guaifenesin (Robitussin) 200 mg Q4H PRN ORAL For Cough 09/01/19 05:45 11/22/19 05:44 09/03/19 17:44 Heparin Sodium (Porcine) (Heparin 5000 units/ml) 5,000 units EVERY 12 HOURS SUBQ 09/01/19 09:00 10/08/19 20:59 09/01/19 10:04 Hydralazine HCl (Apresoline) 10 mg EVERY 8 HOURS ORAL 09/01/19 06:00 11/22/19 21:59 09/04/19 21:59 Lorazepam (Ativan) 1 mg Q8H PRN ORAL For Anxiety 09/01/19 05:45 09/06/19 05:44 09/04/19 21:59 Magnesium Hydroxide (Mom) 30 ml HSPRN PRN ORAL Constipation 09/01/19 18:15 09/23/19 18:14 Meropenem 500 mg/ Sodium Chloride 55 ml @ 110 mls/hr EVERY 12 HOURS IVPB 09/01/19 09:00 09/06/19 08:59 09/04/19 21:58 Methimazole (Tapazole) 10 mg DAILY ORAL 09/01/19 09:00 11/23/19 08:59 09/04/19 09:22 Ondansetron HCl (Zofran) 4 mg Q6H PRN IVP Nausea & Vomiting 09/01/19 05:45 09/23/19 05:44 Polyethylene Glycol (Miralax) 17 gm DAILYPRN PRN ORAL Constipation 09/01/19 05:45 09/23/19 05:44 Sevelamer Carbonate (Renvela) 800 mg THREE TIMES A DAY ORAL 09/02/19 13:00 12/01/19 12:59 09/04/19 18:26 Allergies: Coded Allergies: CODEINE (Verified Allergy, Unknown, 08/24/19) NEUROMUSCULAR BLOCKERS, STEROIDAL (Verified Allergy, Unknown, 08/24/19) Uncoded Allergies: ANABOLIC STEROIDS (Allergy, Unknown, 08/24/19) STEROIDS (Allergy, Unknown, 08/24/19) Objective Data Height (Feet): 5 Height (Inches): 4.00 Weight (Pounds): 136 Darleen Nagel MD September 04, 2019 23:44
[2019-09-05] VITALS: BP 149/80
[2019-09-05 04:00] VITALS: BP 151/72
[2019-09-05] MEDS: HydrALAZINE 10mg Tab ORAL SCH (05:42)
[2019-09-05 06:50] LABS: ALANINE AMINOTRANSFERASE 11 U/L (12-78); ALBUMIN 2.5 G/DL (3.4-5.0); ALBUMIN/GLOBULIN RATIO 0.6 (1.0-2.7); ALKALINE PHOSPHATASE 88 U/L (46-116); ANION GAP 7 mmol/L (5-15); ASPARTATE AMINO TRANSFERASE 17 U/L (15-37); BILIRUBIN,TOTAL 0.3 MG/DL (0.2-1.0); BLOOD UREA NITROGEN 60 mg/dL (7-18); CALCIUM 8.7 MG/DL (8.5-10.1); CARBON DIOXIDE 25 MMOL/L (21-32); CHLORIDE 109 MMOL/L (98-107); CREATININE 2.8 MG/DL (0.55-1.30); POTASSIUM 5.2 MMOL/L (3.5-5.1); SODIUM 141 MMOL/L (136-145)
[2019-09-05 07:16] LABS: BASOPHILS % (AUTO) 1.2 % (0.0-2.0); EOSINOPHILS % (AUTO) 6.5 % (0.0-3.0); HEMATOCRIT 29.4 % (37.0-47.0); HEMOGLOBIN 9.9 G/DL (12.0-16.0); LYMPHOCYTES % (AUTO) 31.2 % (20.0-45.0); MEAN CORPUSCULAR VOLUME 84 FL (80-99); MONOCYTES % (AUTO) 6.4 % (1.0-10.0); NEUTROPHILS % (AUTO) 54.6 % (45.0-75.0); PLATELET COUNT 185 K/UL (150-450); RED BLOOD COUNT 3.52 M/UL (4.20-5.40); RED CELL DISTRIBUTION WIDTH 12.5 % (11.6-14.8); WHITE BLOOD COUNT 6.8 K/UL (4.8-10.8)
[2019-09-05 08:00] VITALS: BP_SYST 140; BP_SYST 144; BP_DIAS 72; BP_DIAS 74
--- NOTE | 2019-09-05 08:00 | NUR ---
NURSE NOTES: Patient alert and oriented,respirations unlabored.Sitting up in bed and eating breakfast.No concerns at this time.Saline lock in place. Bed alarm senior telecommunications consultant light within reach.
[2019-09-05] MEDS ORDERED: D5W 275ml ONE (08:51)
[2019-09-05] MEDS ORDERED: Tubing IV Secondary IV ONE (08:51)
[2019-09-05] MEDS: Heparin 5000 units/ml inj SUBQ SCH (09:00)
--- NOTE | 2019-09-05 09:05 | Urology Progress Note ---
Assessment/Plan Assessment/Plan: 1. Bilateral hydronephrosis, which appears to be chronic. 2. Renal insufficiency, acute on chronic. 3. Lower urinary tract symptoms. 4. Probable neurogenic bladder. 5. UTI, colonization, and pyuria. 6. Hematuria. 7. Proteinuria. 8. Renal atrophy. monitor clinically relatively low PVR abx as ordered cysto at some point, pt has agreed to outpt procedure pt refuses torres d/w primary service extensively DC planning to SNF Subjective Allergies: Coded Allergies: CODEINE (Verified Allergy, Unknown, 08/24/19) NEUROMUSCULAR BLOCKERS, STEROIDAL (Verified Allergy, Unknown, 08/24/19) Uncoded Allergies: ANABOLIC STEROIDS (Allergy, Unknown, 08/24/19) STEROIDS (Allergy, Unknown, 08/24/19) Subjective all noted Objective Last 24 Hour Vital Signs Date Time Temp Pulse Resp B/P (MAP) Pulse Ox O2 Delivery O2 Flow Rate FiO2 09/05/19 05:42 151/72 09/05/19 04:00 97.7 66 20 151/72 (98) 99 09/05/19 00:00 97.3 81 24 149/80 (103) 97 09/04/19 21:59 133/83 09/04/19 21:00 Room Air 09/04/19 20:00 97.2 86 22 133/83 (100) 97 09/04/19 16:00 97.0 72 19 136/72 (93) 98 09/04/19 15:14 145/75 09/04/19 12:00 97.7 75 18 145/75 (98) 96 Intake and Output 09/04/19 09/05/19 19:00 07:00 Intake Total 354 ml 360 ml Output Total 1 ml 400 ml Balance 353 ml -40 ml Intake Oral 354 ml Other 360 ml Output Urine Total 1 ml 400 ml # Voids 1 Microbiology Date/Time Source Procedure Growth Status 08/27/19 07:05 Blood Blood Culture - Final NO GROWTH AFTER 5 DAYS Complete 08/30/19 16:40 Nasopharynx Coronavirus COVID-19 PCR (DANIEL) - Final Complete 08/27/19 22:30 Urine,Clean Catch Urine Culture - Final Escherichia Coli - Esbl Enterococcus Faecalis Complete Current Medications Medications (Trade) Dose Ordered Sig/Gurpreet Route PRN Reason Start Time Stop Time Status Last Admin Dose Admin Acetaminophen (Tylenol) 650 mg Q4H PRN ORAL Mild Pain (Pain Scale 1-3) 09/01/19 05:45 09/23/19 05:44 Acetaminophen (Tylenol) 650 mg Q4H PRN ORAL Temp >100.5 09/01/19 05:45 09/23/19 05:44 Ampicillin (Ampicillin) 500 mg EVERY 12 HOURS ORAL 09/01/19 09:00 09/06/19 20:59 09/04/19 21:59 Barium Sulfate (Readi-Cat 2) 450 ml NOW PRN ORAL Radiology Procedure 09/01/19 06:30 Bisacodyl (Dulcolax) 10 mg DAILYPRN PRN RECTAL Constipation 09/01/19 05:45 11/22/19 05:44 Clonidine HCl (Catapres Tab) 0.1 mg Q8H PRN ORAL SBP > 160mmHg 09/01/19 05:45 11/22/19 05:44 Dextrose (Dextrose 50%) 25 ml Q30M PRN IV Hypoglycemia 09/01/19 05:45 11/22/19 18:14 Dextrose (Dextrose 50%) 50 ml Q30M PRN IV Hypoglycemia 09/01/19 05:45 11/22/19 18:14 Docusate Sodium (Colace) 100 mg EVERY 12 HOURS ORAL 09/01/19 09:00 09/23/19 20:59 09/04/19 21:58 Guaifenesin (Mucinex ER) 600 mg TWICE A DAY ORAL 09/01/19 09:00 09/08/19 08:59 09/02/19 17:16 Guaifenesin (Robitussin) 200 mg Q4H PRN ORAL For Cough 09/01/19 05:45 11/22/19 05:44 09/03/19 17:44 Heparin Sodium (Porcine) (Heparin 5000 units/ml) 5,000 units EVERY 12 HOURS SUBQ 09/01/19 09:00 10/08/19 20:59 09/01/19 10:04 Hydralazine HCl (Apresoline) 10 mg EVERY 8 HOURS ORAL 09/01/19 06:00 11/22/19 21:59 09/05/19 05:42 Lorazepam (Ativan) 1 mg Q8H PRN ORAL For Anxiety 09/01/19 05:45 09/06/19 05:44 09/04/19 21:59 Magnesium Hydroxide (Mom) 30 ml HSPRN PRN ORAL Constipation 09/01/19 18:15 09/23/19 18:14 Meropenem 500 mg/ Sodium Chloride 55 ml @ 110 mls/hr EVERY 12 HOURS IVPB 09/01/19 09:00 09/06/19 08:59 09/04/19 21:58 Methimazole (Tapazole) 10 mg DAILY ORAL 09/01/19 09:00 11/23/19 08:59 09/04/19 09:22 Ondansetron HCl (Zofran) 4 mg Q6H PRN IVP Nausea & Vomiting 09/01/19 05:45 09/23/19 05:44 Polyethylene Glycol (Miralax) 17 gm DAILYPRN PRN ORAL Constipation 09/01/19 05:45 09/23/19 05:44 Sevelamer Carbonate (Renvela) 800 mg THREE TIMES A DAY ORAL 09/02/19 13:00 12/01/19 12:59 09/04/19 18:26 Laboratory Tests 09/05/19 06:15: White Blood Count 6.8, Red Blood Count 3.52L, Hemoglobin 9.9L, Hematocrit 29.4L , Mean Corpuscular Volume 84, Mean Corpuscular Hemoglobin 28.1, Mean Corpuscular Hemoglobin Concent 33.6, Red Cell Distribution Width 12.5, Platelet Count 185, Mean Platelet Volume 6.6, Neutrophils (%) (Auto) 54.6, Lymphocytes (% ) (Auto) 31.2, Monocytes (%) (Auto) 6.4, Eosinophils (%) (Auto) 6.5H, Basophils (%) (Auto) 1.2, Sodium Level 141, Potassium Level 5.2H, Chloride Level 109H, Carbon Dioxide Level 25, Anion Gap 7, Blood Urea Nitrogen 60H, Creatinine 2.8H, Estimat Glomerular Filtration Rate 16.8, Glucose Level 88, Calcium Level 8.7, Total Bilirubin 0.3, Aspartate Amino Transf (AST/SGOT) 17, Alanine Aminotransferase (ALT/SGPT) 11L, Alkaline Phosphatase 88, Total Protein 6.7, Albumin 2.5L, Globulin 4.2, Albumin/Globulin Ratio 0.6L Height (Feet): 5 Height (Inches): 4.00 Weight (Pounds): [address] A/P (08/31) noted Nuc renal scan (08/31) noted Jason Vicente MD September 05, 2019 09:05
--- NOTE | 2019-09-05 09:06 | Nephrology Progress Note ---
Assessment/Plan Plan #Acute on chronic kidney disease- baseline cr close to 2- renal US with bilatera hydronephrosis #pneumonia - left lower lobe #r/o COVID # hyperthyroidism # multiple sclerosis #HTN # COPD - renal US with bilateral severe hydronephrosis - refused torres- bladder scan q6hr Cr down to 2.7 refusing torres consideration of cystoscopy inpatient vs outpatient? - CT abd/pelvis: Impression: Massive bilateral hydronephrosis and bilateral hydroureter, with marked renal volume loss. As the ureters appear to be patulous and communicate freely with the bladder lumen, this is presumably due to chronic bladder outlet obstruction. - nuc med scan: Impression: Limited exam, as described, due to shorter than ideal scanning time. Gradual slowly rising renal and collecting system uptake is demonstrated. Tracer is seen to fill the bilateral renal collecting systems but not the ureters and therefore the point/etiology of obstruction causing the hydronephrosis demonstrated on earlier studies is not clearly evident Renal split function 57% left, 43% right - Urology eval --> add renvela 800mg TID - COVID ruled out - currently satting well on room air - check 2d echo--> BNP can be elevated due to decreased renal clearance - antibiotics per ID- on augmentin and doxy - strict I&Os - daily weight - monitor lytes and cr closely - continue hydralazine 10mg TID - check PTH/vit D pending - monitor phos - check iron panel and ferritin-> adequate Subjective ROS Limited/Unobtainable: No Constitutional: Denies: no symptoms, chills, diaphoresis, fever, malaise, weakness, other HEENT: Denies: no symptoms, eye pain, blurred vision, tearing, double vision, ear pain, ear discharge, nose pain, nose congestion, throat pain, throat swelling, mouth pain, mouth swelling, other Genitourinary: Denies: no symptoms, burning, discharge, frequency, flank pain, hematuria, incontinence, pain, urgency, other 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: Denies: no symptoms, anxiety, depressed, emotional problems, headache, numbness, paresthesia, pre-existing deficit, seizure, tingling, tremors, weakness, other Subjective Cr down to 2.7 refusing torres consideration of cystoscopy inpatient vs outpatient? CT abd/pelvis: Impression: Massive bilateral hydronephrosis and bilateral hydroureter, with marked renal volume loss. As the ureters appear to be patulous and communicate freely with the bladder lumen, this is presumably due to chronic bladder outlet obstruction. nuc med scan: Impression: Limited exam, as described, due to shorter than ideal scanning time. Gradual slowly rising renal and collecting system uptake is demonstrated. Tracer is seen to fill the bilateral renal collecting systems but not the ureters and therefore the point/etiology of obstruction causing the hydronephrosis demonstrated on earlier studies is not clearly evident Renal split function 57% left, 43% right Satting well on room air cr stable Bp stable Renal US: Impression: Bilateral severe hydronephrosis. Marked cortical thinning indicates that this is probably long-standing. Objective Objective Last 24 Hour Vital Signs Date Time Temp Pulse Resp B/P (MAP) Pulse Ox O2 Delivery O2 Flow Rate FiO2 09/05/19 05:42 151/72 09/05/19 04:00 97.7 66 20 151/72 (98) 99 09/05/19 00:00 97.3 81 24 149/80 (103) 97 09/04/19 21:59 133/83 09/04/19 21:00 Room Air 09/04/19 20:00 97.2 86 22 133/83 (100) 97 09/04/19 16:00 97.0 72 19 136/72 (93) 98 09/04/19 15:14 145/75 09/04/19 12:00 97.7 75 18 145/75 (98) 96 Intake and Output 09/04/19 09/05/19 19:00 07:00 Intake Total 354 ml 360 ml Output Total 1 ml 400 ml Balance 353 ml -40 ml Intake Oral 354 ml Other 360 ml Output Urine Total 1 ml 400 ml # Voids 1 Laboratory Tests 09/05/19 06:15: White Blood Count 6.8, Red Blood Count 3.52L, Hemoglobin 9.9L, Hematocrit 29.4L , Mean Corpuscular Volume 84, Mean Corpuscular Hemoglobin 28.1, Mean Corpuscular Hemoglobin Concent 33.6, Red Cell Distribution Width 12.5, Platelet Count 185, Mean Platelet Volume 6.6, Neutrophils (%) (Auto) 54.6, Lymphocytes (% ) (Auto) 31.2, Monocytes (%) (Auto) 6.4, Eosinophils (%) (Auto) 6.5H, Basophils (%) (Auto) 1.2, Sodium Level 141, Potassium Level 5.2H, Chloride Level 109H, Carbon Dioxide Level 25, Anion Gap 7, Blood Urea Nitrogen 60H, Creatinine 2.8H, Estimat Glomerular Filtration Rate 16.8, Glucose Level 88, Calcium Level 8.7, Total Bilirubin 0.3, Aspartate Amino Transf (AST/SGOT) 17, Alanine Aminotransferase (ALT/SGPT) 11L, Alkaline Phosphatase 88, Total Protein 6.7, Albumin 2.5L, Globulin 4.2, Albumin/Globulin Ratio 0.6L Height (Feet): 5 Height (Inches): 4.00 Weight (Pounds): 136 Vicente Jaimes M.D. September 05, 2019 09:06
--- NOTE | 2019-09-05 09:22 | General Progress Note ---
Assessment/Plan Assessment/Plan: 68 y/o F w/PMH hyperthyroidism, multiple sclerosis, HTN and COPD who presents from [facility] for cough and abnormal labs. On admission, CXR revealed left lower lobe pleural effusion, Cr 3.2. Patient admitted for further treatment and evaluation, and COVID-19 negative. #HCAP w/Left pleural effusion #Bacteremia 1/2 Staph coag negative -cont. 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 -suspect neurogenic bladder, pt may need chronic torres but pt refusing at this time -nuc med renal scan w/o obvious site of obstruction -CT A/P w/severe b/l hydro -pt w/minimal PVR -cont to monitor PVR, straight cath PRN -Urology following: pt refused torres, pt refused cystoscopy in previous discussions -d/w nephro, cont to monitor Cr for one more day -asked urology to speak w/pt regarding possible in-pt cystoscopy yesterday, urology stated pt refused to speak with him and did not give a straight answer regaurding if she wanted further treatment done in-pt versus as o/p -pt this AM stated she prefers to have cystoscopy done as o/p with another urologist -d/w nephro, pt is stable for d/c to SNF #COPD -not in exacerbation at this time -currently on RA -ctm #Multiple sclerosis -no acute issues #Hyperthyroidism -home med methimazole 10 mg PO q daily #Anxiety -ativan 0.5 mg PO PRN -Psych consulted, recs appreciated Dispo: d/c to SNF ([facility]) today DVT PPx: Heparin Time spent on encounter: 26 mins, 12 on counseling, coordination of care w/Pt, RN, urology, nephro and CM. Time of note doesn't reflect time of encounter. Subjective Allergies: Coded Allergies: CODEINE (Verified Allergy, Unknown, 08/24/19) NEUROMUSCULAR BLOCKERS, STEROIDAL (Verified Allergy, Unknown, 08/24/19) Uncoded Allergies: ANABOLIC STEROIDS (Allergy, Unknown, 08/24/19) STEROIDS (Allergy, Unknown, 08/24/19) Subjective F/u for HCAP/PNA, Hydronephrosis w/SAJAN on CKD, COVID negative. Pt denies any CP, SOB, abd pain. States she prefers o/p cystoscopy and wants to go home at this time. 12 pt ROS neg except as above Objective Last 24 Hour Vital Signs Date Time Temp Pulse Resp B/P (MAP) Pulse Ox O2 Delivery O2 Flow Rate FiO2 09/05/19 05:42 151/72 09/05/19 04:00 97.7 66 20 151/72 (98) 99 09/05/19 00:00 97.3 81 24 149/80 (103) 97 09/04/19 21:59 133/83 09/04/19 21:00 Room Air 09/04/19 20:00 97.2 86 22 133/83 (100) 97 09/04/19 16:00 97.0 72 19 136/72 (93) 98 09/04/19 15:14 145/75 09/04/19 12:00 97.7 75 18 145/75 (98) 96 Intake and Output 09/04/19 09/05/19 19:00 07:00 Intake Total 354 ml 360 ml Output Total 1 ml 400 ml Balance 353 ml -40 ml Intake Oral 354 ml Other 360 ml Output Urine Total 1 ml 400 ml # Voids 1 Laboratory Tests 09/05/19 06:15: White Blood Count 6.8, Red Blood Count 3.52L, Hemoglobin 9.9L, Hematocrit 29.4L , Mean Corpuscular Volume 84, Mean Corpuscular Hemoglobin 28.1, Mean Corpuscular Hemoglobin Concent 33.6, Red Cell Distribution Width 12.5, Platelet Count 185, Mean Platelet Volume 6.6, Neutrophils (%) (Auto) 54.6, Lymphocytes (% ) (Auto) 31.2, Monocytes (%) (Auto) 6.4, Eosinophils (%) (Auto) 6.5H, Basophils (%) (Auto) 1.2, Sodium Level 141, Potassium Level 5.2H, Chloride Level 109H, Carbon Dioxide Level 25, Anion Gap 7, Blood Urea Nitrogen 60H, Creatinine 2.8H, Estimat Glomerular Filtration Rate 16.8, Glucose Level 88, Calcium Level 8.7, Total Bilirubin 0.3, Aspartate Amino Transf (AST/SGOT) 17, Alanine Aminotransferase (ALT/SGPT) 11L, Alkaline Phosphatase 88, Total Protein 6.7, Albumin 2.5L, Globulin 4.2, Albumin/Globulin Ratio 0.6L Height (Feet): 5 Height (Inches): 4.00 Weight (Pounds): 136 Objective General: NAD, A&O x 3 HEENT: NCAT, EOMi, MMM CV: RRR, no murmurs, rubs, or gallops Pulm: CTAB, no wheezing, rales, rhonchi GI: Soft, nontender, nondistended, bowel sounds present Ext: No lower extremity edema bilaterally, RUE contracted hand Skin: no rashes lesions or ulcers Abdias Blanc M.D. September 05, 2019 09:22
[2019-09-05] MEDS: Docusate 100mg cap ORAL SCH (09:52)
[2019-09-05] MEDS: methIMAzole 10mg tab ORAL SCH (09:52)
[2019-09-05] MEDS: guaiFENesin ER 600mg tab ORAL SCH ×2 (09:52→10:09)
[2019-09-05] MEDS: Meropenem 500 MG in NS 55 ML IVPB SCH (09:54)
--- NOTE | 2019-09-05 11:19 | Discharge Summary ---
Discharge Summary Hospital Course Date of Admission Aug 24, 2019 at 16:56 Date of Discharge 09/05/19 Admitting Diagnosis pleural effusion r/o covid HPI Tracy Doyle is a 68 year old female who was admitted on Aug 24, 2019 at 16: 56 for Pleural Effusion,Rule Out Covid Hospital Course 68 y/o F w/PMH hyperthyroidism, multiple sclerosis, HTN and COPD who presents from [facility] for cough and abnormal labs. On admission, CXR revealed left lower lobe pleural effusion, Cr 3.2. COVID-19 negative. Pulm consulted, stated no need for thoracentesis at this time. Pt w/staph coag neg bacteremia, repeats negative, likely contaminants. Pt was treated w/abx per ID for HCAP and ESBL UTI with symptomatic improvement. On admission pt noted w/SAJAN , suspect neurogenic bladder. Urology, Dr. Vicente, and Nephro, Dr. Jaimes, were consulted. Pt underwent nuclear renal scan w/o obvious site of obstruction. CT a/p w/severe b/l hydronephrosis. Pt had refused torres and stated she wishes for o/p cystoscopy with another urologist. Nephro, urology and myself have explained to pt multiples times importance for f/u and need for further studies to help prevent further kidney damage, pt expressed understanding. Pt to be d/c to SNF in stable condition. 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 Discharge Medications Continued Medications: Acetaminophen* (Acetaminophen 325MG Tablet*) 325 Mg Tablet 650 MG ORAL Q4H PRN for fever, TAB Acetaminophen* (Acetaminophen 325MG Tablet*) 325 Mg Tablet 650 MG ORAL Q6H PRN for mild pain, TAB Bisacodyl (Laxative Suppository) 10 Mg Supp.rect 10 MG RC DAILY for constipation, SUPP Ca Cmb 1/Vit D3/B-6/Fa/B12/Av (Vitamin D3-Aloe 1,000 Unit Tab) 1 Each Tablet 1 EACH PO DAILY for supplement, TAB Docusate Sodium* (Docusate Sodium*) 100 Mg Capsule 100 MG ORAL DAILY for diarrhea, CAP Ferrous Sulfate* (Ferrous Sulfate*) 325 Mg Tablet 325 MG ORAL DAILY for supplement, #30 TAB 0 Refills Folic Acid* (Folic Acid*) 1 Mg Tablet 1 MG ORAL DAILY for supplement, TAB Furosemide* (Lasix*) 20 Mg Tablet 20 MG ORAL DAILY for pleural effusion, #5 TAB Guaifenesin (Mucinex) 600 Mg Tab.er.12h 200 MG PO Q4HR for cough, TAB Hydralazine Hcl* (Hydralazine Hcl*) 10 Mg Tablet 10 MG ORAL EVERY 8 HOURS for HTN, TAB Ipratropium/Albuterol Sulfate (DuoNeb 0.5-3(2.5)mg/3ml) 3 Ml Ampul.neb 3 ML HHN Q6HR for SOB/wheezing, EA Magnesium Hydroxide* (Milk Of Magnesia*) 400 Mg/5 Ml Oral.susp 30 ML ORAL BID for constipation, ML Methimazole (Methimazole) 10 Mg Tablet 10 MG PO DAILY for hyperthyroidism, TAB Na Phos,M-B/Na Phos,Di-Ba* (Fleet Enema*) 133 Ml Enema 133 ML RECTAL DAILY for constipation, ML 0 Refills Polyethylene Glycol 3350* (Polyethylene Glycol 3350*) 17 Gm Powd.pack 17 GM ORAL DAILY for constipation, PACKET Potassium Chloride (Klor-Con M20) 20 Meq Tab.er.prt 20 MEQ ORAL DAILY for supplement for 5 Days, #5 TAB 0 Refills Quetiapine Fumarate* (Seroquel*) 25 Mg Tablet 25 MG ORAL QHS for psychosis, TAB Vitamin B Cmplx/Vit C/Folic AC (Nephro-Jerry Tablet) 0.8 Mg Tablet 1 TAB ORAL DAILY for supplement, #30 TAB 0 Refills Discharge Condition Upon Discharge: stable Discharge Vital Signs Last Vital Signs Date Time Temp Pulse Resp B/P (MAP) Pulse Ox O2 Delivery O2 Flow Rate FiO2 09/05/19 05:42 151/72 09/05/19 04:00 97.7 66 20 99 09/04/19 21:00 Room Air Discharge Disposition Patient was discharged to SNF Discharge Instructions Discharge Instructions Follow up with: PCP, urologist, pipeliner Abdias Blanc M.D. September 05, 2019 11:19
--- NOTE | 2019-09-05 11:29 | NUR ---
DISCHARGE PLANNED: SPOKE TO PATIENT AT BEDSIDE PATIENT AGREEABLE TO TRANSFER TO [facility] T:[phone]~~ FOR NURSE TO NURSE REPORT [facility] PICKUP TIME @2PM SISTER AKHIL/MONCHO WHYTE UNAVAILABLE TO LEAVE MESSAGES
--- NOTE | 2019-09-05 11:56 | NUR ---
DISCHARGE PLANNED: SPOKE TO PATIENT AT BEDSIDE PATIENT AGREEABLE TO TRANSFER TO [facility] T:[phone]~~ FOR NURSE TO NURSE REPORT ROOM# 5B SKILLED [facility] PICKUP TIME @2PM SISTER AKHIL/MONCHO WHYTE UNAVAILABLE TO LEAVE MESSAGES
[2019-09-05 12:00] VITALS: BP 140/72
--- NOTE | 2019-09-05 12:18 | Pulmonology Progress Note ---
Subjective ROS Limited/Unobtainable: No Interval Events: Saturating well on RA Constitutional: Denies: fever HEENT: Repors: no symptoms Respiratory: Reports: no symptoms Cardiovascular: Reports: no symptoms; Denies: chest pain, palpitations, other Gastrointestinal/Abdominal: Denies: nausea, vomiting, diarrhea Psychiatric: Reports: no symptoms Skin: Denies: rash Musculoskeletal: Denies: pain Allergies: Coded Allergies: CODEINE (Verified Allergy, Unknown, 08/24/19) NEUROMUSCULAR BLOCKERS, STEROIDAL (Verified Allergy, Unknown, 08/24/19) Uncoded Allergies: ANABOLIC STEROIDS (Allergy, Unknown, 08/24/19) STEROIDS (Allergy, Unknown, 08/24/19) Objective Last 24 Hour Vital Signs Date Time Temp Pulse Resp B/P (MAP) Pulse Ox O2 Delivery O2 Flow Rate FiO2 09/05/19 09:00 Room Air 09/05/19 08:00 97.9 72 19 140/72 (94) 97 09/05/19 05:42 151/72 09/05/19 04:00 97.7 66 20 151/72 (98) 99 09/05/19 00:00 97.3 81 24 149/80 (103) 97 09/04/19 21:59 133/83 09/04/19 21:00 Room Air 09/04/19 20:00 97.2 86 22 133/83 (100) 97 09/04/19 16:00 97.0 72 19 136/72 (93) 98 09/04/19 15:14 145/75 Intake and Output 09/04/19 09/05/19 19:00 07:00 Intake Total 354 ml 360 ml Output Total 1 ml 400 ml Balance 353 ml -40 ml Intake Oral 354 ml Other 360 ml Output Urine Total 1 ml 400 ml # Voids 1 General Appearance: no acute distress HEENT: normocephalic, atraumatic, anicteric, mucous membranes moist Respiratory/Chest: chest wall non-tender Cardiovascular: normal peripheral pulses Abdomen: normal bowel sounds, soft, non tender, no organomegaly, non distended Genitourinary: other - no torres Extremities: no cyanosis Skin: no rash 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: clinical microbiologist II-XII grossly normal, alert, oriented x 3, responsive Lymphatic: no neck adenopathy Musculoskeletal: no effusion Laboratory Tests 09/05/19 06:15: White Blood Count 6.8, Red Blood Count 3.52L, Hemoglobin 9.9L, Hematocrit 29.4L , Mean Corpuscular Volume 84, Mean Corpuscular Hemoglobin 28.1, Mean Corpuscular Hemoglobin Concent 33.6, Red Cell Distribution Width 12.5, Platelet Count 185, Mean Platelet Volume 6.6, Neutrophils (%) (Auto) 54.6, Lymphocytes (% ) (Auto) 31.2, Monocytes (%) (Auto) 6.4, Eosinophils (%) (Auto) 6.5H, Basophils (%) (Auto) 1.2, Sodium Level 141, Potassium Level 5.2H, Chloride Level 109H, Carbon Dioxide Level 25, Anion Gap 7, Blood Urea Nitrogen 60H, Creatinine 2.8H, Estimat Glomerular Filtration Rate 16.8, Glucose Level 88, Calcium Level 8.7, Total Bilirubin 0.3, Aspartate Amino Transf (AST/SGOT) 17, Alanine Aminotransferase (ALT/SGPT) 11L, Alkaline Phosphatase 88, Total Protein 6.7, Albumin 2.5L, Globulin 4.2, Albumin/Globulin Ratio 0.6L Current Medications Medications (Trade) Dose Ordered Sig/Gurprete Route PRN Reason Start Time Stop Time Status Last Admin Dose Admin Acetaminophen (Tylenol) 650 mg Q4H PRN ORAL Mild Pain (Pain Scale 1-3) 09/01/19 05:45 09/23/19 05:44 Acetaminophen (Tylenol) 650 mg Q4H PRN ORAL Temp >100.5 09/01/19 05:45 09/23/19 05:44 Ampicillin (Ampicillin) 500 mg EVERY 12 HOURS ORAL 09/01/19 09:00 09/06/19 20:59 09/05/19 09:53 Barium Sulfate (Readi-Cat 2) 450 ml NOW PRN ORAL Radiology Procedure 09/01/19 06:30 Bisacodyl (Dulcolax) 10 mg DAILYPRN PRN RECTAL Constipation 09/01/19 05:45 11/22/19 05:44 Clonidine HCl (Catapres Tab) 0.1 mg Q8H PRN ORAL SBP > 160mmHg 09/01/19 05:45 11/22/19 05:44 Dextrose (Dextrose 50%) 25 ml Q30M PRN IV Hypoglycemia 09/01/19 05:45 7/29/20 18:14 Dextrose (Dextrose 50%) 50 ml Q30M PRN IV Hypoglycemia 09/01/19 05:45 11/22/19 18:14 Docusate Sodium (Colace) 100 mg EVERY 12 HOURS ORAL 09/01/19 09:00 09/23/19 20:59 09/05/19 09:52 Guaifenesin (Mucinex ER) 600 mg TWICE A DAY ORAL 09/01/19 09:00 09/08/19 08:59 09/02/19 17:16 Guaifenesin (Robitussin) 200 mg Q4H PRN ORAL For Cough 09/01/19 05:45 11/22/19 05:44 09/03/19 17:44 Heparin Sodium (Porcine) (Heparin 5000 units/ml) 5,000 units EVERY 12 HOURS SUBQ 09/01/19 09:00 10/08/19 20:59 09/01/19 10:04 Hydralazine HCl (Apresoline) 10 mg EVERY 8 HOURS ORAL 09/01/19 06:00 11/22/19 21:59 09/05/19 05:42 Lorazepam (Ativan) 1 mg Q8H PRN ORAL For Anxiety 09/01/19 05:45 09/06/19 05:44 09/04/19 21:59 Magnesium Hydroxide (Mom) 30 ml HSPRN PRN ORAL Constipation 09/01/19 18:15 09/23/19 18:14 Meropenem 500 mg/ Sodium Chloride 55 ml @ 110 mls/hr EVERY 12 HOURS IVPB 09/01/19 09:00 09/06/19 08:59 09/05/19 09:54 Methimazole (Tapazole) 10 mg DAILY ORAL 09/01/19 09:00 11/23/19 08:59 09/05/19 09:52 Ondansetron HCl (Zofran) 4 mg Q6H PRN IVP Nausea & Vomiting 09/01/19 05:45 09/23/19 05:44 Polyethylene Glycol (Miralax) 17 gm DAILYPRN PRN ORAL Constipation 09/01/19 05:45 09/23/19 05:44 Sevelamer Carbonate (Renvela) 800 mg THREE TIMES A DAY ORAL 09/02/19 13:00 12/01/19 12:59 09/05/19 09:52 Assessment/Plan Assessment/Plan IMPRESSION: 1. Possible left lung pneumonia. Followup CXR continues to show left lung infiltrate vs atelectasis 2. Small pleural effusion, no indication for thoracentesis. 3. UTI DISCUSSION: Continue antibiotics per ID. COVID 19 pcr negative Currently saturating well on room air. I will follow. Kp Ch Omar Syed MD September 05, 2019 12:18
--- NOTE | 2019-09-05 14:27 | NUR ---
NURSE NOTES Patient discharge at this time,IV removed,IV hospital band removed. Patient has her personal belongings.Report given to facility by [facility] Charge Nurse.Patient transported to facility by [facility] personnel.
--- NOTE | 2019-09-05 14:27 | NUR ---
DISCHARGE NOTE: Pt is discharged to [facility] in stable condition by ambulance, both sisters notified about discharge. Belongings checked. IV line removed, no infection or inflammation noted. Report given to Jovani ([facility]).
--- NOTE | 2019-09-05 22:56 | Psych Consult Progress Note ---
Psychiatry Progress Note Psychiatry Progress Note Neurological/Psychiatric: Reports: anxiety, depressed, emotional problems Allergies: Coded Allergies: CODEINE (Verified Allergy, Unknown, 08/24/19) NEUROMUSCULAR BLOCKERS, STEROIDAL (Verified Allergy, Unknown, 08/24/19) Uncoded Allergies: ANABOLIC STEROIDS (Allergy, Unknown, 08/24/19) STEROIDS (Allergy, Unknown, 08/24/19) Objective Data Height (Feet): 5 Height (Inches): 4.00 Weight (Pounds): 136 General Appearance: no apparent distress, alert, alert oriented x3 Behavior Mannerisms: good eye contact Mental Status Exam - Thought P: logical - Alert, oriented times self, place, situation. Additional Comments: Alert, oriented times self, place, situation. Mood is anxious. Affect is flat. Thought process concrete. Thought content, no suicidal or homicidal ideation. Cognition is impaired. Insight and judgment is impaired. Assessment/Plan [place] I: ASSESSMENT: 1. Anxiety disorder. 2. Major depressive disorder. Assessment/Plan: PLAN: 1. Continue Ativan p.r.n. 2. Patient is reluctant to take any other psychotropic medications. 3. Discussed with the nurse. Darleen Nagel MD September 05, 2019 22:56
== END 2019-09-05 14:24 | DRG 194 ==
LOC: EDBD 16:14 → EMR 16:51 → 2E 16:56 → EDBEDREQ 18:25 → 2E 08-25 02:29 → 4E 09-01 04:36
DX: J18.9 Pneumonia, unspecified organism (principal); N17.9 Acute kidney failure, unspecified; N39.0 Urinary tract infection, site not specified; Z16.12 Extended spectrum beta lactamase (ESBL) resistance; N13.30 Unspecified hydronephrosis; N18.4 Chronic kidney disease, stage 4 (severe); G35 Multiple sclerosis; Z88.6 Allergy status to analgesic agent; Z88.8 Allergy status to other drugs, medicaments and biological substances; J44.9 Chronic obstructive pulmonary disease, unspecified; B96.89 Other specified bacterial agents as the cause of diseases classified elsewhere; N31.9 Neuromuscular dysfunction of bladder, unspecified; E05.90 Thyrotoxicosis, unspecified without thyrotoxic crisis or storm; F41.9 Anxiety disorder, unspecified; F32.9 Major depressive disorder, single episode, unspecified
CPT/HCPCS: 36415; 71045; 74176; 76770; 78707; 80048; 80053; 81003; 82043; 82044; 82270; 82306; 82570; 82728; 82962; 83540; 83550; 83605; 83690; 83735; 83880; 83970; 84100; 84300; 84484; 85007; 85025; 87040; 87086; 87181; 87635; 93005; 93306; 99285

== ENCOUNTER 2019-09-23 22:47 | Inpatient (IN) | payer MEDICARE, MEDICAID ==
[~2019-09-23] VITALS: Ht 167.6 cm; Wt 67.8 kg
[2019-09-23 22:47] VITALS: BP 130/80
[~2019-09-23 22:47] MED LIST: ACETAMINOPHEN325 M1 ORAL; DOCUSATE SODIU100 MG ORAL; DUONEB 0.5-3(2.53 ML HHN; FERROUS SULFAT325 MG ORAL; FLEET ENEMA133 ML RECTAL; FOLIC ACID1 MG ORAL; FUROSEMIDE20 M1 ORAL; HYDRALAZINE HCL10 MG ORAL; K-DUR20 MEQ ORAL; LAXATIVE SUPPOS10 MG RC; METHIMAZOLE10 MG PO; MILK OF MA400 MG/51 ORAL; MUCINEX600 MG PO; NEPHROVITE1 TAB ORAL; POLYETHYLENE GL17 GM ORAL; SEROQUEL25 MG ORAL; VITAMIN D3-ALO1 EACH PO
--- NOTE | 2019-09-23 23:37 | Emergency Room Report ---
History of Present Illness General Chief Complaint: Abnormal Labs Source: Patient, Medical Record, EMS Present Illness HPI Patient is a 68-year-old female brought in by EMS from her extended care facility for abnormal labs. Patient was brought in for elevated BUN. Patient states that she has chronic pain which is unchanged. She denies any fever or chills. She denies any chest pain, cough or shortness of breath. Patient denies any abdominal pain, nausea or vomiting. Allergies: Coded Allergies: CODEINE (Verified Allergy, Unknown, 08/24/19) NEUROMUSCULAR BLOCKERS, STEROIDAL (Verified Allergy, Unknown, 08/24/19) Uncoded Allergies: ANABOLIC STEROIDS (Allergy, Unknown, 08/24/19) STEROIDS (Allergy, Unknown, 08/24/19) COVID-19 Screening Contact w/high risk pt: No Recent Travel to affected area: No Experienced COVID-19 symptoms?: No COVID-19 symptoms experienced: Cough COVID-19 Testing performed SR TECHNICAL SALES CONSULTANT: No Patient History Last Menstrual Period: na Reviewed Nursing Documentation: PMH: Agreed; PSxH: Agreed Nursing Documentation-PMH Past Medical History: No History, Except For Hx Hypertension: Yes Hx COPD: Yes Hx Cancer: No Hx Gastrointestinal Problems: No History Of Psychiatric Problem: Yes - Anxiety, Hx Neurological Problems: Yes - multiple sclerosis, osteoarthritis Review of Systems All Other Systems: negative except mentioned in HPI Physical Exam Vital Signs Date Time Temp Pulse Resp B/P (MAP) Pulse Ox O2 Delivery O2 Flow Rate FiO2 09/23/19 22:37 98.2 84 19 145/74 (97) 98 Room Air Sp02 EP Interpretation: reviewed, normal General Appearance: Chronically Ill Head: normocephalic, atraumatic Eyes: bilateral eye normal inspection, bilateral eye PERRL ENT: dry mucus membranes Neck: full range of motion, supple/symm/no masses Respiratory: no respiratory distress, no accessory muscle use, speaking full sentences Cardiovascular #1: regular rate, rhythm Gastrointestinal: non tender, soft, overweight Rectal: deferred Genitourinary: no CVA tenderness Neurologic: media relations intern III-XII nml as tested Skin: no rash Lymphatic: no adenopathy Medical Decision Making Diagnostic Impression: Primary Impression: UTI (urinary tract infection) Additional Impressions: Anemia Leukocytosis Acute renal failure Elevated lipase ER Course Patient has no acute complaints. Patient has UTI. Urine culture sent. Patient started on Rocephin. Patient also given 1 L of IV fluids. Patient has elevated lipase but has no abdominal pain. And normal LFTs this can be worked up as an inpatient. Patient has acute renal insufficiency with anemia not requiring acute blood transfusion. Patient to be admitted for further treatment and evaluation. Laboratory Tests Test 09/23/19 22:59 White Blood Count 11.8 K/UL (4.8-10.8) H Red Blood Count 3.64 M/UL (4.20-5.40) L Hemoglobin 10.3 G/DL (12.0-16.0) L Hematocrit 29.4 % (37.0-47.0) L Mean Corpuscular Volume 81 FL (80-99) Mean Corpuscular Hemoglobin 28.2 PG (27.0-31.0) Mean Corpuscular Hemoglobin Concent 34.9 G/DL (32.0-36.0) Red Cell Distribution Width 11.7 % (11.6-14.8) Platelet Count 336 K/UL (150-450) Mean Platelet Volume 5.5 FL (6.5-10.1) L Neutrophils (%) (Auto) 71.0 % (45.0-75.0) Lymphocytes (%) (Auto) 18.9 % (20.0-45.0) L Monocytes (%) (Auto) 6.1 % (1.0-10.0) Eosinophils (%) (Auto) 3.5 % (0.0-3.0) H Basophils (%) (Auto) 0.5 % (0.0-2.0) Prothrombin Time 11.8 SEC (9.30-11.50) H Prothrombin Time INR 1.1 (0.9-1.1) Activated Partial Thromboplast Time 26 SEC (23-33) Urine Color Pale yellow Urine Appearance Very cloudy Urine pH 6 (4.5-8.0) Urine Specific [place] 1.010 (1.005-1.035) Urine Protein 3+ (NEGATIVE) H Urine Glucose (UA) Negative (NEGATIVE) Urine Ketones Negative (NEGATIVE) Urine Blood 5+ (NEGATIVE) H Urine Nitrite Positive (NEGATIVE) H Urine Bilirubin Negative (NEGATIVE) Urine Urobilinogen Normal MG/DL (0.0-1.0) Urine Leukocyte Esterase 3+ (NEGATIVE) H Urine RBC 5-10 /HPF (0 - 2) H Urine WBC Tntc /HPF (0 - 2) H Urine Squamous Epithelial Cells Few /LPF (NONE/OCC) Urine Bacteria Many /HPF (NONE) H Sodium Level 135 MMOL/L (136-145) L Potassium Level 4.5 MMOL/L (3.5-5.1) Chloride Level 104 MMOL/L (98-107) Carbon Dioxide Level 17 MMOL/L (21-32) L Anion Gap 14 mmol/L (5-15) Blood Urea Nitrogen 75 mg/dL (7-18) H Creatinine 4.7 MG/DL (0.55-1.30) H Estimated Glomerular Filtration Rate 9.2 mL/min (>60) Glucose Level 144 MG/DL (74-106) H Calcium Level 9.3 MG/DL (8.5-10.1) Total Bilirubin 0.2 MG/DL (0.2-1.0) Aspartate Amino Transferase (AST) 16 U/L (15-37) Alanine Aminotransferase (ALT) 19 U/L (12-78) Alkaline Phosphatase 111 U/L (46-116) Total Protein 7.7 G/DL (6.4-8.2) Albumin 2.6 G/DL (3.4-5.0) L Globulin 5.1 g/dL Albumin/Globulin Ratio 0.5 (1.0-2.7) L Lipase 1376 U/L (73-393) H Rhythm Strip Diag. Results Rhythm Strip Time: 23:37 EP Interpretation: yes - Kylie Desai MD Rate: 89 Rhythm: NSR, no PVC's, no ectopy Chest X-Ray Diagnostic Results Chest X-Ray Diagnostic Results : Chest X-Ray Ordered: Yes # of Views/Limited/Complete: 1 View Indication: Chest Pain EP Interpretation: Yes Interpretation: no consolidation, no effusion, no pneumothorax Impression: No acute disease Electronically Signed by: Kylie Desai MD Last Vital Signs Date Time Temp Pulse Resp B/P (MAP) Pulse Ox O2 Delivery O2 Flow Rate FiO2 09/23/19 22:47 98.2 94 17 130/80 100 Room Air Disposition: ADMITTED INPATIENT Physician Consult: Dr. Contreras covering Dr. Orozco at 1am Referrals: Katlin Orozco MD (PCP) Kylie Desai M.D. September 23, 2019 23:37
[2019-09-24 00:10] LABS: BASOPHILS % (AUTO) 0.5 % (0.0-2.0); EOSINOPHILS % (AUTO) 3.5 % (0.0-3.0); HEMATOCRIT 29.4 % (37.0-47.0); HEMOGLOBIN 10.3 G/DL (12.0-16.0); LYMPHOCYTES % (AUTO) 18.9 % (20.0-45.0); MEAN CORPUSCULAR VOLUME 81 FL (80-99); MONOCYTES % (AUTO) 6.1 % (1.0-10.0); PLATELET COUNT 336 K/UL (150-450); RED BLOOD COUNT 3.64 M/UL (4.20-5.40); RED CELL DISTRIBUTION WIDTH 11.7 % (11.6-14.8); WHITE BLOOD COUNT 11.8 K/UL (4.8-10.8)
[2019-09-24 00:14] LABS: APPEARANCE,URINE VERY CLOUDY; BILIRUBIN, URINE NEGATIVE (NEGATIVE); COLOR,URINE PALE YELLOW; GLUCOSE, URINE (UA) NEGATIVE (NEGATIVE); KETONES,URINE NEGATIVE (NEGATIVE); LEUKOCYTE ESTERASE ,URINE 3+ (NEGATIVE); NITRITE,URINE POSITIVE (NEGATIVE); PH,URINE 6 (4.5-8.0); PROTEIN,URINE 3+ (NEGATIVE); UROBILINOGEN,URINE NORMAL MG/DL (0.0-1.0)
[2019-09-24 00:29] LABS: ANION GAP 14 mmol/L (5-15); BLOOD UREA NITROGEN 75 mg/dL (7-18); CALCIUM 9.3 MG/DL (8.5-10.1); CARBON DIOXIDE 17 MMOL/L (21-32); CHLORIDE 104 MMOL/L (98-107); CREATININE 4.7 MG/DL (0.55-1.30); POTASSIUM 4.5 MMOL/L (3.5-5.1); SODIUM 135 MMOL/L (136-145)
[2019-09-24] MEDS ORDERED: cefTRIAXone 1 GM in D5W 55 ML IVPB ONE (00:30)
[2019-09-24 00:34] LABS: ALANINE AMINOTRANSFERASE 19 U/L (12-78); ALBUMIN 2.6 G/DL (3.4-5.0); ALBUMIN/GLOBULIN RATIO 0.5 (1.0-2.7); ALKALINE PHOSPHATASE 111 U/L (46-116); ASPARTATE AMINO TRANSFERASE 16 U/L (15-37); BILIRUBIN,TOTAL 0.2 MG/DL (0.2-1.0)
[2019-09-24 00:35] LABS: INR 1.1 (0.9-1.1)
--- NOTE | 2019-09-24 00:58 | Diagnostic Imaging Report ---
EXAM: XR Chest, 1 View CLINICAL HISTORY: PAIN TECHNIQUE: Frontal view of the chest. COMPARISON: Prior 09/13/19 FINDINGS: Lungs: Similar-appearing retrocardiac atelectasis, correlate to exclude consolidation/pneumonia. Low lung volumes with bronchovascular crowding. No consolidation, pleural effusion, or pneumothorax. Pleural space: See above. Heart: Unremarkable. No cardiomegaly. Mediastinum: Unremarkable. Bones/joints: Osteopenia and advanced right glenohumeral degenerative findings. IMPRESSION: 1. Similar-appearing retrocardiac atelectasis, correlate to exclude consolidation/pneumonia. 2. Low lung volumes with bronchovascular crowding. 3. Otherwise no acute cardiopulmonary disease. 4. If there is continued concern, recommend frontal and lateral chest radiographs or CT. 5. Osteopenia and advanced right glenohumeral degenerative findings.
[2019-09-24 04:00] VITALS: BP 130/71
[2019-09-24] MEDS: Meropenem 500mg/NS 55ml IVPB SCH ×4 (05:36→17:06)
[2019-09-24] MEDS: HydrALAZINE 10mg Tab ORAL SCH ×3 (05:40→21:08)
[2019-09-24] MEDS: Heparin 5000 units/ml inj SUBQ SCH ×3 (05:40→21:10)
[2019-09-24 08:00] VITALS: BP 145/70
[2019-09-24] MEDS: methIMAzole 10mg tab ORAL SCH (09:21)
--- NOTE | 2019-09-24 10:52 | Consultation ---
History of Present Illness General Chief Complaint: Abnormal Labs Present Illness HPI This is a 68 year old femal with past medical history of chronic kidney disease stage 4 due to bilateral hydronephrosis likely due to neurogenic bladder, MS was sent to the ED for worsening renal function. Patient refused torres 2 weeks ago and it was removed. Labs was check 2 days ago and showed marked increase to 4.4 from baseline of high 2. Allergies: Coded Allergies: CODEINE (Verified Allergy, Unknown, 08/24/19) NEUROMUSCULAR BLOCKERS, STEROIDAL (Verified Allergy, Unknown, 08/24/19) Uncoded Allergies: ANABOLIC STEROIDS (Allergy, Unknown, 08/24/19) STEROIDS (Allergy, Unknown, 08/24/19) Medication History Scheduled Bisacodyl (Laxative Suppository), 10 MG RC DAILY, (Reported) Ca Cmb 1/Vit D3/B-6/Fa/B12/Av (Vitamin D3-Aloe 1,000 Unit Tab), 1 EACH PO DAILY, (Reported) Docusate Sodium* (Docusate Sodium*), 100 MG ORAL DAILY, (Reported) Ferrous Sulfate* (Ferrous Sulfate*), 325 MG ORAL DAILY, (Reported) Folic Acid* (Folic Acid*), 1 MG ORAL DAILY, (Reported) Furosemide* (Lasix*), 20 MG ORAL DAILY, (Reported) Guaifenesin (Mucinex), 200 MG PO Q4HR, (Reported) Hydralazine Hcl* (Hydralazine Hcl*), 10 MG ORAL EVERY 8 HOURS, (Reported) Ipratropium/Albuterol Sulfate (DuoNeb 0.5-3(2.5)mg/3ml), 3 ML HHN Q6HR, ( Reported) Magnesium Hydroxide* (Milk Of Magnesia*), 30 ML ORAL BID, (Reported) Methimazole (Methimazole), 10 MG PO DAILY, (Reported) Na Phos,M-B/Na Phos,Di-Ba* (Fleet Enema*), 133 ML RECTAL DAILY, (Reported) Polyethylene Glycol 3350* (Polyethylene Glycol 3350*), 17 GM ORAL DAILY, ( Reported) Potassium Chloride (Klor-Con M20), 20 MEQ ORAL DAILY, (Reported) Quetiapine Fumarate* (Seroquel*), 25 MG ORAL QHS, (Reported) Vitamin B Cmplx/Vit C/Folic AC (Nephro-Jerry Tablet), 1 TAB ORAL DAILY, (Reported ) Scheduled PRN Acetaminophen* (Acetaminophen 325MG Tablet*), 650 MG ORAL Q4H PRN for fever, ( Reported) Acetaminophen* (Acetaminophen 325MG Tablet*), 650 MG ORAL Q6H PRN for mild pain, (Reported) Patient History Healthcare decision maker Resuscitation status Advanced Directive on File Review of Systems Constitutional: Denies: no symptoms, see HPI, chills, sweats, fever, malaise, weakness, other Eye: Denies: no symptoms, see HPI, eye pain, blurred vision, tearing, double vision, nose pain, nose congestion, acuity changes, discharge, other ENT: Denies: no symptoms, see HPI, ear pain, ear discharge, nose pain, nose congestion, throat pain, throat swelling, mouth pain, hearing loss, nasal discharge, other Respiratory: Denies: no symptoms, see HPI, cough, orthopnea, shortness of breath, stridor, wheezing, RASCON, sputum, other Cardiovascular: Denies: no symptoms, see HPI, chest pain, edema, palpitations, syncope, PND, other Gastrointestinal: Denies: no symptoms, see HPI, abdominal pain, constipation, diarrhea, nausea, vomiting, melena, hematemesis, other Genitourinary: Denies: no symptoms, see HPI, discharge, dysuria, frequency, hematuria, pain, retention, incontinence, urgency, vag bleed/dc, other Musculoskeletal: Denies: no symptoms, see HPI, back pain, gout, joint pain, joint swelling, muscle pain, muscle stiffness, other Skin: Denies: no symptoms, see HPI, rash, change in color, change in hair/nails , dryness, lesions, other Psychiatric: Denies: no symptoms, see HPI, prior hx, anxiety, depressed feelings, emotional problems, SI, HI, hallucinations, other Neurological: Denies: no symptoms, see HPI, headache, numbness, paresthesia, seizure, tingling, tremors, focal weakness, syncope, dizziness, other Endocrine: Denies: no symptoms, see HPI, excessive sweating, flushing, intolerance to temperature, increased thirst, increased urine, unexplained weight loss, other Hematologic/Lymphatic: Denies: no symptoms, see HPI, anemia, blood clots, easy bleeding, easy bruising, swollen glands, diathesis, other Physical Exam General Appearance: WD/WN, no apparent distress Lines, tubes and drains: peripheral HEENT: normocephalic, PERRL Neck: non-tender Respiratory/Chest: chest wall non-tender, lungs clear Cardiovascular/Chest: normal peripheral pulses, normal rate, regular rhythm Abdomen: normal bowel sounds, non tender, soft Neurologic: alert, oriented x 3 Last 24 Hour Vital Signs Date Time Temp Pulse Resp B/P (MAP) Pulse Ox O2 Delivery O2 Flow Rate FiO2 09/24/19 08:00 96.2 68 18 145/70 (95) 93 09/24/19 05:40 130/71 09/24/19 04:00 98.2 87 18 130/71 (90) 97 09/24/19 02:03 Room Air 09/24/19 01:15 98.2 79 19 126/69 100 Room Air 09/23/19 22:47 98.2 94 17 130/80 100 Room Air 09/23/19 22:37 98.2 84 19 145/74 (97) 98 Room Air Intake and Output 09/23/19 09/24/19 19:00 07:00 Intake Total 0 ml Output Total 360 ml Balance -360 ml Intake Oral 0 ml Output Urine Total 360 ml Laboratory Tests Test 09/23/19 22:59 09/24/19 06:00 White Blood Count 11.8 K/UL (4.8-10.8) H Red Blood Count 3.64 M/UL (4.20-5.40) L Hemoglobin 10.3 G/DL (12.0-16.0) L Hematocrit 29.4 % (37.0-47.0) L Mean Corpuscular Volume 81 FL (80-99) Mean Corpuscular Hemoglobin 28.2 PG (27.0-31.0) Mean Corpuscular Hemoglobin Concent 34.9 G/DL (32.0-36.0) Red Cell Distribution Width 11.7 % (11.6-14.8) Platelet Count 336 K/UL (150-450) Mean Platelet Volume 5.5 FL (6.5-10.1) L Neutrophils (%) (Auto) 71.0 % (45.0-75.0) Lymphocytes (%) (Auto) 18.9 % (20.0-45.0) L Monocytes (%) (Auto) 6.1 % (1.0-10.0) Eosinophils (%) (Auto) 3.5 % (0.0-3.0) H Basophils (%) (Auto) 0.5 % (0.0-2.0) Prothrombin Time 11.8 SEC (9.30-11.50) H Prothromb Time International Ratio 1.1 (0.9-1.1) Activated Partial Thromboplast Time 26 SEC (23-33) Urine Color Pale yellow Urine Appearance Very cloudy Urine pH 6 (4.5-8.0) Urine Specific [place] 1.010 (1.005-1.035) Urine Protein 3+ (NEGATIVE) H Urine Glucose (UA) Negative (NEGATIVE) Urine Ketones Negative (NEGATIVE) Urine Blood 5+ (NEGATIVE) H Urine Nitrite Positive (NEGATIVE) H Urine Bilirubin Negative (NEGATIVE) Urine Urobilinogen Normal MG/DL (0.0-1.0) Urine Leukocyte Esterase 3+ (NEGATIVE) H Urine RBC 5-10 /HPF (0 - 2) H Urine WBC Tntc /HPF (0 - 2) H Urine Squamous Epithelial Cells Few /LPF (NONE/OCC) Urine Bacteria Many /HPF (NONE) H Sodium Level 135 MMOL/L (136-145) L Potassium Level 4.5 MMOL/L (3.5-5.1) Chloride Level 104 MMOL/L (98-107) Carbon Dioxide Level 17 MMOL/L (21-32) L Anion Gap 14 mmol/L (5-15) Blood Urea Nitrogen 75 mg/dL (7-18) H Creatinine 4.7 MG/DL (0.55-1.30) H Estimat Glomerular Filtration Rate 9.2 mL/min (>60) Glucose Level 144 MG/DL (74-106) H Calcium Level 9.3 MG/DL (8.5-10.1) Total Bilirubin 0.2 MG/DL (0.2-1.0) Aspartate Amino Transf (AST/SGOT) 16 U/L (15-37) Alanine Aminotransferase (ALT/SGPT) 19 U/L (12-78) Alkaline Phosphatase 111 U/L (46-116) Total Protein 7.7 G/DL (6.4-8.2) Albumin 2.6 G/DL (3.4-5.0) L Globulin 5.1 g/dL Albumin/Globulin Ratio 0.5 (1.0-2.7) L Lipase 1376 U/L (73-393) H Urine Osmolality 310 mOsm/kg (429-449) L Urine Random Total Protein 129 MG/DL (< 11.9) H Urine Random Sodium 56 mmol/L (20-110) Urine Creatinine 38.7 MG/DL (30.0-125.0) Urine Potassium Timed 35 mmol/L (12-62) Microbiology Date/Time Source Procedure Growth Status 09/24/19 00:00 Rectum Received Height (Feet): 5 Height (Inches): 6.00 Weight (Pounds): 150 Medications Current Medications Medications (Trade) Dose Ordered Sig/Gurpreet Route PRN Reason Start Time Stop Time Status Last Admin Dose Admin Acetaminophen (Tylenol) 650 mg Q6H PRN ORAL mild pain 09/24/19 03:30 10/24/19 03:29 Ferrous Sulfate (Feosol) 325 mg DAILY ORAL 09/24/19 09:00 12/23/19 08:59 09/24/19 09:20 Folic Acid (Folate) 1 mg DAILY ORAL 09/24/19 09:00 10/24/19 08:59 09/24/19 09:20 Heparin Sodium (Porcine) (Heparin 5000 units/ml) 5,000 units EVERY 8 HOURS SUBQ 09/24/19 06:00 11/08/19 05:59 09/24/19 05:40 Hydralazine HCl (Apresoline) 10 mg EVERY 8 HOURS ORAL 09/24/19 06:00 12/23/19 05:59 09/24/19 05:40 Meropenem 500 mg/ Sodium Chloride 55 ml @ 110 mls/hr Q12HR@0500,1700 IVPB 09/24/19 05:00 09/29/19 04:59 09/24/19 05:36 Methimazole (Tapazole) 10 mg DAILY ORAL 09/24/19 09:00 10/24/19 08:59 09/24/19 09:21 Quetiapine Fumarate (SEROqueL) 25 mg QHS ORAL 09/24/19 21:00 11/08/19 20:59 Sodium Chloride 1,000 ml @ 50 mls/hr Q20H IV 09/24/19 04:00 10/24/19 03:59 09/24/19 04:14 Assessment/Plan Diagnosis [place] [facility]: #SAJAN on chronic kidney disease stage 4 due to bilateral hydronephrosis likely due to neurogenic bladder #UTI #Elevated lipase r/o pancreatitis #h/o MS #hyperthyroidism #HTN #COPD - Torres placed - IVF- NS at 50cc/hr - real US - monitor lab - urology consult - antibiotics per ID- meropenem - torres urine culture - GI eval for pancreatitis - on methimazole - monitor mag, phos and BMP daily Time spent 70 minutes, greater than 50% on care coordination and counseling Vicente Jaimes M.D. September 24, 2019 10:52
[2019-09-24 12:03] VITALS: BP 140/69
--- NOTE | 2019-09-24 12:09 | GI Initial Consult Note ---
History of Present Illness General Reason for Hospitalization: Abnormal Labs Present Illness Home Meds Reported Medications Vitamin B Cmplx/Vit C/Folic AC (Nephro-Jerry Tablet) 0.8 Mg Tablet, 1 TAB ORAL DAILY for supplement, #30 TAB 0 Refills 08/24/19 Methimazole (METHIMAZOLE) 10 Mg Tablet, 10 MG PO DAILY for hyperthyroidism, TAB 08/24/19 Potassium Chloride (Klor-Con M20) 20 Meq Tab.er.prt, 20 MEQ ORAL DAILY for supplement for 5 Days, #5 TAB 0 Refills 08/24/19 Furosemide* (LASIX*) 20 Mg Tablet, 20 MG ORAL DAILY for pleural effusion, #5 TAB 08/24/19 Acetaminophen* (ACETAMINOPHEN 325MG TABLET*) 325 Mg Tablet, 650 MG ORAL Q6H PRN for mild pain, TAB 08/24/19 Acetaminophen* (ACETAMINOPHEN 325MG TABLET*) 325 Mg Tablet, 650 MG ORAL Q4H PRN for fever, TAB 08/24/19 Bisacodyl (LAXATIVE SUPPOSITORY) 10 Mg Supp.rect, 10 MG RC DAILY for constipation, SUPP 08/24/19 Na Phos,M-B/Na Phos,Di-Ba* (FLEET ENEMA*) 133 Ml Enema, 133 ML RECTAL DAILY for constipation, ML 0 Refills 08/24/19 Magnesium Hydroxide* (MILK OF MAGNESIA*) 400 Mg/5 Ml Oral.susp, 30 ML ORAL BID for constipation, ML 08/24/19 Guaifenesin (Mucinex) 600 Mg Tab.er.12h, 200 MG PO Q4HR for cough, TAB 08/24/19 Ipratropium/Albuterol Sulfate (DuoNeb 0.5-3(2.5)mg/3ml) 3 Ml Ampul.neb, 3 ML HHN Q6HR for SOB/wheezing, EA 08/24/19 Hydralazine Hcl* (HYDRALAZINE HCL*) 10 Mg Tablet, 10 MG ORAL EVERY 8 HOURS for HTN, TAB 08/24/19 Quetiapine Fumarate* (SEROQUEL*) 25 Mg Tablet, 25 MG ORAL QHS for psychosis, TAB 08/24/19 Ca Cmb 1/Vit D3/B-6/Fa/B12/Av (VITAMIN D3-ALOE 1,000 UNIT TAB) 1 Each Tablet, 1 EACH PO DAILY for supplement, TAB 08/24/19 Polyethylene Glycol 3350* (POLYETHYLENE GLYCOL 3350*) 17 Gm Powd.pack, 17 GM ORAL DAILY for constipation, PACKET 08/24/19 Folic Acid* (FOLIC ACID*) 1 Mg Tablet, 1 MG ORAL DAILY for supplement, TAB 08/24/19 Ferrous Sulfate* (FERROUS SULFATE*) 325 Mg Tablet, 325 MG ORAL DAILY for supplement, #30 TAB 0 Refills 08/24/19 Docusate Sodium* (DOCUSATE SODIUM*) 100 Mg Capsule, 100 MG ORAL DAILY for diarrhea, CAP 08/24/19 Allergies: Coded Allergies: CODEINE (Verified Allergy, Unknown, 08/24/19) NEUROMUSCULAR BLOCKERS, STEROIDAL (Verified Allergy, Unknown, 08/24/19) Uncoded Allergies: ANABOLIC STEROIDS (Allergy, Unknown, 08/24/19) STEROIDS (Allergy, Unknown, 08/24/19) Physical Exam Vital Signs Date Time Temp Pulse Resp B/P (MAP) Pulse Ox O2 Delivery O2 Flow Rate FiO2 09/23/19 22:37 98.2 84 19 145/74 (97) 98 Room Air Labs Laboratory Tests Test 09/23/19 22:59 09/24/19 06:00 White Blood Count 11.8 K/UL (4.8-10.8) H Red Blood Count 3.64 M/UL (4.20-5.40) L Hemoglobin 10.3 G/DL (12.0-16.0) L Hematocrit 29.4 % (37.0-47.0) L Mean Corpuscular Volume 81 FL (80-99) Mean Corpuscular Hemoglobin 28.2 PG (27.0-31.0) Mean Corpuscular Hemoglobin Concent 34.9 G/DL (32.0-36.0) Red Cell Distribution Width 11.7 % (11.6-14.8) Platelet Count 336 K/UL (150-450) Mean Platelet Volume 5.5 FL (6.5-10.1) L Neutrophils (%) (Auto) 71.0 % (45.0-75.0) Lymphocytes (%) (Auto) 18.9 % (20.0-45.0) L Monocytes (%) (Auto) 6.1 % (1.0-10.0) Eosinophils (%) (Auto) 3.5 % (0.0-3.0) H Basophils (%) (Auto) 0.5 % (0.0-2.0) Prothrombin Time 11.8 SEC (9.30-11.50) H Prothromb Time International Ratio 1.1 (0.9-1.1) Activated Partial Thromboplast Time 26 SEC (23-33) Urine Color Pale yellow Urine Appearance Very cloudy Urine pH 6 (4.5-8.0) Urine Specific [place] 1.010 (1.005-1.035) Urine Protein 3+ (NEGATIVE) H Urine Glucose (UA) Negative (NEGATIVE) Urine Ketones Negative (NEGATIVE) Urine Blood 5+ (NEGATIVE) H Urine Nitrite Positive (NEGATIVE) H Urine Bilirubin Negative (NEGATIVE) Urine Urobilinogen Normal MG/DL (0.0-1.0) Urine Leukocyte Esterase 3+ (NEGATIVE) H Urine RBC 5-10 /HPF (0 - 2) H Urine WBC Tntc /HPF (0 - 2) H Urine Squamous Epithelial Cells Few /LPF (NONE/OCC) Urine Bacteria Many /HPF (NONE) H Sodium Level 135 MMOL/L (136-145) L Potassium Level 4.5 MMOL/L (3.5-5.1) Chloride Level 104 MMOL/L (98-107) Carbon Dioxide Level 17 MMOL/L (21-32) L Anion Gap 14 mmol/L (5-15) Blood Urea Nitrogen 75 mg/dL (7-18) H Creatinine 4.7 MG/DL (0.55-1.30) H Estimat Glomerular Filtration Rate 9.2 mL/min (>60) Glucose Level 144 MG/DL (74-106) H Calcium Level 9.3 MG/DL (8.5-10.1) Total Bilirubin 0.2 MG/DL (0.2-1.0) Aspartate Amino Transf (AST/SGOT) 16 U/L (15-37) Alanine Aminotransferase (ALT/SGPT) 19 U/L (12-78) Alkaline Phosphatase 111 U/L (46-116) Total Protein 7.7 G/DL (6.4-8.2) Albumin 2.6 G/DL (3.4-5.0) L Globulin 5.1 g/dL Albumin/Globulin Ratio 0.5 (1.0-2.7) L Lipase 1376 U/L (73-393) H Urine Osmolality 310 mOsm/kg (429-449) L Urine Random Total Protein 129 MG/DL (< 11.9) H Urine Random Sodium 56 mmol/L (20-110) Urine Creatinine 38.7 MG/DL (30.0-125.0) Urine Potassium Timed 35 mmol/L (12-62) Current Medications Current Medications Medications (Trade) Dose Ordered Sig/Gurpreet Route PRN Reason Start Time Stop Time Status Last Admin Dose Admin Acetaminophen (Tylenol) 650 mg Q6H PRN ORAL mild pain 09/24/19 03:30 10/24/19 03:29 Ferrous Sulfate (Feosol) 325 mg DAILY ORAL 09/24/19 09:00 12/23/19 08:59 09/24/19 09:20 Folic Acid (Folate) 1 mg DAILY ORAL 09/24/19 09:00 10/24/19 08:59 09/24/19 09:20 Heparin Sodium (Porcine) (Heparin 5000 units/ml) 5,000 units EVERY 8 HOURS SUBQ 09/24/19 06:00 11/08/19 05:59 09/24/19 05:40 Hydralazine HCl (Apresoline) 10 mg EVERY 8 HOURS ORAL 09/24/19 06:00 12/23/19 05:59 09/24/19 05:40 Meropenem 500 mg/ Sodium Chloride 55 ml @ 110 mls/hr Q12HR@0500,1700 IVPB 09/24/19 05:00 09/29/19 04:59 09/24/19 05:36 Methimazole (Tapazole) 10 mg DAILY ORAL 09/24/19 09:00 10/24/19 08:59 09/24/19 09:21 Quetiapine Fumarate (SEROqueL) 25 mg QHS ORAL 09/24/19 21:00 11/08/19 20:59 Sodium Chloride 1,000 ml @ 50 mls/hr Q20H IV 09/24/19 04:00 10/24/19 03:59 09/24/19 04:14 GI: Plan Plan pancreatitis? gallstones diverticulosis acute renal failure/chronic renal DZ anemia, chronic repeat labs abd us on renal diet will fu Farooq Adams MD September 24, 2019 12:09
--- NOTE | 2019-09-24 12:47 | Infectious Diseases Prog Note ---
Assessment/Plan Assessment/Plan Full consult to follow: A) 1) complicated uti 2) pmh noted 3) allergies - nkda P) 1) meropenem 2) check urine culture 3) thank you Subjective Allergies: Coded Allergies: CODEINE (Verified Allergy, Unknown, 08/24/19) NEUROMUSCULAR BLOCKERS, STEROIDAL (Verified Allergy, Unknown, 08/24/19) Uncoded Allergies: ANABOLIC STEROIDS (Allergy, Unknown, 08/24/19) STEROIDS (Allergy, Unknown, 08/24/19) Objective Vital Signs Last 24 Hour Vital Signs Date Time Temp Pulse Resp B/P (MAP) Pulse Ox O2 Delivery O2 Flow Rate FiO2 09/24/19 12:03 96.4 72 17 140/69 (92) 99 09/24/19 08:00 96.2 68 18 145/70 (95) 93 09/24/19 05:40 130/71 09/24/19 04:00 98.2 87 18 130/71 (90) 97 09/24/19 02:03 Room Air 09/24/19 01:15 98.2 79 19 126/69 100 Room Air 09/23/19 22:47 98.2 94 17 130/80 100 Room Air 09/23/19 22:37 98.2 84 19 145/74 (97) 98 Room Air Microbiology Date/Time Source Procedure Growth Status 09/24/19 00:00 Rectum Received Laboratory Tests Test 09/23/19 22:59 09/24/19 06:00 White Blood Count 11.8 K/UL (4.8-10.8) H Red Blood Count 3.64 M/UL (4.20-5.40) L Hemoglobin 10.3 G/DL (12.0-16.0) L Hematocrit 29.4 % (37.0-47.0) L Mean Corpuscular Volume 81 FL (80-99) Mean Corpuscular Hemoglobin 28.2 PG (27.0-31.0) Mean Corpuscular Hemoglobin Concent 34.9 G/DL (32.0-36.0) Red Cell Distribution Width 11.7 % (11.6-14.8) Platelet Count 336 K/UL (150-450) Mean Platelet Volume 5.5 FL (6.5-10.1) L Neutrophils (%) (Auto) 71.0 % (45.0-75.0) Lymphocytes (%) (Auto) 18.9 % (20.0-45.0) L Monocytes (%) (Auto) 6.1 % (1.0-10.0) Eosinophils (%) (Auto) 3.5 % (0.0-3.0) H Basophils (%) (Auto) 0.5 % (0.0-2.0) Prothrombin Time 11.8 SEC (9.30-11.50) H Prothromb Time International Ratio 1.1 (0.9-1.1) Activated Partial Thromboplast Time 26 SEC (23-33) Urine Color Pale yellow Urine Appearance Very cloudy Urine pH 6 (4.5-8.0) Urine Specific [place] 1.010 (1.005-1.035) Urine Protein 3+ (NEGATIVE) H Urine Glucose (UA) Negative (NEGATIVE) Urine Ketones Negative (NEGATIVE) Urine Blood 5+ (NEGATIVE) H Urine Nitrite Positive (NEGATIVE) H Urine Bilirubin Negative (NEGATIVE) Urine Urobilinogen Normal MG/DL (0.0-1.0) Urine Leukocyte Esterase 3+ (NEGATIVE) H Urine RBC 5-10 /HPF (0 - 2) H Urine WBC Tntc /HPF (0 - 2) H Urine Squamous Epithelial Cells Few /LPF (NONE/OCC) Urine Bacteria Many /HPF (NONE) H Sodium Level 135 MMOL/L (136-145) L Potassium Level 4.5 MMOL/L (3.5-5.1) Chloride Level 104 MMOL/L (98-107) Carbon Dioxide Level 17 MMOL/L (21-32) L Anion Gap 14 mmol/L (5-15) Blood Urea Nitrogen 75 mg/dL (7-18) H Creatinine 4.7 MG/DL (0.55-1.30) H Estimat Glomerular Filtration Rate 9.2 mL/min (>60) Glucose Level 144 MG/DL (74-106) H Calcium Level 9.3 MG/DL (8.5-10.1) Total Bilirubin 0.2 MG/DL (0.2-1.0) Aspartate Amino Transf (AST/SGOT) 16 U/L (15-37) Alanine Aminotransferase (ALT/SGPT) 19 U/L (12-78) Alkaline Phosphatase 111 U/L (46-116) Total Protein 7.7 G/DL (6.4-8.2) Albumin 2.6 G/DL (3.4-5.0) L Globulin 5.1 g/dL Albumin/Globulin Ratio 0.5 (1.0-2.7) L Lipase 1376 U/L (73-393) H Urine Osmolality 310 mOsm/kg (429-449) L Urine Random Total Protein 129 MG/DL (< 11.9) H Urine Random Sodium 56 mmol/L (20-110) Urine Creatinine 38.7 MG/DL (30.0-125.0) Urine Potassium Timed 35 mmol/L (12-62) Current Medications Medications (Trade) Dose Ordered Sig/Gurpreet Route PRN Reason Start Time Stop Time Status Last Admin Dose Admin Acetaminophen (Tylenol) 650 mg Q6H PRN ORAL mild pain 09/24/19 03:30 10/24/19 03:29 Ferrous Sulfate (Feosol) 325 mg DAILY ORAL 09/24/19 09:00 12/23/19 08:59 09/24/19 09:20 Folic Acid (Folate) 1 mg DAILY ORAL 09/24/19 09:00 10/24/19 08:59 09/24/19 09:20 Heparin Sodium (Porcine) (Heparin 5000 units/ml) 5,000 units EVERY 8 HOURS SUBQ 09/24/19 06:00 11/08/19 05:59 09/24/19 05:40 Hydralazine HCl (Apresoline) 10 mg EVERY 8 HOURS ORAL 09/24/19 06:00 12/23/19 05:59 09/24/19 05:40 Meropenem 500 mg/ Sodium Chloride 55 ml @ 110 mls/hr Q12HR@0500,1700 IVPB 09/24/19 05:00 09/29/19 04:59 09/24/19 05:36 Methimazole (Tapazole) 10 mg DAILY ORAL 09/24/19 09:00 10/24/19 08:59 09/24/19 09:21 Quetiapine Fumarate (SEROqueL) 25 mg QHS ORAL 09/24/19 21:00 11/08/19 20:59 Sodium Chloride 1,000 ml @ 50 mls/hr Q20H IV 09/24/19 04:00 10/24/19 03:59 09/24/19 04:14 Louie Bullard MD September 24, 2019 12:47
[2019-09-24 16:00] VITALS: BP 128/84
--- NOTE | 2019-09-24 18:42 | Diagnostic Imaging Report ---
Ultrasound abdomen History: Abnormal lab, elevated renal function test Findings: Right kidney measures 11.8 cm with normal corticomedullary differentiation, hydronephrosis and color flow. Left kidney measures 10.3 cm with normal corticomedullary differentiation, hydronephrosis and color flow. Escobar catheter in empty urinary bladder Impression: 1. Normal sonographic appearance to bilateral kidneys.
--- NOTE | 2019-09-24 19:23 | General Progress Note ---
Subjective Allergies: Coded Allergies: CODEINE (Verified Allergy, Unknown, 08/24/19) NEUROMUSCULAR BLOCKERS, STEROIDAL (Verified Allergy, Unknown, 08/24/19) Uncoded Allergies: ANABOLIC STEROIDS (Allergy, Unknown, 08/24/19) STEROIDS (Allergy, Unknown, 08/24/19) Objective Last 24 Hour Vital Signs Date Time Temp Pulse Resp B/P (MAP) Pulse Ox O2 Delivery O2 Flow Rate FiO2 09/24/19 16:00 97.3 68 18 128/84 (99) 99 09/24/19 13:49 140/69 09/24/19 12:03 96.4 72 17 140/69 (92) 99 09/24/19 09:00 Room Air 09/24/19 08:00 96.2 68 18 145/70 (95) 93 09/24/19 05:40 130/71 09/24/19 04:00 98.2 87 18 130/71 (90) 97 09/24/19 02:03 Room Air 09/24/19 01:15 98.2 79 19 126/69 100 Room Air 09/23/19 22:47 98.2 94 17 130/80 100 Room Air 09/23/19 22:37 98.2 84 19 145/74 (97) 98 Room Air Intake and Output 09/23/19 09/24/19 19:00 07:00 Intake Total 0 ml Output Total 360 ml Balance -360 ml Intake Oral 0 ml Output Urine Total 360 ml Laboratory Tests 09/23/19 22:59: White Blood Count 11.8H, Red Blood Count 3.64L, Hemoglobin 10.3L, Hematocrit 29.4L, Mean Corpuscular Volume 81, Mean Corpuscular Hemoglobin 28.2, Mean Corpuscular Hemoglobin Concent 34.9, Red Cell Distribution Width 11.7, Platelet Count 336, Mean Platelet Volume 5.5L, Neutrophils (%) (Auto) 71.0, Lymphocytes ( %) (Auto) 18.9L, Monocytes (%) (Auto) 6.1, Eosinophils (%) (Auto) 3.5H, Basophils (%) (Auto) 0.5, Prothrombin Time 11.8H, Prothromb Time International Ratio 1.1, Activated Partial Thromboplast Time 26, Urine Color Pale yellow, Urine Appearance Very cloudy, Urine pH 6, Urine Specific [place] 1.010, Urine Protein 3+H, Urine Glucose (UA) Negative, Urine Ketones Negative, Urine Blood 5+ H, Urine Nitrite PositiveH, Urine Bilirubin Negative, Urine Urobilinogen Normal , Urine Leukocyte Esterase 3+H, Urine RBC 5-10H, Urine WBC TntcH, Urine Squamous Epithelial Cells Few, Urine Bacteria ManyH, Sodium Level 135L, Potassium Level 4.5, Chloride Level 104, Carbon Dioxide Level 17L, Anion Gap 14 , Blood Urea Nitrogen 75H, Creatinine 4.7H, Estimat Glomerular Filtration Rate 9.2, Glucose Level 144H, Calcium Level 9.3, Total Bilirubin 0.2, Aspartate Amino Transf (AST/SGOT) 16, Alanine Aminotransferase (ALT/SGPT) 19, Alkaline Phosphatase 111, Total Protein 7.7, Albumin 2.6L, Globulin 5.1, Albumin/ Globulin Ratio 0.5L, Lipase 1376H 09/24/19 06:00: Urine Osmolality 310L, Urine Random Total Protein 129H, Urine Random Sodium 56, Urine Creatinine 38.7, Urine Potassium Timed 35 Height (Feet): 5 Height (Inches): 6.00 Weight (Pounds): 150 Imer Parker D.O. September 24, 2019 19:23
--- NOTE | 2019-09-24 19:24 | History and Physical ---
History of Present Illness General Date patient seen: September 24, 2019 Reason for Hospitalization: Abnormal Labs Present Illness HPI 68 y/o F w/PMH hyperthyroidism, multiple sclerosis, HTN and COPD who presents from [facility] for abnormal labs. She was found to have a Cr above 4 and transferred to [facility] [place]. She has had good UOP. Torres draining well. Also found to have UTI. Denies any suprapubic discomfort or abdominal pain. no fever or chills. Recenlty hospitalized for COVID r/o and discharged 2 weeks ago. She was treated for HCAP and ESBL with symptom improvement. Torres placed with outpatient cystoscopy with another urologist. It appears patient never followed up as an outpatient. In the ER the patients vitals were stable. Her Cr was 4.7, BUn 75. CO2 17, sodium 135. Lipase found to be 1376 although patient did not c/o any pain. LFTs WNL. UA positive. Urine culture pending. CXR showed similar retrocardiac atelectasis vs. consolidation. Patient given meropenem and admitted. PMH: hyperthyroidism, multiple sclerosis, HTN and COPD FH: No h/o HTN SH: lives in [place], denies ETOH/tobacco SurgHx: see chart allergies: reviewed, noted above Allergies: Coded Allergies: CODEINE (Verified Allergy, Unknown, 08/24/19) NEUROMUSCULAR BLOCKERS, STEROIDAL (Verified Allergy, Unknown, 08/24/19) Uncoded Allergies: ANABOLIC STEROIDS (Allergy, Unknown, 08/24/19) STEROIDS (Allergy, Unknown, 08/24/19) COVID-19 Screening Contact w/high risk pt: No Recent Travel to affected area: No Experienced COVID-19 symptoms?: No COVID-19 symptoms experienced: Cough Medication History Scheduled Bisacodyl (Laxative Suppository), 10 MG RC DAILY, (Reported) Ca Cmb 1/Vit D3/B-6/Fa/B12/Av (Vitamin D3-Aloe 1,000 Unit Tab), 1 EACH PO DAILY, (Reported) Docusate Sodium* (Docusate Sodium*), 100 MG ORAL DAILY, (Reported) Ferrous Sulfate* (Ferrous Sulfate*), 325 MG ORAL DAILY, (Reported) Folic Acid* (Folic Acid*), 1 MG ORAL DAILY, (Reported) Furosemide* (Lasix*), 20 MG ORAL DAILY, (Reported) Guaifenesin (Mucinex), 200 MG PO Q4HR, (Reported) Hydralazine Hcl* (Hydralazine Hcl*), 10 MG ORAL EVERY 8 HOURS, (Reported) Ipratropium/Albuterol Sulfate (DuoNeb 0.5-3(2.5)mg/3ml), 3 ML HHN Q6HR, ( Reported) Magnesium Hydroxide* (Milk Of Magnesia*), 30 ML ORAL BID, (Reported) Methimazole (Methimazole), 10 MG PO DAILY, (Reported) Na Phos,M-B/Na Phos,Di-Ba* (Fleet Enema*), 133 ML RECTAL DAILY, (Reported) Polyethylene Glycol 3350* (Polyethylene Glycol 3350*), 17 GM ORAL DAILY, ( Reported) Potassium Chloride (Klor-Con M20), 20 MEQ ORAL DAILY, (Reported) Quetiapine Fumarate* (Seroquel*), 25 MG ORAL QHS, (Reported) Vitamin B Cmplx/Vit C/Folic AC (Nephro-Jerry Tablet), 1 TAB ORAL DAILY, (Reported ) Scheduled PRN Acetaminophen* (Acetaminophen 325MG Tablet*), 650 MG ORAL Q4H PRN for fever, ( Reported) Acetaminophen* (Acetaminophen 325MG Tablet*), 650 MG ORAL Q6H PRN for mild pain, (Reported) Patient History Healthcare decision maker Resuscitation status Advanced Directive on File Review of Systems ROS Narrative Review of systems: Constitutional: Denies: chills, diaphoresis, fever, malaise, weakness, other HEENT: Denies: eye pain, blurred vision, tearing, double vision, ear pain, ear discharge, nose pain, nose congestion, throat pain, throat swelling, mouth pain , mouth swelling, Cardiovascular: Denies: chest pain, edema, lightheadedness, palpitations, syncope, Respiratory: Denies: cough, orthopnea, shortness of breath, SOB with excertion , SOB at rest, sputum, stridor, wheezing, other Gastrointestinal/Abdominal: Denies: abdomen distended, abdominal pain, black stools, tarry stools, blood in stool, constipated, diarrhea, difficulty swallowing, nausea, poor appetite, poor fluid intake, rectal bleeding, vomiting , other Genitourinary: Denies: burning, discharge, frequency, flank pain, hematuria, incontinence, pain, urgency, other 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: Denies: anxiety, depressed, emotional problems, headache, numbness, paresthesia, pre-existing deficit, seizure, tingling, tremors, weakness, other Endocrine: Denies: excessive sweating, flushing, intolerance to cold, intolerance to heat, increased hunger, increased thirst, increased urine, unexplained weight gain, unexplained weight loss, other MSK: denies joint pains, swelling, stiffness Hematologic/Lymphatic: Denies: anemia, easy bleeding, easy bruising, other Physical Exam Physical Exam Narrative General: WDWN emale in NAD, A&O x 4 HEENT: Normocephalic cephalic atraumatic, pupils equal round reactive to light and accommodation, nares patent and no symmetrical, no tonsillar exudates, mucous membranes moist CV: Regular rate regular rhythm, no murmurs, rubs, or gallops Pulm: Lungs clear to auscultation bilaterally. No wheezes, rhonchi, or rales GI: Soft, nontender, nondistended, bowel sounds present : Torres in place draining MILKY yellow urine. Neuro: CN 2-12 intact bilaterally, no focal signs. Ext: No lower extremity edema bilaterally Skin: no rashes lesions or ulcers Msk: Joints symmetrical in upper extremity and lower extremity bilaterally, no joint swelling. Lymph: No lymphadenopathy in upper extremity and lower extremity Last 24 Hour Vital Signs Date Time Temp Pulse Resp B/P (MAP) Pulse Ox O2 Delivery O2 Flow Rate FiO2 09/24/19 16:00 97.3 68 18 128/84 (99) 99 09/24/19 13:49 140/69 09/24/19 12:03 96.4 72 17 140/69 (92) 99 09/24/19 09:00 Room Air 09/24/19 08:00 96.2 68 18 145/70 (95) 93 09/24/19 05:40 130/71 09/24/19 04:00 98.2 87 18 130/71 (90) 97 09/24/19 02:03 Room Air 09/24/19 01:15 98.2 79 19 126/69 100 Room Air 09/23/19 22:47 98.2 94 17 130/80 100 Room Air 09/23/19 22:37 98.2 84 19 145/74 (97) 98 Room Air Intake and Output 09/23/19 09/24/19 19:00 07:00 Intake Total 0 ml Output Total 360 ml Balance -360 ml Intake Oral 0 ml Output Urine Total 360 ml Laboratory Tests Test 09/23/19 22:59 09/24/19 06:00 White Blood Count 11.8 K/UL (4.8-10.8) H Red Blood Count 3.64 M/UL (4.20-5.40) L Hemoglobin 10.3 G/DL (12.0-16.0) L Hematocrit 29.4 % (37.0-47.0) L Mean Corpuscular Volume 81 FL (80-99) Mean Corpuscular Hemoglobin 28.2 PG (27.0-31.0) Mean Corpuscular Hemoglobin Concent 34.9 G/DL (32.0-36.0) Red Cell Distribution Width 11.7 % (11.6-14.8) Platelet Count 336 K/UL (150-450) Mean Platelet Volume 5.5 FL (6.5-10.1) L Neutrophils (%) (Auto) 71.0 % (45.0-75.0) Lymphocytes (%) (Auto) 18.9 % (20.0-45.0) L Monocytes (%) (Auto) 6.1 % (1.0-10.0) Eosinophils (%) (Auto) 3.5 % (0.0-3.0) H Basophils (%) (Auto) 0.5 % (0.0-2.0) Prothrombin Time 11.8 SEC (9.30-11.50) H Prothromb Time International Ratio 1.1 (0.9-1.1) Activated Partial Thromboplast Time 26 SEC (23-33) Urine Color Pale yellow Urine Appearance Very cloudy Urine pH 6 (4.5-8.0) Urine Specific [place] 1.010 (1.005-1.035) Urine Protein 3+ (NEGATIVE) H Urine Glucose (UA) Negative (NEGATIVE) Urine Ketones Negative (NEGATIVE) Urine Blood 5+ (NEGATIVE) H Urine Nitrite Positive (NEGATIVE) H Urine Bilirubin Negative (NEGATIVE) Urine Urobilinogen Normal MG/DL (0.0-1.0) Urine Leukocyte Esterase 3+ (NEGATIVE) H Urine RBC 5-10 /HPF (0 - 2) H Urine WBC Tntc /HPF (0 - 2) H Urine Squamous Epithelial Cells Few /LPF (NONE/OCC) Urine Bacteria Many /HPF (NONE) H Sodium Level 135 MMOL/L (136-145) L Potassium Level 4.5 MMOL/L (3.5-5.1) Chloride Level 104 MMOL/L (98-107) Carbon Dioxide Level 17 MMOL/L (21-32) L Anion Gap 14 mmol/L (5-15) Blood Urea Nitrogen 75 mg/dL (7-18) H Creatinine 4.7 MG/DL (0.55-1.30) H Estimat Glomerular Filtration Rate 9.2 mL/min (>60) Glucose Level 144 MG/DL (74-106) H Calcium Level 9.3 MG/DL (8.5-10.1) Total Bilirubin 0.2 MG/DL (0.2-1.0) Aspartate Amino Transf (AST/SGOT) 16 U/L (15-37) Alanine Aminotransferase (ALT/SGPT) 19 U/L (12-78) Alkaline Phosphatase 111 U/L (46-116) Total Protein 7.7 G/DL (6.4-8.2) Albumin 2.6 G/DL (3.4-5.0) L Globulin 5.1 g/dL Albumin/Globulin Ratio 0.5 (1.0-2.7) L Lipase 1376 U/L (73-393) H Urine Osmolality 310 mOsm/kg (429-449) L Urine Random Total Protein 129 MG/DL (< 11.9) H Urine Random Sodium 56 mmol/L (20-110) Urine Creatinine 38.7 MG/DL (30.0-125.0) Urine Potassium Timed 35 mmol/L (12-62) Microbiology Date/Time Source Procedure Growth Status 09/24/19 00:00 Rectum Received Height (Feet): 5 Height (Inches): 6.00 Weight (Pounds): 150 Medications Current Medications Medications (Trade) Dose Ordered Sig/Gurpreet Route PRN Reason Start Time Stop Time Status Last Admin Dose Admin Acetaminophen (Tylenol) 650 mg Q6H PRN ORAL mild pain 09/24/19 03:30 10/24/19 03:29 Ferrous Sulfate (Feosol) 325 mg DAILY ORAL 09/24/19 09:00 12/23/19 08:59 09/24/19 09:20 Folic Acid (Folate) 1 mg DAILY ORAL 09/24/19 09:00 10/24/19 08:59 09/24/19 09:20 Heparin Sodium (Porcine) (Heparin 5000 units/ml) 5,000 units EVERY 8 HOURS SUBQ 09/24/19 06:00 11/08/19 05:59 09/24/19 05:40 Hydralazine HCl (Apresoline) 10 mg EVERY 8 HOURS ORAL 09/24/19 06:00 12/23/19 05:59 09/24/19 13:49 Meropenem 500 mg/ Sodium Chloride 55 ml @ 110 mls/hr Q12HR@0500,1700 IVPB 09/24/19 05:00 09/29/19 04:59 09/24/19 17:06 Methimazole (Tapazole) 10 mg DAILY ORAL 09/24/19 09:00 10/24/19 08:59 09/24/19 09:21 Quetiapine Fumarate (SEROqueL) 25 mg QHS ORAL 09/24/19 21:00 11/08/19 20:59 Sodium Chloride 1,000 ml @ 50 mls/hr Q20H IV 09/24/19 04:00 10/24/19 03:59 09/24/19 04:14 Assessment/Plan Assessment/Plan: 68 y/o F w/PMH hyperthyroidism, multiple sclerosis, HTN and COPD who presents from [facility] for cough and abnormal labs. On admission, CXR revealed left lower lobe pleural effusion, Cr 3.2. Patient admitted for further treatment and evaluation, and COVID-19 negative. #Complicated UTI #H/o ESBL UTI -Appreciate ID consult. D/w Dr. 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 D/w Dr. Jaimes -May need urology consult again #COPD -not in exacerbation at this time -currently on RA -ctm #Multiple sclerosis -no acute issues #Hyperthyroidism -home med methimazole 10 mg PO q daily #Anxiety -ativan 0.5 mg PO PRN -Psych consulted, recs appreciated Dispo: d/c to [facility] PPx: Heparin Time spent on encounter: 72 mins, 38 on counseling, coordination of care w/Pt, RN, infectious disease nephro and CM. I spent an additional 31 minutes reviewing medical records including prior hospitalization notes, clinic notes, consultation notes, prior labs, and prior imaging. Time of note doesn't reflect time of encounter Imer Parker D.O. September 24, 2019 19:24
[2019-09-24 20:00] VITALS: BP 149/72
--- NOTE | 2019-09-24 22:54 | Neurology Progress Note ---
Interim History Interim History Interim History 68 y/o F w/PMH hyperthyroidism, multiple sclerosis, HTN and COPD who presents from [facility] for abnormal labs. She was found to have a Cr above 4 and transferred to [facility] [place]. She has had good UOP. Escobar draining well. Also found to have UTI. Denies any suprapubic discomfort or abdominal pain. no fever or chills. Recently hospitalized for COVID r/o and discharged 2 weeks ago. She was treated for HCAP and ESBL with symptom improvement. Escobar placed with outpatient cystoscopy with another urologist. It appears patient never followed up as an outpatient. has never been on MS modifying Tx . Report allergy to steroids In the ER the patients vitals were stable. Her Cr was 4.7, BUn 75. CO2 17, sodium 135. Lipase found to be 1376 although patient did not c/o any pain. LFTs WNL. UA positive. Urine culture pending. CXR showed similar retrocardiac atelectasis vs. consolidation. Patient given meropenem and admitted. PMH: hyperthyroidism, multiple sclerosis, HTN and COPD FH: No h/o HTN SH: lives in [place], denies ETOH/tobacco SurgHx: see chart Objective Physical Exam Last Vital Signs Date Time Temp Pulse Resp B/P (MAP) Pulse Ox O2 Delivery O2 Flow Rate FiO2 09/24/19 21:08 149/72 09/24/19 21:00 Room Air 09/24/19 20:00 96.8 78 21 99 Laboratory Tests Test 09/23/19 22:59 09/24/19 06:00 White Blood Count 11.8 K/UL (4.8-10.8) H Red Blood Count 3.64 M/UL (4.20-5.40) L Hemoglobin 10.3 G/DL (12.0-16.0) L Hematocrit 29.4 % (37.0-47.0) L Mean Corpuscular Volume 81 FL (80-99) Mean Corpuscular Hemoglobin 28.2 PG (27.0-31.0) Mean Corpuscular Hemoglobin Concent 34.9 G/DL (32.0-36.0) Red Cell Distribution Width 11.7 % (11.6-14.8) Platelet Count 336 K/UL (150-450) Mean Platelet Volume 5.5 FL (6.5-10.1) L Neutrophils (%) (Auto) 71.0 % (45.0-75.0) Lymphocytes (%) (Auto) 18.9 % (20.0-45.0) L Monocytes (%) (Auto) 6.1 % (1.0-10.0) Eosinophils (%) (Auto) 3.5 % (0.0-3.0) H Basophils (%) (Auto) 0.5 % (0.0-2.0) Prothrombin Time 11.8 SEC (9.30-11.50) H Prothromb Time International Ratio 1.1 (0.9-1.1) Activated Partial Thromboplast Time 26 SEC (23-33) Urine Color Pale yellow Urine Appearance Very cloudy Urine pH 6 (4.5-8.0) Urine Specific [place] 1.010 (1.005-1.035) Urine Protein 3+ (NEGATIVE) H Urine Glucose (UA) Negative (NEGATIVE) Urine Ketones Negative (NEGATIVE) Urine Blood 5+ (NEGATIVE) H Urine Nitrite Positive (NEGATIVE) H Urine Bilirubin Negative (NEGATIVE) Urine Urobilinogen Normal MG/DL (0.0-1.0) Urine Leukocyte Esterase 3+ (NEGATIVE) H Urine RBC 5-10 /HPF (0 - 2) H Urine WBC Tntc /HPF (0 - 2) H Urine Squamous Epithelial Cells Few /LPF (NONE/OCC) Urine Bacteria Many /HPF (NONE) H Sodium Level 135 MMOL/L (136-145) L Potassium Level 4.5 MMOL/L (3.5-5.1) Chloride Level 104 MMOL/L (98-107) Carbon Dioxide Level 17 MMOL/L (21-32) L Anion Gap 14 mmol/L (5-15) Blood Urea Nitrogen 75 mg/dL (7-18) H Creatinine 4.7 MG/DL (0.55-1.30) H Estimat Glomerular Filtration Rate 9.2 mL/min (>60) Glucose Level 144 MG/DL (74-106) H Calcium Level 9.3 MG/DL (8.5-10.1) Total Bilirubin 0.2 MG/DL (0.2-1.0) Aspartate Amino Transf (AST/SGOT) 16 U/L (15-37) Alanine Aminotransferase (ALT/SGPT) 19 U/L (12-78) Alkaline Phosphatase 111 U/L (46-116) Total Protein 7.7 G/DL (6.4-8.2) Albumin 2.6 G/DL (3.4-5.0) L Globulin 5.1 g/dL Albumin/Globulin Ratio 0.5 (1.0-2.7) L Lipase 1376 U/L (73-393) H Urine Osmolality 310 mOsm/kg (429-449) L Urine Random Total Protein 129 MG/DL (< 11.9) H Urine Random Sodium 56 mmol/L (20-110) Urine Creatinine 38.7 MG/DL (30.0-125.0) Urine Potassium Timed 35 mmol/L (12-62) Head: normocophalic Neck: no rigidity EENT: benign Neurologic Exam Mental Status: awake, alert Objective Quadriparetic, worse in LEs 3/5, unable to walk Impression/Recommendations Problems: (1) Renal failure (2) Acute renal failure (3) Anemia (4) Leukocytosis (5) UTI (urinary tract infection) (6) Elevated lipase (7) Hyperthyroidism (8) COPD (chronic obstructive pulmonary disease) (9) Multiple sclerosis Status: stable Diagnostic Impression Secondary progressive MS - refuses any kind of meds PT OT atb er primary Aron Chris MD September 24, 2019 22:54
[2019-09-25] VITALS: BP 130/80
[2019-09-25 04:00] VITALS: BP 130/81
[2019-09-25] MEDS: Meropenem 500mg/NS 55ml IVPB SCH ×4 (05:06→17:57)
[2019-09-25] MEDS: HydrALAZINE 10mg Tab ORAL SCH ×3 (05:23→21:06)
[2019-09-25] MEDS: Heparin 5000 units/ml inj SUBQ SCH ×3 (05:24→21:06)
[2019-09-25 08:00] VITALS: BP 131/77
[2019-09-25 08:43] LABS: ALANINE AMINOTRANSFERASE 12 U/L (12-78); ALBUMIN 2.5 G/DL (3.4-5.0); ALBUMIN/GLOBULIN RATIO 0.5 (1.0-2.7); ALKALINE PHOSPHATASE 87 U/L (46-116); AMYLASE 87 U/L (25-115); ANION GAP 15 mmol/L (5-15); ASPARTATE AMINO TRANSFERASE 14 U/L (15-37); BILIRUBIN,TOTAL 0.3 MG/DL (0.2-1.0); BLOOD UREA NITROGEN 63 mg/dL (7-18); CALCIUM 8.8 MG/DL (8.5-10.1); CARBON DIOXIDE 18 MMOL/L (21-32); CHLORIDE 108 MMOL/L (98-107); CHOLESTEROL 135 MG/DL (< 200); HDL CHOLESTEROL 42 MG/DL (40-60); POTASSIUM 3.8 MMOL/L (3.5-5.1); SODIUM 141 MMOL/L (136-145); TRIGLYCERIDES 54 MG/DL (30-150)
[2019-09-25 08:45] LABS: BASOPHILS % (AUTO) 0.7 % (0.0-2.0); EOSINOPHILS % (AUTO) 5.3 % (0.0-3.0); HEMATOCRIT 28.1 % (37.0-47.0); HEMOGLOBIN 9.6 G/DL (12.0-16.0); LYMPHOCYTES % (AUTO) 16.9 % (20.0-45.0); MEAN CORPUSCULAR VOLUME 82 FL (80-99); MONOCYTES % (AUTO) 5.1 % (1.0-10.0); NEUTROPHILS % (AUTO) 72.1 % (45.0-75.0); PLATELET COUNT 276 K/UL (150-450); RED BLOOD COUNT 3.43 M/UL (4.20-5.40); RED CELL DISTRIBUTION WIDTH 11.8 % (11.6-14.8); WHITE BLOOD COUNT 7.7 K/UL (4.8-10.8)
[2019-09-25] MEDS: methIMAzole 10mg tab ORAL SCH ×2 (09:00→17:58)
[2019-09-25 09:10] LABS: PHOSPHORUS 4.4 MG/DL (2.5-4.9)
--- NOTE | 2019-09-25 09:19 | Nephrology Progress Note ---
Assessment/Plan Plan #SAJAN on chronic kidney disease stage 4 due to bilateral hydronephrosis likely due to neurogenic bladder #UTI #Elevated lipase r/o pancreatitis #h/o MS #hyperthyroidism #HTN #COPD - Torres placed - IVF- NS at 50cc/hr - real US - monitor lab - urology consult - antibiotics per ID- meropenem - torres urine culture - GI eval for pancreatitis - on methimazole - monitor mag, phos and BMP daily Time spent 70 minutes, greater than 50% on care coordination and counseling Subjective ROS Limited/Unobtainable: No Constitutional: Denies: no symptoms, chills, diaphoresis, fever, malaise, weakness, other HEENT: Denies: no symptoms, eye pain, blurred vision, tearing, double vision, ear pain, ear discharge, nose pain, nose congestion, throat pain, throat swelling, mouth pain, mouth swelling, other Genitourinary: Denies: no symptoms, burning, discharge, frequency, flank pain, hematuria, incontinence, pain, urgency, other 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: Denies: no symptoms, anxiety, depressed, emotional problems, headache, numbness, paresthesia, pre-existing deficit, seizure, tingling, tremors, weakness, other Subjective Cr downtrending no nausea or emesis Objective Objective Last 24 Hour Vital Signs Date Time Temp Pulse Resp B/P (MAP) Pulse Ox O2 Delivery O2 Flow Rate FiO2 09/25/19 05:23 130/81 09/25/19 04:00 97.2 82 20 130/81 (97) 98 09/25/19 00:00 97.5 81 20 130/80 (97) 98 09/24/19 21:08 149/72 09/24/19 21:00 Room Air 09/24/19 20:00 96.8 78 21 149/72 (97) 99 09/24/19 16:00 97.3 68 18 128/84 (99) 99 09/24/19 13:49 140/69 09/24/19 12:03 96.4 72 17 140/69 (92) 99 Intake and Output 09/24/19 09/25/19 19:00 07:00 Intake Total 710 ml 500 ml Output Total 1000 ml 1300 ml Balance -290 ml -800 ml Intake Oral 600 ml 400 ml IV Total 110 ml 100 ml Output Urine Total 1000 ml 1300 ml # Bowel Movements 1 1 Laboratory Tests 09/25/19 08:10: White Blood Count 7.7, Red Blood Count 3.43L, Hemoglobin 9.6L, Hematocrit 28.1L , Mean Corpuscular Volume 82, Mean Corpuscular Hemoglobin 27.9, Mean Corpuscular Hemoglobin Concent 34.1, Red Cell Distribution Width 11.8, Platelet Count 276, Mean Platelet Volume 5.4L, Neutrophils (%) (Auto) 72.1, Lymphocytes ( %) (Auto) 16.9L, Monocytes (%) (Auto) 5.1, Eosinophils (%) (Auto) 5.3H, Basophils (%) (Auto) 0.7, Sodium Level 141, Potassium Level 3.8, Chloride Level 108H, Carbon Dioxide Level 18L, Anion Gap 15, Blood Urea Nitrogen 63H, Creatinine 4.0H, Estimat Glomerular Filtration Rate 11.1, Glucose Level 114H, Calcium Level 8.8, Phosphorus Level 4.4, Magnesium Level 2.1, Total Bilirubin 0.3, Aspartate Amino Transf (AST/SGOT) 14L, Alanine Aminotransferase (ALT/SGPT) 12, Alkaline Phosphatase 87, Total Protein 7.1, Albumin 2.5L, Globulin 4.6, Albumin/Globulin Ratio 0.5L, Triglycerides Level 54, Cholesterol Level 135, LDL Cholesterol 88, HDL Cholesterol 42, Cholesterol/HDL Ratio 3.2L, Amylase Level 87 , Lipase 224 Height (Feet): 5 Height (Inches): 6.00 Weight (Pounds): 150 General Appearance: WD/WN, no apparent distress EENT: PERRL/EOMI Neck: non-tender, normal alignment Cardiovascular: normal peripheral pulses, normal rate, regular rhythm Respiratory/Chest: chest wall non-tender, lungs clear, normal breath sounds Abdomen: normal bowel sounds, non tender, soft Extremities: normal range of motion, non-tender Vicente Jaimes M.D. Sep 25, 2019 09:19
[2019-09-25 12:00] VITALS: BP 128/86
--- NOTE | 2019-09-25 12:59 | General Progress Note ---
Assessment/Plan Problem List: (1) Acute renal failure ICD Codes: N17.9 - Acute kidney failure, unspecified SNOMED: 20862641 (2) Anemia ICD Codes: D64.9 - Anemia, unspecified SNOMED: 791858182 (3) Elevated lipase ICD Codes: R74.8 - Abnormal levels of other serum enzymes SNOMED: 650954345 (4) COPD (chronic obstructive pulmonary disease) ICD Codes: J44.9 - Chronic obstructive pulmonary disease, unspecified SNOMED: 08767401 (5) Multiple sclerosis ICD Codes: G35 - Multiple sclerosis SNOMED: 20385541 (6) Hyperthyroidism ICD Codes: E05.90 - Thyrotoxicosis, unspecified without thyrotoxic crisis or storm SNOMED: 80271231 Status: stable Assessment/Plan: lipase back to normal no abd pain refuses EGD and colonoscopy will fu Subjective ROS Limited/Unobtainable: Yes Allergies: Coded Allergies: CODEINE (Verified Allergy, Unknown, 08/24/19) NEUROMUSCULAR BLOCKERS, STEROIDAL (Verified Allergy, Unknown, 08/24/19) Uncoded Allergies: ANABOLIC STEROIDS (Allergy, Unknown, 08/24/19) STEROIDS (Allergy, Unknown, 08/24/19) Objective Last 24 Hour Vital Signs Date Time Temp Pulse Resp B/P (MAP) Pulse Ox O2 Delivery O2 Flow Rate FiO2 09/25/19 09:00 Room Air 09/25/19 08:00 97.6 80 21 131/77 (95) 97 09/25/19 05:23 130/81 09/25/19 04:00 97.2 82 20 130/81 (97) 98 09/25/19 00:00 97.5 81 20 130/80 (97) 98 09/24/19 21:08 149/72 09/24/19 21:00 Room Air 09/24/19 20:00 96.8 78 21 149/72 (97) 99 09/24/19 16:00 97.3 68 18 128/84 (99) 99 09/24/19 13:49 140/69 Intake and Output 09/24/19 09/25/19 19:00 07:00 Intake Total 710 ml 500 ml Output Total 1000 ml 1300 ml Balance -290 ml -800 ml Intake Oral 600 ml 400 ml IV Total 110 ml 100 ml Output Urine Total 1000 ml 1300 ml # Bowel Movements 1 1 Laboratory Tests 09/25/19 08:10: White Blood Count 7.7, Red Blood Count 3.43L, Hemoglobin 9.6L, Hematocrit 28.1L , Mean Corpuscular Volume 82, Mean Corpuscular Hemoglobin 27.9, Mean Corpuscular Hemoglobin Concent 34.1, Red Cell Distribution Width 11.8, Platelet Count 276, Mean Platelet Volume 5.4L, Neutrophils (%) (Auto) 72.1, Lymphocytes ( %) (Auto) 16.9L, Monocytes (%) (Auto) 5.1, Eosinophils (%) (Auto) 5.3H, Basophils (%) (Auto) 0.7, Sodium Level 141, Potassium Level 3.8, Chloride Level 108H, Carbon Dioxide Level 18L, Anion Gap 15, Blood Urea Nitrogen 63H, Creatinine 4.0H, Estimat Glomerular Filtration Rate 11.1, Glucose Level 114H, Calcium Level 8.8, Phosphorus Level 4.4, Magnesium Level 2.1, Total Bilirubin 0.3, Aspartate Amino Transf (AST/SGOT) 14L, Alanine Aminotransferase (ALT/SGPT) 12, Alkaline Phosphatase 87, Total Protein 7.1, Albumin 2.5L, Globulin 4.6, Albumin/Globulin Ratio 0.5L, Triglycerides Level 54, Cholesterol Level 135, LDL Cholesterol 88, HDL Cholesterol 42, Cholesterol/HDL Ratio 3.2L, Amylase Level 87 , Lipase 224 Height (Feet): 5 Height (Inches): 6.00 Weight (Pounds): 150 General Appearance: no apparent distress EENT: normal ENT inspection Neck: supple Cardiovascular: normal rate Respiratory/Chest: decreased breath sounds Abdomen: normal bowel sounds, non tender, soft Extremities: non-tender Farooq Adams MD Sep 25, 2019 12:59
--- NOTE | 2019-09-25 14:02 | Consultation ---
History of Present Illness General Date patient seen: Sep 25, 2019 Reason for Hospitalization: Abnormal Labs Present Illness HPI This is a 68-year-old female with multiple medical comorbidities who was recently discharged from [facility] after [place] VID evaluation to her care facility and recently developed worsening renal insufficiency and admitted for further care and management. On admission was identified to come from the nursing facility with sacral buttock decubitus wound, malnutrition, abnormal labs. Surgery called to evaluate and assist with care. Patient seen, patient evaluated, chart reviewed. leukocytosis. eelvated lipase. Allergies: Coded Allergies: CODEINE (Verified Allergy, Unknown, 08/24/19) NEUROMUSCULAR BLOCKERS, STEROIDAL (Verified Allergy, Unknown, 08/24/19) Uncoded Allergies: ANABOLIC STEROIDS (Allergy, Unknown, 08/24/19) STEROIDS (Allergy, Unknown, 08/24/19) COVID-19 Screening Contact w/high risk pt: No Recent Travel to affected area: No Experienced COVID-19 symptoms?: No COVID-19 symptoms experienced: Cough Medication History Scheduled Bisacodyl (Laxative Suppository), 10 MG RC DAILY, (Reported) Ca Cmb 1/Vit D3/B-6/Fa/B12/Av (Vitamin D3-Aloe 1,000 Unit Tab), 1 EACH PO DAILY, (Reported) Docusate Sodium* (Docusate Sodium*), 100 MG ORAL DAILY, (Reported) Ferrous Sulfate* (Ferrous Sulfate*), 325 MG ORAL DAILY, (Reported) Folic Acid* (Folic Acid*), 1 MG ORAL DAILY, (Reported) Furosemide* (Lasix*), 20 MG ORAL DAILY, (Reported) Guaifenesin (Mucinex), 200 MG PO Q4HR, (Reported) Hydralazine Hcl* (Hydralazine Hcl*), 10 MG ORAL EVERY 8 HOURS, (Reported) Ipratropium/Albuterol Sulfate (DuoNeb 0.5-3(2.5)mg/3ml), 3 ML HHN Q6HR, ( Reported) Magnesium Hydroxide* (Milk Of Magnesia*), 30 ML ORAL BID, (Reported) Methimazole (Methimazole), 10 MG PO DAILY, (Reported) Na Phos,M-B/Na Phos,Di-Ba* (Fleet Enema*), 133 ML RECTAL DAILY, (Reported) Polyethylene Glycol 3350* (Polyethylene Glycol 3350*), 17 GM ORAL DAILY, ( Reported) Potassium Chloride (Klor-Con M20), 20 MEQ ORAL DAILY, (Reported) Quetiapine Fumarate* (Seroquel*), 25 MG ORAL QHS, (Reported) Vitamin B Cmplx/Vit C/Folic AC (Nephro-Jerry Tablet), 1 TAB ORAL DAILY, (Reported ) Scheduled PRN Acetaminophen* (Acetaminophen 325MG Tablet*), 650 MG ORAL Q4H PRN for fever, ( Reported) Acetaminophen* (Acetaminophen 325MG Tablet*), 650 MG ORAL Q6H PRN for mild pain, (Reported) Patient History Limited by: medical condition History Provided By: Medical Record, PMD Healthcare decision maker Resuscitation status Advanced Directive on File Past Medical/Surgical History Past Medical/Surgical History: (1) Acute renal failure (2) Anemia (3) Leukocytosis (4) UTI (urinary tract infection) (5) Elevated lipase (6) Renal failure (7) Hyperthyroidism (8) COPD (chronic obstructive pulmonary disease) (9) Multiple sclerosis Review of Systems Review of Symptoms General ROS: no weight loss or fever Psychological ROS: no depression or mood changes, no memory loss Ophthalmic ROS: no visual changes or eye irritation ENT ROS: no nasal congestion, hearing loss, dizziness Allergy and Immunology ROS: no allergic symptoms or urticaria Hematological and Lymphatic ROS: no swollen glands, unusual bleeding or bruising Endocrine ROS: no polyuria, polydipsia, weight changes, temperature intolerance Respiratory ROS: no cough, shortness of breath, or wheezing Cardiovascular ROS: no chest pain or dyspnea on exertion Gastrointestinal ROS: denies abdominal pain, bright red blood in stool. Musculoskeletal ROS: no myalgias or arthralgias Neurological ROS: no TIA or stroke symptoms Dermatological ROS: no new or changing skin lesions, rashes or pruritis Physical Exam Physical Exam General appearance: alert, cooperative, no distress, appears stated age Head: Normocephalic, without obvious abnormality, atraumatic Eyes: conjunctivae/corneas clear. PERRL, EOM's intact. Fundi benign Throat: Lips, mucosa, and tongue normal. Teeth and gums normal Neck: supple, symmetrical, trachea midline, no adenopathy, thyroid: not enlarged, symmetric, no tenderness/mass/nodules, no carotid bruit and no JVD Lungs: clear to auscultation bilaterally Heart: regular rate and rhythm, S1, S2 normal, no murmur, click, rub or gallop Abdomen: soft, non-tender. Bowel sounds normal. No masses, no organomegaly Extremities: extremities normal, atraumatic, no cyanosis or edema Pulses: 2+ and symmetric Skin: Skin see below Neurologic: Grossly normal Last 24 Hour Vital Signs Date Time Temp Pulse Resp B/P (MAP) Pulse Ox O2 Delivery O2 Flow Rate FiO2 09/25/19 09:00 Room Air 09/25/19 08:00 97.6 80 21 131/77 (95) 97 09/25/19 05:23 130/81 09/25/19 04:00 97.2 82 20 130/81 (97) 98 09/25/19 00:00 97.5 81 20 130/80 (97) 98 09/24/19 21:08 149/72 09/24/19 21:00 Room Air 09/24/19 20:00 96.8 78 21 149/72 (97) 99 09/24/19 16:00 97.3 68 18 128/84 (99) 99 Intake and Output 09/24/19 09/25/19 19:00 07:00 Intake Total 710 ml 500 ml Output Total 1000 ml 1300 ml Balance -290 ml -800 ml Intake Oral 600 ml 400 ml IV Total 110 ml 100 ml Output Urine Total 1000 ml 1300 ml # Bowel Movements 1 1 Laboratory Tests Test 09/25/19 08:10 White Blood Count 7.7 K/UL (4.8-10.8) Red Blood Count 3.43 M/UL (4.20-5.40) L Hemoglobin 9.6 G/DL (12.0-16.0) L Hematocrit 28.1 % (37.0-47.0) L Mean Corpuscular Volume 82 FL (80-99) Mean Corpuscular Hemoglobin 27.9 PG (27.0-31.0) Mean Corpuscular Hemoglobin Concent 34.1 G/DL (32.0-36.0) Red Cell Distribution Width 11.8 % (11.6-14.8) Platelet Count 276 K/UL (150-450) Mean Platelet Volume 5.4 FL (6.5-10.1) L Neutrophils (%) (Auto) 72.1 % (45.0-75.0) Lymphocytes (%) (Auto) 16.9 % (20.0-45.0) L Monocytes (%) (Auto) 5.1 % (1.0-10.0) Eosinophils (%) (Auto) 5.3 % (0.0-3.0) H Basophils (%) (Auto) 0.7 % (0.0-2.0) Sodium Level 141 MMOL/L (136-145) Potassium Level 3.8 MMOL/L (3.5-5.1) Chloride Level 108 MMOL/L (98-107) H Carbon Dioxide Level 18 MMOL/L (21-32) L Anion Gap 15 mmol/L (5-15) Blood Urea Nitrogen 63 mg/dL (7-18) H Creatinine 4.0 MG/DL (0.55-1.30) H Estimat Glomerular Filtration Rate 11.1 mL/min (>60) Glucose Level 114 MG/DL (74-106) H Calcium Level 8.8 MG/DL (8.5-10.1) Phosphorus Level 4.4 MG/DL (2.5-4.9) Magnesium Level 2.1 MG/DL (1.8-2.4) Total Bilirubin 0.3 MG/DL (0.2-1.0) Aspartate Amino Transf (AST/SGOT) 14 U/L (15-37) L Alanine Aminotransferase (ALT/SGPT) 12 U/L (12-78) Alkaline Phosphatase 87 U/L (46-116) Total Protein 7.1 G/DL (6.4-8.2) Albumin 2.5 G/DL (3.4-5.0) L Globulin 4.6 g/dL Albumin/Globulin Ratio 0.5 (1.0-2.7) L Triglycerides Level 54 MG/DL (30-150) Cholesterol Level 135 MG/DL (< 200) LDL Cholesterol 88 mg/dL (<100) HDL Cholesterol 42 MG/DL (40-60) Cholesterol/HDL Ratio 3.2 (3.3-4.4) L Amylase Level 87 U/L (25-115) Lipase 224 U/L (73-393) Height (Feet): 5 Height (Inches): 6.00 Weight (Pounds): 150 Medications Current Medications Medications (Trade) Dose Ordered Sig/Gurprete Route PRN Reason Start Time Stop Time Status Last Admin Dose Admin Acetaminophen (Tylenol) 650 mg Q6H PRN ORAL mild pain 09/24/19 03:30 10/24/19 03:29 Ferrous Sulfate (Feosol) 325 mg DAILY ORAL 09/24/19 09:00 12/23/19 08:59 09/24/19 09:20 Folic Acid (Folate) 1 mg DAILY ORAL 09/24/19 09:00 10/24/19 08:59 09/24/19 09:20 Heparin Sodium (Porcine) (Heparin 5000 units/ml) 5,000 units EVERY 8 HOURS SUBQ 09/24/19 06:00 11/08/19 05:59 09/25/19 05:24 Hydralazine HCl (Apresoline) 10 mg EVERY 8 HOURS ORAL 09/24/19 06:00 12/23/19 05:59 09/25/19 05:23 Meropenem 500 mg/ Sodium Chloride 55 ml @ 110 mls/hr Q12HR@0500,1700 IVPB 09/24/19 05:00 09/29/19 04:59 09/25/19 05:06 Methimazole (Tapazole) 10 mg DAILY ORAL 09/24/19 09:00 10/24/19 08:59 09/24/19 09:21 Quetiapine Fumarate (SEROqueL) 25 mg QHS ORAL 09/24/19 21:00 11/08/19 20:59 09/24/19 21:08 Sodium Chloride 1,000 ml @ 50 mls/hr Q20H IV 09/24/19 04:00 10/24/19 03:59 09/24/19 23:23 Assessment/Plan Problem List: (1) Leukocytosis Assessment & Plan: wbc 11k on admission resolved uti likely on abx wounds clean dry not infected ICD Codes: D72.829 - Elevated white blood cell count, unspecified SNOMED: 010875877, 458989676 (2) Decubitus skin ulcer Assessment & Plan: Pt presented on admission with non-blanching erythema with shearing cleft, R and L buttocks. Non-blanching erythema R and L heels. Non-Blanching erythema noted to Sacrum. Partial thickness pressure injury lumbar spine resolving . Base of wound is moist and viable. No erythema or evidence of further skin breakdown periwound. Non-Blanching erythema without fluctuance R heel. L heel is boggy with Non-Blanching erythema. Pt can be resistive to care and repositioning despite continuous education by staff of risks vs benefits to compliance and avoiding further Skin breakdown. Tx.Plan: Apply Moisture Barrier Paste to Sacrum. Cover with Optifoam drsg. Change every 3 days and prn. Apply Moisture Barrier Paste to to perineum and bilat ischial tuberosities with each incontinence care. Apply Cavilon Skin Barrier to both heels.Cover each heels with Optifoam drsg. Change every 7 days and prn. Reposition at least every 2hours or as tolerated. Off-load heels with pillow. ICD Codes: L89.90 - Pressure ulcer of unspecified site, unspecified stage SNOMED: 855799703 (3) Elevated lipase Assessment & Plan: patient presented on admission with lip >1100. since admission resolved no further work up at this time monitor clinically ICD Codes: R74.8 - Abnormal levels of other serum enzymes SNOMED: 436481919 Saravanan Lara Sep 25, 2019 14:02
--- NOTE | 2019-09-25 15:44 | Diagnostic Imaging Report ---
Indication: Abdominal pain, Abnormal lipase, abnormal renal function tests Technique: Loja-scale and duplex images of the upper abdomen were obtained Comparison: No comparison sonograms. Reference made to prior CT abdomen pelvis dated 09/01/2019 Findings: Exam is very limited, due to body habitus, overlying bowel gas, and patient inability to tolerate the exam. Gallbladder could not be imaged, despite evidence of presence of such on prior CT scan. Note that the gallbladder was contracted on the prior CT. Sonographic Carlton sign could not be assessed Common bile duct measures 5 mm in diameter. No intrahepatic biliary ductal dilatation. Liver demonstrates surface nodularity. Questionable low-attenuation 2.8 cm mass is seen at the anterior aspect of the left hepatic lobe. No definite mass seen on recent CT scan. This may just represent a prominent lobulation. Portal vein and hepatic veins are patent. Pancreas cannot be visualized. Spleen is unremarkable. Left kidney measures 9.3 cm in length. Right kidney measures 11 cm length. Both kidneys demonstrate normal echogenicity. Both kidneys demonstrate mild hydronephrosis. This is much improved from the findings demonstrated on recent CT scan. No focal abnormality . Non-aneurysmal abdominal aorta . Bladder is empty, contains a Escobar catheter Impression: Nonvisualized gallbladder, despite visualization on recent CT scan. Negative for dilated bile ducts Nodular liver surface, likely cirrhotic. Masslike area in the anterior left lobe, probably just a prominent lobulation given findings on recent CT scan. Empty bladder with a Escobar catheter
--- NOTE | 2019-09-25 18:32 | General Progress Note ---
Assessment/Plan Status: stable Assessment/Plan: 68 y/o F w/PMH hyperthyroidism, multiple sclerosis, HTN and COPD who presents from [facility] for cough and abnormal labs. On admission, CXR revealed left lower lobe pleural effusion, Cr 3.2. Patient admitted for further treatment and evaluation, and COVID-19 negative. #Complicated UTI #H/o ESBL UTI -Appreciate ID consult. D/w Dr. 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 D/w Dr. Jaimes -May need urology consult again #COPD -not in exacerbation at this time -currently on RA -ctm #Multiple sclerosis -no acute issues #Hyperthyroidism -home med methimazole 10 mg PO q daily #Anxiety -ativan 0.5 mg PO PRN -Psych consulted, recs appreciated Dispo: d/c to [facility] PPx: Heparin Time spent on encounter: 38 mins, 20 on counseling, coordination of care w/ Pt, RN, infectious disease nephro and consultants named above. Time of note doesn't reflect time of encounter Subjective Date patient seen: Sep 25, 2019 Allergies: Coded Allergies: CODEINE (Verified Allergy, Unknown, 08/24/19) NEUROMUSCULAR BLOCKERS, STEROIDAL (Verified Allergy, Unknown, 08/24/19) Uncoded Allergies: ANABOLIC STEROIDS (Allergy, Unknown, 08/24/19) STEROIDS (Allergy, Unknown, 08/24/19) Subjective AVSS Leukocytosis resolved on abx Hb 10.3 -> 9.6, no e/o active bleed Cr improving 4.3 -> 4 Lipase normalized Objective Last 24 Hour Vital Signs Date Time Temp Pulse Resp B/P (MAP) Pulse Ox O2 Delivery O2 Flow Rate FiO2 09/25/19 15:11 128/86 09/25/19 12:00 97.5 98 26 128/86 (100) 98 09/25/19 09:00 Room Air 09/25/19 08:00 97.6 80 21 131/77 (95) 97 09/25/19 05:23 130/81 09/25/19 04:00 97.2 82 20 130/81 (97) 98 09/25/19 00:00 97.5 81 20 130/80 (97) 98 09/24/19 21:08 149/72 09/24/19 21:00 Room Air 09/24/19 20:00 96.8 78 21 149/72 (97) 99 Intake and Output 09/24/19 09/25/19 19:00 07:00 Intake Total 710 ml 500 ml Output Total 1000 ml 1300 ml Balance -290 ml -800 ml Intake Oral 600 ml 400 ml IV Total 110 ml 100 ml Output Urine Total 1000 ml 1300 ml # Bowel Movements 1 1 Laboratory Tests 09/25/19 08:10: White Blood Count 7.7, Red Blood Count 3.43L, Hemoglobin 9.6L, Hematocrit 28.1L , Mean Corpuscular Volume 82, Mean Corpuscular Hemoglobin 27.9, Mean Corpuscular Hemoglobin Concent 34.1, Red Cell Distribution Width 11.8, Platelet Count 276, Mean Platelet Volume 5.4L, Neutrophils (%) (Auto) 72.1, Lymphocytes ( %) (Auto) 16.9L, Monocytes (%) (Auto) 5.1, Eosinophils (%) (Auto) 5.3H, Basophils (%) (Auto) 0.7, Sodium Level 141, Potassium Level 3.8, Chloride Level 108H, Carbon Dioxide Level 18L, Anion Gap 15, Blood Urea Nitrogen 63H, Creatinine 4.0H, Estimat Glomerular Filtration Rate 11.1, Glucose Level 114H, Calcium Level 8.8, Phosphorus Level 4.4, Magnesium Level 2.1, Total Bilirubin 0.3, Aspartate Amino Transf (AST/SGOT) 14L, Alanine Aminotransferase (ALT/SGPT) 12, Alkaline Phosphatase 87, Total Protein 7.1, Albumin 2.5L, Globulin 4.6, Albumin/Globulin Ratio 0.5L, Triglycerides Level 54, Cholesterol Level 135, LDL Cholesterol 88, HDL Cholesterol 42, Cholesterol/HDL Ratio 3.2L, Amylase Level 87 , Lipase 224 09/25/19 15:30: Stool Occult Blood [Pending] Height (Feet): 5 Height (Inches): 6.00 Weight (Pounds): 150 Objective General: WDWN emale in NAD, A&O x 4 HEENT: Normocephalic cephalic atraumatic, pupils equal round reactive to light and accommodation, nares patent and no symmetrical, no tonsillar exudates, mucous membranes moist CV: Regular rate regular rhythm, no murmurs, rubs, or gallops Pulm: Lungs clear to auscultation bilaterally. No wheezes, rhonchi, or rales GI: Soft, nontender, nondistended, bowel sounds present : Torrse in place draining MILKY yellow urine. Neuro: CN 2-12 intact bilaterally, no focal signs. Ext: No lower extremity edema bilaterally Skin: no rashes lesions or ulcers Msk: Joints symmetrical in upper extremity and lower extremity bilaterally, no joint swelling. Lymph: No lymphadenopathy in upper extremity and lower extremity Simone Quintana MD Sep 25, 2019 18:32
--- NOTE | 2019-09-25 18:45 | Infectious Diseases Prog Note ---
Assessment/Plan Assessment/Plan Full consult dictated: A) 1) complicated uti 2) pmh noted 3) allergies - nkda P) 1) meropenem 2) check urine culture 3) thank you Subjective Constitutional: Denies: fever HEENT: Denies: congestion Respiratory: Denies: shortness of breath Cardiovascular: Denies: chest pain Gastrointestinal/Abdominal: Denies: nausea, vomiting Allergies: Coded Allergies: CODEINE (Verified Allergy, Unknown, 08/24/19) NEUROMUSCULAR BLOCKERS, STEROIDAL (Verified Allergy, Unknown, 08/24/19) Uncoded Allergies: ANABOLIC STEROIDS (Allergy, Unknown, 08/24/19) STEROIDS (Allergy, Unknown, 08/24/19) Objective Vital Signs Last 24 Hour Vital Signs Date Time Temp Pulse Resp B/P (MAP) Pulse Ox O2 Delivery O2 Flow Rate FiO2 09/25/19 16:00 09/25/19 15:11 128/86 09/25/19 12:00 97.5 98 26 128/86 (100) 98 09/25/19 09:00 Room Air 09/25/19 08:00 97.6 80 21 131/77 (95) 97 09/25/19 05:23 130/81 09/25/19 04:00 97.2 82 20 130/81 (97) 98 09/25/19 00:00 97.5 81 20 130/80 (97) 98 09/24/19 21:08 149/72 09/24/19 21:00 Room Air 09/24/19 20:00 96.8 78 21 149/72 (97) 99 Height (Feet): 5 Height (Inches): 6.00 Weight (Pounds): 150 General Appearance: no acute distress HEENT: normocephalic, atraumatic, anicteric, mucous membranes moist Respiratory/Chest: no accessory muscle use Cardiovascular: normal rate Microbiology Date/Time Source Procedure Growth Status 09/24/19 00:00 Urine,Ureter/Kidney Urine Culture - Preliminary Gram Negative Bacillus 1 Resulted 09/24/19 00:00 Rectum Received Laboratory Tests Test 09/25/19 08:10 09/25/19 15:30 White Blood Count 7.7 K/UL (4.8-10.8) Red Blood Count 3.43 M/UL (4.20-5.40) L Hemoglobin 9.6 G/DL (12.0-16.0) L Hematocrit 28.1 % (37.0-47.0) L Mean Corpuscular Volume 82 FL (80-99) Mean Corpuscular Hemoglobin 27.9 PG (27.0-31.0) Mean Corpuscular Hemoglobin Concent 34.1 G/DL (32.0-36.0) Red Cell Distribution Width 11.8 % (11.6-14.8) Platelet Count 276 K/UL (150-450) Mean Platelet Volume 5.4 FL (6.5-10.1) L Neutrophils (%) (Auto) 72.1 % (45.0-75.0) Lymphocytes (%) (Auto) 16.9 % (20.0-45.0) L Monocytes (%) (Auto) 5.1 % (1.0-10.0) Eosinophils (%) (Auto) 5.3 % (0.0-3.0) H Basophils (%) (Auto) 0.7 % (0.0-2.0) Sodium Level 141 MMOL/L (136-145) Potassium Level 3.8 MMOL/L (3.5-5.1) Chloride Level 108 MMOL/L (98-107) H Carbon Dioxide Level 18 MMOL/L (21-32) L Anion Gap 15 mmol/L (5-15) Blood Urea Nitrogen 63 mg/dL (7-18) H Creatinine 4.0 MG/DL (0.55-1.30) H Estimat Glomerular Filtration Rate 11.1 mL/min (>60) Glucose Level 114 MG/DL (74-106) H Calcium Level 8.8 MG/DL (8.5-10.1) Phosphorus Level 4.4 MG/DL (2.5-4.9) Magnesium Level 2.1 MG/DL (1.8-2.4) Total Bilirubin 0.3 MG/DL (0.2-1.0) Aspartate Amino Transf (AST/SGOT) 14 U/L (15-37) L Alanine Aminotransferase (ALT/SGPT) 12 U/L (12-78) Alkaline Phosphatase 87 U/L (46-116) Total Protein 7.1 G/DL (6.4-8.2) Albumin 2.5 G/DL (3.4-5.0) L Globulin 4.6 g/dL Albumin/Globulin Ratio 0.5 (1.0-2.7) L Triglycerides Level 54 MG/DL (30-150) Cholesterol Level 135 MG/DL (< 200) LDL Cholesterol 88 mg/dL (<100) HDL Cholesterol 42 MG/DL (40-60) Cholesterol/HDL Ratio 3.2 (3.3-4.4) L Amylase Level 87 U/L (25-115) Lipase 224 U/L (73-393) Stool Occult Blood Pending Current Medications Medications (Trade) Dose Ordered Sig/Gurpreet Route PRN Reason Start Time Stop Time Status Last Admin Dose Admin Acetaminophen (Tylenol) 650 mg Q6H PRN ORAL mild pain 09/24/19 03:30 10/24/19 03:29 Ferrous Sulfate (Feosol) 325 mg DAILY ORAL 09/24/19 09:00 12/23/19 08:59 09/25/19 17:58 Folic Acid (Folate) 1 mg DAILY ORAL 09/24/19 09:00 10/24/19 08:59 09/25/19 17:58 Heparin Sodium (Porcine) (Heparin 5000 units/ml) 5,000 units EVERY 8 HOURS SUBQ 09/24/19 06:00 11/08/19 05:59 09/25/19 05:24 Hydralazine HCl (Apresoline) 10 mg EVERY 8 HOURS ORAL 09/24/19 06:00 12/23/19 05:59 09/25/19 15:11 Meropenem 500 mg/ Sodium Chloride 55 ml @ 110 mls/hr Q12HR@0500,1700 IVPB 09/24/19 05:00 09/29/19 04:59 09/25/19 17:57 Methimazole (Tapazole) 10 mg DAILY ORAL 09/24/19 09:00 10/24/19 08:59 09/25/19 17:58 Quetiapine Fumarate (SEROqueL) 25 mg QHS ORAL 09/24/19 21:00 11/08/19 20:59 09/24/19 21:08 Sodium Chloride 1,000 ml @ 50 mls/hr Q20H IV 09/24/19 04:00 10/24/19 03:59 09/24/19 23:23 Louie Bullard MD Sep 25, 2019 18:45
[2019-09-25 20:00] VITALS: BP 128/75
--- NOTE | 2019-09-25 21:00 | Consultation ---
DATE OF CONSULTATION: 09/25/2019 INFECTIOUS DISEASES CONSULTATION CONSULTING PHYSICIAN: Louie Bullard MD. ATTENDING PHYSICIAN: Katlin Orozco MD. REFERRING PHYSICIANS: 1. Imer Parker DO 2. Katlin Orozco MD. REASON FOR CONSULTATION: Complicated gram-negative UTI and leukocytosis CHIEF COMPLAINT: The patient's chief complaint coming into the hospital is renal failure. HISTORY OF PRESENT ILLNESS: This is a 68-year-old female who comes into [facility] with acute renal failure. The patient's creatinine was 4.7 on admission. The patient also had a leukocytosis and workup shows that she has a gram-negative UTI likely complicated gram-negative UTI with acute renal failure and leukocytosis. Infectious Diseases consultation requested. She is currently on meropenem for gram-negative UTI. MAR was noted. Orders were noted. Notes were reviewed. The patient is not a very good historian. REVIEW OF SYSTEMS: The patient has no fever, chills, night sweats, or weight loss. HEAD AND NECK: No head pain or neck pain. No neck stiffness. No thrush or dysphagia. CARDIAC: No chest pain or palpitations. GASTROINTESTINAL: No nausea, vomiting, abdominal pain, or diarrhea. GENITOURINARY: She has some dysuria and frequency. No CVA tenderness. She does have a Escobar. PULMONARY: No congestion, shortness of breath, hemoptysis, secretions. SKIN: No rash. EXTREMITIES: No extremity pain. NEUROLOGIC: No seizures. Generalized fatigue. No focal weakness. PAST MEDICAL HISTORY: The patient's past medical history includes the following: The patient has a past medical history of hyperthyroidism, history of multiple sclerosis, COPD, hypertension, acute renal failure likely chronic renal failure. No history of diabetes. ALLERGIES: She has allergies to steroids, codeine, neuromuscular blockers. SOCIAL HISTORY: Negative for smoking, alcohol, or drug abuse. FAMILY HISTORY: Noncontributory. Negative for tuberculosis or cancer. MEDICATIONS: Upon reviewing the MAR, she is on the following medications. She is on quetiapine, ferrous sulfate, folic acid, methimazole, hydralazine, meropenem, IV fluids, acetaminophen. Outside medications noted and reconciliated. PHYSICAL EXAMINATION: VITAL SIGNS: Temperature is 97.5, pulse rate is 98, respiratory rate is 26, blood pressure 120/86, saturation 98% on room air. GENERAL: Alert and responsive, no acute distress HEAD AND NECK: Oral exam, no thrush. Eye exam, no icterus. Normocephalic. Neck is supple. HEART: Regular. No gallop or murmur. No friction rub. ABDOMEN: Soft. Positive bowel sounds. Nontender. LUNGS: Fairly clear bilaterally. No rhonchi and rales. SKIN: No rash. MUSCULOSKELETAL: No effusions. Legs without cellulitis. PERIPHERAL VASCULAR: No cyanosis. GENITOURINARY: She has Escobar. Urine is cloudy. No CVA tenderness. LINE SITES: Without phlebitis. NEUROLOGIC: Intact. Alert and responsive. Oriented. LABORATORY AND DIAGNOSTIC DATA: Creatinine was 4.0, initial creatinine 4.7. White count 7.7, hemoglobin 9.6. Admission white count 11.8 which was elevated. Urinalysis had too many to count white blood cells, many bacteria. Urine culture with greater than 100,000 gram-negative bacilli, identification is pending. IMAGING STUDIES: Chest x-ray just showed atelectasis. Abdominal ultrasound showed nonvisualized gallbladder but no duct dilatation. Lipase was elevated at 1376. ASSESSMENT AND PLAN: 1. The patient has complicated gram-negative UTI with acute renal failure and leukocytosis. Continue meropenem for gram-negative coverage. Continue meropenem for complicated gram-negative UTI. Check urine culture results. 2. Leukocytosis, resolved. 3. Acute renal failure, likely chronic renal failure. 4. Hypertension. 5. Blood pressure treatment per primary care team. 6. COPD. 7. Multiple sclerosis. 8. Hyperthyroidism. 9. Anemia. 10. Past medical history noted. 11. Continue treatment per primary consultants. 12. Allergies to steroids, codeine, neuromuscular blockers. 13. Social history is negative. 14. Family history is noncontributory. 15. MAR was noted. 16. Case discussed with RN. 17. Orders were entered and noted. 18. Wound care protocol and surgery. I will follow. Louie Bullard M.D. DR: Meena JOB#: [id number] CC:
--- NOTE | 2019-09-25 22:11 | Neurology Progress Note ---
Interim History Interim History ROS Limited/Unobtainable: Yes Interim History pending therapy eval Objective Physical Exam Last Vital Signs Date Time Temp Pulse Resp B/P (MAP) Pulse Ox O2 Delivery O2 Flow Rate FiO2 09/25/19 21:06 128/75 09/25/19 21:03 Room Air 09/25/19 20:00 97.0 79 26 98 Laboratory Tests Test 09/25/19 08:10 09/25/19 15:30 White Blood Count 7.7 K/UL (4.8-10.8) Red Blood Count 3.43 M/UL (4.20-5.40) L Hemoglobin 9.6 G/DL (12.0-16.0) L Hematocrit 28.1 % (37.0-47.0) L Mean Corpuscular Volume 82 FL (80-99) Mean Corpuscular Hemoglobin 27.9 PG (27.0-31.0) Mean Corpuscular Hemoglobin Concent 34.1 G/DL (32.0-36.0) Red Cell Distribution Width 11.8 % (11.6-14.8) Platelet Count 276 K/UL (150-450) Mean Platelet Volume 5.4 FL (6.5-10.1) L Neutrophils (%) (Auto) 72.1 % (45.0-75.0) Lymphocytes (%) (Auto) 16.9 % (20.0-45.0) L Monocytes (%) (Auto) 5.1 % (1.0-10.0) Eosinophils (%) (Auto) 5.3 % (0.0-3.0) H Basophils (%) (Auto) 0.7 % (0.0-2.0) Sodium Level 141 MMOL/L (136-145) Potassium Level 3.8 MMOL/L (3.5-5.1) Chloride Level 108 MMOL/L (98-107) H Carbon Dioxide Level 18 MMOL/L (21-32) L Anion Gap 15 mmol/L (5-15) Blood Urea Nitrogen 63 mg/dL (7-18) H Creatinine 4.0 MG/DL (0.55-1.30) H Estimat Glomerular Filtration Rate 11.1 mL/min (>60) Glucose Level 114 MG/DL (74-106) H Calcium Level 8.8 MG/DL (8.5-10.1) Phosphorus Level 4.4 MG/DL (2.5-4.9) Magnesium Level 2.1 MG/DL (1.8-2.4) Total Bilirubin 0.3 MG/DL (0.2-1.0) Aspartate Amino Transf (AST/SGOT) 14 U/L (15-37) L Alanine Aminotransferase (ALT/SGPT) 12 U/L (12-78) Alkaline Phosphatase 87 U/L (46-116) Total Protein 7.1 G/DL (6.4-8.2) Albumin 2.5 G/DL (3.4-5.0) L Globulin 4.6 g/dL Albumin/Globulin Ratio 0.5 (1.0-2.7) L Triglycerides Level 54 MG/DL (30-150) Cholesterol Level 135 MG/DL (< 200) LDL Cholesterol 88 mg/dL (<100) HDL Cholesterol 42 MG/DL (40-60) Cholesterol/HDL Ratio 3.2 (3.3-4.4) L Amylase Level 87 U/L (25-115) Lipase 224 U/L (73-393) Stool Occult Blood Pending Head: normocophalic Neck: no rigidity EENT: benign Neurologic Exam Mental Status: awake, alert Objective Quadriparetic, worse in LEs 3/5, unable to walk Impression/Recommendations Problems: (1) Renal failure (2) Acute renal failure (3) Anemia (4) Leukocytosis (5) UTI (urinary tract infection) (6) Elevated lipase (7) Hyperthyroidism (8) COPD (chronic obstructive pulmonary disease) (9) Multiple sclerosis Status: stable Diagnostic Impression Secondary progressive MS - refuses any kind of meds PT OT atb er primary Aron Chris MD Sep 25, 2019 22:11
[2019-09-26] VITALS: BP 131/95
[2019-09-26 04:00] VITALS: BP 126/81
[2019-09-26] MEDS: Meropenem 500mg/NS 55ml IVPB SCH ×2 (04:46)
[2019-09-26] MEDS: HydrALAZINE 10mg Tab ORAL SCH ×3 (05:54→21:19)
[2019-09-26] MEDS: Heparin 5000 units/ml inj SUBQ SCH ×3 (05:54→21:21)
[2019-09-26 07:43] LABS: BASOPHILS % (AUTO) 1.3 % (0.0-2.0); EOSINOPHILS % (AUTO) 7.4 % (0.0-3.0); HEMOGLOBIN 9.2 G/DL (12.0-16.0); LYMPHOCYTES % (AUTO) 25.4 % (20.0-45.0); MEAN CORPUSCULAR VOLUME 82 FL (80-99); MONOCYTES % (AUTO) 7.7 % (1.0-10.0); NEUTROPHILS % (AUTO) 58.2 % (45.0-75.0); PLATELET COUNT 229 K/UL (150-450); RED BLOOD COUNT 3.28 M/UL (4.20-5.40); RED CELL DISTRIBUTION WIDTH 11.9 % (11.6-14.8); WHITE BLOOD COUNT 5.3 K/UL (4.8-10.8)
[2019-09-26 07:53] LABS: ANION GAP 13 mmol/L (5-15); BLOOD UREA NITROGEN 50 mg/dL (7-18); CALCIUM 8.6 MG/DL (8.5-10.1); CARBON DIOXIDE 19 MMOL/L (21-32); CHLORIDE 110 MMOL/L (98-107); CREATININE 3.6 MG/DL (0.55-1.30); SODIUM 141 MMOL/L (136-145)
[2019-09-26 08:00] VITALS: BP 122/79
[2019-09-26] MEDS: methIMAzole 10mg tab ORAL SCH (08:33)
--- NOTE | 2019-09-26 10:03 | Nephrology Progress Note ---
Assessment/Plan Plan #SAJAN on chronic kidney disease stage 4 due to bilateral hydronephrosis likely due to neurogenic bladder #UTI #Elevated lipase r/o pancreatitis #h/o MS #hyperthyroidism #HTN #COPD - Torres placed - IVF- NS at 50cc/hr- for one more day - real US - monitor lab - urology consult - antibiotics per ID- meropenem - torres urine culture - GI eval for pancreatitis - on methimazole - monitor mag, phos and BMP daily Time spent 70 minutes, greater than 50% on care coordination and counseling Subjective ROS Limited/Unobtainable: No Constitutional: Denies: no symptoms, chills, diaphoresis, fever, malaise, weakness, other HEENT: Denies: no symptoms, eye pain, blurred vision, tearing, double vision, ear pain, ear discharge, nose pain, nose congestion, throat pain, throat swelling, mouth pain, mouth swelling, other Genitourinary: Denies: no symptoms, burning, discharge, frequency, flank pain, hematuria, incontinence, pain, urgency, other 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: Denies: no symptoms, anxiety, depressed, emotional problems, headache, numbness, paresthesia, pre-existing deficit, seizure, tingling, tremors, weakness, other Subjective Cr downtrending no nausea or emesis lipase normalized good UOP Objective Objective Last 24 Hour Vital Signs Date Time Temp Pulse Resp B/P (MAP) Pulse Ox O2 Delivery O2 Flow Rate FiO2 09/26/19 08:00 98.0 81 22 122/79 (93) 99 09/26/19 05:54 126/81 09/26/19 04:00 97.6 76 26 126/81 (96) 98 09/26/19 00:00 97.2 88 26 131/95 (107) 98 09/25/19 21:06 128/75 09/25/19 21:03 Room Air 09/25/19 20:00 97.0 79 26 128/75 (92) 98 09/25/19 16:00 09/25/19 15:11 128/86 09/25/19 12:00 97.5 98 26 128/86 (100) 98 Intake and Output 09/25/19 09/26/19 19:00 07:00 Intake Total 1855 ml 915 ml Output Total 1000 ml 900 ml Balance 855 ml 15 ml Intake Oral 1800 ml IV Total 55 ml 555 ml Other 360 ml Output Urine Total 1000 ml 900 ml # Bowel Movements 1 Laboratory Tests 09/25/19 15:30: Stool Occult Blood [Pending] 09/26/19 07:25: White Blood Count 5.3, Red Blood Count 3.28L, Hemoglobin 9.2L, Hematocrit 27.0L , Mean Corpuscular Volume 82, Mean Corpuscular Hemoglobin 28.2, Mean Corpuscular Hemoglobin Concent 34.3, Red Cell Distribution Width 11.9, Platelet Count 229, Mean Platelet Volume 5.2L, Neutrophils (%) (Auto) 58.2, Lymphocytes ( %) (Auto) 25.4, Monocytes (%) (Auto) 7.7, Eosinophils (%) (Auto) 7.4H, Basophils (%) (Auto) 1.3, Sodium Level 141, Potassium Level 4.0, Chloride Level 110H, Carbon Dioxide Level 19L, Anion Gap 13, Blood Urea Nitrogen 50H, Creatinine 3.6H, Estimat Glomerular Filtration Rate 12.5, Glucose Level 84, Calcium Level 8.6 Height (Feet): 5 Height (Inches): 6.00 Weight (Pounds): 150 iVcente Jaimes M.D. Sep 26, 2019 10:03
--- NOTE | 2019-09-26 11:14 | Surgery Progress Note ---
Surgery Progress Note Subjective Additional Comments no acute events comfortable stable labs noted US noted Objective Last 24 Hour Vital Signs Date Time Temp Pulse Resp B/P (MAP) Pulse Ox O2 Delivery O2 Flow Rate FiO2 09/26/19 09:00 Room Air 09/26/19 08:00 98.0 81 22 122/79 (93) 99 09/26/19 05:54 126/81 09/26/19 04:00 97.6 76 26 126/81 (96) 98 09/26/19 00:00 97.2 88 26 131/95 (107) 98 09/25/19 21:06 128/75 09/25/19 21:03 Room Air 09/25/19 20:00 97.0 79 26 128/75 (92) 98 09/25/19 16:00 09/25/19 15:11 128/86 09/25/19 12:00 97.5 98 26 128/86 (100) 98 I&O Intake and Output 09/25/19 09/26/19 19:00 07:00 Intake Total 1855 ml 915 ml Output Total 1000 ml 900 ml Balance 855 ml 15 ml Intake Oral 1800 ml IV Total 55 ml 555 ml Other 360 ml Output Urine Total 1000 ml 900 ml # Bowel Movements 1 Dressing: other Wound: other Drains: other Cardiovascular: RSR Respiratory: clear Abdomen: soft, non-tender, present bowel sounds Extremities: no cyanosis Laboratory Tests Test 09/25/19 15:30 09/26/19 07:25 Stool Occult Blood Pending White Blood Count 5.3 K/UL (4.8-10.8) Red Blood Count 3.28 M/UL (4.20-5.40) L Hemoglobin 9.2 G/DL (12.0-16.0) L Hematocrit 27.0 % (37.0-47.0) L Mean Corpuscular Volume 82 FL (80-99) Mean Corpuscular Hemoglobin 28.2 PG (27.0-31.0) Mean Corpuscular Hemoglobin Concent 34.3 G/DL (32.0-36.0) Red Cell Distribution Width 11.9 % (11.6-14.8) Platelet Count 229 K/UL (150-450) Mean Platelet Volume 5.2 FL (6.5-10.1) L Neutrophils (%) (Auto) 58.2 % (45.0-75.0) Lymphocytes (%) (Auto) 25.4 % (20.0-45.0) Monocytes (%) (Auto) 7.7 % (1.0-10.0) Eosinophils (%) (Auto) 7.4 % (0.0-3.0) H Basophils (%) (Auto) 1.3 % (0.0-2.0) Sodium Level 141 MMOL/L (136-145) Potassium Level 4.0 MMOL/L (3.5-5.1) Chloride Level 110 MMOL/L (98-107) H Carbon Dioxide Level 19 MMOL/L (21-32) L Anion Gap 13 mmol/L (5-15) Blood Urea Nitrogen 50 mg/dL (7-18) H Creatinine 3.6 MG/DL (0.55-1.30) H Estimat Glomerular Filtration Rate 12.5 mL/min (>60) Glucose Level 84 MG/DL (74-106) Calcium Level 8.6 MG/DL (8.5-10.1) Plan Problems: (1) Leukocytosis Assessment & Plan: wbc 11k on admission resolved uti likely on abx wounds clean dry not infected (2) Decubitus skin ulcer Assessment & Plan: Pt presented on admission with non-blanching erythema with shearing cleft, R and L buttocks. Non-blanching erythema R and L heels. Non-Blanching erythema noted to Sacrum. Partial thickness pressure injury lumbar spine resolving . Base of wound is moist and viable. No erythema or evidence of further skin breakdown periwound. Non-Blanching erythema without fluctuance R heel. L heel is boggy with Non-Blanching erythema. Pt can be resistive to care and repositioning despite continuous education by staff of risks vs benefits to compliance and avoiding further Skin breakdown. Tx.Plan: Apply Moisture Barrier Paste to Sacrum. Cover with Optifoam drsg. Change every 3 days and prn. Apply Moisture Barrier Paste to to perineum and bilat ischial tuberosities with each incontinence care. Apply Cavilon Skin Barrier to both heels.Cover each heels with Optifoam drsg. Change every 7 days and prn. Reposition at least every 2hours or as tolerated. Off-load heels with pillow. (3) Elevated lipase Assessment & Plan: patient presented on admission with lip >1100. since admission resolved no further work up at this time monitor clinically Nonvisualized gallbladder, despite visualization on recent CT scan. Negative for dilated bile ducts Nodular liver surface, likely cirrhotic. Masslike area in the anterior left lobe, probably just a prominent lobulation given findings on recent CT scan. Empty bladder with a Escobar catheter Saravanan Lara Sep 26, 2019 11:14
[2019-09-26 12:00] VITALS: BP 119/63
--- NOTE | 2019-09-26 12:14 | General Progress Note ---
Assessment/Plan Problem List: (1) Acute renal failure ICD Codes: N17.9 - Acute kidney failure, unspecified SNOMED: 79741308 (2) Anemia ICD Codes: D64.9 - Anemia, unspecified SNOMED: 721767912 (3) Elevated lipase ICD Codes: R74.8 - Abnormal levels of other serum enzymes SNOMED: 379297609 (4) COPD (chronic obstructive pulmonary disease) ICD Codes: J44.9 - Chronic obstructive pulmonary disease, unspecified SNOMED: 84042227 (5) Multiple sclerosis ICD Codes: G35 - Multiple sclerosis SNOMED: 24877183 (6) Hyperthyroidism ICD Codes: E05.90 - Thyrotoxicosis, unspecified without thyrotoxic crisis or storm SNOMED: 70219902 Status: stable Assessment/Plan: lipase back to normal no abd pain refuses EGD and colonoscopy will fu Subjective ROS Limited/Unobtainable: Yes Allergies: Coded Allergies: CODEINE (Verified Allergy, Unknown, 08/24/19) NEUROMUSCULAR BLOCKERS, STEROIDAL (Verified Allergy, Unknown, 08/24/19) Uncoded Allergies: ANABOLIC STEROIDS (Allergy, Unknown, 08/24/19) STEROIDS (Allergy, Unknown, 08/24/19) Objective Last 24 Hour Vital Signs Date Time Temp Pulse Resp B/P (MAP) Pulse Ox O2 Delivery O2 Flow Rate FiO2 09/26/19 09:00 Room Air 09/26/19 08:00 98.0 81 22 122/79 (93) 99 09/26/19 05:54 126/81 09/26/19 04:00 97.6 76 26 126/81 (96) 98 09/26/19 00:00 97.2 88 26 131/95 (107) 98 09/25/19 21:06 128/75 09/25/19 21:03 Room Air 09/25/19 20:00 97.0 79 26 128/75 (92) 98 09/25/19 16:00 09/25/19 15:11 128/86 Intake and Output 09/25/19 09/26/19 19:00 07:00 Intake Total 1855 ml 915 ml Output Total 1000 ml 900 ml Balance 855 ml 15 ml Intake Oral 1800 ml IV Total 55 ml 555 ml Other 360 ml Output Urine Total 1000 ml 900 ml # Bowel Movements 1 Laboratory Tests 09/25/19 15:30: Stool Occult Blood [Pending] 09/26/19 07:25: White Blood Count 5.3, Red Blood Count 3.28L, Hemoglobin 9.2L, Hematocrit 27.0L , Mean Corpuscular Volume 82, Mean Corpuscular Hemoglobin 28.2, Mean Corpuscular Hemoglobin Concent 34.3, Red Cell Distribution Width 11.9, Platelet Count 229, Mean Platelet Volume 5.2L, Neutrophils (%) (Auto) 58.2, Lymphocytes ( %) (Auto) 25.4, Monocytes (%) (Auto) 7.7, Eosinophils (%) (Auto) 7.4H, Basophils (%) (Auto) 1.3, Sodium Level 141, Potassium Level 4.0, Chloride Level 110H, Carbon Dioxide Level 19L, Anion Gap 13, Blood Urea Nitrogen 50H, Creatinine 3.6H, Estimat Glomerular Filtration Rate 12.5, Glucose Level 84, Calcium Level 8.6 Height (Feet): 5 Height (Inches): 6.00 Weight (Pounds): 150 General Appearance: no apparent distress EENT: normal ENT inspection Neck: supple Cardiovascular: normal rate Respiratory/Chest: decreased breath sounds Abdomen: normal bowel sounds, non tender, soft Extremities: non-tender Farooq Adams MD Sep 26, 2019 12:14
[2019-09-26] MEDS: cefTRIAXone 1 GM in D5W 50 ML IVPB SCH (13:16)
[2019-09-26 16:00] VITALS: BP 134/81
--- NOTE | 2019-09-26 17:12 | General Progress Note ---
Assessment/Plan Status: stable Assessment/Plan: 68 y/o F w/PMH hyperthyroidism, multiple sclerosis, HTN and COPD who presents from [facility] for cough and abnormal labs. On admission, CXR revealed left lower lobe pleural effusion, Cr 3.2. Patient admitted for further treatment and evaluation, and COVID-19 negative. #Complicated UTI #H/o ESBL UTI -Appreciate ID consult. D/w Dr. 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 D/w Dr. Jaimes -May need urology consult again #Liver cirrhosis (on US) - GI consult in am - HCV core ab #COPD -not in exacerbation at this time -currently on RA -ctm #Multiple sclerosis -no acute issues #Hyperthyroidism -home med methimazole 10 mg PO q daily #Anxiety -ativan 0.5 mg PO PRN -Psych consulted, recs appreciated Dispo: d/c to [facility] Care DVT PPx: Heparin Time spent on encounter: 38 mins, 20 on counseling, coordination of care w/ Pt, RN, infectious disease nephro and consultants named above. Time of note doesn't reflect time of encounter Subjective Date patient seen: Sep 26, 2019 Allergies: Coded Allergies: CODEINE (Verified Allergy, Unknown, 08/24/19) NEUROMUSCULAR BLOCKERS, STEROIDAL (Verified Allergy, Unknown, 08/24/19) Uncoded Allergies: ANABOLIC STEROIDS (Allergy, Unknown, 08/24/19) STEROIDS (Allergy, Unknown, 08/24/19) Subjective AVSS Mild dec in Hb 9.6 -> 9.2, no e/o bleed Cr improved to 3.6 ABD US done yesterday In good spirits Tolerating abx Objective Last 24 Hour Vital Signs Date Time Temp Pulse Resp B/P (MAP) Pulse Ox O2 Delivery O2 Flow Rate FiO2 09/26/19 13:15 119/63 09/26/19 12:00 97.0 18 119/63 (81) 98 09/26/19 09:00 Room Air 09/26/19 08:00 98.0 81 22 122/79 (93) 99 09/26/19 05:54 126/81 09/26/19 04:00 97.6 76 26 126/81 (96) 98 09/26/19 00:00 97.2 88 26 131/95 (107) 98 09/25/19 21:06 128/75 09/25/19 21:03 Room Air 09/25/19 20:00 97.0 79 26 128/75 (92) 98 Intake and Output 09/25/19 09/26/19 18:59 06:59 Intake Total 1855 ml 915 ml Output Total 1000 ml 900 ml Balance 855 ml 15 ml Intake Oral 1800 ml IV Total 55 ml 555 ml Other 360 ml Output Urine Total 1000 ml 900 ml # Bowel Movements 1 Laboratory Tests 09/26/19 07:25: White Blood Count 5.3, Red Blood Count 3.28L, Hemoglobin 9.2L, Hematocrit 27.0L , Mean Corpuscular Volume 82, Mean Corpuscular Hemoglobin 28.2, Mean Corpuscular Hemoglobin Concent 34.3, Red Cell Distribution Width 11.9, Platelet Count 229, Mean Platelet Volume 5.2L, Neutrophils (%) (Auto) 58.2, Lymphocytes ( %) (Auto) 25.4, Monocytes (%) (Auto) 7.7, Eosinophils (%) (Auto) 7.4H, Basophils (%) (Auto) 1.3, Sodium Level 141, Potassium Level 4.0, Chloride Level 110H, Carbon Dioxide Level 19L, Anion Gap 13, Blood Urea Nitrogen 50H, Creatinine 3.6H, Estimat Glomerular Filtration Rate 12.5, Glucose Level 84, Calcium Level 8.6 ABD US 09/24: Impression: Nonvisualized gallbladder, despite visualization on recent CT scan. Negative for dilated bile ducts Nodular liver surface, likely cirrhotic. Masslike area in the anterior left lobe, probably just a prominent lobulation given findings on recent CT scan. Empty bladder with a Torres catheter Height (Feet): 5 Height (Inches): 6.00 Weight (Pounds): 150 Objective General: WDWN emale in NAD, A&O x 4 HEENT: Normocephalic cephalic atraumatic, pupils equal round reactive to light and accommodation, nares patent and no symmetrical, no tonsillar exudates, mucous membranes moist CV: Regular rate regular rhythm, no murmurs, rubs, or gallops Pulm: Lungs clear to auscultation bilaterally. No wheezes, rhonchi, or rales GI: Soft, nontender, nondistended, bowel sounds present : Torres in place draining MILKY yellow urine. Neuro: CN 2-12 intact bilaterally, no focal signs. Ext: No lower extremity edema bilaterally Skin: no rashes lesions or ulcers Msk: Joints symmetrical in upper extremity and lower extremity bilaterally, no joint swelling. Lymph: No lymphadenopathy in upper extremity and lower extremity Simone Quintana MD Sep 26, 2019 17:12
[2019-09-26 20:00] VITALS: BP 141/75
--- NOTE | 2019-09-26 20:45 | Neurology Progress Note ---
Interim History Interim History ROS Limited/Unobtainable: Yes Interim History no new focal deficits Objective Physical Exam Last Vital Signs Date Time Temp Pulse Resp B/P (MAP) Pulse Ox O2 Delivery O2 Flow Rate FiO2 09/26/19 20:00 97.2 72 19 141/75 (97) 98 09/26/19 09:00 Room Air Laboratory Tests Test 09/26/19 07:25 White Blood Count 5.3 K/UL (4.8-10.8) Red Blood Count 3.28 M/UL (4.20-5.40) L Hemoglobin 9.2 G/DL (12.0-16.0) L Hematocrit 27.0 % (37.0-47.0) L Mean Corpuscular Volume 82 FL (80-99) Mean Corpuscular Hemoglobin 28.2 PG (27.0-31.0) Mean Corpuscular Hemoglobin Concent 34.3 G/DL (32.0-36.0) Red Cell Distribution Width 11.9 % (11.6-14.8) Platelet Count 229 K/UL (150-450) Mean Platelet Volume 5.2 FL (6.5-10.1) L Neutrophils (%) (Auto) 58.2 % (45.0-75.0) Lymphocytes (%) (Auto) 25.4 % (20.0-45.0) Monocytes (%) (Auto) 7.7 % (1.0-10.0) Eosinophils (%) (Auto) 7.4 % (0.0-3.0) H Basophils (%) (Auto) 1.3 % (0.0-2.0) Sodium Level 141 MMOL/L (136-145) Potassium Level 4.0 MMOL/L (3.5-5.1) Chloride Level 110 MMOL/L (98-107) H Carbon Dioxide Level 19 MMOL/L (21-32) L Anion Gap 13 mmol/L (5-15) Blood Urea Nitrogen 50 mg/dL (7-18) H Creatinine 3.6 MG/DL (0.55-1.30) H Estimat Glomerular Filtration Rate 12.5 mL/min (>60) Glucose Level 84 MG/DL (74-106) Calcium Level 8.6 MG/DL (8.5-10.1) Hepatitis C Antibody Pending Head: normocophalic Neck: no rigidity EENT: benign Neurologic Exam Mental Status: awake, alert Objective Quadriparetic, worse in LEs 3/5, unable to walk Impression/Recommendations Problems: (1) Renal failure (2) Acute renal failure (3) Anemia (4) Leukocytosis (5) UTI (urinary tract infection) (6) Elevated lipase (7) Hyperthyroidism (8) COPD (chronic obstructive pulmonary disease) (9) Multiple sclerosis Status: stable Diagnostic Impression Secondary progressive MS - refuses any kind of meds PT OT atb er primary Aron Chris MD Sep 26, 2019 20:45
--- NOTE | 2019-09-26 20:45 | Consultation ---
DATE OF CONSULTATION: 09/26/2019 PULMONARY CONSULTATION HISTORY OF PRESENT ILLNESS: This is a 68-year-old female who was admitted to the hospital with UTI. The patient has a longstanding history of COPD. I have been asked to consult regarding her respiratory issues. The patient was previously admitted to the hospital as well. At this time, she was admitted with renal failure and pyuria. She has been started on broad-spectrum antibiotics. Currently, she reports that the respirator status is stable, although, she is not a very good historian. REVIEW OF SYSTEMS: The patient denies any headaches, hematemesis, melena, hematochezia, night sweats, or weight loss. PAST MEDICAL HISTORY: Hyperthyroidism, multiple sclerosis, COPD, hypertension, previous renal failure. ALLERGIES: Listed to codeine and neuromuscular blockers. HISTORY: Noncontributory. PHYSICAL EXAMINATION: GENERAL: Reveals a 68-year-old female. HEENT: Unremarkable. LUNGS: Clear breath sounds. ABDOMEN: Soft. EXTREMITIES: There is no edema. NEUROLOGIC: Nonfocal. GENITOURINARY: Escobar catheter is noted. LABORATORY DATA: Lab testing shows normal CBC currently with hemoglobin 9.2, otherwise creatinine is elevated to 3.6. IMAGING STUDIES: X-ray chest obtained on admission shows retrocardiac density, low lung volumes, and osteopenia. IMPRESSION: 1. UTI, complicated UTI. 2. Hyperthyroidism. 3. Multiple sclerosis. 4. Hypertension. 5. COPD. DISCUSSION: Currently the patient's status is stable. She is saturating well on room air. We will continue to follow, add breathing treatments as needed. Andres Quick M.D. DR: Olivia JOB#: [id number] CC:
[2019-09-27 04:00] VITALS: BP 127/77
[2019-09-27] MEDS: Heparin 5000 units/ml inj SUBQ SCH ×3 (05:55→21:05)
[2019-09-27] MEDS: HydrALAZINE 10mg Tab ORAL SCH ×3 (05:55→21:05)
[2019-09-27 07:40] LABS: HEMOGLOBIN 8.8 G/DL (12.0-16.0); MEAN CORPUSCULAR VOLUME 82 FL (80-99); PLATELET COUNT 221 K/UL (150-450); RED BLOOD COUNT 3.17 M/UL (4.20-5.40); RED CELL DISTRIBUTION WIDTH 11.8 % (11.6-14.8); WHITE BLOOD COUNT 4.9 K/UL (4.8-10.8)
[2019-09-27 08:00] VITALS: BP 136/71
[2019-09-27 08:09] LABS: AMYLASE 98 U/L (25-115)
[2019-09-27 08:11] LABS: ALANINE AMINOTRANSFERASE 15 U/L (12-78); ALBUMIN 2.2 G/DL (3.4-5.0); ALBUMIN/GLOBULIN RATIO 0.6 (1.0-2.7); ALKALINE PHOSPHATASE 67 U/L (46-116); ANION GAP 11 mmol/L (5-15); ASPARTATE AMINO TRANSFERASE 11 U/L (15-37); BILIRUBIN,TOTAL 0.1 MG/DL (0.2-1.0); BLOOD UREA NITROGEN 47 mg/dL (7-18); CALCIUM 8.3 MG/DL (8.5-10.1); CARBON DIOXIDE 20 MMOL/L (21-32); CHLORIDE 112 MMOL/L (98-107); CREATININE 3.4 MG/DL (0.55-1.30); PHOSPHORUS 4.1 MG/DL (2.5-4.9); POTASSIUM 3.9 MMOL/L (3.5-5.1); SODIUM 143 MMOL/L (136-145)
[2019-09-27] MEDS: methIMAzole 10mg tab ORAL SCH (08:19)
--- NOTE | 2019-09-27 09:16 | Nephrology Progress Note ---
Assessment/Plan Plan #SAJAN on chronic kidney disease stage 4 due to bilateral hydronephrosis likely due to neurogenic bladder #UTI #Elevated lipase r/o pancreatitis #h/o MS #hyperthyroidism #HTN #COPD - Torres placed - IVF- NS at 50cc/hr- - monitor lab - antibiotics per ID- meropenem - torres urine culture - GI eval for pancreatitis - on methimazole - monitor mag, phos and BMP daily Time spent 40 minutes, greater than 50% on care coordination and counseling Subjective ROS Limited/Unobtainable: No Constitutional: Denies: no symptoms, chills, diaphoresis, fever, malaise, weakness, other HEENT: Denies: no symptoms, eye pain, blurred vision, tearing, double vision, ear pain, ear discharge, nose pain, nose congestion, throat pain, throat swelling, mouth pain, mouth swelling, other Genitourinary: Denies: no symptoms, burning, discharge, frequency, flank pain, hematuria, incontinence, pain, urgency, other 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: Denies: no symptoms, anxiety, depressed, emotional problems, headache, numbness, paresthesia, pre-existing deficit, seizure, tingling, tremors, weakness, other Subjective Cr downtrending no nausea or emesis lipase normalized good UOP Objective Objective Last 24 Hour Vital Signs Date Time Temp Pulse Resp B/P (MAP) Pulse Ox O2 Delivery O2 Flow Rate FiO2 09/27/19 08:00 97.7 76 18 136/71 (92) 98 09/27/19 05:55 127/77 09/27/19 04:00 97.3 76 18 127/77 (94) 98 09/26/19 22:41 Room Air 09/26/19 21:19 141/75 09/26/19 20:00 97.2 72 19 141/75 (97) 98 09/26/19 16:00 97.3 76 19 134/81 (98) 98 09/26/19 13:15 119/63 09/26/19 12:00 97.0 18 119/63 (81) 98 Intake and Output 09/26/19 09/27/19 19:00 07:00 Intake Total 780 ml 600 ml Output Total 500 ml 950 ml Balance 280 ml -350 ml Intake Oral 480 ml IV Total 300 ml 350 ml Other 250 ml Output Urine Total 500 ml 950 ml Laboratory Tests 09/27/19 07:00: White Blood Count 4.9, Red Blood Count 3.17L, Hemoglobin 8.8L, Hematocrit 26.0L , Mean Corpuscular Volume 82, Mean Corpuscular Hemoglobin 27.7, Mean Corpuscular Hemoglobin Concent 33.8, Red Cell Distribution Width 11.8, Platelet Count 221, Mean Platelet Volume 5.1L, Neutrophils (%) (Auto) , Lymphocytes (%) ( Auto) , Monocytes (%) (Auto) , Eosinophils (%) (Auto) , Basophils (%) (Auto) , Neutrophils % (Manual) [Pending], Lymphocytes % (Manual) [Pending], Platelet Estimate [Pending], Platelet Morphology [Pending], Sodium Level 143, Potassium Level 3.9, Chloride Level 112H, Carbon Dioxide Level 20L, Anion Gap 11, Blood Urea Nitrogen 47H, Creatinine 3.4H, Estimat Glomerular Filtration Rate 13.4, Glucose Level 84, Calcium Level 8.3L, Phosphorus Level 4.1, Magnesium Level 1.9 , Total Bilirubin 0.1L, Aspartate Amino Transf (AST/SGOT) 11L, Alanine Aminotransferase (ALT/SGPT) 15, Alkaline Phosphatase 67, Total Protein 6.2L, Albumin 2.2L, Globulin 4.0, Albumin/Globulin Ratio 0.6L, Amylase Level 98, Lipase 254 Height (Feet): 5 Height (Inches): 6.00 Weight (Pounds): 149 Vicente Jaimes M.D. Sep 27, 2019 09:16
--- NOTE | 2019-09-27 10:37 | Pulmonology Progress Note ---
Subjective ROS Limited/Unobtainable: No Interval Events: None new Constitutional: Reports: no symptoms; Denies: fever HEENT: Repors: no symptoms Respiratory: Reports: no symptoms Gastrointestinal/Abdominal: Denies: nausea, vomiting Genitourinary: Reports: no symptoms Allergies: Coded Allergies: CODEINE (Verified Allergy, Unknown, 08/24/19) NEUROMUSCULAR BLOCKERS, STEROIDAL (Verified Allergy, Unknown, 08/24/19) Uncoded Allergies: ANABOLIC STEROIDS (Allergy, Unknown, 08/24/19) STEROIDS (Allergy, Unknown, 08/24/19) Objective Last 24 Hour Vital Signs Date Time Temp Pulse Resp B/P (MAP) Pulse Ox O2 Delivery O2 Flow Rate FiO2 09/27/19 09:00 Room Air 09/27/19 08:00 97.7 76 18 136/71 (92) 98 09/27/19 05:55 127/77 09/27/19 04:00 97.3 76 18 127/77 (94) 98 09/26/19 22:41 Room Air 09/26/19 21:19 141/75 09/26/19 20:00 97.2 72 19 141/75 (97) 98 09/26/19 16:00 97.3 76 19 134/81 (98) 98 09/26/19 13:15 119/63 09/26/19 12:00 97.0 18 119/63 (81) 98 Intake and Output 09/26/19 09/27/19 19:00 07:00 Intake Total 780 ml 600 ml Output Total 500 ml 950 ml Balance 280 ml -350 ml Intake Oral 480 ml IV Total 300 ml 350 ml Other 250 ml Output Urine Total 500 ml 950 ml General Appearance: no acute distress HEENT: normocephalic Respiratory: chest wall non-tender, lungs clear Cardiovascular: normal peripheral pulses Laboratory Tests 09/27/19 07:00: White Blood Count 4.9, Red Blood Count 3.17L, Hemoglobin 8.8L, Hematocrit 26.0L , Mean Corpuscular Volume 82, Mean Corpuscular Hemoglobin 27.7, Mean Corpuscular Hemoglobin Concent 33.8, Red Cell Distribution Width 11.8, Platelet Count 221, Mean Platelet Volume 5.1L, Neutrophils (%) (Auto) , Lymphocytes (%) ( Auto) , Monocytes (%) (Auto) , Eosinophils (%) (Auto) , Basophils (%) (Auto) , Differential Total Cells Counted 100, Neutrophils % (Manual) 48, Lymphocytes % ( Manual) 35, Monocytes % (Manual) 7, Eosinophils % (Manual) 10H, Basophils % ( Manual) 0, Band Neutrophils 0, Platelet Estimate Adequate, Platelet Morphology Normal, Hypochromasia 1+, Sodium Level 143, Potassium Level 3.9, Chloride Level 112H, Carbon Dioxide Level 20L, Anion Gap 11, Blood Urea Nitrogen 47H, Creatinine 3.4H, Estimat Glomerular Filtration Rate 13.4, Glucose Level 84, Calcium Level 8.3L, Phosphorus Level 4.1, Magnesium Level 1.9, Total Bilirubin 0.1L, Aspartate Amino Transf (AST/SGOT) 11L, Alanine Aminotransferase (ALT/SGPT ) 15, Alkaline Phosphatase 67, Total Protein 6.2L, Albumin 2.2L, Globulin 4.0, Albumin/Globulin Ratio 0.6L, Amylase Level 98, Lipase 254 Current Medications Medications (Trade) Dose Ordered Sig/Gurpreet Route PRN Reason Start Time Stop Time Status Last Admin Dose Admin Acetaminophen (Tylenol) 650 mg Q6H PRN ORAL mild pain 09/24/19 03:30 10/24/19 03:29 Ceftriaxone Sodium 1 gm/ Dextrose 50 ml @ 100 mls/hr Q24H IVPB 09/26/19 14:00 10/03/19 13:59 09/26/19 13:16 Ferrous Sulfate (Feosol) 325 mg DAILY ORAL 09/24/19 09:00 12/23/19 08:59 09/27/19 08:19 Folic Acid (Folate) 1 mg DAILY ORAL 09/24/19 09:00 10/24/19 08:59 09/27/19 08:19 Heparin Sodium (Porcine) (Heparin 5000 units/ml) 5,000 units EVERY 8 HOURS SUBQ 09/24/19 06:00 11/08/19 05:59 09/26/19 21:21 Hydralazine HCl (Apresoline) 10 mg EVERY 8 HOURS ORAL 09/24/19 06:00 12/23/19 05:59 09/27/19 05:55 Methimazole (Tapazole) 10 mg DAILY ORAL 09/24/19 09:00 10/24/19 08:59 09/27/19 08:19 Quetiapine Fumarate (SEROqueL) 25 mg QHS ORAL 09/24/19 21:00 11/08/19 20:59 09/26/19 21:19 Sodium Chloride 1,000 ml @ 50 mls/hr Q20H IV 09/24/19 04:00 10/24/19 03:59 09/26/19 15:51 Assessment/Plan Assessment/Plan IMPRESSION: 1. UTI, complicated UTI. 2. Hyperthyroidism. 3. Multiple sclerosis. 4. Hypertension. 5. COPD. DISCUSSION: Currently the patient's respiratory status is stable. She is saturating well on room air. I will continue to follow, add breathing treatments as needed. Kp Ch Omar Syed MD Sep 27, 2019 10:37
[2019-09-27 12:00] VITALS: BP 125/81
--- NOTE | 2019-09-27 12:18 | General Progress Note ---
Assessment/Plan Problem List: (1) Acute renal failure ICD Codes: N17.9 - Acute kidney failure, unspecified SNOMED: 99977611 (2) Anemia ICD Codes: D64.9 - Anemia, unspecified SNOMED: 192030277 (3) Elevated lipase ICD Codes: R74.8 - Abnormal levels of other serum enzymes SNOMED: 768125594 (4) COPD (chronic obstructive pulmonary disease) ICD Codes: J44.9 - Chronic obstructive pulmonary disease, unspecified SNOMED: 03240654 (5) Multiple sclerosis ICD Codes: G35 - Multiple sclerosis SNOMED: 38324628 (6) Hyperthyroidism ICD Codes: E05.90 - Thyrotoxicosis, unspecified without thyrotoxic crisis or storm SNOMED: 98403156 Status: stable Assessment/Plan: lipase back to normal no abd pain refuses EGD and colonoscopy will fu Subjective ROS Limited/Unobtainable: Yes Allergies: Coded Allergies: CODEINE (Verified Allergy, Unknown, 08/24/19) NEUROMUSCULAR BLOCKERS, STEROIDAL (Verified Allergy, Unknown, 08/24/19) Uncoded Allergies: ANABOLIC STEROIDS (Allergy, Unknown, 08/24/19) STEROIDS (Allergy, Unknown, 08/24/19) Objective Last 24 Hour Vital Signs Date Time Temp Pulse Resp B/P (MAP) Pulse Ox O2 Delivery O2 Flow Rate FiO2 09/27/19 12:00 98.6 70 18 125/81 (96) 97 09/27/19 09:00 Room Air 09/27/19 08:00 97.7 76 18 136/71 (92) 98 09/27/19 05:55 127/77 09/27/19 04:00 97.3 76 18 127/77 (94) 98 09/26/19 22:41 Room Air 09/26/19 21:19 141/75 09/26/19 20:00 97.2 72 19 141/75 (97) 98 09/26/19 16:00 97.3 76 19 134/81 (98) 98 09/26/19 13:15 119/63 Intake and Output 09/26/19 09/27/19 19:00 07:00 Intake Total 780 ml 650 ml Output Total 500 ml 950 ml Balance 280 ml -300 ml Intake Oral 480 ml IV Total 300 ml 400 ml Other 250 ml Output Urine Total 500 ml 950 ml Laboratory Tests 09/27/19 07:00: White Blood Count 4.9, Red Blood Count 3.17L, Hemoglobin 8.8L, Hematocrit 26.0L , Mean Corpuscular Volume 82, Mean Corpuscular Hemoglobin 27.7, Mean Corpuscular Hemoglobin Concent 33.8, Red Cell Distribution Width 11.8, Platelet Count 221, Mean Platelet Volume 5.1L, Neutrophils (%) (Auto) , Lymphocytes (%) ( Auto) , Monocytes (%) (Auto) , Eosinophils (%) (Auto) , Basophils (%) (Auto) , Differential Total Cells Counted 100, Neutrophils % (Manual) 48, Lymphocytes % ( Manual) 35, Monocytes % (Manual) 7, Eosinophils % (Manual) 10H, Basophils % ( Manual) 0, Band Neutrophils 0, Platelet Estimate Adequate, Platelet Morphology Normal, Hypochromasia 1+, Sodium Level 143, Potassium Level 3.9, Chloride Level 112H, Carbon Dioxide Level 20L, Anion Gap 11, Blood Urea Nitrogen 47H, Creatinine 3.4H, Estimat Glomerular Filtration Rate 13.4, Glucose Level 84, Calcium Level 8.3L, Phosphorus Level 4.1, Magnesium Level 1.9, Total Bilirubin 0.1L, Aspartate Amino Transf (AST/SGOT) 11L, Alanine Aminotransferase (ALT/SGPT ) 15, Alkaline Phosphatase 67, Total Protein 6.2L, Albumin 2.2L, Globulin 4.0, Albumin/Globulin Ratio 0.6L, Amylase Level 98, Lipase 254 Height (Feet): 5 Height (Inches): 6.00 Weight (Pounds): 149 General Appearance: no apparent distress EENT: normal ENT inspection Neck: normal alignment Cardiovascular: normal rate Respiratory/Chest: decreased breath sounds Abdomen: normal bowel sounds, non tender, soft Extremities: non-tender Farooq Adams MD Sep 27, 2019 12:18
[2019-09-27] MEDS: cefTRIAXone 1 GM in D5W 50 ML IVPB SCH (14:21)
[2019-09-27 16:00] VITALS: BP 122/86
--- NOTE | 2019-09-27 18:22 | Infectious Diseases Prog Note ---
Assessment/Plan Assessment/Plan ASSESSMENT AND PLAN: 1. e.coli uti, complicated uti - antibiotics changed to ceftriaxone - f/u on urine culture - monitor labs 2. Leukocytosis, resolved. 3. Acute renal failure, likely chronic renal failure. 4. Hypertension. 5. Blood pressure treatment per primary care team. 6. COPD. 7. Multiple sclerosis. 8. Hyperthyroidism. 9. Anemia. 10. Past medical history noted. 11. Continue treatment per primary consultants. 12. Allergies to steroids, codeine, neuromuscular blockers. 13. Social history is negative. 14. Family history is noncontributory. 15. MAR was noted. 16. Case discussed with RN. 17. Orders were entered and noted. 18. Wound care protocol and surgery. Subjective Constitutional: Reports: fatigue; Denies: fever HEENT: Denies: congestion Respiratory: Denies: shortness of breath Cardiovascular: Denies: chest pain Gastrointestinal/Abdominal: Denies: nausea, vomiting, diarrhea Genitourinary: Reports: other - + torres Neurologic: Denies: headache Psychiatric: Denies: depression Skin: Denies: rash Hematologic: Denies: bleeding Musculoskeletal: Denies: pain Allergies: Coded Allergies: CODEINE (Verified Allergy, Unknown, 08/24/19) NEUROMUSCULAR BLOCKERS, STEROIDAL (Verified Allergy, Unknown, 08/24/19) Uncoded Allergies: ANABOLIC STEROIDS (Allergy, Unknown, 08/24/19) STEROIDS (Allergy, Unknown, 08/24/19) Objective Vital Signs Last 24 Hour Vital Signs Date Time Temp Pulse Resp B/P (MAP) Pulse Ox O2 Delivery O2 Flow Rate FiO2 09/27/19 16:00 98.0 72 17 122/86 (98) 97 09/27/19 14:21 125/81 09/27/19 12:00 98.6 70 18 125/81 (96) 97 09/27/19 09:00 Room Air 09/27/19 08:00 97.7 76 18 136/71 (92) 98 09/27/19 05:55 127/77 09/27/19 04:00 97.3 76 18 127/77 (94) 98 09/26/19 22:41 Room Air 09/26/19 21:19 141/75 09/26/19 20:00 97.2 72 19 141/75 (97) 98 Height (Feet): 5 Height (Inches): 6.00 Weight (Pounds): 149 General Appearance: no acute distress HEENT: normocephalic, atraumatic, anicteric, mucous membranes moist Respiratory/Chest: lungs clear, normal breath sounds, no respiratory distress, no accessory muscle use Cardiovascular: normal rate, regular rhythm, no gallop/murmur, no JVD Abdomen: normal bowel sounds, soft, non tender, no organomegaly, non distended Genitourinary: other - no torres Extremities: no cyanosis Skin: no rash 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: sider mechanic II-XII grossly normal, alert, oriented x 3, responsive Lymphatic: no neck adenopathy Musculoskeletal: no effusion Objective Chest x-ray - 09/23/19 - IMPRESSION: 1. Similar-appearing retrocardiac atelectasis, correlate to exclude consolidation/pneumonia. 2. Low lung volumes with bronchovascular crowding. 3. Otherwise no acute cardiopulmonary disease. 4. If there is continued concern, recommend frontal and lateral chest radiographs or CT. 5. Osteopenia and advanced right glenohumeral degenerative findings. Microbiology Date/Time Source Procedure Growth Status 09/24/19 00:00 Nasal Nares MRSA Culture - Final NO METHICILLIN RESISTANT STAPH AUREUS... Complete 09/24/19 00:00 Urine,Ureter/Kidney Urine Culture - Final Escherichia Coli Complete 09/24/19 00:00 Rectum VRE Culture - Final NO VANCOMYCIN RESISTANT ENTEROCOCCUS ... Complete Laboratory Tests Test 09/27/19 07:00 White Blood Count 4.9 K/UL (4.8-10.8) Red Blood Count 3.17 M/UL (4.20-5.40) L Hemoglobin 8.8 G/DL (12.0-16.0) L Hematocrit 26.0 % (37.0-47.0) L Mean Corpuscular Volume 82 FL (80-99) Mean Corpuscular Hemoglobin 27.7 PG (27.0-31.0) Mean Corpuscular Hemoglobin Concent 33.8 G/DL (32.0-36.0) Red Cell Distribution Width 11.8 % (11.6-14.8) Platelet Count 221 K/UL (150-450) Mean Platelet Volume 5.1 FL (6.5-10.1) L Neutrophils (%) (Auto) % (45.0-75.0) Lymphocytes (%) (Auto) % (20.0-45.0) Monocytes (%) (Auto) % (1.0-10.0) Eosinophils (%) (Auto) % (0.0-3.0) Basophils (%) (Auto) % (0.0-2.0) Differential Total Cells Counted 100 Neutrophils % (Manual) 48 % (45-75) Lymphocytes % (Manual) 35 % (20-45) Monocytes % (Manual) 7 % (1-10) Eosinophils % (Manual) 10 % (0-3) H Basophils % (Manual) 0 % (0-2) Band Neutrophils 0 % (0-8) Platelet Estimate Adequate Platelet Morphology Normal Hypochromasia 1+ Sodium Level 143 MMOL/L (136-145) Potassium Level 3.9 MMOL/L (3.5-5.1) Chloride Level 112 MMOL/L (98-107) H Carbon Dioxide Level 20 MMOL/L (21-32) L Anion Gap 11 mmol/L (5-15) Blood Urea Nitrogen 47 mg/dL (7-18) H Creatinine 3.4 MG/DL (0.55-1.30) H Estimat Glomerular Filtration Rate 13.4 mL/min (>60) Glucose Level 84 MG/DL (74-106) Calcium Level 8.3 MG/DL (8.5-10.1) L Phosphorus Level 4.1 MG/DL (2.5-4.9) Magnesium Level 1.9 MG/DL (1.8-2.4) Total Bilirubin 0.1 MG/DL (0.2-1.0) L Aspartate Amino Transf (AST/SGOT) 11 U/L (15-37) L Alanine Aminotransferase (ALT/SGPT) 15 U/L (12-78) Alkaline Phosphatase 67 U/L (46-116) Total Protein 6.2 G/DL (6.4-8.2) L Albumin 2.2 G/DL (3.4-5.0) L Globulin 4.0 g/dL Albumin/Globulin Ratio 0.6 (1.0-2.7) L Amylase Level 98 U/L (25-115) Lipase 254 U/L (73-393) Current Medications Medications (Trade) Dose Ordered Sig/Gurpreet Route PRN Reason Start Time Stop Time Status Last Admin Dose Admin Acetaminophen (Tylenol) 650 mg Q6H PRN ORAL mild pain 09/24/19 03:30 10/24/19 03:29 Ceftriaxone Sodium 1 gm/ Dextrose 50 ml @ 100 mls/hr Q24H IVPB 09/26/19 14:00 10/03/19 13:59 09/27/19 14:21 Ferrous Sulfate (Feosol) 325 mg DAILY ORAL 09/24/19 09:00 12/23/19 08:59 09/27/19 08:19 Folic Acid (Folate) 1 mg DAILY ORAL 09/24/19 09:00 10/24/19 08:59 09/27/19 08:19 Heparin Sodium (Porcine) (Heparin 5000 units/ml) 5,000 units EVERY 8 HOURS SUBQ 09/24/19 06:00 11/08/19 05:59 09/26/19 21:21 Hydralazine HCl (Apresoline) 10 mg EVERY 8 HOURS ORAL 09/24/19 06:00 12/23/19 05:59 09/27/19 14:21 Methimazole (Tapazole) 10 mg DAILY ORAL 09/24/19 09:00 10/24/19 08:59 09/27/19 08:19 Quetiapine Fumarate (SEROqueL) 25 mg QHS ORAL 09/24/19 21:00 11/08/19 20:59 09/26/19 21:19 Sodium Chloride 1,000 ml @ 50 mls/hr Q20H IV 09/24/19 04:00 10/24/19 03:59 09/27/19 12:08 Louie Bullard MD Sep 27, 2019 18:22
[2019-09-27 20:00] VITALS: BP 145/77
--- NOTE | 2019-09-27 21:03 | Surgery Progress Note ---
Surgery Progress Note Subjective Additional Comments Patient seen exam bedside. No acute events. States she feels better. No nausea vomiting fever chills. Lipase normal. Refused EGD colonoscopy as per GI. States she otherwise feels well currently. Wants to go home soon. Objective Last 24 Hour Vital Signs Date Time Temp Pulse Resp B/P (MAP) Pulse Ox O2 Delivery O2 Flow Rate FiO2 09/27/19 16:00 98.0 72 17 122/86 (98) 97 09/27/19 14:21 125/81 09/27/19 12:00 98.6 70 18 125/81 (96) 97 09/27/19 09:00 Room Air 09/27/19 08:00 97.7 76 18 136/71 (92) 98 09/27/19 05:55 127/77 09/27/19 04:00 97.3 76 18 127/77 (94) 98 09/26/19 22:41 Room Air 09/26/19 21:19 141/75 I&O Intake and Output 09/26/19 09/27/19 19:00 07:00 Intake Total 780 ml 650 ml Output Total 500 ml 950 ml Balance 280 ml -300 ml Intake Oral 480 ml IV Total 300 ml 400 ml Other 250 ml Output Urine Total 500 ml 950 ml Cardiovascular: RSR Respiratory: clear Abdomen: soft, non-tender, present bowel sounds Extremities: no cyanosis Laboratory Tests Test 09/27/19 07:00 White Blood Count 4.9 K/UL (4.8-10.8) Red Blood Count 3.17 M/UL (4.20-5.40) L Hemoglobin 8.8 G/DL (12.0-16.0) L Hematocrit 26.0 % (37.0-47.0) L Mean Corpuscular Volume 82 FL (80-99) Mean Corpuscular Hemoglobin 27.7 PG (27.0-31.0) Mean Corpuscular Hemoglobin Concent 33.8 G/DL (32.0-36.0) Red Cell Distribution Width 11.8 % (11.6-14.8) Platelet Count 221 K/UL (150-450) Mean Platelet Volume 5.1 FL (6.5-10.1) L Neutrophils (%) (Auto) % (45.0-75.0) Lymphocytes (%) (Auto) % (20.0-45.0) Monocytes (%) (Auto) % (1.0-10.0) Eosinophils (%) (Auto) % (0.0-3.0) Basophils (%) (Auto) % (0.0-2.0) Differential Total Cells Counted 100 Neutrophils % (Manual) 48 % (45-75) Lymphocytes % (Manual) 35 % (20-45) Monocytes % (Manual) 7 % (1-10) Eosinophils % (Manual) 10 % (0-3) H Basophils % (Manual) 0 % (0-2) Band Neutrophils 0 % (0-8) Platelet Estimate Adequate Platelet Morphology Normal Hypochromasia 1+ Sodium Level 143 MMOL/L (136-145) Potassium Level 3.9 MMOL/L (3.5-5.1) Chloride Level 112 MMOL/L (98-107) H Carbon Dioxide Level 20 MMOL/L (21-32) L Anion Gap 11 mmol/L (5-15) Blood Urea Nitrogen 47 mg/dL (7-18) H Creatinine 3.4 MG/DL (0.55-1.30) H Estimat Glomerular Filtration Rate 13.4 mL/min (>60) Glucose Level 84 MG/DL (74-106) Calcium Level 8.3 MG/DL (8.5-10.1) L Phosphorus Level 4.1 MG/DL (2.5-4.9) Magnesium Level 1.9 MG/DL (1.8-2.4) Total Bilirubin 0.1 MG/DL (0.2-1.0) L Aspartate Amino Transf (AST/SGOT) 11 U/L (15-37) L Alanine Aminotransferase (ALT/SGPT) 15 U/L (12-78) Alkaline Phosphatase 67 U/L (46-116) Total Protein 6.2 G/DL (6.4-8.2) L Albumin 2.2 G/DL (3.4-5.0) L Globulin 4.0 g/dL Albumin/Globulin Ratio 0.6 (1.0-2.7) L Amylase Level 98 U/L (25-115) Lipase 254 U/L (73-393) Plan Problems: (1) Leukocytosis Assessment & Plan: wbc 11k on admission resolved uti likely on abx wounds clean dry not infected (2) Decubitus skin ulcer Assessment & Plan: Pt presented on admission with non-blanching erythema with shearing cleft, R and L buttocks. Non-blanching erythema R and L heels. Non-Blanching erythema noted to Sacrum. Partial thickness pressure injury lumbar spine resolving . Base of wound is moist and viable. No erythema or evidence of further skin breakdown periwound. Non-Blanching erythema without fluctuance R heel. L heel is boggy with Non-Blanching erythema. Pt can be resistive to care and repositioning despite continuous education by staff of risks vs benefits to compliance and avoiding further Skin breakdown. Tx.Plan: Apply Moisture Barrier Paste to Sacrum. Cover with Optifoam drsg. Change every 3 days and prn. Apply Moisture Barrier Paste to to perineum and bilat ischial tuberosities with each incontinence care. Apply Cavilon Skin Barrier to both heels.Cover each heels with Optifoam drsg. Change every 7 days and prn. Reposition at least every 2hours or as tolerated. Off-load heels with pillow. (3) Elevated lipase Assessment & Plan: patient presented on admission with lip >1100. since admission resolved no further work up at this time monitor clinically Nonvisualized gallbladder, despite visualization on recent CT scan. Negative for dilated bile ducts Nodular liver surface, likely cirrhotic. Masslike area in the anterior left lobe, probably just a prominent lobulation given findings on recent CT scan. Empty bladder with a Escobar catheter Saraavnan Lara Sep 27, 2019 21:03
--- NOTE | 2019-09-27 22:11 | General Progress Note ---
Assessment/Plan Status: stable Assessment/Plan: 68 y/o F w/PMH hyperthyroidism, multiple sclerosis, HTN and COPD who presents from [facility] for cough and abnormal labs. On admission, CXR revealed left lower lobe pleural effusion, Cr 3.2. Patient admitted for further treatment and evaluation, and COVID-19 negative. #Complicated UTI #H/o ESBL UTI -Appreciate ID consult. D/w Dr. 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 D/w Dr. Jaimes -May need urology consult again #Liver cirrhosis (on US) - HCV core ab -> neg - Out pt follow up w/ PCP for GI referral #COPD -not in exacerbation at this time -currently on RA -ctm #Multiple sclerosis -no acute issues #Hyperthyroidism -home med methimazole 10 mg PO q daily #Anxiety -ativan 0.5 mg PO PRN -Psych consulted, recs appreciated Dispo: d/c to [facility] Care DVT PPx: Heparin Time spent on encounter: 38 mins, 20 on counseling, coordination of care w/ Pt, RN, infectious disease nephro and consultants named above. Time of note doesn't reflect time of encounter Subjective Date patient seen: Sep 27, 2019 Allergies: Coded Allergies: CODEINE (Verified Allergy, Unknown, 08/24/19) NEUROMUSCULAR BLOCKERS, STEROIDAL (Verified Allergy, Unknown, 08/24/19) Uncoded Allergies: ANABOLIC STEROIDS (Allergy, Unknown, 08/24/19) STEROIDS (Allergy, Unknown, 08/24/19) Subjective AVSS Mild dec in Hb 9.6 -> 9.2 -> 8.8, no e/o bleed Cr improved to 3.6 -> 3.4 In good spirits Tolerating abx possible DC next 24-48 hrs Objective Last 24 Hour Vital Signs Date Time Temp Pulse Resp B/P (MAP) Pulse Ox O2 Delivery O2 Flow Rate FiO2 09/27/19 21:05 145/77 6/3/20 20:00 98.3 76 19 145/77 (99) 97 09/27/19 16:00 98.0 72 17 122/86 (98) 97 09/27/19 14:21 125/81 09/27/19 12:00 98.6 70 18 125/81 (96) 97 09/27/19 09:00 Room Air 09/27/19 08:00 97.7 76 18 136/71 (92) 98 09/27/19 05:55 127/77 09/27/19 04:00 97.3 76 18 127/77 (94) 98 09/26/19 22:41 Room Air Intake and Output 09/26/19 09/27/19 19:00 07:00 Intake Total 780 ml 650 ml Output Total 500 ml 950 ml Balance 280 ml -300 ml Intake Oral 480 ml IV Total 300 ml 400 ml Other 250 ml Output Urine Total 500 ml 950 ml Laboratory Tests 09/27/19 07:00: White Blood Count 4.9, Red Blood Count 3.17L, Hemoglobin 8.8L, Hematocrit 26.0L , Mean Corpuscular Volume 82, Mean Corpuscular Hemoglobin 27.7, Mean Corpuscular Hemoglobin Concent 33.8, Red Cell Distribution Width 11.8, Platelet Count 221, Mean Platelet Volume 5.1L, Neutrophils (%) (Auto) , Lymphocytes (%) ( Auto) , Monocytes (%) (Auto) , Eosinophils (%) (Auto) , Basophils (%) (Auto) , Differential Total Cells Counted 100, Neutrophils % (Manual) 48, Lymphocytes % ( Manual) 35, Monocytes % (Manual) 7, Eosinophils % (Manual) 10H, Basophils % ( Manual) 0, Band Neutrophils 0, Platelet Estimate Adequate, Platelet Morphology Normal, Hypochromasia 1+, Sodium Level 143, Potassium Level 3.9, Chloride Level 112H, Carbon Dioxide Level 20L, Anion Gap 11, Blood Urea Nitrogen 47H, Creatinine 3.4H, Estimat Glomerular Filtration Rate 13.4, Glucose Level 84, Calcium Level 8.3L, Phosphorus Level 4.1, Magnesium Level 1.9, Total Bilirubin 0.1L, Aspartate Amino Transf (AST/SGOT) 11L, Alanine Aminotransferase (ALT/SGPT ) 15, Alkaline Phosphatase 67, Total Protein 6.2L, Albumin 2.2L, Globulin 4.0, Albumin/Globulin Ratio 0.6L, Amylase Level 98, Lipase 254 Height (Feet): 5 Height (Inches): 6.00 Weight (Pounds): 149 Objective General: WDWN emale in NAD, A&O x 4 HEENT: Normocephalic cephalic atraumatic, pupils equal round reactive to light and accommodation, nares patent and no symmetrical, no tonsillar exudates, mucous membranes moist CV: Regular rate regular rhythm, no murmurs, rubs, or gallops Pulm: Lungs clear to auscultation bilaterally. No wheezes, rhonchi, or rales GI: Soft, nontender, nondistended, bowel sounds present : Torres in place draining MILKY yellow urine. Neuro: CN 2-12 intact bilaterally, no focal signs. Ext: No lower extremity edema bilaterally Skin: no rashes lesions or ulcers Msk: Joints symmetrical in upper extremity and lower extremity bilaterally, no joint swelling. Lymph: No lymphadenopathy in upper extremity and lower extremity Simone Quintana MD Sep 27, 2019 22:11
--- NOTE | 2019-09-27 23:31 | Neurology Progress Note ---
Interim History Interim History ROS Limited/Unobtainable: Yes Interim History kidney failure improving Objective Physical Exam Last Vital Signs Date Time Temp Pulse Resp B/P (MAP) Pulse Ox O2 Delivery O2 Flow Rate FiO2 09/27/19 21:05 145/77 09/27/19 21:00 Room Air 09/27/19 20:00 98.3 76 19 97 Laboratory Tests Test 09/27/19 07:00 White Blood Count 4.9 K/UL (4.8-10.8) Red Blood Count 3.17 M/UL (4.20-5.40) L Hemoglobin 8.8 G/DL (12.0-16.0) L Hematocrit 26.0 % (37.0-47.0) L Mean Corpuscular Volume 82 FL (80-99) Mean Corpuscular Hemoglobin 27.7 PG (27.0-31.0) Mean Corpuscular Hemoglobin Concent 33.8 G/DL (32.0-36.0) Red Cell Distribution Width 11.8 % (11.6-14.8) Platelet Count 221 K/UL (150-450) Mean Platelet Volume 5.1 FL (6.5-10.1) L Neutrophils (%) (Auto) % (45.0-75.0) Lymphocytes (%) (Auto) % (20.0-45.0) Monocytes (%) (Auto) % (1.0-10.0) Eosinophils (%) (Auto) % (0.0-3.0) Basophils (%) (Auto) % (0.0-2.0) Differential Total Cells Counted 100 Neutrophils % (Manual) 48 % (45-75) Lymphocytes % (Manual) 35 % (20-45) Monocytes % (Manual) 7 % (1-10) Eosinophils % (Manual) 10 % (0-3) H Basophils % (Manual) 0 % (0-2) Band Neutrophils 0 % (0-8) Platelet Estimate Adequate Platelet Morphology Normal Hypochromasia 1+ Sodium Level 143 MMOL/L (136-145) Potassium Level 3.9 MMOL/L (3.5-5.1) Chloride Level 112 MMOL/L (98-107) H Carbon Dioxide Level 20 MMOL/L (21-32) L Anion Gap 11 mmol/L (5-15) Blood Urea Nitrogen 47 mg/dL (7-18) H Creatinine 3.4 MG/DL (0.55-1.30) H Estimat Glomerular Filtration Rate 13.4 mL/min (>60) Glucose Level 84 MG/DL (74-106) Calcium Level 8.3 MG/DL (8.5-10.1) L Phosphorus Level 4.1 MG/DL (2.5-4.9) Magnesium Level 1.9 MG/DL (1.8-2.4) Total Bilirubin 0.1 MG/DL (0.2-1.0) L Aspartate Amino Transf (AST/SGOT) 11 U/L (15-37) L Alanine Aminotransferase (ALT/SGPT) 15 U/L (12-78) Alkaline Phosphatase 67 U/L (46-116) Total Protein 6.2 G/DL (6.4-8.2) L Albumin 2.2 G/DL (3.4-5.0) L Globulin 4.0 g/dL Albumin/Globulin Ratio 0.6 (1.0-2.7) L Amylase Level 98 U/L (25-115) Lipase 254 U/L (73-393) Head: normocophalic Neck: no rigidity EENT: benign Neurologic Exam Mental Status: awake, alert Objective Quadriparetic, worse in LEs 3/5, unable to walk Impression/Recommendations Problems: (1) Renal failure (2) Acute renal failure (3) Anemia (4) Leukocytosis (5) UTI (urinary tract infection) (6) Elevated lipase (7) Hyperthyroidism (8) COPD (chronic obstructive pulmonary disease) (9) Multiple sclerosis Status: stable Diagnostic Impression Secondary progressive MS - refuses any kind of meds PT OT atb er primary Aron Chris MD Sep 27, 2019 23:31
[2019-09-28] VITALS (7 sets, daily range): BP systolic 135–163; BP diastolic 67–80
[2019-09-28] MEDS: Heparin 5000 units/ml inj SUBQ SCH ×2 (05:57→14:00)
[2019-09-28] MEDS: HydrALAZINE 10mg Tab ORAL SCH ×3 (05:57→21:18)
[2019-09-28 06:31] LABS: BASOPHILS % (AUTO) 1.3 % (0.0-2.0); EOSINOPHILS % (AUTO) 6.1 % (0.0-3.0); HEMATOCRIT 24.6 % (37.0-47.0); HEMOGLOBIN 8.4 G/DL (12.0-16.0); LYMPHOCYTES % (AUTO) 34.8 % (20.0-45.0); MEAN CORPUSCULAR VOLUME 82 FL (80-99); MONOCYTES % (AUTO) 8.7 % (1.0-10.0); NEUTROPHILS % (AUTO) 49.2 % (45.0-75.0); PLATELET COUNT 214 K/UL (150-450); RED BLOOD COUNT 2.99 M/UL (4.20-5.40); WHITE BLOOD COUNT 5.1 K/UL (4.8-10.8)
[2019-09-28 06:51] LABS: ALANINE AMINOTRANSFERASE 12 U/L (12-78); ALBUMIN 2.2 G/DL (3.4-5.0); ALBUMIN/GLOBULIN RATIO 0.5 (1.0-2.7); ALKALINE PHOSPHATASE 65 U/L (46-116); ANION GAP 13 mmol/L (5-15); ASPARTATE AMINO TRANSFERASE 13 U/L (15-37); BILIRUBIN,TOTAL 0.2 MG/DL (0.2-1.0); BLOOD UREA NITROGEN 44 mg/dL (7-18); CALCIUM 8.3 MG/DL (8.5-10.1); CARBON DIOXIDE 19 MMOL/L (21-32); CHLORIDE 111 MMOL/L (98-107); CREATININE 2.9 MG/DL (0.55-1.30); POTASSIUM 3.7 MMOL/L (3.5-5.1); SODIUM 143 MMOL/L (136-145)
[2019-09-28] MEDS: methIMAzole 10mg tab ORAL SCH (08:31)
--- NOTE | 2019-09-28 09:40 | Pulmonology Progress Note ---
Subjective ROS Limited/Unobtainable: Yes Interval Events: None new Constitutional: Reports: fatigue; Denies: fever HEENT: Repors: no symptoms Respiratory: Reports: no symptoms Gastrointestinal/Abdominal: Denies: nausea, vomiting, diarrhea Genitourinary: Reports: no symptoms Psychiatric: Denies: depression Skin: Denies: rash Musculoskeletal: Denies: pain Allergies: Coded Allergies: CODEINE (Verified Allergy, Unknown, 08/24/19) NEUROMUSCULAR BLOCKERS, STEROIDAL (Verified Allergy, Unknown, 08/24/19) Uncoded Allergies: ANABOLIC STEROIDS (Allergy, Unknown, 08/24/19) STEROIDS (Allergy, Unknown, 08/24/19) Objective Last 24 Hour Vital Signs Date Time Temp Pulse Resp B/P (MAP) Pulse Ox O2 Delivery O2 Flow Rate FiO2 09/28/19 08:00 97.3 70 18 146/75 (98) 98 09/28/19 05:57 150/72 09/28/19 04:00 97.8 71 19 142/67 (92) 98 09/28/19 00:00 98.0 81 19 138/74 (95) 96 09/27/19 21:05 145/77 09/27/19 21:00 Room Air 09/27/19 20:00 98.3 76 19 145/77 (99) 97 09/27/19 16:00 98.0 72 17 122/86 (98) 97 09/27/19 14:21 125/81 09/27/19 12:00 98.6 70 18 125/81 (96) 97 Intake and Output 09/27/19 09/28/19 18:59 06:59 Intake Total 2400 ml 900 ml Output Total 1000 ml 1000 ml Balance 1400 ml -100 ml Intake Oral 1800 ml 500 ml IV Total 600 ml 400 ml Output Urine Total 1000 ml 1000 ml # Bowel Movements 1 General Appearance: no acute distress HEENT: normocephalic Respiratory: chest wall non-tender, lungs clear Cardiovascular: normal peripheral pulses Laboratory Tests 09/28/19 05:50: White Blood Count 5.1, Red Blood Count 2.99L, Hemoglobin 8.4L, Hematocrit 24.6L , Mean Corpuscular Volume 82, Mean Corpuscular Hemoglobin 28.1, Mean Corpuscular Hemoglobin Concent 34.2, Red Cell Distribution Width 12.0, Platelet Count 214, Mean Platelet Volume 5.1L, Neutrophils (%) (Auto) 49.2, Lymphocytes ( %) (Auto) 34.8, Monocytes (%) (Auto) 8.7, Eosinophils (%) (Auto) 6.1H, Basophils (%) (Auto) 1.3, Sodium Level 143, Potassium Level 3.7, Chloride Level 111H, Carbon Dioxide Level 19L, Anion Gap 13, Blood Urea Nitrogen 44H, Creatinine 2.9H, Estimat Glomerular Filtration Rate 16.1, Glucose Level 86, Calcium Level 8.3L, Phosphorus Level 4.0, Magnesium Level 1.8, Total Bilirubin 0.2, Aspartate Amino Transf (AST/SGOT) 13L, Alanine Aminotransferase (ALT/SGPT) 12, Alkaline Phosphatase 65, Total Protein 6.3L, Albumin 2.2L, Globulin 4.1, Albumin/Globulin Ratio 0.5L Current Medications Medications (Trade) Dose Ordered Sig/Gurpreet Route PRN Reason Start Time Stop Time Status Last Admin Dose Admin Acetaminophen (Tylenol) 650 mg Q6H PRN ORAL mild pain 09/24/19 03:30 10/24/19 03:29 Ceftriaxone Sodium 1 gm/ Dextrose 50 ml @ 100 mls/hr Q24H IVPB 09/26/19 14:00 10/03/19 13:59 09/27/19 14:21 Ferrous Sulfate (Feosol) 325 mg DAILY ORAL 09/24/19 09:00 12/23/19 08:59 09/28/19 08:31 Folic Acid (Folate) 1 mg DAILY ORAL 09/24/19 09:00 10/24/19 08:59 09/28/19 08:31 Heparin Sodium (Porcine) (Heparin 5000 units/ml) 5,000 units EVERY 8 HOURS SUBQ 09/24/19 06:00 11/08/19 05:59 09/26/19 21:21 Hydralazine HCl (Apresoline) 10 mg EVERY 8 HOURS ORAL 09/24/19 06:00 12/23/19 05:59 09/28/19 05:57 Methimazole (Tapazole) 10 mg DAILY ORAL 09/24/19 09:00 10/24/19 08:59 09/28/19 08:31 Quetiapine Fumarate (SEROqueL) 25 mg QHS ORAL 09/24/19 21:00 11/08/19 20:59 09/27/19 21:05 Sodium Chloride 1,000 ml @ 50 mls/hr Q20H IV 09/24/19 04:00 10/24/19 03:59 09/28/19 08:31 Assessment/Plan Assessment/Plan IMPRESSION: 1. UTI, complicated UTI. 2. Hyperthyroidism. 3. Multiple sclerosis. 4. Hypertension. 5. COPD. DISCUSSION: Currently the patient's respiratory status is stable. She is saturating well on room air. I will continue to follow, add breathing treatments as needed. Kp Ch Omar Syed MD Sep 28, 2019 09:39
--- NOTE | 2019-09-28 09:49 | General Progress Note ---
Assessment/Plan Problem List: (1) Acute renal failure ICD Codes: N17.9 - Acute kidney failure, unspecified SNOMED: 98098501 (2) Anemia ICD Codes: D64.9 - Anemia, unspecified SNOMED: 076832959 (3) Elevated lipase ICD Codes: R74.8 - Abnormal levels of other serum enzymes SNOMED: 521837287 (4) COPD (chronic obstructive pulmonary disease) ICD Codes: J44.9 - Chronic obstructive pulmonary disease, unspecified SNOMED: 14540369 (5) Multiple sclerosis ICD Codes: G35 - Multiple sclerosis SNOMED: 43429842 (6) Hyperthyroidism ICD Codes: E05.90 - Thyrotoxicosis, unspecified without thyrotoxic crisis or storm SNOMED: 73594543 Status: stable Assessment/Plan: lipase back to normal no abd pain neg stool ob improving renal function refuses EGD and colonoscopy will fu Subjective ROS Limited/Unobtainable: Yes Allergies: Coded Allergies: CODEINE (Verified Allergy, Unknown, 08/24/19) NEUROMUSCULAR BLOCKERS, STEROIDAL (Verified Allergy, Unknown, 08/24/19) Uncoded Allergies: ANABOLIC STEROIDS (Allergy, Unknown, 08/24/19) STEROIDS (Allergy, Unknown, 08/24/19) Objective Last 24 Hour Vital Signs Date Time Temp Pulse Resp B/P (MAP) Pulse Ox O2 Delivery O2 Flow Rate FiO2 09/28/19 08:00 97.3 70 18 146/75 (98) 98 09/28/19 05:57 150/72 09/28/19 04:00 97.8 71 19 142/67 (92) 98 09/28/19 00:00 98.0 81 19 138/74 (95) 96 09/27/19 21:05 145/77 09/27/19 21:00 Room Air 09/27/19 20:00 98.3 76 19 145/77 (99) 97 09/27/19 16:00 98.0 72 17 122/86 (98) 97 09/27/19 14:21 125/81 09/27/19 12:00 98.6 70 18 125/81 (96) 97 Intake and Output 09/27/19 09/28/19 19:00 07:00 Intake Total 2350 ml 900 ml Output Total 1000 ml 1000 ml Balance 1350 ml -100 ml Intake Oral 1800 ml 500 ml IV Total 550 ml 400 ml Output Urine Total 1000 ml 1000 ml # Bowel Movements 1 Laboratory Tests 09/28/19 05:50: White Blood Count 5.1, Red Blood Count 2.99L, Hemoglobin 8.4L, Hematocrit 24.6L , Mean Corpuscular Volume 82, Mean Corpuscular Hemoglobin 28.1, Mean Corpuscular Hemoglobin Concent 34.2, Red Cell Distribution Width 12.0, Platelet Count 214, Mean Platelet Volume 5.1L, Neutrophils (%) (Auto) 49.2, Lymphocytes ( %) (Auto) 34.8, Monocytes (%) (Auto) 8.7, Eosinophils (%) (Auto) 6.1H, Basophils (%) (Auto) 1.3, Sodium Level 143, Potassium Level 3.7, Chloride Level 111H, Carbon Dioxide Level 19L, Anion Gap 13, Blood Urea Nitrogen 44H, Creatinine 2.9H, Estimat Glomerular Filtration Rate 16.1, Glucose Level 86, Calcium Level 8.3L, Phosphorus Level 4.0, Magnesium Level 1.8, Total Bilirubin 0.2, Aspartate Amino Transf (AST/SGOT) 13L, Alanine Aminotransferase (ALT/SGPT) 12, Alkaline Phosphatase 65, Total Protein 6.3L, Albumin 2.2L, Globulin 4.1, Albumin/Globulin Ratio 0.5L Height (Feet): 5 Height (Inches): 6.00 Weight (Pounds): 149 General Appearance: no apparent distress EENT: PERRL/EOMI Neck: normal alignment Cardiovascular: normal peripheral pulses Respiratory/Chest: lungs clear Abdomen: normal bowel sounds, non tender, soft Extremities: non-tender Farooq Adams MD Sep 28, 2019 09:49
--- NOTE | 2019-09-28 11:20 | Nephrology Progress Note ---
Assessment/Plan Plan #SAJAN on chronic kidney disease stage 4 due to bilateral hydronephrosis likely due to neurogenic bladder #UTI #Elevated lipase r/o pancreatitis #h/o MS #hyperthyroidism #HTN #COPD - Torres placed- please continue torres at the SNF - DC IVF - monitor lab - antibiotics per ID- meropenem - torres urine culture - GI eval for pancreatitis - on methimazole - monitor mag, phos and BMP daily Time spent 40 minutes, greater than 50% on care coordination and counseling Subjective ROS Limited/Unobtainable: No Constitutional: Denies: no symptoms, chills, diaphoresis, fever, malaise, weakness, other HEENT: Denies: no symptoms, eye pain, blurred vision, tearing, double vision, ear pain, ear discharge, nose pain, nose congestion, throat pain, throat swelling, mouth pain, mouth swelling, other Genitourinary: Denies: no symptoms, burning, discharge, frequency, flank pain, hematuria, incontinence, pain, urgency, other 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: Denies: no symptoms, anxiety, depressed, emotional problems, headache, numbness, paresthesia, pre-existing deficit, seizure, tingling, tremors, weakness, other Subjective Cr downtrending no nausea or emesis lipase normalized good UOP Objective Objective Last 24 Hour Vital Signs Date Time Temp Pulse Resp B/P (MAP) Pulse Ox O2 Delivery O2 Flow Rate FiO2 09/28/19 09:00 Room Air 09/28/19 08:00 97.3 70 18 146/75 (98) 98 09/28/19 05:57 150/72 09/28/19 04:00 97.8 71 19 142/67 (92) 98 09/28/19 00:00 98.0 81 19 138/74 (95) 96 09/27/19 21:05 145/77 09/27/19 21:00 Room Air 09/27/19 20:00 98.3 76 19 145/77 (99) 97 09/27/19 16:00 98.0 72 17 122/86 (98) 97 09/27/19 14:21 125/81 09/27/19 12:00 98.6 70 18 125/81 (96) 97 Intake and Output 09/27/19 09/28/19 19:00 07:00 Intake Total 2350 ml 900 ml Output Total 1000 ml 1000 ml Balance 1350 ml -100 ml Intake Oral 1800 ml 500 ml IV Total 550 ml 400 ml Output Urine Total 1000 ml 1000 ml # Bowel Movements 1 Laboratory Tests 09/28/19 05:50: White Blood Count 5.1, Red Blood Count 2.99L, Hemoglobin 8.4L, Hematocrit 24.6L , Mean Corpuscular Volume 82, Mean Corpuscular Hemoglobin 28.1, Mean Corpuscular Hemoglobin Concent 34.2, Red Cell Distribution Width 12.0, Platelet Count 214, Mean Platelet Volume 5.1L, Neutrophils (%) (Auto) 49.2, Lymphocytes ( %) (Auto) 34.8, Monocytes (%) (Auto) 8.7, Eosinophils (%) (Auto) 6.1H, Basophils (%) (Auto) 1.3, Sodium Level 143, Potassium Level 3.7, Chloride Level 111H, Carbon Dioxide Level 19L, Anion Gap 13, Blood Urea Nitrogen 44H, Creatinine 2.9H, Estimat Glomerular Filtration Rate 16.1, Glucose Level 86, Calcium Level 8.3L, Phosphorus Level 4.0, Magnesium Level 1.8, Total Bilirubin 0.2, Aspartate Amino Transf (AST/SGOT) 13L, Alanine Aminotransferase (ALT/SGPT) 12, Alkaline Phosphatase 65, Total Protein 6.3L, Albumin 2.2L, Globulin 4.1, Albumin/Globulin Ratio 0.5L Height (Feet): 5 Height (Inches): 6.00 Weight (Pounds): 149 Vicente Jaimes M.D. Sep 28, 2019 11:20
[2019-09-28] MEDS ORDERED: NITROFURANTOIN100 M2 ORAL (14:00)
[2019-09-28] MEDS ORDERED: CULTURELLE1 EAC1 PO (14:00)
[2019-09-28] MEDS ORDERED: CEFTRIAXONE1 G2 IV (14:10)
--- NOTE | 2019-09-28 14:11 | Discharge Summary ---
Discharge Summary Hospital Course Date of Admission September 23, 2019 at 23:27 Date of Discharge today Admitting Diagnosis RENAL FAILURE HPI 68 y/o F w/PMH hyperthyroidism, multiple sclerosis, HTN and COPD who presents from [facility] for abnormal labs. She was found to have a Cr above 4 and transferred to [facility]. She has had good UOP. Torres draining well. Also found to have UTI. Denies any suprapubic discomfort or abdominal pain. no fever or chills. Recenlty hospitalized for COVID r/o and discharged 2 weeks ago. She was treated for HCAP and ESBL with symptom improvement. Torres placed with outpatient cystoscopy with another urologist. It appears patient never followed up as an outpatient. In the ER the patients vitals were stable. Her Cr was 4.7, BUn 75. CO2 17, sodium 135. Lipase found to be 1376 although patient did not c/o any pain. LFTs WNL. UA positive. Urine culture pending. CXR showed similar retrocardiac atelectasis vs. consolidation. Patient given meropenem and admitted. Consultations Nephrology Neurology Pulmonary General surgery ID GI Hospital Course 68 y/o F w/PMH hyperthyroidism, multiple sclerosis, HTN and COPD who presents from [facility] for cough and abnormal labs. On admission, CXR revealed left lower lobe pleural effusion, Cr 3.2. Patient admitted for further treatment and evaluation, and COVID-19 negative. Flley catheter placed due to neurogenic bladder w/ obstruction. Started on broad spectrum abx w/ meropenem narrowed to ceftriaxone and will dc on macrobid po to finish course at [facility]. SAJAN improved w/ IVF, 2.9 on DC. Will hold off on restarting home lasix/ kcl. Nephrology will follow at [facility] w/ repeat chem on wednesday. see below for further mgt details and dc dx's #Complicated UTI (E coli) #H/o ESBL UTI -Appreciate ID consult. D/w Dr. Prieto -Continue meropenem -> Ceftriaxone finish at [facility] x 5 days (avoid bactrim & macrobid in this pt w/ chf and renal impairment) -keep torres in place at [facility] #BL Hydronephrosis w/ Acute Renal Failure; suspect Neurogenic Bladder--> nuclear scan w/o obvious site of obstruction, CT A/P w/ severe BL hydro #SAJAN on CKD III-IV -> improving -suspect neurogenic bladder, pt may need chronic torres but pt refusing at this time -cont to monitor PVR, straight cath PRN -Appreciate nephrology consult. D/w Dr. Jaimes -urology consult as out pt -SEND CHEM ON MON AT [facility] #Liver cirrhosis (on US) - HCV core ab -> neg - Out pt follow up w/ PCP for GI referral #COPD -not in exacerbation at this time -currently on RA -ctm #Multiple sclerosis -no acute issues #Hyperthyroidism -home med methimazole 10 mg PO q daily #Anxiety -ativan 0.5 mg PO PRN -Psych consulted, recs appreciated Dispo: d/c to [facility] Time spent on encounter: 38 mins, 20 on counseling, coordination of care w/ Pt, RN, infectious disease nephro and consultants named above. Time of note doesn't reflect time of encounter Discharge Medications New Medications: Ceftriaxone Sodium (Ceftriaxone) 1 Gm Vial.port 1 GM IV DAILY for 5 Days, VIAL Lactobacillus Rhamnosus Gg (Culturelle) 1 Each Cap.sprink 1 EACH PO BID for 30 Days, CAP Continued Medications: Acetaminophen* (Acetaminophen 325MG Tablet*) 325 Mg Tablet 650 MG ORAL Q4H PRN for fever, TAB (This prescription has been renewed) Acetaminophen* (Acetaminophen 325MG Tablet*) 325 Mg Tablet 650 MG ORAL Q6H PRN for mild pain, TAB (This prescription has been renewed) Bisacodyl (Laxative Suppository) 10 Mg Supp.rect 10 MG RC DAILY for constipation, SUPP (This prescription has been renewed) Ca Cmb 1/Vit D3/B-6/Fa/B12/Av (Vitamin D3-Aloe 1,000 Unit Tab) 1 Each Tablet 1 EACH PO DAILY for supplement, TAB (This prescription has been renewed) Docusate Sodium* (Docusate Sodium*) 100 Mg Capsule 100 MG ORAL DAILY for diarrhea, CAP (This prescription has been renewed) Ferrous Sulfate* (Ferrous Sulfate*) 325 Mg Tablet 325 MG ORAL DAILY for supplement, #30 TAB 0 Refills (This prescription has been renewed) Folic Acid* (Folic Acid*) 1 Mg Tablet 1 MG ORAL DAILY for supplement, TAB (This prescription has been renewed) Guaifenesin (Mucinex) 600 Mg Tab.er.12h 200 MG PO Q4HR for cough, TAB (This prescription has been renewed) Hydralazine Hcl* (Hydralazine Hcl*) 10 Mg Tablet 10 MG ORAL EVERY 8 HOURS for HTN, TAB (This prescription has been renewed) Ipratropium/Albuterol Sulfate (DuoNeb 0.5-3(2.5)mg/3ml) 3 Ml Ampul.neb 3 ML HHN Q6HR for SOB/wheezing, EA (This prescription has been renewed) Magnesium Hydroxide* (Milk Of Magnesia*) 400 Mg/5 Ml Oral.susp 30 ML ORAL BID for constipation, ML (This prescription has been renewed) Methimazole (Methimazole) 10 Mg Tablet 10 MG PO DAILY for hyperthyroidism, TAB (This prescription has been renewed) Na Phos,M-B/Na Phos,Di-Ba* (Fleet Enema*) 133 Ml Enema 133 ML RECTAL DAILY for constipation, ML 0 Refills (This prescription has been renewed) Polyethylene Glycol 3350* (Polyethylene Glycol 3350*) 17 Gm Powd.pack 17 GM ORAL DAILY for constipation, PACKET (This prescription has been renewed) Quetiapine Fumarate* (Seroquel*) 25 Mg Tablet 25 MG ORAL QHS for psychosis, TAB (This prescription has been renewed) Vitamin B Cmplx/Vit C/Folic AC (Nephro-Jerry Tablet) 0.8 Mg Tablet 1 TAB ORAL DAILY for supplement, #30 TAB 0 Refills (This prescription has been renewed) Discontinued Medications: Furosemide* (Lasix*) 20 Mg Tablet 20 MG ORAL DAILY for pleural effusion, #5 TAB Potassium Chloride (Klor-Con M20) 20 Meq Tab.er.prt 20 MEQ ORAL DAILY for supplement for 5 Days, #5 TAB 0 Refills Discharge Discharge Vital Signs Last Vital Signs Date Time Temp Pulse Resp B/P (MAP) Pulse Ox O2 Delivery O2 Flow Rate FiO2 09/28/19 12:00 98.0 67 18 152/77 (102) 97 09/28/19 09:00 Room Air Discharge Disposition Patient was discharged to Discharge Instructions Discharge Instructions Follow up with: pcp and snf, nephro at [facility], urology at [facility] Simone Quintana MD Sep 28, 2019 14:11
[2019-09-28] MEDS: cefTRIAXone 1 GM in D5W 50 ML IVPB SCH (15:08)
--- NOTE | 2019-09-28 16:40 | Surgery Progress Note ---
Surgery Progress Note Subjective Symptoms: improved, tolerating diet, passing flatus Objective Last 24 Hour Vital Signs Date Time Temp Pulse Resp B/P (MAP) Pulse Ox O2 Delivery O2 Flow Rate FiO2 09/28/19 16:00 98.3 69 18 139/80 (99) 96 09/28/19 15:08 152/77 09/28/19 12:00 98.0 67 18 152/77 (102) 97 09/28/19 09:00 Room Air 09/28/19 08:00 97.3 70 18 146/75 (98) 98 09/28/19 05:57 150/72 09/28/19 04:00 97.8 71 19 142/67 (92) 98 09/28/19 00:00 98.0 81 19 138/74 (95) 96 09/27/19 21:05 145/77 09/27/19 21:00 Room Air 09/27/19 20:00 98.3 76 19 145/77 (99) 97 I&O Intake and Output 09/27/19 09/28/19 19:00 07:00 Intake Total 2350 ml 900 ml Output Total 1000 ml 1000 ml Balance 1350 ml -100 ml Intake Oral 1800 ml 500 ml IV Total 550 ml 400 ml Output Urine Total 1000 ml 1000 ml # Bowel Movements 1 Dressing: dry Wound: clean Cardiovascular: RSR Respiratory: clear Abdomen: soft, non-tender, present bowel sounds Extremities: no cyanosis Laboratory Tests Test 09/28/19 05:50 White Blood Count 5.1 K/UL (4.8-10.8) Red Blood Count 2.99 M/UL (4.20-5.40) L Hemoglobin 8.4 G/DL (12.0-16.0) L Hematocrit 24.6 % (37.0-47.0) L Mean Corpuscular Volume 82 FL (80-99) Mean Corpuscular Hemoglobin 28.1 PG (27.0-31.0) Mean Corpuscular Hemoglobin Concent 34.2 G/DL (32.0-36.0) Red Cell Distribution Width 12.0 % (11.6-14.8) Platelet Count 214 K/UL (150-450) Mean Platelet Volume 5.1 FL (6.5-10.1) L Neutrophils (%) (Auto) 49.2 % (45.0-75.0) Lymphocytes (%) (Auto) 34.8 % (20.0-45.0) Monocytes (%) (Auto) 8.7 % (1.0-10.0) Eosinophils (%) (Auto) 6.1 % (0.0-3.0) H Basophils (%) (Auto) 1.3 % (0.0-2.0) Sodium Level 143 MMOL/L (136-145) Potassium Level 3.7 MMOL/L (3.5-5.1) Chloride Level 111 MMOL/L (98-107) H Carbon Dioxide Level 19 MMOL/L (21-32) L Anion Gap 13 mmol/L (5-15) Blood Urea Nitrogen 44 mg/dL (7-18) H Creatinine 2.9 MG/DL (0.55-1.30) H Estimat Glomerular Filtration Rate 16.1 mL/min (>60) Glucose Level 86 MG/DL (74-106) Calcium Level 8.3 MG/DL (8.5-10.1) L Phosphorus Level 4.0 MG/DL (2.5-4.9) Magnesium Level 1.8 MG/DL (1.8-2.4) Total Bilirubin 0.2 MG/DL (0.2-1.0) Aspartate Amino Transf (AST/SGOT) 13 U/L (15-37) L Alanine Aminotransferase (ALT/SGPT) 12 U/L (12-78) Alkaline Phosphatase 65 U/L (46-116) Total Protein 6.3 G/DL (6.4-8.2) L Albumin 2.2 G/DL (3.4-5.0) L Globulin 4.1 g/dL Albumin/Globulin Ratio 0.5 (1.0-2.7) L Plan Problems: (1) Leukocytosis Assessment & Plan: wbc 11k on admission resolved uti likely on abx wounds clean dry not infected (2) Decubitus skin ulcer Assessment & Plan: Pt presented on admission with non-blanching erythema with shearing cleft, R and L buttocks. Non-blanching erythema R and L heels. Non-Blanching erythema noted to Sacrum. Partial thickness pressure injury lumbar spine resolving . Base of wound is moist and viable. No erythema or evidence of further skin breakdown periwound. Non-Blanching erythema without fluctuance R heel. L heel is boggy with Non-Blanching erythema. Pt can be resistive to care and repositioning despite continuous education by staff of risks vs benefits to compliance and avoiding further Skin breakdown. Tx.Plan: Apply Moisture Barrier Paste to Sacrum. Cover with Optifoam drsg. Change every 3 days and prn. Apply Moisture Barrier Paste to to perineum and bilat ischial tuberosities with each incontinence care. Apply Cavilon Skin Barrier to both heels.Cover each heels with Optifoam drsg. Change every 7 days and prn. Reposition at least every 2hours or as tolerated. Off-load heels with pillow. (3) Elevated lipase Assessment & Plan: patient presented on admission with lip >1100. since admission resolved no further work up at this time monitor clinically Nonvisualized gallbladder, despite visualization on recent CT scan. Negative for dilated bile ducts Nodular liver surface, likely cirrhotic. Masslike area in the anterior left lobe, probably just a prominent lobulation given findings on recent CT scan. Empty bladder with a Escobar catheter Saravanan Lara Sep 28, 2019 16:40
--- NOTE | 2019-09-28 22:25 | Neurology Progress Note ---
Interim History Interim History ROS Limited/Unobtainable: Yes Interim History improving more alert Objective Physical Exam Last Vital Signs Date Time Temp Pulse Resp B/P (MAP) Pulse Ox O2 Delivery O2 Flow Rate FiO2 09/28/19 21:18 163/71 09/28/19 21:00 Room Air 09/28/19 20:00 98.1 72 18 97 Laboratory Tests Test 09/28/19 05:50 White Blood Count 5.1 K/UL (4.8-10.8) Red Blood Count 2.99 M/UL (4.20-5.40) L Hemoglobin 8.4 G/DL (12.0-16.0) L Hematocrit 24.6 % (37.0-47.0) L Mean Corpuscular Volume 82 FL (80-99) Mean Corpuscular Hemoglobin 28.1 PG (27.0-31.0) Mean Corpuscular Hemoglobin Concent 34.2 G/DL (32.0-36.0) Red Cell Distribution Width 12.0 % (11.6-14.8) Platelet Count 214 K/UL (150-450) Mean Platelet Volume 5.1 FL (6.5-10.1) L Neutrophils (%) (Auto) 49.2 % (45.0-75.0) Lymphocytes (%) (Auto) 34.8 % (20.0-45.0) Monocytes (%) (Auto) 8.7 % (1.0-10.0) Eosinophils (%) (Auto) 6.1 % (0.0-3.0) H Basophils (%) (Auto) 1.3 % (0.0-2.0) Sodium Level 143 MMOL/L (136-145) Potassium Level 3.7 MMOL/L (3.5-5.1) Chloride Level 111 MMOL/L (98-107) H Carbon Dioxide Level 19 MMOL/L (21-32) L Anion Gap 13 mmol/L (5-15) Blood Urea Nitrogen 44 mg/dL (7-18) H Creatinine 2.9 MG/DL (0.55-1.30) H Estimat Glomerular Filtration Rate 16.1 mL/min (>60) Glucose Level 86 MG/DL (74-106) Calcium Level 8.3 MG/DL (8.5-10.1) L Phosphorus Level 4.0 MG/DL (2.5-4.9) Magnesium Level 1.8 MG/DL (1.8-2.4) Total Bilirubin 0.2 MG/DL (0.2-1.0) Aspartate Amino Transf (AST/SGOT) 13 U/L (15-37) L Alanine Aminotransferase (ALT/SGPT) 12 U/L (12-78) Alkaline Phosphatase 65 U/L (46-116) Total Protein 6.3 G/DL (6.4-8.2) L Albumin 2.2 G/DL (3.4-5.0) L Globulin 4.1 g/dL Albumin/Globulin Ratio 0.5 (1.0-2.7) L Head: normocophalic Neck: no rigidity EENT: benign Neurologic Exam Mental Status: awake, alert Objective Quadriparetic, worse in LEs 3/5, unable to walk Impression/Recommendations Problems: (1) Renal failure (2) Acute renal failure (3) Anemia (4) Leukocytosis (5) UTI (urinary tract infection) (6) Elevated lipase (7) Hyperthyroidism (8) COPD (chronic obstructive pulmonary disease) (9) Multiple sclerosis Status: stable Diagnostic Impression Secondary progressive MS - refuses any kind of meds PT OT atb er primary Aron Chris MD Sep 28, 2019 22:25
== END 2019-09-28 22:00 | DRG 683 ==
LOC: EDBD 22:47 → EMR 22:57 → 4E 23:27 → EDBEDREQ 23:40 → 4E 09-24 00:22
DX: N17.9 Acute kidney failure, unspecified (principal); N39.0 Urinary tract infection, site not specified; Z16.12 Extended spectrum beta lactamase (ESBL) resistance; G35 Multiple sclerosis; Z88.8 Allergy status to other drugs, medicaments and biological substances; Z88.6 Allergy status to analgesic agent; N13.30 Unspecified hydronephrosis; N18.4 Chronic kidney disease, stage 4 (severe); J44.9 Chronic obstructive pulmonary disease, unspecified; E05.90 Thyrotoxicosis, unspecified without thyrotoxic crisis or storm; F41.9 Anxiety disorder, unspecified; K74.60 Unspecified cirrhosis of liver; K57.90 Diverticulosis of intestine, part unspecified, without perforation or abscess without bleeding; D64.9 Anemia, unspecified; B96.20 Unspecified Escherichia coli [E. coli] as the cause of diseases classified elsewhere
CPT/HCPCS: 36415; 71045; 76700; 76770; 80048; 80053; 80061; 81003; 82044; 82150; 82270; 82570; 82962; 83690; 83735; 83935; 84100; 84133; 84300; 85007; 85025; 85610; 85730; 86803; 86850; 86900; 86901; 87081; 87086; 87181; 96365; 99285; J7030